=== PATIENT | female | born 1935 | race Caucasian/White ===

== ENCOUNTER 2023-11-26 10:38 | Emergency (ER) | payer MEDICARE, OTHER, SELFPAY ==
[2023-11-26] VITALS (7 sets, daily range): BP systolic 103–128; BP diastolic 49–63
--- NOTE | 2023-11-26 11:10 | ED.GENMED ---
History of Present Illness
General
Chief Complaint: Seizure
Source: records and long-term records
Exam Limitations: altered mental status and dementia
Time Seen by Provider: 11/26/23 10:38
Nursing documentation reviewed up to this point in time: agreed with
Travel History
Have you had any contact with someone who has COVID-19?: Unable to Answer
Do you have any symptoms of coronavirus? Fever > 100 degrees, chills, cough, shortness of breath, sore throat, loss of taste or smell, muscle aches, or headache?: Unable to Answer
History of Present Illness
History of Present Illness:
88-year-old female from local long-term presents with a possible seizure 10-second episode of face fluttering whole body stiffness no history of seizures does have a history of dementia and aspiration apparently has a sacral decubiti
Past History
Past History
ED Past Medical History: GERD, HTN, NIDDM and Psychiatric (dementia)
Social History
Tobacco: Non-smoker
Alcohol: Other
Personal:
Living: long-term
Employment: Retired
Family History
Family History: Other
Review of Systems
Review of Systems
Other source history: transfer record
All Other Systems: Not applicable
Phy Exam
Physical Exam
Physical Exam:
Physical Exam
General: Chronically ill-appearing female
Neck: No jaundice
Heart: Regular
Lungs: Rhonchi
Abdomen: Not tender
Neuro: Minimally responsive
Skin: Fist size decubiti sacral
Psychiatric: Unable to assess
Extremities: no edema.
Course
Orders/Labs/Results
Orders:
Orders
11/26/23 10:54
Electrocardiogram (*1) Stat
Reason for Study: Other
Other Reason for Exam: neuro symptoms
Bedside Glucose- Treatment ONCE
Cardiac Monitoring- Treatment ONCE
EKG- Treatment ONCE
IV Insert/Care/Rem.- Treatment PRN
11/26/23 10:55
CR Chest Portable - 1 View Urgent
Comment:
Reason For Exam: aspiration
Reason Study Needs to be Portable: Patient Unstable
11/26/23 11:13
Complete Blood Count/With Diff Urgent
Comprehensive Metabolic Panel Urgent
Urinalysis Reflex To Culture Urgent
Date Specimen was Collected: 11/26/23
Time Specimen was Collected: 10:59
Urine Microscopic Reflex Cult Urgent
Blood Culture Q30M
LOGAN Source: Blood/Venous
Specimen Description:
Blood Culture Q30M
LOGAN Source: Blood/Venous
Specimen Description:
Urine Culture Urgent
LOGAN Source: U
Specimen Description:
Date Specimen was Collected: 11/26/23
Time Specimen was Collected: 10:59
11/26/23 11:31
Ipratropium/Albuterol Sulfate [Duoneb] 3 ml INH R NOW STA
11/26/23 11:43
0.9% Sodium Chloride 1000 ml [Nss] 1,000 ml IV BOLUS
Abnormal Lab Results
11/26/23 11/26/23
11:11 11:13
WBC 14.0 H 10^3/uL
(4.8-10.8)
Hct 36.6 L %
(37.0-47.0)
RDW 14.7 H %
(11.5-14.5)
Plt Count 413 H 10^3/uL
(130-400)
Abs Immat Gran (auto) 0.1 H 10^3/uL
(0-0.05)
Absolute Neuts (auto) 10.8 H 10^3/uL
(1.4-6.5)
Absolute Monos (auto) 0.7 H 10^3/uL
(0.1-0.6)
Immature Gran % 0.7 H %
(0-0.5)
Neutrophils % 77.0 H %
(42.2-75.2)
Lymphocytes % 15.1 L %
(20.5-51.1)
Sodium 129 L mmol/L
(135-145)
Carbon Dioxide 20 L mmol/L
(22-30)
BUN 29 H mg/dl
(7-17)
Glucose 319 H mg/dl
(70-99)
Alkaline Phosphatase 175 H U/L
(38-126)
Albumin 3.0 L g/dl
(3.5-5.0)
Ur Occult Blood Reflex 1+ A
(Negative)
Urine Urobilinogen 2+ A
(Neg - 1+)
Leukocyte Esterase Rfl Trace A
(Negative)
Urine Bacteria (Reflex) Moderate A
(Negative)
POC Glucose 293 H mg/dl
(70-99)
11/26/23 11:13
11/26/23 11:13
Vital Signs
Initial and Last Documented VS:
Initial Vital Signs
Pulse Resp BP Pulse Ox
94 24 128/63 92
11/26/23 10:49 11/26/23 10:49 11/26/23 10:49 11/26/23 10:49
Last Documented Vital Signs
Temp Pulse Resp BP Pulse Ox
99.1 F 88 14 110/49 97
11/26/23 10:58 11/26/23 13:00 11/26/23 13:00 11/26/23 13:00 11/26/23 13:00
MDM/Problems Addressed
Differential Diagnosis Includes:
Toxic metabolic seizure sepsis UTI aspiration intracerebral hemorrhage stroke
MDM/Problems Addressed:
Possible seizure
Chronic conditions affecting care:
Dementia aspiration
Chronic conditions affecting care: Neurological disorder
Acute Exacerbation and/or Progression of Chronic Illness:
Dementia aspiration
Acute Exacerbation and/or Progression of Chronic Illness: Neurological disorder
*Radiology
Radiology exam reviewed: preliminary read by ED provider
*Pulse Oximetry
Patient hypoxic: yes
*EKG
Interpreted by ED Provider?: Yes
Interpretation: abnormal
Comparison EKG: no comparison EKG present
Heart Rate: 78
Rate: normal
Rhythm: sinus
Ischemia: non-specific ST changes
*Train Crew Member Interpretation
Rate: normal
Interpretation: normal
Heart Rate: 78
Rhythm: sinus
*Critical Care Note
Total Time (30-74mins, 75-104mins- exclusive of procedures): Not Applicable
Update Note
Update Note:
12:07 PM son at bedside, states she recently started on Remeron, he thinks that could be causing her shaking spells, he does not want to have a CAT scan he is okay with fluids nebs chest PT would like her to go back to her facility
1:20 PM chest x-ray and labs reviewed with son patient seems a bit better after some fluids he would like her to not be on Remeron anymore which is not unreasonable he believes she is on an antibiotic already will confirm again he prefers that she
go back to her facility which is reasonable
ED Attending Note
-
Portions of this chart may have been created with voice recognition software.� Occasional wrong word or��sound alike� substitutions may have occurred due to the inherent limitations of voice recognition software.
Discharge Plan
Departure
Patient Disposition: Home (Routine Discharge)
Date of Disposition: 11/26/23
Time of Disposition: 13:23
Patient with high blood pressure during this ER visit?: No
Condition: Good
Discharge Problem:
Dementia
Instructions: Dehydration, Adult ED
Prescriptions:
No Action
donepezil 10 MG tablet
10 mg PO DAILY
magnesium oxide 400 MG tablet
400 mg PO DAILY
acetaminophen 325 MG tablet
650 mg PO Q4HPRN PRN (Reason: mild pain, fever>100)
atorvastatin 20 MG tablet
20 mg PO DAILY
amlodipine 10 MG tablet
10 mg PO DAILY
metoprolol tartrate 25 MG tablet
25 mg PO BID
lzma-vmocahmcf-nsnzyxbw-aldiox [Zeasorb] 71 GM powder
1 applic topical DAILY
memantine 14 MG capsule,sprinkle,ER 24hr
14 mg PO DAILY
polyethylene glycol 3350 17 GRAMS powder in packet
17 grams feeding tube DAILY 0RF
insulin detemir U-100 [Levemir FlexTouch U100 Insulin] 300 UNIT/3 ML insulin pen
15 unit SC HS
famotidine 20 MG tablet
20 mg PO DAILY
insulin aspart U-100 100 UNIT/ML insulin pen
5 unit SQ MEALS
Lactobac 2-Bifido 1-S. therm [High Potency Probiotic] 1 CAP capsule
1 cap PO DAILY 0RF
Referrals:
UNKNOWN - PT DOES,NOT KNOW [Family Provider] -
Activity Restrictions/Additional Instructions:
Stop Remeron
Albuterol every 4-6 hours as needed for cough
Encouraged Kesha to drink plenty of fluids
Interventions
Interventions:
*Risk Screen - Suicide Last Done: 11/26/23 10:54
*General Assessment Last Done: 11/26/23 10:54
*Neglect/Abuse Screening Last Done: 11/26/23 10:54
ED- Fall Risk Assessment Last Done: 11/26/23 10:54
*ED COVID-19 Vaccine History Last Done: 11/26/23 13:08
ED- Cardiac Assessment Last Done: 11/26/23 11:30
ED- Neurological Assessment Last Done: 11/26/23 11:30
ED- Pulmonary Assessment Last Done: 11/26/23 11:30
Discharge Date and Time
Print Language: ICELANDIC
[2023-11-26 11:13] LABS: Glucose - Point of Care 293 mg/dl (70-99)
[2023-11-26 11:30] LABS: % Basophils 0.5 % (0-2); % Eosinophils 1.5 % (0-6); % Immature Granulocytes 0.7 % (0-0.5); % Lymphocytes 15.1 % (20.5-51.1); % Monocytes 5.2 % (1.7-9.3); Absolute Basophils 0.1 10^3/uL (0-0.2); Absolute Eosinophils 0.2 10^3/uL (0-0.7); Absolute Immature Granulocytes 0.1 10^3/uL (0-0.05); Absolute Lymphocytes 2.1 10^3/uL (1.2-3.4); Absolute Monocytes 0.7 10^3/uL (0.1-0.6); Absolute Neutrophils 10.8 10^3/uL (1.4-6.5); Hematocrit 36.6 % (37.0-47.0); Hemoglobin 12.3 g/dL (12.0-16.0); Mean Corp Hgb Conc. 33.6 g/dL (33.0-37.0); Mean Corpuscular Volume 83.4 fL (81.0-99.0); Mean Platelet Volume 10.1 fL (7.4-10.4); Nucleated Red Blood Cells % 0 %; Platelet Count 413 10^3/uL (130-400); Red Blood Cell Count 4.39 10^6/uL (4.20-5.40); Red Cell Dist. Width 14.7 % (11.5-14.5)
[2023-11-26 11:33] LABS: Urine Albumin Trace (Neg - Trace); Urine Bilirubin Negative (Negative); Urine Character Slightly Cloudy (Clear); Urine Color Yellow; Urine Glucose Negative (Negative); Urine Ketone Negative (Negative); Urine Leukocyte Trace (Negative); Urine Nitrite Negative (Negative); Urine Occult Blood 1+ (Negative); Urine Urobilinogen 2+ (Neg - 1+)
[2023-11-26 11:42] LABS: ALT (SGPT) 14 U/L (0-35); AST (SGOT) 22 U/L (14-36); Alkaline Phosphatase 175 U/L (38-126); Blood Urea Nitrogen 29 mg/dl (7-17); Calcium 8.7 mg/dl (8.4-10.2); Carbon Dioxide 20 mmol/L (22-30); Chloride 101 mmol/L (98-107); Glucose 319 mg/dl (70-99); Sodium 129 mmol/L (135-145); Total Bilirubin 0.7 mg/dl (0.2-1.3); Total Protein 6.8 g/dl (6.3-8.2); eGFR 54.53
[2023-11-26 11:59] LABS: Urine Red Blood Cell 0-2 /HPF (0-2); Urine Squamous Cell 0-2 /LPF (Few); Urine White Cell 0-2 /HPF (0-5)
[2023-11-26 12:00] LABS: Urine Bacteria Moderate (Negative)
[2023-11-26] MEDS: NSS 1000 IV (12:13)
[2023-11-26] MEDS: DUONEB 3 ML INH (12:13)
== END 2023-11-26 15:30 | disposition home or self-care (01) ==
LOC: EMR 10:38
PROVIDERS: EMERGENCY PHYSICIAN Emergency Medicine
DX: F03.90 Unspecified dementia, unspecified severity, without behavioral disturbance, psychotic disturbance, mood disturbance, and anxiety (principal)
CPT/HCPCS: 99285; 96360; 94640; 71045; 80053; 81003; 81015; 82962; 85025; 87040; 87086; 93005

== ENCOUNTER 2024-01-05 12:19 | Inpatient (IN) | payer MEDICARE, OTHER, SELFPAY ==
[2024-01-05] VITALS (50 sets, daily range): BP systolic 39–132; BP diastolic 16–89; BMI 23.2
[2024-01-05] MEDS: NEO-SYNEPHRINE 100 MCG IV (09:45)
[2024-01-05] MEDS: AMIDATE 20 MG IV (09:49)
[2024-01-05 09:50] LABS: Glucose - Point of Care > 600 mg/dl (70-99)
[2024-01-05] MEDS: ANECTINE 100 MG IV (09:50)
[2024-01-05] MEDS: NSS 2000 ML IV (09:50)
[2024-01-05] MEDS: SUBLIMAZE 75 MCG IV ×2 (09:55→10:11)
[2024-01-05] MEDS: NEO-SYNEPHRINE 200 MCG IV (09:55)
--- NOTE | 2024-01-05 09:55 | EDRN ---
Fentynal 75 renae and 200 renae Phenylephrine given
--- NOTE | 2024-01-05 09:56 | ED.GENMED ---
History of Present Illness
General
Chief Complaint: Unresponsive
Time Seen by Provider: 01/05/24 09:56
Travel History
Have you had any contact with someone who has COVID-19?: Unable to Answer
Do you have any symptoms of coronavirus? Fever > 100 degrees, chills, cough, shortness of breath, sore throat, loss of taste or smell, muscle aches, or headache?: Unable to Answer
History of Present Illness
History of Present Illness:
HPI: The patient presents in respiratory distress, unresponsive with Tmax of 100.2 earlier and was found to be hypotensive for EMS. Blood sugar was also found to be above 500 and she was given insulin 10 units prior to arrival. She requires
intubation upon arrival. She is a non-historian.
EXAM:
GENERAL: Appears critically ill in severe distress
HEENT: Slightly dry oral mucosa
CARDIOVASCULAR: Tachycardic rate and rhythm
PULMONARY: Severe respiratory distress, breathing is labored, equally coarse breath sounds
ABDOMEN: Soft and nontender with no peritoneal signs
NEUROLOGIC: The patient is nonverbal and does not follow any commands, she does not have response to pain, pupils are 3 mm and sluggish
EXTREMITIES: No obvious deformity to the extremities
PYSCHIATRIC: Nonverbal
TIME OF INITIAL ENCOUNTER: 10 AM
NUMBER AND COMPLEXITY OF PROBLEMS ADDRESSED AT THE ENCOUNTER
� Chronic conditions affecting care: Dementia, high blood pressure, hyperlipidemia, diabetes
� Acute Exacerbation and/or Progression of Chronic Illness: This is an acute problem
� Differential Diagnosis includes: Aspiration pneumonia, sepsis, UTI, bacteremia
AMOUNT AND/OR COMPLEXITY OF DATA TO BE REVIEWED AND ANALYZED
� I performed an independent evaluation of and my interpretation is:
EKG: Sinus tach, nonspecific ST abnormality
CT:
X-rays: Chest x-ray shows some increased density at the bases
Laboratory Studies: White count 15.8, hemoglobin 14.1, ABG: pH 724, pCO2 37, PaO2 133, bicarb 15.9. Glucose remains over 600
Other:
� Review of other/old records: I reviewed the notes from her assisted facility that indicates that she is full code; the patient was admitted here with aspiration pneumonia 2 years ago
� Clinical information was obtained by an independent historian: I spoke to EMS upon arrival I also spoke to the son
� Prescriptions/Medications Considered but not given:
� Further testing considered but not performed:
RISK OF COMPLICATIONS AND/OR MORBIDITY OR MORTALITY OF PATIENT MANAGEMENT
� Social determinants of health affecting care: Resides at [facility]
� Discussion with other providers: Hospitalist for admission
� Escalation of care including admission/observation vs risk of discharge considered: The patient required intubation upon arrival. She is critically ill. EMS indicated that she was full code and [facility] notes indicated
that she was full code. After I spoke to son, he still wants her to be treated aggressively but does not want her to be resuscitated if she were to code. Glucose remains elevated, I have ordered insulin drip.
Past History
Past History
ED Past Medical History: GERD, HTN, NIDDM and Psychiatric (dementia)
Social History
Tobacco: Non-smoker
Alcohol: Other
Personal:
Living: [facility]
Employment: Retired
Family History
Family History: Other
Phy Exam
Physical Exam
Physical Exam:
See HPI
Course
Orders/Labs/Results
Orders:
Orders
01/05/24 09:43
Etomidate [Amidate] 40 mg .ROUTE .STK-MED ONE
Phenylephrine HCl/0.9% NaCl [Grant-Synephrine] 1,000 mcg .ROUTE .STK-MED ONE
Succinylcholine Chloride [Succinylcholine] 200 mg .ROUTE .STK-MED ONE
01/05/24 09:45
Phenylephrine HCl/0.9% NaCl [Grant-Synephrine] 100 mcg IV ONCE ONE
01/05/24 09:50
Fentanyl Citrate/Pf [Sublimaze] 75 mcg IV NOW STA
01/05/24 09:51
Fentanyl Citrate/Pf [Sublimaze] 100 mcg .ROUTE .STK-MED ONE
NORepinephrine 4 MG/250 ML [Levophed] 4 mg in 250 ml .ROUTE .STK-MED
01/05/24 09:55
Phenylephrine HCl/0.9% NaCl [Grant-Synephrine] 200 mcg IV ONCE ONE
01/05/24 09:56
0.9% Sodium Chloride 1000 ml [Nss] 2,000 ml IV NOW STA
CXR Port [CR Chest Portable - 1 View] Urgent
Comment:
Reason For Exam: post intubation
Reason Study Needs to be Portable: Patient Unstable
Pulse Ox/cont/shift [RESP] Urgent
Quantity: 1
01/05/24 09:57
Electrocardiogram (*1) Urgent
Reason for Study: Other
Other Reason for Exam: sepsis
EKG- Treatment ONCE
Complete Blood Count/With Diff Urgent
Manual Differential Urgent
Blood Culture Q30M
LOGAN Source: Blood/Venous
Specimen Description:
01/05/24 09:58
Etomidate [Amidate 20 mg] 20 mg IV NOW STA
Succinylcholine Chloride [Anectine] 100 mg IV NOW STA
01/05/24 10:00
Lactic Acid Q4H
Comment: CANCEL 2nd LACTIC ACID IF 1st LACTIC ACID IS LESS THAN 2
01/05/24 10:09
FentaNYL 1,000 MCG/100 ML [Sublimaze] 1,000 mcg in 100 ml .ROUTE .STK-MED
Fentanyl Citrate/Pf [Sublimaze] 100 mcg .ROUTE .STK-MED ONE
Propofol 1,000,000 Mcg/100 ml [Diprivan] 1,000,000 mcg in 100 ml .ROUTE .STK-MED
01/05/24 10:13
Arterial Blood Gas Urgent
%Oxygen/Room Air: 100
01/05/24 10:15
Fentanyl Citrate/Pf [Sublimaze] 75 mcg IV NOW STA
01/05/24 10:30
NORepinephrine 4 MG/250 ML [Levophed] 4 mg in 250 ml IV PER PROTOCOL
01/05/24 10:41
Cefepime HCl [Maxipime] 1,000 mg IV NOW STA
01/05/24 11:00
FentaNYL 1,000 MCG/100 ML [Sublimaze] 1,000 mcg in 100 ml IV PER PROTOCOL
Fentanyl Citrate/Pf [Sublimaze] 50 mcg IV [id number] PRN
Propofol 1,000,000 Mcg/100 ml [Diprivan] 1,000,000 mcg in 100 ml IV PER PROTOCOL
01/05/24 11:04
Vancomycin [Vancocin] 1,500 mg 0.9% Sodium Chloride [Nss] 20 ml 0.9% Sodium Chloride 250 ml [Nss] 250 ml IV NOW
01/05/24 11:05
Comprehensive Metabolic Panel Urgent
Serum Osmolality Urgent
Urinalysis Reflex To Culture Urgent
Date Specimen was Collected: 01/05/24
Time Specimen was Collected: 11:03
Comment: adam
Urine Microscopic Reflex Cult Urgent
Blood Culture Q30M
LOGAN Source: Blood/Venous
Specimen Description:
Influenza A+B Rapid Molecular Urgent
LOGAN Source: Nasal Swab
Specimen Description:
Urine Culture Urgent
LOGAN Source: U
Specimen Description:
Date Specimen was Collected: 01/05/24
Time Specimen was Collected: 11:03
01/05/24 11:29
Sterile Water [Sterile Water For Injection] 10 ml .ROUTE .STK-MED ONE
01/05/24 11:30
Vasopressin 20 Units/100 ml [Pitressin] 20 units in 100 ml IV PER PROTOCOL
01/05/24 11:45
Acetaminophen [Tylenol/Feverall] 650 mg .ROUTE .STK-MED ONE
01/05/24 11:46
Acetaminophen [Tylenol/Feverall] 650 mg RECTAL NOW STA
Acetaminophen [Tylenol/Feverall] 650 mg RECTAL NOW STA
01/05/24 11:53
BMP [Basic Metabolic Panel] Stat
01/05/24 12:09
Admit/Transfer Patient As Directed
Co-Sign Provider:
Level of Care: Inpatient admission
Assign to:: ICU
Physician / Group: Dr Bell
Diagnosis: Septic shock
Reason for Hospitalization: pte p/w shock, septic, intubated in the ED.
Expected length of stay greater than two midnights?: Yes
ELOS- Estimated Length of Stay in days: 4
I certify the patient meets the requirements for IP care: Yes
01/05/24 12:10
Code Status As Directed
Resuscitation Status: Do not resuscitate
Limited DNR: -No CPR
Reached after discussion with pt or family/Healthcare POA: Yes
DNR Bracelet Application ONCE
01/05/24 12:13
Consult Employment Counselor [Employment Counselor Consult] Stat
Consulting Provider: Papi Stewart
Was physician already notified: Yes
Reason for consult: Septic shock and resp failure
01/05/24 14:00
Lactic Acid Q4H
Comment: CANCEL 2nd LACTIC ACID IF 1st LACTIC ACID IS LESS THAN 2
Piperacillin/Tazo 3.375 Gram [Zosyn] 3.375 gram in 50 ml IV Q6H
VANCOMYCIN Pharmacy to Dose [VANCOCIN Pharmacy to Dose] 1 each Pharmacy To Prepare [Call Pharmacy To Prepare] 0 ml IV PER PROTOCOL
01/06/24 06:00
CBC/With Diff [Complete Blood Count/With Diff] IN AM
CMP [Comprehensive Metabolic Panel] IN AM
Abnormal Lab Results
01/05/24 01/05/24 01/05/24
09:47 09:57 10:00
WBC 15.8 H 10^3/uL
(4.8-10.8)
Hct 48.9 H %
(37.0-47.0)
MCHC 28.8 L g/dL
(33.0-37.0)
RDW 17.2 H %
(11.5-14.5)
MPV 14.2 H fL
(7.4-10.4)
Abs Neuts (Manual) 12.7 H 10^3/uL
(1.4-6.5)
Band Neutrophils 27 H %
(0-3)
Lymphocytes (Manual) 14 L %
(20-51)
pH
pCO2
pO2
HCO3
ABG O2 Sat (Measured)
Sodium
Chloride
Carbon Dioxide
BUN
Creatinine
Glucose
Serum Osmolality
Lactic Acid 12.0 H* mmol/L
(0.7-2.0)
AST
ALT
Alkaline Phosphatase
Total Protein
Albumin
Urine Ketones
Ur Occult Blood Reflex
Urine Bilirubin
Leukocyte Esterase Rfl
Urine RBC
Urine WBC (Reflex)
Urine Bacteria (Reflex)
Urine Glucose
Urine Albumin (Reflex)
POC Glucose > 600 H* mg/dl
(70-99)
01/05/24 01/05/24 01/05/24
10:13 11:05 11:50
WBC
Hct
MCHC
RDW
MPV
Abs Neuts (Manual)
Band Neutrophils
Lymphocytes (Manual)
pH 7.24 L
(7.35-7.45)
pCO2 37 H mmHg
(32-35)
pO2 133 H mmHg
(83-108)
HCO3 15.9 L* mmol/L
(21-28)
ABG O2 Sat (Measured) 99.7 H %
(94-98)
Sodium 158 H mmol/L
(135-145)
Chloride 124 H mmol/L
(98-107)
Carbon Dioxide 21 L mmol/L
(22-30)
BUN 87 H mg/dl
(7-17)
Creatinine 1.2 H mg/dL
(0.6-1.0)
Glucose 621 H* mg/dl
(70-99)
Serum Osmolality 397 H mOsm/kg
(275-300)
Lactic Acid
AST 41 H U/L
(14-36)
ALT 36 H U/L
(0-35)
Alkaline Phosphatase 138 H U/L
(38-126)
Total Protein 6.0 L g/dl
(6.3-8.2)
Albumin 2.5 L g/dl
(3.5-5.0)
Urine Ketones Trace A
(Negative)
Ur Occult Blood Reflex 1+ A
(Negative)
Urine Bilirubin 1+ A
(Negative)
Leukocyte Esterase Rfl 2+ A
(Negative)
Urine RBC 7-10 A /HPF
(0-2)
Urine WBC (Reflex) 50-60 A /HPF
(0-5)
Urine Bacteria (Reflex) Few A
(Negative)
Urine Glucose 3+ A
(Negative)
Urine Albumin (Reflex) 1+ A
(Neg - Trace)
POC Glucose > 600 H* mg/dl
(70-99)
01/05/24 09:57
01/05/24 11:53
Vital Signs
Initial and Last Documented VS:
Initial Vital Signs
Pulse BP
100 74/51
01/05/24 09:45 01/05/24 09:45
Last Documented Vital Signs
Temp Pulse Resp BP Pulse Ox
102.7 F H 128 19 94/23 94
01/05/24 12:03 01/05/24 12:20 01/05/24 12:20 01/05/24 12:20 01/05/24 12:20
Procedures
Intubations
Procedure completed by: Ia, Dr. Cohn
Method of Intubation: glidescope
Tube size (cm): 7.5
Placement confirmed by: CXR
Breath sounds after intubation: equal
Intubation complications: no complications
*Pulse Oximetry
Patient hypoxic: yes
*Critical Care Note
Total Time (30-74mins, 75-104mins- exclusive of procedures): 60 minutes
comment:
The patient is in septic shock. She was given 30 mL/kg fluid bolus and 2 pressors. I discussed condition with family/son at bedside.
ED Attending Note
-
Portions of this chart may have been created with voice recognition software.� Occasional wrong word or��sound alike� substitutions may have occurred due to the inherent limitations of voice recognition software.
Discharge Plan
Departure
Patient Disposition: Admit
Date of Disposition: 01/05/24
Time of Disposition: 11:48
Presentation/result/management discussed w/ accepting MD/DO: Hospitalist
Discharge Problem:
Septic shock
Interventions
Interventions:
*Risk Screen - Suicide Last Done: 01/05/24 11:56
*General Assessment Last Done: 01/05/24 09:45
*Neglect/Abuse Screening Last Done: 01/05/24 11:56
ED- Neurological Assessment Last Done: 01/05/24 10:39
[2024-01-05] MEDS: SUBLIMAZE 100 IV ×2 (10:19→18:08)
[2024-01-05 10:22] LABS: B.E. -10.7 mmol/L; O2 Saturation % 99.7 % (94-98); PCO2 37 mmHg (32-35); PO2 133 mmHg (83-108); pH 7.24 (7.35-7.45)
[2024-01-05 10:22] LABS: Hematocrit 48.9 % (37.0-47.0); Hemoglobin 14.1 g/dL (12.0-16.0); Mean Corp Hgb Conc. 28.8 g/dL (33.0-37.0); Mean Corpuscular Hgb 28.5 pg (27.0-31.0); Mean Corpuscular Volume 98.8 fL (81.0-99.0); Mean Platelet Volume 14.2 fL (7.4-10.4); Platelet Count 281 10^3/uL (130-400); Red Blood Cell Count 4.95 10^6/uL (4.20-5.40); Red Cell Dist. Width 17.2 % (11.5-14.5); White Blood Cell Count 15.8 10^3/uL (4.8-10.8)
[2024-01-05] MEDS: LEVOPHED 250 IV ×6 (10:23→23:40)
[2024-01-05 10:26] LABS: HCO3 15.9 mmol/L (21-28)
[2024-01-05] MEDS: SUBLIMAZE 50 MCG IV (10:35)
[2024-01-05] MEDS: DIPRIVAN 100 IV (10:51)
[2024-01-05 11:00] LABS: Absolute Neutrophils -Man Diff 12.7 10^3/uL (1.4-6.5); Anisocytosis 1+; Band Neutrophils 27 % (0-3); Lymphocytes 14 % (20-51); Metamyelocytes 1 % (-); Monocytes 4 % (2-9); Normal RBC Morphology No; Platelets Checked Yes; Segmented Neutrophils 54 % (42-75)
[2024-01-05 11:01] LABS: Hypochromasia 1+; Polychromasia 1+; Target Cells 1+; Total Cells Counted 100
[2024-01-05 11:24] LABS: Urine Albumin 1+ (Neg - Trace); Urine Bilirubin 1+ (Negative); Urine Character Very Cloudy (Clear); Urine Color Yellow; Urine Glucose 3+ (Negative); Urine Ketone Trace (Negative); Urine Leukocyte 2+ (Negative); Urine Nitrite Negative (Negative); Urine Occult Blood 1+ (Negative); Urine Urobilinogen 1+ (Neg - 1+)
[2024-01-05] MEDS: MAXIPIME 1000 MG IV (11:30)
[2024-01-05 11:33] LABS: Urine Bacteria Few (Negative)
[2024-01-05 11:34] LABS: Urine White Cell 50-60 /HPF (0-5)
[2024-01-05] MEDS: PITRESSIN 100 IV ×2 (11:35→21:23)
[2024-01-05 11:37] LABS: Osmolality Serum 397 mOsm/kg (275-300)
[2024-01-05 11:38] LABS: AST (SGOT) 41 U/L (14-36); Albumin 2.5 g/dl (3.5-5.0); Alkaline Phosphatase 138 U/L (38-126); Blood Urea Nitrogen 87 mg/dl (7-17); Calcium 8.8 mg/dl (8.4-10.2); Carbon Dioxide 21 mmol/L (22-30); Chloride 124 mmol/L (98-107); Potassium 3.7 mmol/L (3.5-5.1); Sodium 158 mmol/L (135-145); Total Bilirubin 1.1 mg/dl (0.2-1.3); eGFR 43.81
[2024-01-05] MEDS: VANCOCIN 300 ML IV (11:43)
[2024-01-05] MEDS: VANCOCIN 300 MG IV (11:43)
[2024-01-05] MEDS: TYLENOL/FEVERALL 650 MG RECTAL (11:46)
[2024-01-05 11:51] LABS: Glucose - Point of Care > 600 mg/dl (70-99)
[2024-01-05 12:02] LABS: ALT (SGPT) 36 U/L (0-35); Glucose 621 mg/dl (70-99)
--- NOTE | 2024-01-05 12:13 | HPS.HSE ---
Family Physician
-
Family Physician: Franklin Pinon
Chief Complaint
-
Unresponsive
History of Present Illness
Patient 88 years old female presented with hypertension, hyperlipidemia, diabetes mellitus type 2, Dementia is Alzheimer's type, sacral decubital ulcer, dysphagia status post PEG, GERD, CKD, [facility] resident, presented to the hospital with
unresponsiveness and hypoxia. Most of the information gathered from ER staff, family at bedside, and medical records since patient is intubated in the ED and unable to give me accurate information at the moment. She was noted to be unresponsive at
the [facility] facility and hypoxic as well as hyperglycemic. She was also noticed to be hypotensive and febrile. Patient's son tells me that she is noncommunicative at baseline but worsening mentation today and she had a PEG tube for
dysphagia and also her sacral decubitus ulcer has been foul-smelling but she had debridement at [facility] about 40 days ago and at that time had received antibiotics. By the time she got to the hospital she was intubated in the ED.
Temp 102.7 Fahrenheit. She is also tachycardic and tachypneic. She had blood sugars over 600, given 10 units of insulin prior to arrival, given septic IV fluid in the ER and placed on pressors and maxed out on 2 pressors by the time of my
evaluation, lactic acid 12, white blood cell count 15.8, sodium 158, creatinine 1.2
Medical History
Past Medical History
Past Medical History: Reports Other (Hypertension, diabetes mellitus type 2, dementia is Alzheimer's type, dysphagia status post PEG, GERD, CKD, hyperlipidemia, sacral decubitus ulcer.)
Past Surgical History: Reports None
Social History
Unable to obtain full social history at this time due to: Dementia
Tobacco: Non-smoker
Alcohol: None
Drug: None
Family History
Family History: Not pertinent
Allergies / Home Medications
Allergies reflects when Allergies were last updated in [email or web address].
Home Medications with original date entered in [email or web address]
Allergy/Medication List:
Allergies
Allergy/AdvReac Type Severity Reaction Status Date / Time
No Known Allergies Allergy Unverified 10/03/21 09:05
Home Medications
donepezil 10 mg tablet 10 mg PO DAILY DEMENTIA 10/14/17
acetaminophen 325 mg tablet 650 mg PO Q4HPRN PRN mild pain, fever>100 11/28/19
atorvastatin 20 mg tablet 20 mg PO HS High cholesterol 11/28/19
memantine 14 mg capsule sprinkle,extended release 24hr 14 mg PO DAILY MEMORY 11/28/19
metoprolol tartrate 25 mg tablet 25 mg PO BID Blood pressure 11/28/19
famotidine 20 mg tablet 20 mg PO DAILY Gastrointestinal issue 10/03/21
insulin aspart U-100 100 unit/mL (3 mL) subcutaneous pen 5 unit SQ MEALS Diabetes 10/03/21
bisacodyl 10 mg rectal suppository (Dulcolax (bisacodyl)) 10 mg [place] DAILYPRN PRN if no bm aftr mom 01/05/24
insulin glargine 100 unit/mL (3 mL) subcutaneous pen (Basaglar KwikPen U-100 Insulin) 17 unit SC HS 01/05/24
ipratropium 0.5 mg-albuterol 3 mg (2.5 mg base)/3 mL nebulization soln 3 ml inhalation R Q6HPRN PRN sob 01/05/24
magnesium hydroxide 400 mg/5 mL oral suspension (Milk of Magnesia) 2,400 mg PO [id number] PRN if no bm on 3rd day 01/05/24
Review of Systems
-
Unable to obtain full review of systems at this time due to: Patient Intubation
Physical Exam
Vital Signs
Vital Signs
Temp Pulse Resp BP Pulse Ox
102.7 F H 130 24 97/66 96
01/05/24 12:03 01/05/24 12:03 01/05/24 12:03 01/05/24 12:03 01/05/24 12:03
Physical exam:
General: Acutely ill
HEENT: ETT in place. Normocephalic, Atraumatic and Dry Mucous Membranes
Respiratory: Clear to Auscultation; Negative Wheezes, Rales or Rhonchi
Cardiac: Regular Rhythm, tachycardic, and S1/S2
GI: Soft, Nontender and Nondistended. PEG in place no erythema surrounding tube.
Skin: Sacral wound unstageable and foul-smelling and positive drainage when examined. Mild erythema surrounding the area.
Neuro: Sedated on the vent at the moment. Pupils minimally reactive to light.
Physical Exam
General: Other
Laboratory Results
-
01/05/24 09:57
Laboratory Results
pH 7.24 (7.35-7.45) L 01/05/24 10:13
pCO2 37 mmHg (32-35) H 01/05/24 10:13
pO2 133 mmHg (83-108) H 01/05/24 10:13
HCO3 15.9 mmol/L (21-28) L* 01/05/24 10:13
Lactic Acid 12.0 mmol/L (0.7-2.0) H* 01/05/24 10:00
Total Bilirubin 1.1 mg/dl (0.2-1.3) 01/05/24 11:05
AST 41 U/L (14-36) H 01/05/24 11:05
ALT 36 U/L (0-35) H 01/05/24 11:05
Alkaline Phosphatase 138 U/L (38-126) H 01/05/24 11:05
Impression/Plan
-
IMPRESSION:
Patient 88 years old female with multiple comorbidities presented to the hospital in shock and respiratory failure. Patient was intubated in the ED and placed on mechanical ventilation. Patient has been placed on 2 pressors and has been maxed out
and still persistently hypotensive. Patient is critically ill.
PLAN:
Septic shock:
Unclear source but likely UTI and aspiration pneumonia. Can not rule out infected sacral decubitus ulcer but reevaluate. Rule out Bacteremia.
Blood cultures
Urine culture
Seen and reviewed chest x-ray and, in my opinion, increased opacity in the left lower lobe but radiology described no acute chest pathology.
Obtain wound cultures from sacral wound
Give another bolus of normal saline.
IV antibiotics, change to IV Zosyn and vancomycin
Continue pressors, Levophed and vasopressin
Aggressive IV fluid with normal saline since hemodynamic supersedes other multiple issues and dyselectrolytemic state going on and then transition to more hypotonic.
Refinisher critical care consulted stat (communicated with inspector machine parts today)
Will need central line or PICC
Will need also arterial line
Acute hypoxic respiratory failure:
Intubated in the ED
Continue mechanical ventilation, currently on assist-control.
Continue sedation with propofol and fentanyl
Seen and reviewed ABG
Repeat ABG later down the road
Toxic metabolic encephalopathy:
Related to sepsis and metabolic derangements
Reeval after sedation off
Hyperosmolar hyperglycemic state (no DKA)/diabetes mellitus type 2:
Insulin drip for HHS/DKA and later on when BS improves may transition to long-acting and short acting insulin.
Check blood sugars every 1 hour while critically ill.
Adjust medications accordingly
IV fluid
Acute kidney injury:
IV fluids
Monitor urine output
Avoid nephrotoxic
Monitor renal function
Sacral stage IV to unstageable decubitus ulcer stage I left heel ulcer:
Wound care consult
Wound culture
Dysphagia:
Keep n.p.o.
No use of PEG tube at the moment.
Hypernatremia:
Likely dehydration and osmotic diuresis
IV fluids, relative hypotonic to her tonicity.
Monitor sodium closely and adjust as necessary
Hypertension:
Hold all antihypertensives for now.
Reevaluate after she is out of shock.
Hyperlipidemia:
Hold statins for now.
Dementia, Alzheimer's:
Reevaluate mental status and behavior after sedation off
DVT prophylaxis:
Heparin SQ
CODE STATUS:
DNR but okay with intubation and aggressive medical management without escalation or procedures/interventions/surgeries. Discussed with son at bedside. Poor prognosis overall and I expressed my assessment of prognosis to family and they would like
to see how she does in her early hospitalization and reevaluate after that.
Total Critical Care Time 65 minutes. I was immediately available to the patient and staff. I personally examined, reviewed labs, diagnostic images/reports, interpretations, treatment plans, discussed patient care with other providers and family
or caregivers (if patient is unable to make decisions), entered orders as appropriate and documented the medical record.
[2024-01-05] MEDS: NSS 1000 IV (12:29)
--- NOTE | 2024-01-05 12:30 | PTCARENOTE ---
arrived from ED via stretcher, settled in room, pressors, vanco, fluids, fentanyl infusing. ETT to vent. CHG bath, sacral wound, wet to dry lightly packed. unresponsive. stiff. rare myoclonic twitches noted.
--- NOTE | 2024-01-05 13:00 | PHA.VAN.IN ---
Assessment
- Assessment
Renal Function: Appears elevated from baseline (SCR 1.2 vs ~0.8-1)
Concomitant Antimicrobials: piperacillin/tazobactam
Plan
- Plan
Initial / Loading Dose: Vanc 1500mg - 01/04 11:43
Maintenance Regimen: dosing by level
Monitoring: random 01/05 0600
MRSA Screen: Ordered per protocol
Pharmacokinetics Vancomycin I
- -
Patient Age: 88
Patient Sex: Female
Vancomycin Day #: 1
Indication: Pulmonary/Respiratory
Requesting Provider: Dr. Bell
Pertinent Antimicrobial Allergies:
NKDA
Height / Weight:
Actual Weight 65.3 kg
- Vital Signs / Lab Results
Temp Pulse Resp BP Pulse Ox
102.7 F H 128 18 79/67 97
01/05/24 12:03 01/05/24 12:30 01/05/24 12:30 01/05/24 12:25 01/05/24 12:53
Lab Results - Hematology
01/05/24
09:57
WBC 15.8 H
Band Neutrophils 27 H
Lab Results - Chemistry
01/05/24 01/05/24 01/05/24
09:57 11:05 11:53
BUN Cancelled 87 H Cancelled
Creatinine Cancelled 1.2 H Cancelled
Estimated Creat Clear Cancelled Cancelled
Albumin Cancelled 2.5 L
01/05/24
10:00
Lactic Acid 12.0 H*
Lab Results - Urine
01/05/24
11:05
Urine Nitrite (Reflex) Negative
Leukocyte Esterase Rfl 2+ A
Urine WBC (Reflex) 50-60 A
Ur Squamous Epith Cells 11-15
Urine Bacteria (Reflex) Few A
Microbiology Results
01/05/24 11:05 Influenza Types A & B (MIGUEL) - Final
Nasal Swab Negative for Influenza A & B, NAAT
Negative results must be combined with clinical observations
and patient history.
Nucleic Acid Amplification test (NAAT)performed on the
[employer] platform.
[2024-01-05] MEDS: NOVOLIN R INSULIN INFUSION 100 IV (13:40)
[2024-01-05] MEDS: 0.45% NACL with KCL 20 MEQ 1000 IV (13:42)
--- NOTE | 2024-01-05 13:45 | PTCARENOTE ---
insulin gtt infusing as earlier order, based on last glucose 621 from earlier chemistry. IV fluids, pressors remain, son bedside, visiting with pastoral care. ETT to vent, settings noted on 100%, pulse ox difficult pleth but mid 90s when picking up.
[2024-01-05] MEDS: NEO-SYNEPHRINE 250 IV ×2 (14:26→22:32)
--- NOTE | 2024-01-05 14:46 | PTCARENOTE ---
third pressor added. anesthesia here to start arterial line. see VS. cooling blanket called for, to be placed for T 103.2 core.
--- NOTE | 2024-01-05 14:57 | WOUNDNOTE ---
WOC RN note: Unable to turn and see patient's sacral ulcer d/t hemodynamically unstable. RN Nicole and Skylar described the wound as a large deep necrotic stage 4 pressure injury. Will request Dakins' packing bid and prn drainage to begin if/when
stable enough to be safely turned. Patient is on a [facility] Max air bed. Will follow up on Monday if unable to see wound today.
--- NOTE | 2024-01-05 15:08 | W.PN.ANS.LIN ---
Anesthesia IV & A-Line Note
- IV/Arterial Line
Right Radial Arrow 20 (10/08)
IV Line Comments: Uneventful Procedure
A-Line Comments: Sterile technique as per standard protocol, Ultrasound guided insertion, Biopatch applied
A-line Insertion Start Time: 15:00
A-line Insertion Stop Time: 15:08
[2024-01-05 15:29] LABS: PT 18.9 Sec (11.4-14.6)
--- NOTE | 2024-01-05 15:29 | CON.INTV ---
Consultation
Consultation Request
Date/Time Consultation Requested: 01/05/2024
Date/Time Consultation Performed: 01/05/2024
Requesting Provider: Dr. Bell
Performing Provider: Dr. Papi Collins
Reason for Consultation: Septic shock/hypercapnic respiratory failure requiring intubation
Medical History
-
History of Present Illness:
88-year-old woman who is a [facility] resident, has advanced dementia, stage IV decubitus ulcer, bedbound, noncommunicative, PEG tube in place, sent from [facility] with respiratory distress and fevers. She was also found to be significantly
hyperglycemic and hyponatremic.
At baseline is noncommunicative. Patient was intubated in the emergency room upon arrival.
Fluid resuscitation was started. Patient remained hypotensive.
Vasopressor started.
The son requested no CPR but he would want everything else.
Patient is unable to provide any history. Records reviewed.
During my evaluation in the intensive care unit, patient unresponsive on mechanical ventilation. She is tachypneic. Overbreathing the ventilator.
Patient has a very large sacral decubitus ulcer that is foul-smelling.
The son states that this has been debrided at [facility], he she received antibiotics about 40 days ago.
Past Medical History
Past Medical History: Other (See assessment and plan section)
Social History
Tobacco: Non-smoker
Alcohol: None
Living: [facility]
Family History
Family History: Unable to Obtain
Allergies / Home Medications
Allergies
Allergy/AdvReac Type Severity Reaction Status Date / Time
No Known Allergies Allergy Unverified 10/03/21 09:05
Home Medications
�Medication �Instructions �Recorded �Confirmed �Last Taken �Type
donepezil 10 mg tablet 10 mg PO DAILY DEMENTIA 10/14/17 01/05/24 Unknown History
acetaminophen 325 mg tablet 650 mg PO Q4HPRN PRN mild pain, 11/28/19 01/05/24 Unknown History
fever>100
atorvastatin 20 mg tablet 20 mg PO HS High cholesterol 11/28/19 01/05/24 Unknown History
memantine 14 mg capsule 14 mg PO DAILY MEMORY 11/28/19 01/05/24 Unknown History
sprinkle,extended release 24hr
metoprolol tartrate 25 mg tablet 25 mg PO BID Blood pressure 11/28/19 01/05/24 Unknown History
famotidine 20 mg tablet 20 mg PO DAILY Gastrointestinal 10/03/21 01/05/24 Unknown History
issue
insulin aspart U-100 100 unit/mL 5 unit SQ MEALS Diabetes 10/03/21 01/05/24 Unknown History
(3 mL) subcutaneous pen
bisacodyl 10 mg rectal suppository 10 mg [place] DAILYPRN PRN if no bm 01/05/24 01/05/24 Unknown History
(Dulcolax (bisacodyl)) aftr mom
insulin glargine 100 unit/mL (3 17 unit SC HS 01/05/24 01/05/24 Unknown History
mL) subcutaneous pen (Basaglar
KwikPen U-100 Insulin)
ipratropium 0.5 mg-albuterol 3 mg 3 ml inhalation R Q6HPRN PRN sob 01/05/24 01/05/24 Unknown History
(2.5 mg base)/3 mL nebulization
soln
magnesium hydroxide 400 mg/5 mL 2,400 mg PO [id number] PRN if no bm 01/05/24 01/05/24 Unknown History
oral suspension (Milk of Magnesia) on 3rd day
Review of Systems
-
Unable to Obtain full review of systems at this time due to: Dementia and Patient Intubation
Vitals / Labs / Diagnostic Testing
Vital Signs
Temp Pulse Resp BP Pulse Ox
103.6 F H 121 25 59/48 97
01/05/24 15:23 01/05/24 14:03 01/05/24 14:03 01/05/24 14:03 01/05/24 13:45
Lab Data
01/05/24 09:57
Laboratory Results
01/05/24
10:13
pH 7.24 L
pCO2 37 H
pO2 133 H
HCO3 15.9 L*
O2 Delivery Level
Microbiology
01/05/24 11:05 Nasal Swab Influenza Types A & B (MIGUEL) - Final
Negative for Influenza A & B, NAAT
Negative results must be combined with clinical observations
and patient history.
Nucleic Acid Amplification test (NAAT)performed on the
[employer] platform.
Diagnostic Testing:
Physical Exam
-
HEENT: Normocephalic
Cardiovascular: S1/S2
Respiratory: Clear
GI: Soft, Non Distended and Other (PEG tube in place)
Neurology: Other (Patient is rigid in all extremities. Bedbound status.) and Other (Sedated/noncommunicative.)
Skin: Other (Call extremities)
General: Other (Tachypneic.)
Assessment
-
88-year-old woman with advanced dementia, noncommunicative, type 2 diabetes, [facility] from the [facility] for hypotension. Patient emergently intubated in the emergency room due to nonresponsive. At baseline patient is noncommunicative, she has a
PEG tube in place. The son wanted intubation but no CPR. He would like to treat her medically.
Despite fluid resuscitation patient required vasopressors. Transferred to the critical care unit for further care.
Septic shock
Multiple sources possible including: Urinary tract infection/sacral decubitus ulcer/based on chest x-ray cannot rule out aspiration.
Abnormal urinalysis
Chest x-ray: To my view positive left lower lobe infiltrate.
Acute hypercapnic respiratory failure requiring intubation 01/05/2024
ABG 7.20
Acute kidney injury/metabolic acidosis
Increased lactic acid to 12
Hyperglycemia
Hypernatremia
-
Conditions present prior admission:
Type 2 diabetes
Advanced dementia
Noncommunicative/bedbound
PEG tube in place
Sacral decubitus ulcer stage IV-family states that it was debrided about a month ago at [facility] status post antibiotics
-
Assessment and plan:
Patient is critically ill on multiple vasopressors, intubated on mechanical ventilation.
-
Septic shock multiple sources possible
Urine culture and blood culture sent-UTI suspected
Infection stemming from stage IV sacral decubitus ulcer with possibility
Cannot rule out aspiration pneumonitis
Broad-spectrum antibiotics
Follow cultures
-
Mechanical ventilation settings reviewed
Continue assist-control mechanical ventilation
Peak pressure under 30
Repeat ABG later
Sedation with propofol and fentanyl
Will try to keep comfortable.
Target for RASS score 0/-1
-
Multiple vasopressors norepinephrine/vasopressin/Grant-Synephrine added as ordered vasopressors are maxed out
Arterial line will be placed
Lactic acid significantly elevated will trended
Central line will be placed
-
Target mean arterial blood pressure 65 mmHg
Follow renal function and urinary output
-
Hyperglycemia blood sugar over 600
Hyponatremia likely due to dehydration and osmotic diuresis
Insulin drip
Q. hourly Accu-Cheks until improved, target blood sugars 140-180.
Aggressive IV fluid resuscitation
-
DVT prophylaxis SCDs-heparin subcu
Protonix for GI prophylaxis while intubated
-
N.p.o. for now
Head of bed elevation
PEG tube in place per
-
Discussed with son at the bedside, I also discussed with his who apparently is a doctor. Expressed poor prognostic indicators. Recommended to focus on comfort.
They would like to continue with medical management.
No CPR, no dialysis, no aggressive surgeries will be offered at this point.
-
Discussed with primary team, nursing, respiratory therapist.
-
Critical care statement: A total of 62 minutes of critical care time was provided for this patient today. This includes management of unstable vital signs, evaluation of the patient at bedside, reviewing the patient's pertinent medical records
including ventilator settings, arterial blood gases, radiographs, microbiology, laboratory evaluations and discussion with primary team, critical care nursing, and respiratory therapy.
[2024-01-05 15:30] LABS: APTT 30.3 Sec (23.4-35.0)
[2024-01-05] MEDS: ZOSYN 50 IV ×2 (15:30→22:09)
--- NOTE | 2024-01-05 15:30 | WOUNDNOTE ---
SACRUM (with photo flash)
--- NOTE | 2024-01-05 15:30 | WOUNDNOTE ---
[facility] RN note: Patient admitted with septic shock. Patient admitted from [facility]. Son present who is aware of patient's deep stage 4 sacral pressure injury. She was at [facility] and had surgical debridement in recent past.
See H&P for complete history.
PMH: NIDDM, dementia, ORIF R hip 10/2017, Peg tube.
Wound Location and type/assessment: Patient admitted with: large deep stage 4 sacral pressure injury to bone, pink with yellow/mcbride necrotic tissue. Large amount of drainage. Mild odor. Surrounding skin with large area of dull red skin, skin edges
macerated. L heel red stage 1 pressure injury. MASD breast folds, abdominal folds.
Appetite: NPO.
Pressure redistribution devices in place: [employer] Max air bed. Pillow off loading heels.
Plan: Patient turned with help from CHARLES Rivera and then CHARLES Moss. Sacral packing changed. Wound culture taken as requested by CHARLES Rivera. Heel elevation maintained. Spoke with patient's son who seems realistic that her sacral ulcer will probably
never heal. Mentioned to son that patient is at risk for additional or worsening of pressure injury despite preventative measures in place d/t medial condition. Son confirmed patient has an air mattress at [facility].
Updated and confirmed orders with Dr. Bell and discussed with CHARLES Rivera.
Care plan to be updated and will follow as needed.
--- NOTE | 2024-01-05 15:36 | PTCARENOTE ---
cooling blanket placed, T 103.6, WOC here to eval wound and obtain cultures. art line zero and lucho, higher than cuff at times, using art line for VS. Vascular access here to eval for PICC. Son remains bedside, updated. Labs sent, pending results.
[2024-01-05 15:41] LABS: Blood Urea Nitrogen 82 mg/dl (7-17); Calcium 8.1 mg/dl (8.4-10.2); Carbon Dioxide 14 mmol/L (22-30); Chloride 125 mmol/L (98-107); Estimated Creatinine Clearance 31 ml/min; Glucose 439 mg/dl (70-99); Potassium 3.8 mmol/L (3.5-5.1); Sodium 153 mmol/L (135-145); eGFR 43.81
[2024-01-05 15:42] LABS: Lactic Acid 7.1 mmol/L (0.7-2.0)
[2024-01-05] MEDS: OFIRMEV 100 IV (15:45)
[2024-01-05] MEDS: HEPARIN 5000 UNITS SC (16:21)
[2024-01-05] MEDS: SODIUM BICARBONATE 1110 MEQ IV ×2 (17:06)
[2024-01-05 17:28] LABS: Glucose - Point of Care 314 mg/dl (70-99)
--- NOTE | 2024-01-05 18:00 | PTCARENOTE ---
I/O collected, titrations as noted, oral care. no other change, remains unresponsive, less twitchy than previously. turned and positioned for comfort. insulin as noted.
[2024-01-05 18:24] LABS: Glucose - Point of Care 254 mg/dl (70-99)
[2024-01-05 19:15] LABS: B.E. -9.6 mmol/L; O2 Saturation % 95.5 % (94-98); PCO2 32 mmHg (32-35); PO2 75 mmHg (83-108)
[2024-01-05 19:17] LABS: HCO3 15.7 mmol/L (21-28)
[2024-01-05] MEDS: DAKIN'S SOLUTION 0.125% 1/4 STRENGTH 473 ML TOPICAL (19:21)
[2024-01-05] MEDS: DESENEX/MITRAZOL/ZEASORB 1 APPLIC TOPICAL (19:21)
[2024-01-05 19:23] LABS: Glucose - Point of Care 254 mg/dl (70-99)
[2024-01-05 19:28] LABS: Lactic Acid 7.2 mmol/L (0.7-2.0)
[2024-01-05 19:35] LABS: Blood Urea Nitrogen 80 mg/dl (7-17); Calcium 8.1 mg/dl (8.4-10.2); Carbon Dioxide 15 mmol/L (22-30); Chloride 121 mmol/L (98-107); Estimated Creatinine Clearance 31 ml/min; Glucose 275 mg/dl (70-99); Magnesium 2.2 mg/dl (1.6-2.3); Potassium 3.5 mmol/L (3.5-5.1); Sodium 147 mmol/L (135-145); eGFR 43.81
[2024-01-05] MEDS: KCL 160 MEQ IV (20:18)
[2024-01-05 20:29] LABS: Glucose - Point of Care 239 mg/dl (70-99)
[2024-01-05] MEDS: D5/0.45%NSS with KCL 20 MEQ 1000 IV (21:09)
[2024-01-05 21:43] LABS: Glucose - Point of Care 227 mg/dl (70-99)
--- NOTE | 2024-01-05 21:45 | PTCARENOTE ---
Assumed care of pt at 1900. Pt intubated, #7.5 ETT, 23cm at lip, current vent settings AC 24/500/80/5. Received pt on Levophed at 30 mcg/min (maxed), Phenylephrine at 100mcg/min, Vasopressin at 0.03 units/min, Fentanyl at 125mcg/hr and insulin drip
per DKA/HHS protocol (sliding scale) . Pressors titrated to keep MAP >65. BP readings from right radial arterial line. Pt has been SR/ST on monitor so far this shift, HR in 90s-low 100s. Pt has been afebrile, at start of shift was 99.4 and now down
to 98.5 (temp readings via thermistor Cain catheter). SpO2 91-94%. Pt intermittently opens her eyes but does not track, has not followed commands or responded to her name, will react/withdrawal to pain, + cough when inline suctioning done. Physical
assessment completed, see nursing shift assessment flowsheet for full details. Pt's son at bedside, staying the night.
[2024-01-05 22:28] LABS: Glucose - Point of Care 238 mg/dl (70-99)
[2024-01-05 23:28] LABS: Glucose - Point of Care 240 mg/dl (70-99)
[2024-01-06] MEDS: HEPARIN 5000 UNITS SC ×3 (00:01→16:19)
--- NOTE | 2024-01-06 00:26 | PTCARENOTE ---
Assessment unchanged. Remains on Levophed (maxed), Phenylephrine (has been as low as 80 mcg/min and as high as 140 mcg/min to keep MAP >65), Vasopressin, Insulin drip, and Fentanyl. Remains on same vent settings, SpO2 93%, ST low 100s on monitor.
Son currently in room asleep.
[2024-01-06 00:28] LABS: Glucose - Point of Care 234 mg/dl (70-99)
[2024-01-06 00:30] LABS: Lactic Acid 6.5 mmol/L (0.7-2.0)
[2024-01-06 01:28] LABS: Glucose - Point of Care 239 mg/dl (70-99)
[2024-01-06] MEDS: SUBLIMAZE 100 IV ×3 (01:41→18:28)
[2024-01-06] MEDS: LEVOPHED 250 IV ×10 (01:41→22:49)
[2024-01-06 02:34] LABS: Glucose - Point of Care 264 mg/dl (70-99)
[2024-01-06] MEDS: OFIRMEV 100 IV ×2 (03:22→19:46)
[2024-01-06 03:43] LABS: Glucose - Point of Care 255 mg/dl (70-99)
[2024-01-06 04:00] VITALS: BP 101/61
[2024-01-06] MEDS: ZOSYN 50 IV ×4 (04:21→22:11)
[2024-01-06 04:45] VITALS: BMI 23.7
[2024-01-06 04:47] LABS: Glucose - Point of Care 254 mg/dl (70-99)
[2024-01-06 04:49] LABS: Hematocrit 36.3 % (37.0-47.0); Hemoglobin 11.2 g/dL (12.0-16.0); Mean Corp Hgb Conc. 30.9 g/dL (33.0-37.0); Mean Corpuscular Hgb 28.6 pg (27.0-31.0); Mean Corpuscular Volume 92.8 fL (81.0-99.0); Mean Platelet Volume 13.7 fL (7.4-10.4); Platelet Count 195 10^3/uL (130-400); Red Blood Cell Count 3.91 10^6/uL (4.20-5.40); Red Cell Dist. Width 16.7 % (11.5-14.5); White Blood Cell Count 22.5 10^3/uL (4.8-10.8)
--- NOTE | 2024-01-06 04:58 | PTCARENOTE ---
Physical assessment unchanged. Remains on same pressors and same vent settings. At around 0400, CHG bath done and sacral wound dressing change completed. Pt had a very large, formed BM followed by liquid stool. Pt cleaned, linens and gown changed.
Pt febrile, t-max 101.0, Ofirmev administered, see EMAR, with elevated temp pt's HR slightly more elevated as well, ST low 100s-110s.
[2024-01-06 05:21] LABS: Lactic Acid 6.6 mmol/L (0.7-2.0)
[2024-01-06] MEDS: NEO-SYNEPHRINE 250 IV ×2 (05:26→20:30)
[2024-01-06 05:36] LABS: Absolute Neutrophils -Man Diff 12.1 10^3/uL (1.4-6.5); Band Neutrophils 39 % (0-3); Eosinophils 1 % (0-6); Lymphocytes 11 % (20-51); Metamyelocytes 22 % (-); Monocytes 4 % (2-9); Myelocytes 8 % (-); Segmented Neutrophils 15 % (42-75)
[2024-01-06 05:38] LABS: Platelets Checked Yes
[2024-01-06 05:39] LABS: Anisocytosis Slight; Normal RBC Morphology No
[2024-01-06 05:41] LABS: Hypochromasia Slight; Polychromasia Slight; Total Cells Counted 100
[2024-01-06 05:46] LABS: Glucose - Point of Care 233 mg/dl (70-99)
[2024-01-06] MEDS: D5/0.45%NSS with KCL 20 MEQ 1000 IV (06:05)
[2024-01-06] MEDS: PITRESSIN 100 IV ×2 (06:05→17:34)
[2024-01-06 06:18] LABS: ALT (SGPT) 22 U/L (0-35); AST (SGOT) 52 U/L (14-36); Albumin 1.9 g/dl (3.5-5.0); Alkaline Phosphatase 82 U/L (38-126); Blood Urea Nitrogen 65 mg/dl (7-17); Calcium 7.3 mg/dl (8.4-10.2); Carbon Dioxide 15 mmol/L (22-30); Chloride 113 mmol/L (98-107); Estimated Creatinine Clearance 37 ml/min; Glucose 308 mg/dl (70-99); Potassium 4.8 mmol/L (3.5-5.1); Sodium 140 mmol/L (135-145); Total Bilirubin 1.2 mg/dl (0.2-1.3); Total Protein 4.9 g/dl (6.3-8.2); eGFR 54.53
[2024-01-06 06:57] LABS: Glucose - Point of Care 222 mg/dl (70-99)
[2024-01-06] MEDS: DESENEX/MITRAZOL/ZEASORB 1 APPLIC TOPICAL ×2 (07:38→20:46)
[2024-01-06] MEDS: DAKIN'S SOLUTION 0.125% 1/4 STRENGTH 1 ML TOPICAL (07:38)
[2024-01-06] MEDS: NSS (PRESERVATIVE FREE) 10 ML IV (07:39)
[2024-01-06] MEDS: PROTONIX IV 40 MG IV (07:39)
[2024-01-06 07:45] LABS: Glucose - Point of Care 287 mg/dl (70-99)
[2024-01-06 08:00] VITALS: BP 101/83
[2024-01-06 08:44] LABS: Glucose - Point of Care 278 mg/dl (70-99)
--- NOTE | 2024-01-06 09:02 | PTCARENOTE ---
Addendum entered by Cecilia Renae RN 01/06/24 13:25:
PT remains unresponsive, does not track with eyes, pupils 2 sluggish, weak gag response
Original Note:
PT intubated, #7.5 ETT, 23cm at lip, current vent settings AC 24/500/80/5. Levophed at 30 mcg/min, Phenylephrine at 100mcg/min, Vasopressin at 0.03 units/min, Fentanyl at 125mcg/hr and insulin drip per DKA/HHS protocol (sliding scale) . Pressors
titrated to keep MAP >65. NSR/ST on monitor , HR in 90s-low 100s. Pt has been afebrile, at start of shift was 99.7 SpO2 91-94%. Pt intermittently opens her eyes but does not track, has not followed commands, +withdrawal to pain, + cough when inline
suctioning done. Physical assessment completed, see nursing shift assessment for full assessment, Pt's son at bedside, updated
--- NOTE | 2024-01-06 09:22 | W.PN.INTV ---
Today's Communication / Plan
Recommendations
Bicarbonate drip
Insulin drip
Continue antibiotics
Follow cultures
Continue vasopressin
Continue sedation
Mechanical ventilation will be adjusted
Daily chest x-ray
Daily ABG
Poor prognosis
Assessment
-
88-year-old woman with advanced dementia, noncommunicative, type 2 diabetes, [facility]. Patient emergently intubated in the emergency room due to nonresponsive. At baseline patient is noncommunicative, she has a
PEG tube in place. The son wanted intubation but no CPR. He would like to treat her medically.
Despite fluid resuscitation patient required vasopressors. Transferred to the critical care unit for further care.
Septic shock
Multiple sources possible including: Urinary tract infection/sacral decubitus ulcer/based on chest x-ray cannot rule out aspiration.
Abnormal urinalysis
Chest x-ray: To my view positive left lower lobe infiltrate.
Acute hypercapnic respiratory failure requiring intubation 01/05/2024
ABG 7.20 4/133
Acute kidney injury/metabolic acidosis
Increased lactic acid to 12
Hyperglycemia
Hypernatremia
-
Conditions present prior admission:
Type 2 diabetes
Advanced dementia
Noncommunicative/bedbound
PEG tube in place
Sacral decubitus ulcer stage IV-family states that it was debrided about a month ago at [facility] status post antibiotics
-
Assessment and plan:
Patient is critically ill on multiple vasopressors, intubated on mechanical ventilation.
-
Septic shock multiple sources possible
Abnormal urinalysis-urine culture pending
Blood culture: Polymicrobial gram-negative flaco and gram-positive cocci
Sacral decubitus wound may be the source.
In my opinion, not a candidate for any surgical intervention. Suspect patient has some osteomyelitis based on depth of sacral decubitus wound.
If septic component not clearing will need to consider imaging of the abdomen and pelvis.
Cannot rule out aspiration pneumonitis
Broad-spectrum antibiotics
Follow cultures
-
Mechanical ventilation settings reviewed
Continue assist-control mechanical ventilation.
Peak pressure under 30
Assist-control/500/80%/24
ABG 7.25/30/87.
Mixed respiratory metabolic acidosis
mechanical ventilation will be adjusted
Bicarbonate drip will be started
Repeat ABG later
-
Patient with increasing FiO2 requirement:Pneumonia versus pulmonary edema
Repeat chest x-ray tomorrow
Daily ABG
-
Sedation with propofol and fentanyl
at baseline patient is noncommunicative, very rigid, bedbound.
Will try to keep comfortable.
Target for RASS score 0/-1
-
Septic shock:
Multiple vasopressors norepinephrine/vasopressin/Grant-Synephrine
Lactate level trending lower
Creatinine improved
Patient remains some metabolic acidosis
Central line in place
Arterial line in place
Will target mean arterial blood pressure [address]: Cain urinary output
Bicarbonate drip will be started at 150 cc an hour.
-
Hyperglycemia blood sugar over 600
Improved
Hypernatremia resolved.
Continue insulin
Q. hourly Accu-Cheks until improved, target blood sugars 140-180.
Bicarbonate drip
-
DVT prophylaxis SCDs-heparin subcu
Protonix for GI prophylaxis while intubated
-
N.p.o. for now
Head of bed elevation
PEG tube in place.
-
Discussed with son at the bedside 01/05/2020, I also discussed with his who apparently is a doctor. Expressed poor prognostic indicators. Recommended to focus on comfort.
They would like to continue with medical management.
No CPR, no dialysis, no aggressive surgeries will be offered at this point.
Son updated by Dr. Collins 01/06/2024: Continue with medical management. No heroic interventions.
-
Discussed with primary team, nursing, respiratory therapist.
-
Critical care statement: A total of 45 minutes of critical care time was provided for this patient today. This includes management of unstable vital signs, evaluation of the patient at bedside, reviewing the patient's pertinent medical records
including ventilator settings, arterial blood gases, radiographs, microbiology, laboratory evaluations and discussion with primary team, critical care nursing, and respiratory therapy.
Subjective Dataa
Subjective Data
Date of Service:
Date of Service: January 06, 2024
Chief Complaint: [employer] Follow Up (Septic shock/hypercapnic respiratory failure requiring intubation)
Subjective:
Sedated/unresponsive-noncommunicative at baseline
Critically ill on mechanical ventilation/receiving multiple vasopressors.
Review of Systems
General: Unobtainable - Sedation
Objective Data
Data Reviewed
Vital Signs / I&O / Oxygen:
Vital Signs
Temp Pulse Resp BP Pulse Ox
100.1 F 112 24 101/83 90
01/06/24 07:30 01/06/24 08:00 01/06/24 08:00 01/06/24 08:00 01/06/24 08:00
Intake and Output
01/05/24 01/06/24 01/07/24
06:59 06:59 06:59
Intake Total 6012.5 / 6281.0 805.5 / 805.5
Output Total 808 / 1058 250 / 250
Balance 5204.5 / 5223.0 555.5 / 555.5
SaO2 [A/C] 90
SaO2 90
Physical Exam
General: Respiratory Distress (n)
HEENT: Normocephalic
Cardiovascular: S1-S2
Respiratory: Clear and ET Tube (No secretion)
GI: Soft and Non Distended
Neurology: Other (Patient is rigid at baseline) and Other (Unresponsive, sedated. Noncommunicative at baseline.)
Skin: Warm and Other (Stage IV sacral decubitus ulcers present on admission)
Labs/Micro/Reports
Lab Data
01/06/24 04:36
Laboratory Results
01/05/24 01/05/24 01/05/24
10:13 15:05 19:05
PT 18.9 H
INR 1.60
APTT 30.3
pH 7.24 L 7.30 L
pCO2 37 H 32
pO2 133 H 75 L
HCO3 15.9 L* 15.7 L*
O2 Delivery Level
Microbiology
01/05/24 11:05 Blood/Venous Blood Culture - Preliminary
Positive culture in progress
01/05/24 11:05 Blood/Venous Gram Stain - Preliminary
01/05/24 17:47 Nose Nasal Screen MRSA (PCR) - Final
MRSA not detected - performed by PCR methodology.
01/05/24 16:35 Coccyx Gram Stain - Preliminary
01/05/24 11:05 Nasal Swab Influenza Types A & B (MIGUEL) - Final
Negative for Influenza A & B, NAAT
Negative results must be combined with clinical observations
and patient history.
Nucleic Acid Amplification test (NAAT)performed on the
[employer] platform.
[2024-01-06 09:30] LABS: B.E. -12.8 mmol/L; O2 Saturation % 99.1 % (94-98); PCO2 30 mmHg (32-35); PO2 87 mmHg (83-108); pH 7.25 (7.35-7.45)
--- NOTE | 2024-01-06 09:30 | PTCARENOTE ---
HR increased to 172, EKG done per protocol, Rapid AFib with RVR, notified Dr Cuevas and DR Collins, no orders at this time
[2024-01-06 09:38] LABS: HCO3 13.2 mmol/L (21-28)
[2024-01-06 09:40] LABS: Lactic Acid 6.7 mmol/L (0.7-2.0)
[2024-01-06 09:43] LABS: Glucose - Point of Care 245 mg/dl (70-99)
--- NOTE | 2024-01-06 09:59 | W.PN.HOSP.TC ---
Today's Communication/Plan
-
Vent support
IV antibiotics per
IV pressors and fluids.
Continue sedation.
Total Critical Care Time__45___ minutes. I was immediately available to the patient and staff. I personally examined, reviewed labs, diagnostic images/reports, interpretations, treatment plans, discussed patient care with other providers and
family or caregivers (if patient is unable to make decisions), entered orders as appropriate and documented the medical record.
Assessment / Plan
Assessment / Plan
Impression
Septic shock
-Multiple sources including aspiration pneumonia with left lower lobe infiltrate, UTI, stage IV sacral pressure wound.
Profound hypotension not responding to IV fluids requiring multiple vasopressors.
Ventilator dependent respiratory failure, intubated in ED on 01/04
Acute kidney injury
Lactic acidosis
Hyponatremia
Hypokalemia
Atrial fibrillation with rapid medical response, new onset
Conditions prior to admission.
Advanced Alzheimer's dementia
Aspiration syndrome
PEG tube in place
Type 2 diabetes/IDDM
Sacral decubital wound stage IV
Chronic ambulatory dysfunction, type rhythm.
History of COVID
Infection complicated with respiratory failure November 2019.
Plan:
Severe sepsis with multiple possible sources above.
Blood cultures with gram-negative/gram-positive pending final notification.
Empiric antibiotics including vancomycin/cefepime pending final cultures
Severe shock not responding to IV fluids requiring multiple vasopressors.
Remains with elevated lactic acid level
ABG consistent with partial compensation
Continue IV fluids with addition of bicarbonate
Continue vasopressors
Acute kidney injury in the settings of profound hypotension
Cain catheter in place.
Continue monitoring urine output closely.
Ventilatory dependent respiratory failure.
ABG as above.
Continue vent support
Continue sedation Fentanyl/propofol
Atrial fibrillation with rapid ventricular response.
Limited options to treat.
May consider amiodarone if persistent.
Unable to introduce any AV elgin blocking agents given profound hypotension requiring pressors
Off preadmission metoprolol given hypotension
IDDM.
Currently off standing dose of subcutaneous insulin
Update hemoglobin A1c
Initiated on ICU insulin drip
DNR
Goals of care discussed with patient's son at the bedside.
Poor prognosis given patient with advanced dementia, with severe sepsis and septic shock requiring multiple vasopressors.
The patient to continue ongoing treatment, although avoiding CPR while patient is intubated.
DVT prophylaxis heparin.
Anticipated Discharge: > 48 hours
Subjective/Interval History
-
Date of Service: January 06, 2024
Objective Data
-
Labs:
Laboratory Results
01/06/24 01/06/24 01/06/24
04:36 05:38 08:34
WBC 22.5 H
Hgb 11.2 L D
Hct 36.3 L
Plt Count 195 D
HCO3
Sodium Cancelled 140 Cancelled
Potassium Cancelled 4.8 D Cancelled
Chloride Cancelled 113 H Cancelled
Carbon Dioxide Cancelled 15 L Cancelled
BUN Cancelled 65 H Cancelled
Creatinine Cancelled 1.0 Cancelled
Glucose Cancelled 308 H Cancelled
Calcium Cancelled 7.3 L Cancelled
Total Bilirubin Cancelled 1.2
AST Cancelled 52 H
ALT Cancelled 22
Alkaline Phosphatase Cancelled 82
01/06/24 01/06/24 01/06/24
09:12 09:20 12:00
WBC
Hgb
Hct
Plt Count
HCO3 13.2 L*
Sodium Pending Pending
Potassium Pending Pending
Chloride Pending Pending
Carbon Dioxide Pending Pending
BUN Pending Pending
Creatinine Pending Pending
Glucose Pending Pending
Calcium Pending Pending
Total Bilirubin
AST
ALT
Alkaline Phosphatase
01/06/24 01/06/24
16:00 20:00
WBC
Hgb
Hct
Plt Count
HCO3
Sodium Pending Pending
Potassium Pending Pending
Chloride Pending Pending
Carbon Dioxide Pending Pending
BUN Pending Pending
Creatinine Pending Pending
Glucose Pending Pending
Calcium Pending Pending
Total Bilirubin
AST
ALT
Alkaline Phosphatase
Vital Signs:
Vital Signs
Temp Pulse Resp BP Pulse Ox
100.1 F 112 24 101/83 90
01/06/24 07:30 01/06/24 08:00 01/06/24 08:00 01/06/24 08:00 01/06/24 08:00
I&O
01/05/24 01/06/24 01/07/24
06:59 06:59 06:59
Intake Total 6012.5 / 6281.0 805.5 / 805.5
Output Total 808 / 1058 250 / 250
Balance 5204.5 / 5223.0 555.5 / 555.5
Physical Exam
-
General: Well Developed and No Apparent Distress
HEENT: Normocephalic, Atraumatic and Moist Mucous Membranes
Respiratory: Rhonchi and Decreased Breath Sounds
Cardiac: Regular Rhythm and S1/S2; Negative Murmur, Rub or Gallop
GI: Soft, Nontender, Nondistended, Normal Bowel Sounds and Peg Tube; Negative Organomegaly
Rectal: Deferred by Provider
Musculoskeletal: No Clubbing, No Cyanosis and No Edema
Skin: Negative Rash
Neuro: Sedated and Nonfocal/Grossly Intact
[2024-01-06 10:03] LABS: Blood Urea Nitrogen 59 mg/dl (7-17); Calcium 7.1 mg/dl (8.4-10.2); Carbon Dioxide 13 mmol/L (22-30); Chloride 113 mmol/L (98-107); Estimated Creatinine Clearance 37 ml/min; Glucose 274 mg/dl (70-99); Sodium 138 mmol/L (135-145); eGFR 54.53
[2024-01-06] MEDS: NOVOLIN R INSULIN INFUSION 100 IV (10:29)
[2024-01-06] MEDS: SODIUM BICARBONATE 1150 MEQ IV ×2 (10:45→17:33)
[2024-01-06 10:46] LABS: Glucose - Point of Care 271 mg/dl (70-99)
--- NOTE | 2024-01-06 10:57 | PHA.VAN.FU ---
Vancomycin Assessment / Plan
- Assessment
Renal Function: SCR Decreasing (SCr 1.2->1.0->1.0 (baseline 0.8))
WBC's are: Trending Up
In the past 24 hrs, patient has been: Febrile (103.6)
Concomitant Antimicrobials: piperacillin-tazobactam
- Assessment - Therapeutic Drug Monitoring
Random Level: 11 ~22 hours post 1500 mg loading dose
- Dosing Plan
Continue: to dose by level
Dosing by Level: Re-dose today (1000 mg (15 mg/kg))
- Monitoring Plan
Random Level: 6/2 am
- Follow Up
Pharmacy will continue to follow.
Vancomycin Follow UP
- -
Patient Age: 88
Patient Sex: Female
Vancomycin Day #: 2
Indication: Pulmonary/Respiratory
Requesting Provider: Dr. Bell
Pertinent Antimicrobial Allergies:
NKDA
Height / Weight:
Height 5 ft 6 in
Actual Weight 66.7 kg
- Vital Signs / Lab Results
Temp Pulse Resp BP Pulse Ox
100.1 F 112 24 101/83 90
01/06/24 07:30 01/06/24 08:00 01/06/24 08:00 01/06/24 08:00 01/06/24 08:00
Lab Results - Hematology
01/05/24 01/06/24
09:57 04:36
WBC 15.8 H 22.5 H
Band Neutrophils 27 H 39 H D
Lab Results - Chemistry
01/05/24 01/05/24 01/05/24
09:57 11:05 11:53
BUN Cancelled 87 H Cancelled
Creatinine Cancelled 1.2 H Cancelled
Estimated Creat Clear Cancelled Cancelled
Albumin Cancelled 2.5 L
01/05/24 01/05/24 01/06/24
15:05 19:05 04:36
BUN 82 H 80 H Cancelled
Creatinine 1.2 H 1.2 H Cancelled
Estimated Creat Clear 31 31 Cancelled
Albumin Cancelled
01/06/24 01/06/24 01/06/24
05:38 08:34 09:12
BUN 65 H Cancelled 59 H
Creatinine 1.0 Cancelled 1.0
Estimated Creat Clear 37 Cancelled 37
Albumin 1.9 L
01/05/24 01/05/24 01/05/24
10:00 14:00 15:05
Lactic Acid 12.0 H* Cancelled 7.1 H*
01/05/24 01/05/24 01/05/24
16:50 19:05 20:50
Lactic Acid Cancelled 7.2 H* Cancelled
01/06/24 01/06/24 01/06/24
00:08 04:36 08:34
Lactic Acid 6.5 H* 6.6 H* Cancelled
01/06/24
09:12
Lactic Acid 6.7 H*
Lab Results - Urine
01/05/24
11:05
Urine Nitrite (Reflex) Negative
Leukocyte Esterase Rfl 2+ A
Ur Squamous Epith Cells 11-15
Microbiology Results
01/05/24 11:05 Blood Culture - Preliminary
Blood/Venous Enterobacter species
Klebsiella pneumoniae
Gram Stain - Preliminary
01/05/24 09:57 Blood Culture - Preliminary
Blood/Venous No Growth in 24 hours- Final report to follow
01/05/24 17:47 Nasal Screen MRSA (PCR) - Final
Nose MRSA not detected - performed by PCR methodology.
01/05/24 16:35 Gram Stain - Preliminary
Coccyx
01/05/24 11:05 Influenza Types A & B (MIGUEL) - Final
Nasal Swab Negative for Influenza A & B, NAAT
Negative results must be combined with clinical observations
and patient history.
Nucleic Acid Amplification test (NAAT)performed on the
[employer] platform.
Therapeutic Drug Monitoring
Random Vancomycin 11.0 ug/ml 01/06/24 09:12
[2024-01-06] MEDS: VANCOCIN 200 IV (11:31)
[2024-01-06 11:41] LABS: Glucose - Point of Care 256 mg/dl (70-99)
[2024-01-06 12:05] LABS: Lactic Acid 9.3 mmol/L (0.7-2.0)
[2024-01-06 12:16] LABS: Blood Urea Nitrogen 54 mg/dl (7-17); Calcium 7.2 mg/dl (8.4-10.2); Carbon Dioxide 9 mmol/L (22-30); Chloride 111 mmol/L (98-107); Estimated Creatinine Clearance 37 ml/min; Glucose 270 mg/dl (70-99); Potassium 5.3 mmol/L (3.5-5.1); Sodium 136 mmol/L (135-145); eGFR 54.53
--- NOTE | 2024-01-06 12:50 | PTCARENOTE ---
CO2 decreased to 9 lactic acid increased to 9.3, notified Dr Collins, no new orders given, PT assessment remains unchanged, remains in AFib, wound care delivered as ordered, cleaned with Dakin's, kerlix packed in wound, 4x4, then ABD placed on top,
minimal bloody drainage noted, malodorous odor noted, oral care preformed and adjusted ETT tube to the right side
[2024-01-06 12:55] LABS: Glucose - Point of Care 258 mg/dl (70-99)
[2024-01-06 13:53] LABS: Glucose - Point of Care 231 mg/dl (70-99)
[2024-01-06 14:33] VITALS: BP 136/54
[2024-01-06 14:41] LABS: Glucose - Point of Care 197 mg/dl (70-99)
[2024-01-06 15:33] LABS: Glucose - Point of Care 270 mg/dl (70-99)
[2024-01-06 16:00] VITALS: BP 125/67
[2024-01-06 16:14] LABS: B.E. -13.9 mmol/L; O2 Saturation % 97.9 % (94-98); PCO2 26 mmHg (32-35); PO2 83 mmHg (83-108); pH 7.26 (7.35-7.45)
[2024-01-06 16:15] LABS: HCO3 11.7 mmol/L (21-28)
[2024-01-06 16:26] LABS: Lactic Acid 9.6 mmol/L (0.7-2.0)
[2024-01-06 16:42] LABS: Glucose - Point of Care 195 mg/dl (70-99)
[2024-01-06 17:04] LABS: Blood Urea Nitrogen 53 mg/dl (7-17); Carbon Dioxide 11 mmol/L (22-30); Chloride 107 mmol/L (98-107); Estimated Creatinine Clearance 37 ml/min; Glucose 161 mg/dl (70-99); Potassium 4.9 mmol/L (3.5-5.1); Sodium 132 mmol/L (135-145); eGFR 54.53
[2024-01-06 17:39] LABS: Glucose - Point of Care 150 mg/dl (70-99)
[2024-01-06 18:42] LABS: Glucose - Point of Care 180 mg/dl (70-99)
[2024-01-06] MEDS: D5/0.45%NSS with KCL 20 MEQ IV ×2 (18:58)
--- NOTE | 2024-01-06 19:49 | PTCARENOTE ---
At start of shift pt's rhythm was ST with rate in low 100s, by around 1930 pt was in AFib with RVR with HR as high as 170s-180s. EKG ordered and obtained. Temp 100.7, Ofirmev administered. Amiodarone ordered.
[2024-01-06 20:00] VITALS: BP 146/64
[2024-01-06] MEDS: CORDARONE 518 MG IV (20:17)
[2024-01-06] MEDS: CORDARONE 103 MG IV (20:17)
[2024-01-06 20:30] LABS: Glucose - Point of Care 109 mg/dl (70-99)
[2024-01-06 20:39] LABS: Lactic Acid 9.6 mmol/L (0.7-2.0)
[2024-01-06] MEDS: DAKIN'S SOLUTION 0.125% 1/4 STRENGTH 473 ML TOPICAL (20:46)
[2024-01-06 20:49] LABS: Blood Urea Nitrogen 47 mg/dl (7-17); Carbon Dioxide 11 mmol/L (22-30); Chloride 101 mmol/L (98-107); Estimated Creatinine Clearance 41 ml/min; Glucose 123 mg/dl (70-99); Potassium 4.6 mmol/L (3.5-5.1); Sodium 128 mmol/L (135-145); eGFR > 60.00
[2024-01-06 21:04] LABS: Calcium 6.8 mg/dl (8.4-10.2)
[2024-01-06] MEDS: SUBLIMAZE 50 MCG IV (21:26)
[2024-01-06 21:31] LABS: Glucose - Point of Care 126 mg/dl (70-99)
[2024-01-06 21:33] VITALS: BP 115/13
[2024-01-06] MEDS: DIPRIVAN 100 IV (21:38)
[2024-01-06] MEDS: VERSED 2 MG IV (21:52)
[2024-01-06] MEDS: CALCIUM GLUCONATE 130 MG IV (22:49)
[2024-01-06 23:13] LABS: Glucose - Point of Care 186 mg/dl (70-99)
[2024-01-07] VITALS (26 sets, daily range): BP systolic 96–158; BP diastolic 14–96; BMI 25.8
[2024-01-07] MEDS: HEPARIN 5000 UNITS SC ×3 (00:11→16:08)
[2024-01-07 00:18] LABS: Glucose - Point of Care 150 mg/dl (70-99)
--- NOTE | 2024-01-07 00:27 | PTCARENOTE ---
Late entry: Assumed care of pt at 1900. Received pt on Levophed at 30 mcg/min, Phenylephrine at 100 mcg/min, Vasopressin at 0.03 units/min, Fentanyl at 12.5 mcg/hr, and insulin drip per DKA/[facility]HS protocol. Pt also on IVF with bicarb. Pt intubated,
#7.5 ETT/23cm at lip, AC 30/500/80/5. Pt went from ST to AFib with RVR at around 1930, Amiodarone started (bolus followed by drip) at around 2019. At around 2129 pt needed to be cleaned up after having a BM that rectal trumpet failed to contain,
around this same time pt became dyssynchronous with vent, tachypneic in 50s and stacking her breaths, vent alarming constantly. Fentanyl bolus given and drip briefly increased, ended up needing to start Propofol, pt still did not respond in a
reasonable timeframe, so Versed ordered/administered (2mg), which pt responded to, respiratory rate decreased back to 30 and pt synchronous with vent again. When pt being cleaned pt's HR converted back to ST in low 100s, pt is now SR 90s. Temp down
to 99.9 (t-max had been 101.1). Difficult to obtain accurate pulse ox d/t cold extremities, have attempted on both hands, feet, and ear, when it picks up it will briefly read in low 90s. Pt's skin is mottled especially to her abd/trunk, fingernails
are dusky. Physical assessment completed, see nursing shift assessment flowsheet for full details. Son left for the night at around 2200.
[2024-01-07] MEDS: SODIUM BICARBONATE 1150 MEQ IV ×4 (00:49→22:55)
[2024-01-07 00:53] LABS: Blood Urea Nitrogen 42 mg/dl (7-17); Calcium 7.6 mg/dl (8.4-10.2); Carbon Dioxide 9 mmol/L (22-30); Chloride 98 mmol/L (98-107); Estimated Creatinine Clearance 41 ml/min; Glucose 173 mg/dl (70-99); Potassium 5.1 mmol/L (3.5-5.1); Sodium 126 mmol/L (135-145); eGFR > 60.00
[2024-01-07] MEDS: LEVOPHED 250 IV ×10 (01:10→22:25)
[2024-01-07] MEDS: SUBLIMAZE 100 IV ×3 (01:27→17:43)
[2024-01-07 01:28] LABS: Glucose - Point of Care 104 mg/dl (70-99)
[2024-01-07 02:23] LABS: Glucose - Point of Care 192 mg/dl (70-99)
[2024-01-07 03:19] LABS: Glucose - Point of Care 176 mg/dl (70-99)
[2024-01-07] MEDS: ZOSYN 50 IV ×2 (04:07→08:57)
[2024-01-07 04:24] LABS: B.E. -9.8 mmol/L; PCO2 19 mmHg (32-35); PO2 113 mmHg (83-108); pH 7.43 (7.35-7.45)
[2024-01-07 04:26] LABS: HCO3 12.6 mmol/L (21-28)
[2024-01-07 04:31] LABS: Hematocrit 30.8 % (37.0-47.0); Hemoglobin 10.1 g/dL (12.0-16.0); Mean Corp Hgb Conc. 32.8 g/dL (33.0-37.0); Mean Corpuscular Hgb 28.8 pg (27.0-31.0); Mean Corpuscular Volume 87.7 fL (81.0-99.0); Mean Platelet Volume 13.7 fL (7.4-10.4); Platelet Count 135 10^3/uL (130-400); Red Blood Cell Count 3.51 10^6/uL (4.20-5.40); Red Cell Dist. Width 16.1 % (11.5-14.5); White Blood Cell Count 25.9 10^3/uL (4.8-10.8)
[2024-01-07 04:32] LABS: Glucose - Point of Care 180 mg/dl (70-99)
[2024-01-07 04:57] LABS: Blood Urea Nitrogen 41 mg/dl (7-17); Calcium 7.2 mg/dl (8.4-10.2); Carbon Dioxide 13 mmol/L (22-30); Chloride 92 mmol/L (98-107); Estimated Creatinine Clearance 41 ml/min; Glucose 172 mg/dl (70-99); Magnesium 1.8 mg/dl (1.6-2.3); Potassium 4.2 mmol/L (3.5-5.1); Sodium 123 mmol/L (135-145); eGFR > 60.00
[2024-01-07] MEDS: PITRESSIN 100 IV ×2 (05:18→16:07)
[2024-01-07] MEDS: DIPRIVAN 100 IV ×2 (05:20→19:22)
[2024-01-07 05:28] LABS: Glucose - Point of Care 113 mg/dl (70-99)
[2024-01-07] MEDS: CALCIUM GLUCONATE 130 MG IV (05:42)
--- NOTE | 2024-01-07 06:01 | PTCARENOTE ---
Assessment mostly unchanged. Went to replace drain sponge around pt's peg tube and noticed that there was brown liquid draining from around the site, was under her left breast and dripping down her side. Pt cleaned, contents of peg aspirated, 55 mL
brown liquid and more was coming when syringe withdrawn from tube. Peg hooked to medina bag for gravity drainage (at around 0400). Remains on same pressors, remains on Fentanyl and Propofol, Insulin, Amiodarone, and Bicarb drip. Have been able to
wean down Phenylephrine significantly, pt started the shift on 100 mcg/min, was as high as 160 mcg/min but then the last few hours was on 40 mcg/min, and Phenylephrine is currently turned off as pt's MAP is in 90s-low 100s at this time. Calcium
repleted x2 this shift with calcium gluconate riders. SR 90s on monitor currently. Have been unable to obtain accurate pulse ox on patient, ABG done this AM showed O2 sat of 100%.
--- NOTE | 2024-01-07 06:28 | PTCARENOTE ---
Phenylephrine turned back on at this time at previous rate (40mcg/min)--pt back in AFib and BP subsequently dropped to 70s with MAPs in 50s.
[2024-01-07] MEDS: NSS (PRESERVATIVE FREE) 10 ML IV (07:13)
[2024-01-07] MEDS: DESENEX/MITRAZOL/ZEASORB 1 APPLIC TOPICAL ×2 (07:13→19:23)
[2024-01-07] MEDS: PROTONIX IV 40 MG IV (07:13)
[2024-01-07] MEDS: DAKIN'S SOLUTION 0.125% 1/4 STRENGTH 1 ML TOPICAL (07:14)
[2024-01-07 07:18] LABS: Glucose - Point of Care 140 mg/dl (70-99)
[2024-01-07 07:22] LABS: Glucose - Point of Care 119 mg/dl (70-99)
--- NOTE | 2024-01-07 07:36 | W.PN.HOSP.TC ---
Today's Communication/Plan
-
cont supportive care
renew drips
check labs
despite aggressive measures, WBC count increasing, remains unable to get off pressors....
exceedingly poor prognosis--consider cards/ID consults although likely won't price changer or outcome.....
Assessment / Plan
Assessment / Plan
Impression
Septic shock
-Multiple sources including aspiration pneumonia with left lower lobe infiltrate, UTI, stage IV sacral pressure wound.
Profound hypotension not responding to IV fluids requiring multiple vasopressors.
Ventilator dependent respiratory failure, intubated in ED on 01/04
Acute kidney injury
Lactic acidosis
Hyponatremia
Hypokalemia
Atrial fibrillation with rapid medical response, new onset
Conditions prior to admission.
Advanced Alzheimer's dementia
Aspiration syndrome
PEG tube in place
Type 2 diabetes/IDDM
Sacral decubital wound stage IV
Chronic ambulatory dysfunction, type rhythm.
History of COVID
Infection complicated with respiratory failure November 2019.
Plan:
01/07/24 --pt with rising WBC count, blood cultures positive for Enterobacter species and Klebsiella pneumonia--continues on vanco/zosyn--on multiple pressors--maxed on vasopressin, levophed and titrating teresa-synephrine--sources for bacteremia as
above--urine culture with Kerry albicans
Empiric antibiotics including vancomycin/zosyn pending final cultures
Severe shock not responding to IV fluids requiring multiple vasopressors.
Remains with elevated lactic acid level--last measured 01/06/24 at 9.6--with multiple pressors, rising WBC, and hypoactive to no BS, consider bowel ischemia as potential source as well
ABG with pCO2 of 19 (vent settings set at 30)--will defer adjustment to pulm/pathology teacher--cont bicarb drip
Continue IV fluids with addition of bicarbonate
Continue vasopressors
Acute kidney injury in the settings of profound hypotension--resolved --creat 0.9 (highest creat was 1.2 on 01/05/24)
Cain catheter in place.
Continue monitoring urine output closely.
Ventilatory dependent respiratory failure.
Continue vent support
Continue sedation Fentanyl/propofol
Atrial fibrillation with rapid ventricular response--HR still 120s despite addition of amiodarone drip--consider cards consult....
Limited options to treat.
Unable to introduce any AV elgin blocking agents given profound hypotension requiring pressors
Off preadmission metoprolol given hypotension
IDDM--given acidosis--DKA must be entertained as part of her acid base disturbance--agree with insulin drip--likely no utility of checking beta-hydroxybutyarate at this stage
Currently off standing dose of subcutaneous insulin
Update hemoglobin L9o--xke ordered--will check in AM
Initiated on ICU insulin drip
DNR
Goals of care discussed with patient's son at the bedside by Dr. Cuevas
Poor prognosis given patient with advanced dementia, with severe sepsis and septic shock requiring multiple vasopressors--ongoing goals of care discussion with family......
The patient to continue ongoing treatment, although avoiding CPR while patient is intubated.
DVT prophylaxis heparin.
Total Critical Care Time 35 minutes. I was immediately available to the patient and staff. I personally examined, reviewed labs, diagnostic images/reports, interpretations, treatment plans, discussed patient care with other providers and family
or caregivers (if patient is unable to make decisions), entered orders as appropriate and documented the medical record.
Anticipated Discharge: > 48 hours
Subjective/Interval History
-
Date of Service: January 07, 2024
pt intubated and unresponsive
Objective Data
-
Labs:
Laboratory Results
01/06/24 01/07/24 01/07/24
20:10 00:08 04:16
WBC 25.9 H
Hgb 10.1 L
Hct 30.8 L
Plt Count 135 D
HCO3 12.6 L*
Sodium 128 L 126 L 123 L
Potassium 4.6 5.1 4.2
Chloride 101 98 92 L
Carbon Dioxide 11 L* 9 L* 13 L*
BUN 47 H 42 H 41 H
Creatinine 0.9 0.9 0.9
Glucose 123 H 173 H 172 H
Calcium 6.8 L* 7.6 L 7.2 L
01/07/24 01/07/24
08:00 12:00
WBC
Hgb
Hct
Plt Count
HCO3
Sodium Pending Pending
Potassium Pending Pending
Chloride Pending Pending
Carbon Dioxide Pending Pending
BUN Pending Pending
Creatinine Pending Pending
Glucose Pending Pending
Calcium Pending Pending
Vital Signs:
max temp for 24 hours
01/06/24
19:15
Temp 100.8 F H
Vital Signs
Temp Pulse Resp BP Pulse Ox
100.5 F H 93 30 147/62 90
01/07/24 03:22 01/07/24 06:00 01/07/24 06:00 01/07/24 04:00 01/07/24 00:12
I&O
01/06/24 01/07/24 01/08/24
06:59 06:59 06:59
Intake Total 6012.5 / 6281.0 8214.6 / 8214.6
Output Total 808 / 1058 1752 / 1752
Balance 5204.5 / 5223.0 6462.6 / 6462.6
Review of Systems
-
Unable to obtain full review of systems at this time due to: Patient Intubation
Physical Exam
-
General: Well Developed, Well Nourished, Intubated, Appears Chronically Ill and Obese
HEENT: Normocephalic and Atraumatic
Respiratory: Clear to Auscultation (limited to anterior chest only) and Other (hyperventilating (set by vent...not overbreathing))
Cardiac: Irregular Rhythm and Tachycardic
GI: Soft, Nontender, Nondistended and Peg Tube; Negative Normal Bowel Sounds (hypoactive to no bowel sounds by my assessment)
Rectal: Other (rectal tube without much output)
Genito-urinary: Cain
Musculoskeletal: Negative No Edema (diffuse anasarca)
Skin: Other (mottled breasts--cold extremities--large sacral decubitus ulcer (picture from wound note reviewed))
Neuro: Sedated; Negative Awake or Alert
--- NOTE | 2024-01-07 08:00 | PTCARENOTE ---
PT received, unresponsive to tactile stimuli, weak gag reflex, pupils 2 sluggish, intubated and sedated, no purposeful movements noted, AFib on monitor, pulses by Doppler, LE pale, cold to touch, generalized edema +1 noted, left hand +2, #7.5 ETT @
23 lip, 30/500/80/5, diminished T/O with scattered crackles noted, small amount of thick mcbride secretions PT suctioned for, PEG tube draining small amount of brown liquid, hypoactive BS, rectal trumpwt flushed not leaking, Thermistor Cain, as per
protocol, Cain care preformed, draining malcom urine, left wrist INT infiltrated, Right PICC, +flushed and patent, see work list for meds and titrations, Q1 hour accu check, mottling noted at B/L breast, mild mottling noted on abdomen, scattered
mottling on extremities
[2024-01-07 08:11] LABS: Glucose - Point of Care 193 mg/dl (70-99)
[2024-01-07] MEDS: NEO-SYNEPHRINE 250 IV (08:29)
[2024-01-07] MEDS: OFIRMEV 100 IV ×3 (08:38→21:51)
--- NOTE | 2024-01-07 08:38 | RESPNOTE ---
ETT re-taped, 7.5 @22cm at lips.
skin under ETT mendoza is slightly red with 1 small approx <2cm fluid filled blister on either cheek. mild to moderate redness across upper lip where adhesive from ETT mendoza removed. exuderm applied under new ETT mendoza where adhesive meets skin.
--- NOTE | 2024-01-07 08:52 | W.PN.INTV ---
Today's Communication / Plan
Recommendations
Continue mechanical ventilation without change
Repeat ABG tomorrow
Continue current antibiotics-infectious disease was consulted
Hold off on further imaging, not a candidate for any interventions family would not want any heroic interventions.
Continue amiodarone
Obtain echocardiogram
Get troponins
Hold off on tube feedings
Continue bicarbonate drip
Continue vasopressors currently on nor epi/vasopressin and Grant-Synephrine
Poor prognosis
Assessment
-
88-year-old woman with advanced dementia, noncommunicative, type 2 diabetes, [facility]. Patient emergently intubated in the emergency room due to nonresponsive. At baseline patient is noncommunicative, she has a
PEG tube in place. The son wanted intubation but no CPR. He would like to treat her medically.
Despite fluid resuscitation patient required vasopressors. Transferred to the critical care unit for further care.
Septic shock
Multiple sources possible including: Urinary tract infection/sacral decubitus ulcer/based on chest x-ray cannot rule out aspiration.
Abnormal urinalysis
Chest x-ray: To my view positive left lower lobe infiltrate.
Bacteremia: Polymicrobial Enterobacter species/Klebsiella pneumonia-suspect source is sacral decubitus wound.
Urine culture with Kerry
Acute hypercapnic respiratory failure requiring intubation 01/05/2024
ABG 7.20 /
Acute kidney injury/metabolic acidosis
Increased lactic acid to 12
Hyperglycemia
Hypernatremia
-
Conditions present prior admission:
Type 2 diabetes
Advanced dementia
Noncommunicative/bedbound
PEG tube in place
Sacral decubitus ulcer stage IV-family states that it was debrided about a month ago at [facility] status post antibiotics
-
Assessment and plan:
Patient is critically ill on multiple vasopressors, intubated on mechanical ventilation.
-
Septic shock multiple sources possible
Abnormal urinalysis-urine culture Kerry.
Blood culture: Polymicrobial -Enterobacter species/Klebsiella pneumonia.
Sacral decubitus wound may be the source.
In my opinion, not a candidate for any surgical intervention. Suspect patient has some osteomyelitis based on depth of sacral decubitus wound.
Hold off on further imaging. Patient is critically ill on multiple vasopressors. Very poor prognosis. Family would not want heroic interventions but would like to continue with medical management.
Cannot rule out aspiration pneumonitis-chest x-ray 01/07/2024: Showed a new right lower lobe infiltrate.
Sputum culture pending
Repeat blood cultures
Broad-spectrum antibiotics-on Zosyn. Discontinue vancomycin.
MRSA screening negative
Consulted ID, antibiotics may need to be adjusted,? ESBL. Persistent leukocytosis/fevers and septic shock despite antibiotics. Case discussed with Dr. Villanueva per
-
Mechanical ventilation settings reviewed
Continue assist-control mechanical ventilation.
Peak pressure 28-plateau pressure 25 on 01/07/2024.
Assist-control/500/80%/30
ABG 01/07/2024:7.43/19/113
Mixed respiratory metabolic acidosis
Continue mechanical ventilation without change
Continue bicarbonate drip without change
Repeat BMP later.
Will decrease FiO2 based on ABG. Unable to obtain pulse oximetry's.
-
Patient with increasing FiO2 requirement:Pneumonia versus ? pulmonary edema (her weight is up about 7 kg since admission)
Chest x-ray 01/07/2024, reviewed, with a new right lower lobe infiltrate. Atelectasis versus pneumonia. Suspect some degree of volume overload as well
Daily ABG
-
Sedation with propofol and fentanyl
at baseline patient is noncommunicative at baseline for years, very rigid, bedbound.
Will try to keep comfortable.
Target for RASS score 0/-1
-
Septic shock:
Multiple vasopressors norepinephrine/vasopressin/Grant-Synephrine
Lactate level trending lower
Creatinine improved
Patient remains some metabolic acidosis
Central line in place
Arterial line in place
Will target mean arterial blood pressure [address]: Cain urinary output
Bicarbonate drip will be started at 150 cc an hour. Continue for now.
-
Hyperglycemia blood sugar over 600 on admission.
Improved
Hypernatremia resolved.
Continue insulin drip
Monitor Accu-Cheks per
-
Hyponatremia: Likely hypervolemic
Unable to diurese due to hemodynamic instability
Follow daily labs
-
Rapid atrial fibrillation since 01/06/2024: Amiodarone drip started.
Will need to obtain echocardiogram tomorrow
Check troponin
Hold anticoagulation for now, can readdress later on depending on clinical situation.
-
Hemoglobin is trending [id number]
No evidence for bleeding.
-
DVT prophylaxis SCDs-heparin subcu
Protonix for GI prophylaxis while intubated
-
N.p.o. for now
Head of bed elevation
PEG tube in place. Hold tube feedings in this patient with multiple vasopressors and hemodynamically unstable.
-
Discussed with son at the bedside 01/05/2020, I also discussed with his who apparently is a doctor. Expressed poor prognostic indicators. Recommended to focus on comfort.
They would like to continue with medical management.
No CPR, no dialysis, no aggressive surgeries will be offered at this point.
Son updated by Dr. Collins 01/06/2024: Continue with medical management. No heroic interventions.
-
Discussed with primary team, nursing, respiratory therapist. Discussed with infectious disease.
-
Prognosis extremely poor
-
Critical care statement: A total of 44 minutes of critical care time was provided for this patient today. This includes management of unstable vital signs, evaluation of the patient at bedside, reviewing the patient's pertinent medical records
including ventilator settings, arterial blood gases, radiographs, microbiology, laboratory evaluations and discussion with primary team, critical care nursing, and respiratory therapy.
Subjective Dataa
Subjective Data
Date of Service:
Date of Service: January 07, 2024
Chief Complaint: Flooring Professional Follow Up (Septic shock/hypercapnic respiratory failure requiring intubation)
Subjective:
Sedated, unresponsive mechanical ventilation.
Patient at baseline is noncommunicative and very rigid
Multiple vasopressors
Increased FiO2 requirements
Review of Systems
General: Unobtainable - Sedation
Objective Data
Data Reviewed
Vital Signs / I&O / Oxygen:
Vital Signs
Temp Pulse Resp BP Pulse Ox
100.5 F H 124 30 121/94 90
01/07/24 07:42 01/07/24 08:00 01/07/24 08:00 01/07/24 08:00 01/07/24 00:12
Intake and Output
01/06/24 01/07/24 01/08/24
06:59 06:59 06:59
Intake Total 6012.5 / 6281.0 8214.6 / 8532.3 782.9 / 782.9
Output Total 808 / 1058 1752 / 1902 225 / 225
Balance 5204.5 / 5223.0 6462.6 / 6630.3 557.9 / 557.9
SaO2 [A/C] 90
SaO2 97
Physical Exam
General: Respiratory Distress (n)
HEENT: Normocephalic
Cardiovascular: S1-S2
Respiratory: Rhonchi (Mild scattered) and ET Tube (Occasional secretions-no hemoptysis.)
GI: Soft and Non Distended
Neurology: Other (Patient is rigid at baseline) and Other (Unresponsive, sedated. Noncommunicative at baseline.)
Skin: Warm and Other (Stage IV sacral decubitus ulcers present on admission)
Labs/Micro/Reports
Lab Data
01/07/24 04:16
Laboratory Results
01/06/24 01/06/24 01/07/24
09:20 16:06 04:16
pH 7.25 L 7.26 L 7.43
pCO2 30 L 26 L 19 L
pO2 87 83 113 H
HCO3 13.2 L* 11.7 L* 12.6 L*
O2 Delivery Level
Microbiology
01/05/24 16:35 Coccyx Wound Culture - Preliminary
01/05/24 16:35 Coccyx Gram Stain - Preliminary
01/05/24 11:05 Blood/Venous Blood Culture - Preliminary
Enterobacter species
Klebsiella pneumoniae
01/05/24 11:05 Blood/Venous Gram Stain - Preliminary
01/05/24 11:05 Urine Urine Culture - Final
Kerry albicans
01/05/24 09:57 Blood/Venous Blood Culture - Preliminary
No Growth in 24 hours- Final report to follow
01/05/24 17:47 Nose Nasal Screen MRSA (PCR) - Final
MRSA not detected - performed by PCR methodology.
01/05/24 11:05 Nasal Swab Influenza Types A & B (MIGUEL) - Final
Negative for Influenza A & B, NAAT
Negative results must be combined with clinical observations
and patient history.
Nucleic Acid Amplification test (NAAT)performed on the
[employer] platform.
[2024-01-07 09:13] LABS: Glucose - Point of Care 130 mg/dl (70-99)
[2024-01-07 09:18] LABS: Blood Urea Nitrogen 36 mg/dl (7-17); Calcium 7.6 mg/dl (8.4-10.2); Carbon Dioxide 13 mmol/L (22-30); Chloride 91 mmol/L (98-107); Estimated Creatinine Clearance 53 ml/min; Glucose 172 mg/dl (70-99); Potassium 4.3 mmol/L (3.5-5.1); Sodium 122 mmol/L (135-145); eGFR > 60.00
--- NOTE | 2024-01-07 09:37 | PTCARENOTE ---
While retaping ET tube mendoza, noted a B/L cheek are 2 cm blister, Exuderm placed to protect to skin, left ear small skin tear noted, cleansed with sterile saline, STACY, family at bedside updated
--- NOTE | 2024-01-07 10:03 | CON.ID ---
Consultation
-
Date/Time Consultation Requested: 01/07/2024 08:38
Date/Time Consultation Performed: 01/07/2024 09:40
Requesting Provider: Dr. Collins
Performing Provider: Dr. Villanueva
Reason for Consultation: Septic shock
Chief Complaint / Past History
History of Present Illness
Kesha Olmstead is a 88-year-old female being evaluated at the request of Dr. Collins in regards to clinical sepsis. History is obtained from chart review, along with history obtained from the patient who was at the bedside. No available history
from the patient as she is currently unresponsive and on the vent.
The patient has a longstanding history of Alzheimer's dementia and the son reports that she has been in the long term for the past 7 years. She has been dealing with pressure ulcerations of the buttock and sacral area at least for the past year.
The son reports that the patient recently was in [facility] for PEG tube placement, and at that time underwent sacral wound debridement and was on antibiotics for a period of time.
The patient presented to [facility] on 01/04 from [place] after she was found to be unresponsive and hypoxic. In the ER she was found to be febrile to 101, and has persisted with fevers since that time.
Currently she remains intubated on 3 pressors with a rising lactate level. Infectious Diseases is asked to comment upon further antimicrobial therapy.
Past History
Additional Past Medical History:
Dementia
GERD
HTN
DM
Dysphagia
CKD
Dyslipidemia
Sacral decubitus ulcer
Additional Past Surgical History:
PEG tube
Sacral Decubidi debridement
Allergy History:
No Known Allergies Allergy (Unverified 10/03/21 09:05)
Medications Reviewed: Yes
Current Antibiotics:
Zosyn 3.375 g IV every 6 hours
Social History
Tobacco: Non-Smoker
Alcohol: None
Drug: None
Living: Detention
Family History
Family History: Not Pertinent
Review of Systems
Vital Signs
Temp Pulse Resp BP Pulse Ox
100.5 F H 126 30 121/94 90
01/07/24 07:42 01/07/24 09:00 01/07/24 09:00 01/07/24 08:00 01/07/24 00:12
Physical Exam
Physical Exam
Constitutional: Acutely Ill, Chronically Ill and Toxic
Eyes: Pupils Equal, Pupils Round, No Conjunctival Hemorrhage and Sclera Anicteric
Oral: No Thrush, No Ulcers and Other (ET tube in place)
Cardiovascular: Regular Rate and S1/S2; Negative S3/S4
Pulmonary: Negative Wheezes, Rales or Rhonchi
Gastrointestinal: Soft, Non Distended, Decreased Bowel Sounds, No Rebound and No Guarding
Genito-Urinary: Cain and Clear Urine
Extremities: Edema; Negative Cyanosis or Erythema
Skin: Warm and Dry; Negative Rash or Jaundice
Neurological: Other (Unresponsive on vent.)
Lab / Diagnostic Study Results
01/07/24 04:16
Abs Immat Gran (auto) [employer] 01/06/24 04:36
Absolute Neuts (auto) [employer] 01/06/24 04:36
Absolute Lymphs (auto) [employer] 01/06/24 04:36
Absolute Monos (auto) [employer] 01/06/24 04:36
Absolute Basos (auto) [employer] 01/06/24 04:36
Total Counted 100 01/06/24 04:36
Immature Gran % [employer] 01/06/24 04:36
Neutrophils % [employer] 01/06/24 04:36
Lymphocytes % [employer] 01/06/24 04:36
Monocytes % [employer] 01/06/24 04:36
Eosinophils % [employer] 01/06/24 04:36
Basophils % [employer] 01/06/24 04:36
Abs Neuts (Manual) 12.1 10^3/uL (1.4-6.5) H 01/06/24 04:36
Segmented Neutrophils 15 % (42-75) L 01/06/24 04:36
Band Neutrophils 39 % (0-3) H D 01/06/24 04:36
Lymphocytes (Manual) 11 % (20-51) L 01/06/24 04:36
Eosinophils (Manual) 1 % (0-6) 01/06/24 04:36
PT 18.9 Sec (11.4-14.6) H 01/05/24 15:05
INR 1.60 01/05/24 15:05
Lactic Acid 9.6 mmol/L (0.7-2.0) H* 01/06/24 20:10
Ur Squamous Epith Cells 11-15 /LPF (Few) 01/05/24 11:05
Microbiology Results
Micro:
01/06/24 16:06 Respiratory Culture - Pending
Endotracheal Gram Stain - Pending
01/05/24 16:35 Wound Culture - Preliminary
Coccyx Gram Stain - Preliminary
01/05/24 11:05 Blood Culture - Preliminary
Blood/Venous Enterobacter species
Klebsiella pneumoniae
Gram Stain - Preliminary
01/05/24 11:05 Urine Culture - Final
Urine Kerry albicans
01/05/24 09:57 Blood Culture - Preliminary
Blood/Venous No Growth in 24 hours- Final report to follow
01/05/24 17:47 Nasal Screen MRSA (PCR) - Final
Nose MRSA not detected - performed by PCR methodology.
01/05/24 11:05 Influenza Types A & B (MIGUEL) - Final
Nasal Swab Negative for Influenza A & B, NAAT
Negative results must be combined with clinical observations
and patient history.
Nucleic Acid Amplification test (NAAT)performed on the
[employer] platform.
Assessment / Plan
Clinical sepsis/septic shock
- Currently on 3 pressors
Large sacral decubidi
Leukocytosis
Bacteremia with Enterobacter, Klebsiella pneumoniae
Lactic acidosis
VDRF
Hyponatremia
Candiduria
Advanced Alzheimer's dementia
GERD
HTN
DM
Dysphagia
CKD
Recommendations:
Transition Zosyn to meropenem to broaden antimicrobial coverage.
Given severity of illness, will and recovery of Kerry from the urine, will also add micafungin.
Repeat blood cultures have been obtained.
Await further culture data from currently positive blood cultures.
Monitor white count and temperature curve.
Trend lactate.
Continue with pressor support; currently patient is maxed out on [address] consider [address] of the abdomen/pelvis if can safely transport. Currently appears to be too critical.
Overall condition is extremely guarded, with high risk of mortality given multiple comorbidities. This was discussed with patient's son who was at the bedside.
Care Review
Plan reviewed with: Physician (Critical care)
[2024-01-07 10:08] LABS: Glucose - Point of Care 134 mg/dl (70-99)
[2024-01-07 10:46] LABS: Troponin I 0.119 ng/ml
[2024-01-07] MEDS: MERREM 500 MG IV ×2 (11:06→17:02)
[2024-01-07 11:23] LABS: Glucose - Point of Care 191 mg/dl (70-99)
--- NOTE | 2024-01-07 11:29 | PTCARENOTE ---
PT's BP waxing and waning, at any given time, BP will either jump into the 180's without any no intervention to pressors, and within seconds BP will go back to 1SBP 100's, then BP will drop low into the 80's and in a few minutes will increase to SBP
100's, will continue to monitor, no other chnages in assessment at this time
[2024-01-07] MEDS: MYCAMINE 105 MG IV (11:35)
[2024-01-07 12:10] LABS: Glucose - Point of Care 133 mg/dl (70-99)
[2024-01-07 12:59] LABS: Glucose - Point of Care 138 mg/dl (70-99)
[2024-01-07 14:02] LABS: Glucose - Point of Care 163 mg/dl (70-99)
--- NOTE | 2024-01-07 14:04 | PTCARENOTE ---
PT continues with labile BP's, waxing and waning between Hypo/Normo/Hypertension, PT remains unresponsive, assessment unchanged, son at bedside, all questions answered, emotional support given
[2024-01-07 15:03] LABS: Blood Urea Nitrogen 31 mg/dl (7-17); Calcium 6.8 mg/dl (8.4-10.2); Carbon Dioxide 16 mmol/L (22-30); Chloride 85 mmol/L (98-107); Estimated Creatinine Clearance 53 ml/min; Glucose 174 mg/dl (70-99); Potassium 3.3 mmol/L (3.5-5.1); Sodium 118 mmol/L (135-145); eGFR > 60.00
[2024-01-07 15:16] LABS: Troponin I 0.113 ng/ml
[2024-01-07 15:22] LABS: Glucose - Point of Care 158 mg/dl (70-99)
--- NOTE | 2024-01-07 15:47 | PTCARENOTE ---
Wound care preformed as ordered, PT repositioned for comfort and skin protection, NA 118 and Ca 6.8 from labs, notified DR Collins, no new orders at this time, PT continues with waxing and waning BP's see work list for Pressor support and titrations
--- NOTE | 2024-01-07 15:55 | PTCARENOTE ---
PT's temp @ 1500 101.2, Ofirmev given as ordered, recheck of temp 100.7, 45 mins after administration
[2024-01-07 16:23] LABS: Glucose - Point of Care 100 mg/dl (70-99)
[2024-01-07] MEDS: STERILE WATER FOR INJECTION 10 ML IV (17:02)
--- NOTE | 2024-01-07 17:10 | PTCARENOTE ---
PT's BP elevated to 220/111, Grant-Syn off at this time, Levophed was titrated to 29 mcg /109 ml/hr, BP down to 107/64 (82), will continue to monitor BP
[2024-01-07 17:20] LABS: Glucose - Point of Care 121 mg/dl (70-99)
[2024-01-07 18:23] LABS: Glucose - Point of Care 145 mg/dl (70-99)
[2024-01-07] MEDS: KCL 100 IV (18:27)
[2024-01-07 19:03] LABS: Glucose - Point of Care 104 mg/dl (70-99)
[2024-01-07] MEDS: DAKIN'S SOLUTION 0.125% 1/4 STRENGTH 473 ML TOPICAL (19:23)
[2024-01-07 20:11] LABS: Glucose - Point of Care 198 mg/dl (70-99)
--- NOTE | 2024-01-07 20:11 | PTCARENOTE ---
Assumed care of pt at 1900. Pt remains intubated, #7.5 ETT/22 at [facility], AC 30/500/80/5, unable to obtain reliable SpO2 reading. AFib on monitor, low 100s-120s. Received pt on Levophed (maxed at 30mcg/min), Vasopressin, Amiodarone, Insulin drip per
DKA/HHS protocol, Fentanyl, Propofol, and Bicarb drip. Phenylephrine had been turned off at around 1700 and pt has so far been maintaining goal MAP of >65. Starting to wean down Levophed as tolerated (currently at 28 mcg/min). Pt has been febrile,
currently 101.3, can have next dose of Ofirmev shortly after 2100. Physical assessment completed, see nursing shift assessment flowsheet for full details.
[2024-01-07 21:18] LABS: Glucose - Point of Care 121 mg/dl (70-99)
[2024-01-07 22:12] LABS: Glucose - Point of Care 136 mg/dl (70-99)
[2024-01-07] MEDS: CORDARONE 518 MG IV (22:55)
[2024-01-07 23:12] LABS: Glucose - Point of Care 169 mg/dl (70-99)
--- NOTE | 2024-01-07 23:59 | PTCARENOTE ---
At around 2329, pt noted to be having more ectopy on the monitor, frequent PVCs at times in a bigeminal pattern but not consistently. At that time, Levophed was at 22mcg/min and Phenylephrine remained off. Around 2336 pt's BP on arterial line
suddenly started reading in 50s-60s systolic, Levophed turned back up to 30mcg/min and Phenylephrine turned back on at 100mcg/min. Pt then started having runs of PVCs, went into VTach, then went into Torsades and arterial line flat-lined. Pt would
then break out of that and into a normal rhythm and BP would increase again. Ana VAZQUEZ in room, advised to turn Amiodarone up to 1 mg/min. INFORMATION MANAGEMENT MANAGER called pt's son who is on his way in. At this time pt is in AFib, 110s, BP on arterial line in 130s.
Phenylephrine is currently off, Levophed remains at 30mcg/min.
[2024-01-08] VITALS: BP 116/86
[2024-01-08] MEDS: HEPARIN 5000 UNITS SC ×4 (00:12→23:13)
[2024-01-08] MEDS: STERILE WATER FOR INJECTION 10 ML IV ×5 (00:12→23:13)
[2024-01-08] MEDS: MERREM 500 MG IV ×5 (00:12→23:12)
[2024-01-08 00:37] LABS: Glucose - Point of Care 119 mg/dl (70-99)
--- NOTE | 2024-01-08 01:00 | PTCARENOTE ---
Both of pt's son and a daughter in law at bedside, praying. Pt's BP labile, frequent PVCs on monitor, went into Torsades again after second son arrived and broke back out of it within a few seconds.
[2024-01-08] MEDS: SUBLIMAZE 100 IV ×3 (01:06→17:04)
[2024-01-08] MEDS: LEVOPHED 250 IV ×7 (01:08→19:10)
[2024-01-08 01:54] LABS: Glucose - Point of Care 193 mg/dl (70-99)
[2024-01-08] MEDS: PITRESSIN 100 IV ×2 (02:32→13:21)
[2024-01-08 02:50] LABS: Glucose - Point of Care 185 mg/dl (70-99)
[2024-01-08] MEDS: OFIRMEV 100 IV (03:54)
[2024-01-08 04:00] VITALS: BP 142/59
[2024-01-08 04:16] LABS: Glucose - Point of Care 168 mg/dl (70-99)
[2024-01-08 04:50] LABS: B.E. -4.6 mmol/L; PO2 216 mmHg (83-108)
[2024-01-08 04:55] LABS: PCO2 15 mmHg (32-35); pH 7.61 (7.35-7.45)
[2024-01-08 04:56] LABS: HCO3 15.1 mmol/L (21-28)
[2024-01-08 05:02] LABS: % Basophils 0.1 % (0-2); % Eosinophils 0.3 % (0-6); % Immature Granulocytes 5.3 % (0-0.5); % Lymphocytes 8.2 % (20.5-51.1); % Monocytes 2.2 % (1.7-9.3); % Neutrophils 83.9 % (42.2-75.2); Absolute Eosinophils 0.1 10^3/uL (0-0.7); Absolute Immature Granulocytes 1.1 10^3/uL (0-0.05); Absolute Lymphocytes 1.8 10^3/uL (1.2-3.4); Absolute Monocytes 0.5 10^3/uL (0.1-0.6); Absolute Neutrophils 18.2 10^3/uL (1.4-6.5); Hematocrit 26.7 % (37.0-47.0); Hemoglobin 9.4 g/dL (12.0-16.0); Mean Corp Hgb Conc. 35.2 g/dL (33.0-37.0); Mean Corpuscular Hgb 28.5 pg (27.0-31.0); Mean Corpuscular Volume 80.9 fL (81.0-99.0); Nucleated Red Blood Cells % 2.3 %; Platelet Count 105 10^3/uL (130-400); White Blood Cell Count 21.7 10^3/uL (4.8-10.8)
--- NOTE | 2024-01-08 05:04 | PTCARENOTE ---
Pt has continuously been going in and out of VFib since before midnight. BP will simultaneously drop and then increase again, sometimes up to the 170s. Remains on Levo, currently at 22mcg/min, vasopressin, Amiodarone (back down to 0.5mg/min),
insulin, bicarb, propofol, fentanyl. Remains off Phenylephrine. Pt on same vent settings. Discussed with pt's son whether or not he wanted me to do pt's wound care this AM and he declined this, and declined to have her be turned at all 'unless she
stabilizes'. Son has made several comments throughout the night that demonstrate that he is not realistic with pt's current clinical situation. He seems more focused on pt's treatment plan, asking specifically what bacteria she is growing in her
cultures, then stating which were gram negative versus gram positive, wanting to know what abx she is on that would cover the gram negative and positive bacteria. He also stated that we 'can't hasten ' (i.e. withdrawal care). When another nurse
went into room to replace bag of Levophed that had finished infusing, pt's son insisted that she not hang it because 'she is becoming too dependent on it' and then said that since her BP was high at that time she must not need it anymore. Once he
saw her BP drop quickly he allowed nurse to continue what she was doing. Son now at this time came out of room and stated that 'how can we even be sure that this monitor is working properly' and is requesting an EKG to be done.
[2024-01-08 05:48] LABS: Lactic Acid 13.2 mmol/L (0.7-2.0)
[2024-01-08 06:08] LABS: Albumin 1.4 g/dl (3.5-5.0); Alkaline Phosphatase 137 U/L (38-126); Blood Urea Nitrogen 25 mg/dl (7-17); Calcium 5.9 mg/dl (8.4-10.2); Carbon Dioxide 17 mmol/L (22-30); Chloride 77 mmol/L (98-107); Estimated Creatinine Clearance 53 ml/min; Glucose 139 mg/dl (70-99); Magnesium 1.3 mg/dl (1.6-2.3); Phosphorus 2.5 mg/dl (2.5-4.5); Potassium 2.8 mmol/L (3.5-5.1); Sodium 113 mmol/L (135-145); Total Bilirubin 1.1 mg/dl (0.2-1.3); Total Protein 3.5 g/dl (6.3-8.2); eGFR > 60.00
[2024-01-08] MEDS: SODIUM BICARBONATE 1150 MEQ IV ×2 (06:17→15:03)
[2024-01-08 06:32] LABS: Glucose - Point of Care 133 mg/dl (70-99)
[2024-01-08 06:34] LABS: Cortisol, Random 33.1 ug/dl; TSH Reflex To Free T4 0.44 uIU/ml (0.47-4.68)
[2024-01-08 06:36] LABS: ALT (SGPT) 160 U/L (0-35); AST (SGOT) 335 U/L (14-36)
[2024-01-08 08:00] VITALS: BP 127/76
--- NOTE | 2024-01-08 08:00 | PTCARENOTE ---
PT received, unresponsive to tactile stimuli, weak gag reflex, pupils 2 sluggish, intubated and sedated, no purposeful movements noted, AFib on monitor,with runs of VFib, VTach, Torsades, noted, after K+ and Mag repletion, ectopy has since stopped,
pulses by Doppler, LE pale, cold to touch, generalized edema +1 noted, left hand +3, #7.5 ETT @ 23 lip, 22/400/50/5, diminished T/O with scattered crackles noted, small amount of thick mcbride secretions PT suctioned for, PEG tube draining small amount
of brown liquid, hypoactive BS, Thermistor Cain, as per protocol, Cain care preformed, draining malcom urine, Right PICC, +flushed and patent, see work list for meds and titrations, Q1 hour accu check, mottling noted at B/L breast, mild mottling
noted on abdomen, scattered mottling on extremities appears worse than previous day
[2024-01-08] MEDS: NSS (PRESERVATIVE FREE) 10 ML IV (08:03)
[2024-01-08] MEDS: PROTONIX IV 40 MG IV (08:03)
[2024-01-08] MEDS: DESENEX/MITRAZOL/ZEASORB 1 APPLIC TOPICAL ×2 (08:04→20:06)
[2024-01-08] MEDS: DAKIN'S SOLUTION 0.125% 1/4 STRENGTH 1 ML TOPICAL (08:04)
[2024-01-08] MEDS: DEXTROSE 50% SYRINGE 12.5 GRAMS IV ×2 (08:15→08:40)
--- NOTE | 2024-01-08 08:15 | PTCARENOTE ---
0815- PT's BS 36, as per Protocol, Dextrose 1/2 amp given IVP through PICC, repeat BS after 15 mins, BS 54, again following protocol 1/2 amp Dextrose given IVP, rechecked BS 15 mins after BS 88
0945 Lantus 12 units given as ordered, waited the 2 hours as ordered while following Insulin protocol, as per order @1240 Insulin checked 78, insulin drip was stopped at this time
1000 PT's temp 102.2, placed PT on cooling blanket will monitor temp q1 hour for normothermia, PT also received 650 mg Tylenol via Peg tube
[2024-01-08 08:26] LABS: Glucose - Point of Care 36 mg/dl (70-99)
[2024-01-08 08:39] LABS: Glucose - Point of Care 54 mg/dl (70-99)
--- NOTE | 2024-01-08 09:03 | W.PN.INTV ---
Today's Communication / Plan
Recommendations
Wean off insulin gtt
Trend blood gas
Start 3% NS and trend sNa levels q6hr - avoid over-correction
Adjust vent given her alkalemia
Continue antibiotics + add IV vanco given MRSA bacteremia
Check TTE
Hold off on further imaging, not a candidate for any interventions family would not want any heroic interventions.
Continue amiodarone gtt
Obtain echocardiogram
Hold off on tube feedings given the high level of vasopressors and risk of gut infarction with enteral nutrition
Continue bicarbonate drip
Poor prognosis
Given the rise of her lactate today, I do not expect her to survive the next 24-48 hrs.
Assessment
-
88-year-old woman with advanced dementia, noncommunicative, type 2 diabetes, [facility]. Patient emergently intubated in the emergency room due to nonresponsive. At baseline patient is noncommunicative, she has a
PEG tube in place. The son wanted intubation but no CPR. He would like to treat her medically.
Despite fluid resuscitation patient required vasopressors. Transferred to the critical care unit for further care.
Septic shock
Multiple sources possible including: Urinary tract infection/sacral decubitus ulcer and CAP likely due to aspiration.
Abnormal urinalysis
Chest x-ray: Bibasilar infiltrates
Bacteremia: Polymicrobial Enterobacter cloacae, ESBL�Klebsiella pneumoniae, Enterococcus faecalis + MRSA - suspect source is sacral decubitus wound.
Urine culture with Kerry
Acute hypercapnic respiratory failure requiring intubation 01/05/2024
ABG 7.20 /
Acute kidney injury/metabolic acidosis
Increased lactic acid to 12
Hyperglycemia
Severe hyponatremia
Abnormal TFTs with low TSH and elevated free T4 likely due to critical illness
Anemia/thrombocytopenia
-
Conditions present prior admission:
Type 2 diabetes
Advanced dementia
Noncommunicative/bedbound
PEG tube in place
Sacral decubitus ulcer stage IV-family states that it was debrided about a month ago at [facility] status post antibiotics
-
Assessment and plan:
Patient is critically ill on multiple vasopressors, intubated on mechanical ventilation with worsening lactic acidosis and polymicrobial bacteremia
-
Septic shock multiple sources possible
Abnormal urinalysis-urine culture Kerry.
Blood culture: Polymicrobial - Polymicrobial Enterobacter cloacae, ESBL�Klebsiella pneumoniae, Enterococcus faecalis + MRSA
Sacral decubitus wound is the suspected primary source.
In my opinion, not a candidate for any surgical intervention. Suspect patient has some osteomyelitis based on depth of sacral decubitus wound.
Hold off on further imaging. Patient is critically ill on multiple vasopressors. Very poor prognosis. Family would not want heroic interventions but would like to continue with medical management.
Cannot rule out aspiration pneumonitis-chest x-ray 01/07/2024: Showed a new right lower lobe infiltrate.
Sputum culture growing Proteus spp
Repeat blood cultures from 01/07/2024 show NGTD
Broad-spectrum antibiotics-on Zosyn. Discontinued vancomycin --> now MRSA seen on BCx, IV vanco re-ordered
MRSA screening negative
ID consulted -recommendations appreciated
-
Mechanical ventilation settings reviewed
Continue assist-control mechanical ventilation.
Adjust ventilator settings based on blood gas with respiratory alkalosis and hyperoxia seen on today's ABG
Considering patient has worsening lactic acidosis with metabolic acidosis, continue bicarbonate drip
Trend BMP
Adjust FiO2 and PEEP based on PaO2
-
Patient had increasing FiO2 requirement:Pneumonia versus ? pulmonary edema (her weight is up about 7 kg since admission)
Chest x-ray 01/07/2024, reviewed, with a new right lower lobe infiltrate. Atelectasis versus pneumonia. Suspect some degree of volume overload as well
Daily ABG
-
Sedation with propofol and fentanyl
at baseline patient is noncommunicative at baseline for years, very rigid, bedbound.
Will try to keep comfortable.
Target for RASS score 0/-1
-
Septic shock:
Multiple vasopressors norepinephrine/vasopressin/Grant-Synephrine
Lactate level now worsening
Continue to trend until <2mmol/L
Central line in place
Arterial line in place
Will target mean arterial blood pressure [address] mmHg[address]: Cain urinary output
Continue bicarb gtt and ABx as per ID
Check echo to rule out endocarditis
-
Hyperglycemia blood sugar over 600 on admission.
Improved
Hypernatremia resolved since 01/05.
Wean off insulin drip --> she takes lantus at home (17 units HS) --> give 14 units now and in 2 hours turn off insulin gtt. Continue to check BG q4-6hr with goal BG 140-180mg/dL
-
Hyponatremia: Likely hypervolemic although she does not clinically appear grossly volume overloaded to cause a Na as low as 112
Start hypertonic 3% NS and trend BMP q4-6hr
Unable to diurese due to hemodynamic instability
Follow daily labs
-
Rapid atrial fibrillation since 01/06/2024: Amiodarone drip started.
Rate control with goal HR<110
Obtain echocardiogram
Troponin peaked at 0.119 on 01/07/2024 and down trended to 0.113
Hold anticoagulation for now, can readdress later on depending on clinical situation.
-
Hemoglobin is trending [id number]
No evidence for bleeding.
Transfuse to keep Hb >7, plt>20k
-
DVT prophylaxis SCDs-heparin subcu
Protonix for GI prophylaxis while intubated
-
N.p.o. for now
Aspiration precautions � head of bed elevation
PEG tube in place. Hold tube feedings in this patient with multiple vasopressors and hemodynamically unstable.
-
Dr. Collins had discussed with son at the bedside 01/05/2020, and discussed with his who apparently is a doctor. Expressed poor prognostic indicators. Recommended to focus on comfort.
They would like to continue with medical management.
No CPR, no dialysis, no aggressive surgeries will be offered at this point.
Son updated by Dr. Collins 01/06/2024: Continue with medical management. No heroic interventions.
Today I discussed the patient's clinical status with the family including son and the son's . The son's is a family medicine practitioner. I answered all their questions, emotional support provided, and they would like to continue full
medical management while keeping her DNR but okay for mechanical ventilation.
-
Discussed with primary team, nursing, respiratory therapist. Discussed with infectious disease.
-
Prognosis extremely poor
-
Critical care statement: A total of 41 minutes of critical care time was provided for this patient today. This includes management of unstable vital signs, evaluation of the patient at bedside, reviewing the patient's pertinent medical records
including ventilator settings, arterial blood gases, radiographs, microbiology, laboratory evaluations and discussion with primary team, critical care nursing, and respiratory therapy.
Subjective Dataa
Subjective Data
Date of Service:
Date of Service: January 08, 2024
Chief Complaint: Telecommunications Engineer Follow Up (Septic shock/hypercapnic respiratory failure requiring intubation)
Subjective:
Patient was seen and evaluated today at bedside. Family members at bedside. I answered all the questions. Patient remains intubated this morning on 500/30/80%/5. She is sedated on fentanyl at 125 mcg/hr, and is currently on insulin drip at
units/hr. On bicarb gtt at 150cc/hr; on levophed gtt at 24mcg/min and vaso at 0.03 units/min. Grant off since yesterday. She is unresponsive.
Review of Systems
General: Unobtainable - Pat Unresp
Objective Data
Data Reviewed
Vital Signs / I&O / Oxygen:
Vital Signs
Temp Pulse Resp BP Pulse Ox
102 F H 105 30 142/59 90
01/08/24 07:46 01/08/24 07:00 01/08/24 07:00 01/08/24 04:00 01/07/24 00:12
Intake and Output
01/07/24 01/08/24 01/09/24
06:59 06:59 06:59
Intake Total 8214.6 / 8532.3 7746.4 / 7746.4
Output Total 1752 / 1902 2615 / 2615
Balance 6462.6 / 6630.3 5131.4 / 5131.4
SaO2 [A/C] 90
SaO2 97
Physical Exam
General: Respiratory Distress (n) and Chills (Negative)
HEENT: Normocephalic and Anicteric
Cardiovascular: S1-S2 and Peripheral Edema (+1 lower extremity pitting edema bilaterally)
Respiratory: Rhonchi (Mild scattered) and ET Tube (Mechanical breath sounds heard bilaterally)
GI: Soft, Non Distended, Non Tender and Other (Hypoactive bowel sounds)
Neurology: Other (Patient is rigid at baseline) and Other (Unresponsive, sedated. Noncommunicative at baseline. Pupils +1 mm bilaterally and sluggish)
Skin: Warm and Other (Stage IV sacral decubitus ulcers present on admission)
Labs/Micro/Reports
Lab Data
01/08/24 04:31
01/08/24 04:31
Laboratory Results
01/08/24
04:31
pH 7.61 H*
pCO2 15 L*
pO2 216 H
HCO3 15.1 L*
O2 Delivery Level
Microbiology
01/05/24 11:05 Blood/Venous Blood Culture - Preliminary
Klebsiella pneumoniae-ESBL
Enterobacter cloacae
Enterococcus species
Gram negative bacilli
01/05/24 11:05 Blood/Venous Gram Stain - Preliminary
01/06/24 16:06 Endotracheal Gram Stain - Preliminary
01/05/24 16:35 Coccyx Wound Culture - Preliminary
Proteus species
Staphylococcus aureus
Enterococcus species
Streptococcus species
Additional testing on request
01/05/24 16:35 Coccyx Gram Stain - Preliminary
01/05/24 09:57 Blood/Venous Blood Culture - Preliminary
No Growth in 48 hours- Final report to follow
01/05/24 11:05 Urine Urine Culture - Final
Ekrry albicans
01/05/24 17:47 Nose Nasal Screen MRSA (PCR) - Final
MRSA not detected - performed by PCR methodology.
01/05/24 11:05 Nasal Swab Influenza Types A & B (MIGUEL) - Final
Negative for Influenza A & B, NAAT
Negative results must be combined with clinical observations
and patient history.
Nucleic Acid Amplification test (NAAT)performed on the
[employer] platform.
[2024-01-08 09:31] LABS: Glucose - Point of Care 88 mg/dl (70-99)
--- NOTE | 2024-01-08 09:48 | W.PN.ID1 ---
Date of Service
Date of Service: January 08, 2024
Today's Communication
Continue with meropenem / Micafungin (d#2)
Assessment / Plan
Clinical sepsis/septic shock
- Currently on 2 pressors
Large sacral decubidi
Leukocytosis
Polymicrobial bacteremia with Enterobacter, Klebsiella pneumoniae, Enterococcus
Lactic acidosis
VDRF
Hyponatremia
Candiduria
Advanced Alzheimer's dementia
GERD
HTN
DM
Dysphagia
CKD
Recommendations:
Continue with meropenem / Micafungin (d#2)
Repeat blood cultures are pending.
Await further culture data from currently positive blood cultures.
Monitor white count and temperature curve.
Trend lactate.
Continue with pressor support.
May consider CT of the abdomen/pelvis if can safely transport, although imaging would not likely change any outcome as she is not likely a surgical candidate.
Overall condition is extremely poor, with high risk of mortality given multiple comorbidities. This was discussed with patient's son who was at the bedside.
Patient remains critically ill in intensive care unit.
����������������������������������������������������������
Chief Complaint
-: Clinical Sepsis
Subjective / Review of Systems
Patient seen and examined. Remains on vent at this time. Remains on 2 pressor therapy. Now DNR (no CPR), and having intermittent runs of V. tach.
Vital Signs / Physical Exam
Vital Signs
Vital Signs
Temp Pulse Resp BP Pulse Ox
102 F H 105 30 142/59 90
01/08/24 07:46 01/08/24 07:00 01/08/24 07:00 01/08/24 04:00 01/07/24 00:12
Physical Exam
Constitutional: Acutely Ill and Toxic
Head: Normocephalic and Other (ET tube in place.)
Cardiovascular: S1/S2; Negative S3/S4
Pulmonary: Negative Wheezes, Rales or Rhonchi
Gastrointestinal: Soft, Non Distended, Decreased Bowel Sounds and No Rebound
Genito-Urinary: Cain and Clear Urine
Extremities: Edema; Negative Erythema or Splinter Hemorrhage
Skin: Negative Rash or Jaundice
Neurological: Other (Unresponsive to voice and touch. Sedated.)
Objective Data
Lab Data
Lab Results
01/08/24 04:31
01/08/24 04:31
PT 18.9 Sec (11.4-14.6) H 01/05/24 15:05
INR 1.60 01/05/24 15:05
APTT 30.3 Sec (23.4-35.0) 01/05/24 15:05
Estimated Creat Clear 53 ml/min 01/08/24 04:31
Lactic Acid 13.2 mmol/L (0.7-2.0) H* 01/08/24 04:31
Total Bilirubin 1.1 mg/dl (0.2-1.3) 01/08/24 04:31
AST 335 U/L (14-36) H 01/08/24 04:31
ALT 160 U/L (0-35) H 01/08/24 04:31
Alkaline Phosphatase 137 U/L (38-126) H 01/08/24 04:31
Most recent labs reviewed.
Micro Results:
01/05/24 11:05 Blood Culture - Preliminary
Blood/Venous Klebsiella pneumoniae-ESBL
Enterobacter cloacae
Enterococcus species
Gram negative bacilli
Gram Stain - Preliminary
01/06/24 16:06 Respiratory Culture - Pending
Endotracheal Gram Stain - Preliminary
01/05/24 16:35 Wound Culture - Preliminary
Coccyx Proteus species
Staphylococcus aureus
Enterococcus species
Streptococcus species
Additional testing on request
Gram Stain - Preliminary
01/07/24 10:08 Blood Culture - Pending
Blood/Venous
01/07/24 10:08 Blood Culture - Pending
Blood/Venous
01/05/24 09:57 Blood Culture - Preliminary
Blood/Venous No Growth in 48 hours- Final report to follow
01/05/24 11:05 Urine Culture - Final
Urine Kerry albicans
01/05/24 17:47 Nasal Screen MRSA (PCR) - Final
Nose MRSA not detected - performed by PCR methodology.
01/05/24 11:05 Influenza Types A & B (MIGUEL) - Final
Nasal Swab Negative for Influenza A & B, NAAT
Negative results must be combined with clinical observations
and patient history.
Nucleic Acid Amplification test (NAAT)performed on the
[employer] platform.
Imaging:
01/08/2024 CXR (portable): Mild to moderate patchy right basilar airspace disease which is improved. Slightly improved left basilar atelectasis. Please see full dictation for additional detail.
Care Review
Plan reviewed with: Physician (Hospitalist)
[2024-01-08] MEDS: MAGNESIUM OXIDE 500 MG TUBE ×2 (10:03→13:26)
[2024-01-08] MEDS: KCL ELIXIR 40 MEQ TUBE ×2 (10:03→13:26)
[2024-01-08] MEDS: KCL 100 IV (10:03)
[2024-01-08 10:05] LABS: Free T4 2.28 ng/dl (0.78-2.19)
[2024-01-08] MEDS: LANTUS 0.140000000000000013 UNITS SC (10:39)
[2024-01-08 10:46] LABS: Glucose - Point of Care 156 mg/dl (70-99)
--- NOTE | 2024-01-08 10:49 | CM ---
CM following re: discharge planning.
Discussed in rounds, reviewed pt's chart, met with pt.
Pt is an 88 year old female, admitted with primary dx of Septic shock. Per Rounds meeting, pt intubated in ED, remains intubated, continue supportive care, poor prognosis, gaols of care discussed with the family, focusing on comfort care.
Pt is a detention care resident at [facility], has 2 supportive sons. Pt required total care at [facility].
D/C plan: probably comfort care.
CM with follow with discharge plan updates as hospitalization progresses. CM is available for emotional support.
--- NOTE | 2024-01-08 10:52 | W.PN.HOSP.TC ---
Today's Communication/Plan
-
Continue aggressive/supportive care including ventilatory support, broad-spectrum antibiotics, IV fluids.
Poor prognosis
Total Critical Care Time___45__ minutes. I was immediately available to the patient and staff. I personally examined, reviewed labs, diagnostic images/reports, interpretations, treatment plans, discussed patient care with other providers and
family or caregivers (if patient is unable to make decisions), entered orders as appropriate and documented the medical record.
Assessment / Plan
Assessment / Plan
Impression
Septic shock
Multi pathogen bacteremia
-Multiple sources including aspiration pneumonia with left lower lobe infiltrate, UTI, stage IV sacral pressure wound.
Profound hypotension not responding to IV fluids requiring multiple vasopressors.
Ventilator dependent respiratory failure, intubated in ED on 01/04
Acute kidney injury
Lactic acidosis
Hyponatremia
Hypokalemia
Atrial fibrillation with rapid medical response, new onset
Ventricular tachycardia
Conditions prior to admission.
Advanced Alzheimer's dementia
Aspiration syndrome
PEG tube in place
Type 2 diabetes/IDDM
Sacral decubital wound stage IV
Chronic ambulatory dysfunction, type rhythm.
History of COVID
Infection complicated with respiratory failure November 2019.
Plan:
Severe sepsis with multiple agitation bacteremia
Severe septic shock not responding to IV fluids and requiring multiple vasopressors
Possible sources as above also at this point could not rule out intra-abdominal source.
Initiated on broad-spectrum antibiotics including meropenem and micafungin.
Remains on multiple vasopressors
Remains on IV fluids with bicarbonate
Ventilatory dependent respiratory failure.
Remains intubated.
AB.6 consistent with metabolic acidosis and respiratory compensation
Continue vent support
Continue sedation Fentanyl/propofol
Acute kidney injury in the settings of profound hypotension
Severe hyponatremia
Cain catheter in place.
Continue monitoring urine output closely.
IV fluids with bicarbonate
Atrial fibrillation with rapid ventricular response--
Short runs of ventricular tachycardia
Initiated on amiodarone drip
Limited options to treat.
Unable to introduce any AV elgin blocking agents given profound hypotension requiring pressors
Off preadmission metoprolol given hypotension
IDDM
With profound hemodynamic instability and lactic acidosis, low clinical suspicion for DKA
Currently off standing dose of subcutaneous insulin
Update hemoglobin A1c pending
Initiated on ICU insulin drip. Currently hypoglycemic. Hold insulin drip.
DNR
Goals of care discussed with patient's son at the bedside by Dr. Cuevas
Poor prognosis given patient with advanced dementia, with severe sepsis and septic shock requiring multiple vasopressors--ongoing goals of care discussion with family......
The patient to continue ongoing treatment, although avoiding CPR while patient is intubated.
DVT prophylaxis heparin.
Anticipated Discharge: > 48 hours
Subjective/Interval History
-
Date of Service: January 08, 2024
Objective Data
-
Labs:
Laboratory Results
01/08/24 01/08/24
04:31 10:45
WBC 21.7 H
Hgb 9.4 L
Hct 26.7 L
Plt Count 105 L D
HCO3 15.1 L* Pending
Sodium 113 L* Pending
Potassium 2.8 L Pending
Chloride 77 L Pending
Carbon Dioxide 17 L Pending
BUN 25 H Pending
Creatinine 0.7 Pending
Glucose 139 H Pending
Calcium 5.9 L* Pending
Total Bilirubin 1.1
AST 335 H
ALT 160 H
Alkaline Phosphatase 137 H
Vital Signs:
Vital Signs
Temp Pulse Resp BP Pulse Ox
102 F H 105 30 142/59 90
01/08/24 07:46 01/08/24 07:00 01/08/24 07:00 01/08/24 04:00 01/07/24 00:12
I&O
01/07/24 01/08/24 01/09/24
06:59 06:59 06:59
Intake Total 8214.6 / 8532.3 7746.4 / 7746.4
Output Total 1752 / 1902 2615 / 2615
Balance 6462.6 / 6630.3 5131.4 / 5131.4
Physical Exam
-
General: Well Developed, Well Nourished, Intubated, Appears Chronically Ill and Obese
HEENT: Normocephalic and Atraumatic
Respiratory: Clear to Auscultation (limited to anterior chest only) and Other (hyperventilating (set by vent...not overbreathing))
Cardiac: Irregular Rhythm and Tachycardic
GI: Soft, Nontender, Nondistended and Peg Tube; Negative Normal Bowel Sounds (hypoactive to no bowel sounds by my assessment)
Rectal: Other (rectal tube without much output)
Genito-urinary: Cain
Musculoskeletal: Negative No Edema (diffuse anasarca)
Skin: Other (mottled breasts--cold extremities--large sacral decubitus ulcer (picture from wound note reviewed))
Neuro: Sedated; Negative Awake or Alert
[2024-01-08 11:01] LABS: PO2 164 mmHg (83-108); pH 7.51 (7.35-7.45)
[2024-01-08 11:08] LABS: HCO3 14.4 mmol/L (21-28); PCO2 18 mmHg (32-35)
[2024-01-08 11:30] LABS: Lactic Acid 15.1 mmol/L (0.7-2.0)
[2024-01-08 11:47] LABS: Blood Urea Nitrogen 23 mg/dl (7-17); Calcium 5.5 mg/dl (8.4-10.2); Carbon Dioxide 13 mmol/L (22-30); Chloride 77 mmol/L (98-107); Estimated Creatinine Clearance 46 ml/min; Glucose 219 mg/dl (70-99); Sodium 112 mmol/L (135-145); eGFR > 60.00
[2024-01-08] MEDS: MYCAMINE 105 MG IV (11:52)
[2024-01-08 12:00] VITALS: BP 110/46
[2024-01-08 12:01] LABS: Glucose - Point of Care 109 mg/dl (70-99)
[2024-01-08] MEDS: TYLENOL 650 MG TUBE (12:08)
[2024-01-08 12:10] LABS: Glycohemoglobin (HgbA1c) 9.4 % (4.0-5.6)
[2024-01-08 12:43] LABS: Glucose - Point of Care 78 mg/dl (70-99)
--- NOTE | 2024-01-08 12:52 | PTCARENOTE ---
PT remains on cooling blanket temp 101.6, converted back to NSR, no ectopy at this time, family at bedside, updated by Dr Sandoval and myself, emotional support given, bed in lowest position, call lozano within reach
[2024-01-08 13:34] LABS: Glucose - Point of Care 77 mg/dl (70-99)
[2024-01-08] MEDS: SODIUM CHLORIDE 3% 250 IV (15:12)
[2024-01-08 15:36] LABS: Glucose - Point of Care 93 mg/dl (70-99)
[2024-01-08 16:00] VITALS: BP 105/61
[2024-01-08] MEDS: CALCIUM GLUCONATE 280 MG IV (16:03)
[2024-01-08 16:57] LABS: HCO3 18.8 mmol/L (21-28); PCO2 23 mmHg (32-35); PO2 190 mmHg (83-108); pH 7.52 (7.35-7.45)
[2024-01-08 17:01] LABS: O2 Therapy %Oxygen/Room Air 50%
--- NOTE | 2024-01-08 17:13 | PTCARENOTE ---
PT had 11 beat run VTach, self limiting, no changes to assessment, family remains at bed side
[2024-01-08 17:15] LABS: Lactic Acid 12.4 mmol/L (0.7-2.0)
[2024-01-08 18:04] LABS: ALT (SGPT) 120 U/L (0-35); AST (SGOT) 319 U/L (14-36); Albumin 1.3 g/dl (3.5-5.0); Alkaline Phosphatase 148 U/L (38-126); Blood Urea Nitrogen 24 mg/dl (7-17); Calcium 5.6 mg/dl (8.4-10.2); Carbon Dioxide 19 mmol/L (22-30); Chloride 76 mmol/L (98-107); Estimated Creatinine Clearance 53 ml/min; Glucose 224 mg/dl (70-99); Potassium 3.2 mmol/L (3.5-5.1); Sodium 112 mmol/L (135-145); Total Protein 3.3 g/dl (6.3-8.2); eGFR > 60.00
--- NOTE | 2024-01-08 18:09 | PTCARENOTE ---
Notified Dr Velásquez of BMP results, no new orders at this time
[2024-01-08 18:10] LABS: Glucose - Point of Care 218 mg/dl (70-99)
[2024-01-08] MEDS: NOVOLOG FLEXPEN-LOW RESISTANCE 2 UNITS SC (18:17)
--- NOTE | 2024-01-08 20:00 | PTCARENOTE ---
Resumed care of pt laying in bed intubated on vent. Pt is non verbal at baseline due to Alzheimer dementia. Pt does not track, follow commands, or make any attempt to move any extremity. Pt opens eyes, stares at ceiling, reflexes intact. Weak gag.
Absent hand grasps. Pt HR in the 70's-80's, going in and out of Afib, and NSR with U waves, and PVC's. HR Irreg. +3 pitting anasarca, 3rd spacing. Doppler pedal pulses. Cap refill >2, cyanotic dusky extremities. Mottling present. Lungs course with
scattered crackles. Unable to obtain POX at this time. #7.5 ETT to 23 at center lip on current vent settings AC 18, TV 400, FIO2 50%, Peep 5. Pt suctioned for small thick mcbride secretions. Clear thick oral secretions suctioned. Hypo bowel. round obese
abd. Peg tube in place, no tube feeds at this time. Pt inc of small amount of loose stool. Herminia care provided. Temp sensing medina in place draining Tea colored urine. MASD under B/L breast. B/L breast with ecchymosis and large fluid filled blisters.
Right breast blisters popped and not open skin, draining serous sanguinous fluid. See wound care documentation. Stage 4 sacral wound with dressing intact. B/L heel foams in place. Pale, cool, clammy, mottled skin t/o. Body tense. Right triple picc
in place infusing calcium gluconate, Fentanyl gtt, 3%NaCl, D5W wtih 150MEQ Bicarb, Amiodarone gtt, Levophed and Vaso to keep MAP >65. Right radial A line in place. Cooling blanket currently turned off, core temp 98.9. CHG bath provided. Oral care
complete. Pt repositioned. Extremities elevated on pillows. Will continue to monitor closely. Son at bedside.
[2024-01-08] MEDS: DAKIN'S SOLUTION 0.125% 1/4 STRENGTH 473 ML TOPICAL (20:06)
--- NOTE | 2024-01-08 22:05 | SUR.PHASEI ---
Core temp rapidly dropping. Core temp 96.6. Warming blanket ordered and applied. Will continue to monitor.
[2024-01-08] MEDS: CORDARONE 518 MG IV (22:48)
[2024-01-08] MEDS: LEVOPHED 258 MG IV (22:49)
[2024-01-08 23:09] LABS: Lactic Acid 10.4 mmol/L (0.7-2.0)
[2024-01-09] VITALS (8 sets, daily range): BP systolic 158–193; BP diastolic 38; BMI 29.0
[2024-01-09 00:08] LABS: Albumin 1.3 g/dl (3.5-5.0); Alkaline Phosphatase 149 U/L (38-126); Blood Urea Nitrogen 23 mg/dl (7-17); Calcium 6.7 mg/dl (8.4-10.2); Carbon Dioxide 21 mmol/L (22-30); Chloride 76 mmol/L (98-107); Estimated Creatinine Clearance 53 ml/min; Glucose 263 mg/dl (70-99); Magnesium 1.4 mg/dl (1.6-2.3); Potassium 2.9 mmol/L (3.5-5.1); Sodium 113 mmol/L (135-145); Total Bilirubin 1.2 mg/dl (0.2-1.3); Total Protein 3.4 g/dl (6.3-8.2); eGFR > 60.00
[2024-01-09 00:19] LABS: ALT (SGPT) 125 U/L (0-35); AST (SGOT) 306 U/L (14-36)
[2024-01-09] MEDS: NOVOLOG FLEXPEN-LOW RESISTANCE 3 UNITS SC (00:19)
[2024-01-09] MEDS: KCL ELIXIR 20 MEQ TUBE (00:23)
[2024-01-09] MEDS: MAGNESIUM SULFATE 50 IV (00:23)
[2024-01-09] MEDS: KCL 100 IV ×2 (00:23→19:24)
[2024-01-09] MEDS: SODIUM CHLORIDE 3% 250 IV (00:26)
[2024-01-09] MEDS: CALCIUM GLUCONATE 130 MG IV ×2 (00:28→19:15)
[2024-01-09] MEDS: PITRESSIN 100 IV ×3 (00:49→22:39)
--- NOTE | 2024-01-09 01:06 | PTCARENOTE ---
Labs reviewed with Shereen VAZQUEZ. Multiple riders now infusing to replete Electrolytes. Bicarb gtt discontinued. Pt had brief episode of torsades, HR in the 200's, broke on its own. Core temp now 98.2. Anthony hugger turned off. No other changes noted
at this time. Son remains at bedside. Will continue to monitor.
[2024-01-09] MEDS: SUBLIMAZE 100 IV ×2 (01:36→10:10)
--- NOTE | 2024-01-09 04:00 | PTCARENOTE ---
Pt given complete bed bath. Sacral wound care complete, see Wound care documentation. B/L breast blisters open and oozing, wound care complete. Am lab work obtained. Pt repositioned. Pt continues to have intermittent episodes of torsades but breaks
on own. All drips infusing as ordered. No other changes in assessment noted at this time. Will continue to monitor.
[2024-01-09 04:06] LABS: B.E. -0.6 mmol/L; HCO3 22.1 mmol/L (21-28); PCO2 29 mmHg (32-35); PO2 118 mmHg (83-108); pH 7.49 (7.35-7.45)
[2024-01-09 04:15] LABS: Hemoglobin 9.8 g/dL (12.0-16.0); Mean Corpuscular Hgb 28.4 pg (27.0-31.0); Mean Corpuscular Volume 81.2 fL (81.0-99.0); Mean Platelet Volume 12.8 fL (7.4-10.4); Platelet Count 94 10^3/uL (130-400); Red Blood Cell Count 3.45 10^6/uL (4.20-5.40); Red Cell Dist. Width 14.8 % (11.5-14.5); White Blood Cell Count 17.5 10^3/uL (4.8-10.8)
[2024-01-09 04:29] LABS: Lactic Acid 9.6 mmol/L (0.7-2.0)
[2024-01-09 04:45] LABS: NT-proBNP 25500 pg/ml
[2024-01-09 04:47] LABS: Albumin 1.4 g/dl (3.5-5.0); Alkaline Phosphatase 152 U/L (38-126); Blood Urea Nitrogen 23 mg/dl (7-17); Calcium 7.1 mg/dl (8.4-10.2); Carbon Dioxide 22 mmol/L (22-30); Chloride 79 mmol/L (98-107); Estimated Creatinine Clearance 53 ml/min; Glucose 210 mg/dl (70-99); Magnesium 1.9 mg/dl (1.6-2.3); Phosphorus 2.9 mg/dl (2.5-4.5); Potassium 3.9 mmol/L (3.5-5.1); Sodium 113 mmol/L (135-145); Total Bilirubin 1.1 mg/dl (0.2-1.3); Total Protein 3.5 g/dl (6.3-8.2); eGFR > 60.00
[2024-01-09 04:57] LABS: ALT (SGPT) 131 U/L (0-35); AST (SGOT) 286 U/L (14-36)
[2024-01-09] MEDS: NOVOLOG FLEXPEN-MODERATE RESISTANCE 3 UNITS SC ×2 (05:30→11:26)
[2024-01-09] MEDS: MERREM 500 MG IV ×3 (05:30→17:35)
[2024-01-09] MEDS: CALCIUM GLUCONATE 100 IV (05:31)
[2024-01-09] MEDS: STERILE WATER FOR INJECTION 10 ML IV ×3 (05:31→17:35)
[2024-01-09] MEDS: MAGNESIUM SULFATE 102 GRAMS IV (05:31)
[2024-01-09] MEDS: KCL 50 IV (06:06)
[2024-01-09] MEDS: LEVOPHED 258 MG IV ×2 (07:31→12:55)
[2024-01-09] MEDS: PROTONIX IV 40 MG IV (07:37)
[2024-01-09] MEDS: DESENEX/MITRAZOL/ZEASORB 1 APPLIC TOPICAL ×2 (07:38→21:36)
[2024-01-09] MEDS: NSS (PRESERVATIVE FREE) 10 ML IV (07:38)
[2024-01-09] MEDS: HEPARIN 5000 UNITS SC ×2 (07:38→15:13)
--- NOTE | 2024-01-09 08:41 | W.PN.ID1 ---
Date of Service
Date of Service: January 09, 2024
Today's Communication
Continue with meropenem / Micafungin (d#3)
Assessment / Plan
Clinical sepsis/septic shock
- Remains on pressors.
Large sacral decubidi
Leukocytosis
Polymicrobial bacteremia with Enterobacter, Klebsiella pneumoniae, Enterococcus
Lactic acidosis
VDRF
Hyponatremia
Candiduria
Advanced Alzheimer's dementia
GERD
HTN
DM
Dysphagia
CKD
Recommendations:
Continue with meropenem / Micafungin (d#3)
Repeat blood cultures are pending.
Await further culture data from currently positive blood cultures.
Monitor white count and temperature curve.
Trend lactate.
Continue with pressor support.
Overall condition and outlook remains extremely poor, with high risk of mortality given multiple comorbidities.
Patient remains critically ill in intensive care unit.
����������������������������������������������������������
Chief Complaint
-: Leukocytosis, Clinical Sepsis and Bacteremia
Subjective / Review of Systems
Patient seen and examined. Remains on vent at this time. Nursing reports ongoing episodes of the tach overnight. Remains on pressor therapy.
Vital Signs / Physical Exam
Vital Signs
Vital Signs
Temp Pulse Resp BP Pulse Ox
99.8 F 87 18 105/61 90
01/09/24 07:39 01/09/24 05:00 01/09/24 05:00 01/08/24 16:00 01/07/24 00:12
Physical Exam
Constitutional: Acutely Ill and Toxic
Head: Normocephalic and Other (ET tube in place.)
Eyes: Sclera Anicteric
Cardiovascular: Regular Rate and S1/S2; Negative S3/S4
Pulmonary: Negative Wheezes, Rales or Rhonchi
Gastrointestinal: Soft, Non Distended, Decreased Bowel Sounds and No Rebound
Genito-Urinary: Cain and Clear Urine
Extremities: Edema; Negative Erythema or Splinter Hemorrhage
Skin: Negative Rash or Jaundice
Neurological: Other (Unresponsive to voice and touch. )
Objective Data
Lab Data
Lab Results
01/09/24 03:59
PT 18.9 Sec (11.4-14.6) H 01/05/24 15:05
INR 1.60 01/05/24 15:05
APTT 30.3 Sec (23.4-35.0) 01/05/24 15:05
Estimated Creat Clear 53 ml/min 01/09/24 03:59
Lactic Acid 9.6 mmol/L (0.7-2.0) H* 01/09/24 03:59
Total Bilirubin 1.1 mg/dl (0.2-1.3) 01/09/24 03:59
AST 286 U/L (14-36) H 01/09/24 03:59
ALT 131 U/L (0-35) H 01/09/24 03:59
Alkaline Phosphatase 152 U/L (38-126) H 01/09/24 03:59
Most recent labs reviewed.
Micro Results:
01/06/24 16:06 Respiratory Culture - Preliminary
Endotracheal Proteus species
Gram Stain - Preliminary
01/05/24 11:05 Blood Culture - Preliminary
Blood/Venous Enterococcus faecalis
Klebsiella pneumoniae-ESBL
Enterobacter cloacae
Gram negative bacilli
Gram Stain - Preliminary
01/07/24 10:08 Blood Culture - Preliminary
Blood/Venous Staphylococcus aureus
Gram Stain - Preliminary
01/05/24 16:35 Wound Culture - Final
Coccyx Proteus species
Staphylococcus aureus
Enterococcus species
Streptococcus species
Additional testing on request
Gram Stain - Final
01/07/24 10:08 Blood Culture - Preliminary
Blood/Venous No Growth in 24 hours- Final report to follow
01/05/24 09:57 Blood Culture - Preliminary
Blood/Venous No Growth in 72 hours- Final report to follow
01/05/24 11:05 Urine Culture - Final
Urine Kerry albicans
01/05/24 17:47 Nasal Screen MRSA (PCR) - Final
Nose MRSA not detected - performed by PCR methodology.
01/05/24 11:05 Influenza Types A & B (MIGUEL) - Final
Nasal Swab Negative for Influenza A & B, NAAT
Negative results must be combined with clinical observations
and patient history.
Nucleic Acid Amplification test (NAAT)performed on the
[employer] platform.
Imaging:
01/08/2024 CXR (portable): Mild to moderate patchy right basilar airspace disease which is improved. Slightly improved left basilar atelectasis. Please see full dictation for additional detail.
--- NOTE | 2024-01-09 08:43 | PTCARENOTE ---
report received. assessments per work list. opens eyes, does not make eye contact. blinks to threat. +gag and cough. extremities rigid, hands mottled and contracted. Doppler pulses. monitor afib, self limited periods VT/torsades. right radial
arterial line in place. right PICC patent for infusions,+blood returns. ETT to vent, suctions for moderate amount mcbride sputum. lungs with coarse crackles. peg clamped. medina draining tea colored urine. sclera jaundiced. bilateral breasts weeping,
ecchymotic/dark tissue color with open areas. prior blisters per shift report. police guard updated
--- NOTE | 2024-01-09 09:01 | W.PN.INTV ---
Today's Communication / Plan
Recommendations
Trend blood gas
Continue 3% NS and trend sNa levels q6hr - avoid over-correction
Adjust vent given her alkalemia
Continue antibiotics; DC IV vanco given likely MSSA bacteremia - follow up speciation from 01/06 BCx
Hold off on further imaging, not a candidate for any interventions family would not want any heroic interventions.
Continue amiodarone gtt
Obtain echocardiogram
Hold off on tube feedings given the high level of vasopressors and risk of gut infarction with enteral nutrition
Stop bicarbonate drip
Poor prognosis
Assessment
-
88-year-old woman with advanced dementia, noncommunicative, type 2 diabetes, [facility]. Patient emergently intubated in the emergency room due to nonresponsive. At baseline patient is noncommunicative, she has a
PEG tube in place. The son wanted intubation but no CPR. He would like to treat her medically.
Despite fluid resuscitation patient required vasopressors. Transferred to the critical care unit for further care.
Impression:
Septic shock
Multiple sources possible including: Urinary tract infection/sacral decubitus ulcer and pneumonia likely due to aspiration.
Abnormal urinalysis
Chest x-ray: Bibasilar infiltrates
Bacteremia: Polymicrobial Enterobacter cloacae, ESBL�Klebsiella pneumoniae, Enterococcus faecalis + MRSA - suspect source is sacral decubitus wound.
Urine culture with Kerry
Sputum Cx with ESBL Proteus Mirabilis + Staph aureus (presumptive)
Hospital acquired pneumonia (present on admission)
Acute hypercapnic respiratory failure requiring intubation 01/05/2024
ABG 7.20 /
Acute kidney injury/metabolic acidosis - now resolved
Lactic acidosis
Hyperglycemia
Severe hyponatremia
Abnormal TFTs with low TSH and elevated free T4 likely due to critical illness
Anemia/thrombocytopenia
-
Conditions present prior admission:
Type 2 diabetes
Advanced dementia
Noncommunicative/bedbound
PEG tube in place
Sacral decubitus ulcer stage IV-family states that it was debrided about a month ago at [facility] status post antibiotics
-
Assessment and plan:
Patient remains critically ill on multiple vasopressors, intubated on mechanical ventilation with lactic acidosis and polymicrobial bacteremia with pneumonia
-
Septic shock multiple sources possible
Abnormal urinalysis-urine culture Kerry.
Blood culture: Polymicrobial - Polymicrobial Enterobacter cloacae, ESBL�Klebsiella pneumoniae, Enterococcus faecalis + MRSA
Sacral decubitus wound is the suspected primary source. She appears to have a pneumonia with multiple organisms growing on sputum Cx
In my opinion, not a candidate for any surgical intervention. Suspect patient has some osteomyelitis based on depth of sacral decubitus wound.
Hold off on further imaging. Patient is critically ill on multiple vasopressors. Very poor prognosis. Family would not want heroic interventions but would like to continue with medical management.
Cannot rule out aspiration pneumonitis-chest x-ray 01/07/2024: Showed a new right lower lobe infiltrate.
Sputum culture growing ESBL-Proteus mirabilis + Staph aureus (likely MSSA)
1 of 2 repeat blood cultures from 01/07/2024 show NGTD
Broad-spectrum antibiotics-on Zosyn. Discontinued vancomycin --> Staph aureus seen on BCx from 01/06, likely MSSA, ok to stop IV vanco (was re-ordered on 01/07)
MRSA screening negative
ID consulted -recommendations appreciated
-
Mechanical ventilation settings reviewed
Continue assist-control mechanical ventilation.
Adjust ventilator settings based on blood gas with continued respiratory alkalosis and hyperoxia seen on today's ABG
Pt having worsening anasarca with serum HCO3 now normalized - stop bicarb gtt
Trend BMP
Adjust FiO2 and PEEP based on PaO2
-
Patient had increasing FiO2 requirement:Pneumonia versus ? pulmonary edema (her weight is up about 7 kg since admission)
Chest x-ray 01/07/2024, reviewed, with a new right lower lobe infiltrate. Atelectasis versus pneumonia. Suspect some degree of volume overload as well
Daily ABG
-
Sedation with fentanyl
At baseline patient is noncommunicative at baseline for years, very rigid, bedbound.
Will try to keep comfortable.
Target for RASS score 0 to -1
-
Septic shock:
Multiple vasopressors norepinephrine + vasopressin
Continue to trend until <2mmol/L
Central line in place
Arterial line in place
Will target mean arterial blood pressure 65 mmHg.
[address]: Follow urine output
ABx as per ID
Check echo to rule out endocarditis
-
Hyperglycemia blood sugar over 600 on admission.
Improved
Hypernatremia resolved since 01/05.
Weaned off insulin drip on 01/07 after bridging with 14 units lantus--> she takes lantus at home (17 units HS) - Continue to check BG q4-6hr with goal BG 140-180mg/dL with basal-bolus insulin dosing
-
Hyponatremia: Likely hypervolemic although she does not clinically appear grossly volume overloaded to cause a Na as low as 112
On 01/07 we started hypertonic 3% NS and trend BMP q6hr
Diurese as BP tolerates
Follow daily labs
-
Rapid atrial fibrillation since 01/06/2024: Amiodarone drip started.
Rate control with goal HR<110
Obtain echocardiogram
Troponin peaked at 0.119 on 01/07/2024 and down trended to 0.113
Hold anticoagulation for now, can readdress later on depending on clinical situation.
-
Acute anemia
No evidence for bleeding.
Transfuse to keep Hb >7, plt>20k
-
DVT prophylaxis SCDs-heparin subcu
Protonix for GI prophylaxis while intubated
-
NPO for now
Aspiration precautions � head of bed elevation
PEG tube in place. Hold tube feedings in this patient with multiple vasopressors and hemodynamically unstable.
-
Dr. Collins had discussed with son at the bedside 01/05/2020, and discussed with his who apparently is a doctor. Expressed poor prognostic indicators. Recommended to focus on comfort.
They would like to continue with medical management.
No CPR, no dialysis, no aggressive surgeries will be offered at this point.
Son updated by Dr. Collins 01/06/2024: Continue with medical management. No heroic interventions.
On 01/07, Dr. Velásquez discussed the patient's clinical status with the family including son and the son's . The son's is a family medicine practitioner. I answered all their questions, emotional support provided, and they would like to
continue full medical management while keeping her DNR but okay for mechanical ventilation.
-
Discussed with primary team, nursing, respiratory therapist. Discussed with infectious disease.
-
Prognosis extremely poor
-
Critical care statement: A total of 37 minutes of critical care time was provided for this patient today. This includes management of unstable vital signs, evaluation of the patient at bedside, reviewing the patient's pertinent medical records
including ventilator settings, arterial blood gases, radiographs, microbiology, laboratory evaluations and discussion with primary team, critical care nursing, and respiratory therapy.
Subjective Dataa
Subjective Data
Date of Service:
Date of Service: January 09, 2024
Chief Complaint: Risk Advisor Follow Up (Septic shock/hypercapnic respiratory failure requiring intubation)
Subjective:
Pt seen and evaluated this AM. Anthony nguyengger placed overnight due to hypothermia to 96.6. She's on levo at 18mcg/min and vaso at 0.03 units/min. On vent with FiO2 40% and PEEP of 5. Sedated on fentanyl at 75mcg/hr. Na 113 this AM. Lactate
reduced this AM at 9.6. Son at bedside and answered all of his questions. Patient is slightly more awake today but still not following any commands.
Review of Systems
General: Unobtainable - Pat Unresp
Objective Data
Data Reviewed
Vital Signs / I&O / Oxygen:
Vital Signs
Temp Pulse Resp BP Pulse Ox
99.8 F 87 18 105/61 90
01/09/24 07:39 01/09/24 05:00 01/09/24 05:00 01/08/24 16:00 01/07/24 00:12
Intake and Output
01/08/24 01/09/24 01/10/24
06:59 06:59 06:59
Intake Total 7746.4 / 8021.1 5819.0 / 5923.5 104.5 / 104.5
Output Total 2615 / 2670 990 / 990 40 / 40
Balance 5131.4 / 5351.1 4829.0 / 4933.5 64.5 / 64.5
SaO2 [A/C] 90
SaO2 97
Physical Exam
General: Respiratory Distress (n) and Chills (Negative)
HEENT: Normocephalic
Cardiovascular: Irregular Rhythm (Irregularly irregular), Peripheral Edema (+1 lower + upper extremity pitting edema bilaterally) and Other (Normal rate)
Respiratory: Wheeze (negative), Rhonchi (Mild scattered) and ET Tube (Mechanical breath sounds heard bilaterally)
GI: Soft, Non Distended, Non Tender and Other (Hypoactive bowel sounds)
Neurology: Other (Patient is rigid at baseline) and Other (Opens eyes to voice and tactile stimuli; Noncommunicative at baseline. Pupils +1 mm bilaterally and sluggish)
Skin: Warm and Other (Stage IV sacral decubitus ulcers present on admission)
Labs/Micro/Reports
Lab Data
01/09/24 03:59
Laboratory Results
01/08/24 01/08/24 01/09/24
10:45 16:38 03:59
pH 7.51 H 7.52 H 7.49 H
pCO2 18 L* 23 L 29 L
pO2 164 H 190 H 118 H
HCO3 14.4 L* 18.8 L 22.1
O2 Delivery Level %oxygen/room air 50% 50%, peep of 5
Microbiology
01/06/24 16:06 Endotracheal Respiratory Culture - Preliminary
Proteus Mirabilis-ESBL
Staphylococcus aureus
01/06/24 16:06 Endotracheal Gram Stain - Preliminary
01/05/24 11:05 Blood/Venous Blood Culture - Preliminary
Enterococcus faecalis
Klebsiella pneumoniae-ESBL
Enterobacter cloacae
Proteus mirabilis
01/05/24 11:05 Blood/Venous Gram Stain - Preliminary
01/07/24 10:08 Blood/Venous Blood Culture - Preliminary
Staphylococcus aureus
01/07/24 10:08 Blood/Venous Gram Stain - Preliminary
01/05/24 16:35 Coccyx Wound Culture - Final
Proteus species
Staphylococcus aureus
Enterococcus species
Streptococcus species
Additional testing on request
01/05/24 16:35 Coccyx Gram Stain - Final
01/07/24 10:08 Blood/Venous Blood Culture - Preliminary
No Growth in 24 hours- Final report to follow
01/05/24 09:57 Blood/Venous Blood Culture - Preliminary
No Growth in 72 hours- Final report to follow
01/05/24 11:05 Urine Urine Culture - Final
Kerry albicans
--- NOTE | 2024-01-09 09:20 | CHAP ---
Emotional and spiritual support provided at bedside for Ms. Olmstead's son. Long conversation, much centered on his firm buddhist conviction that all life is anjel and that suffering provides atonement for sin. He is very grateful for the care
his mother is receiving and he is not interested in considering withdrawal of artificial support and movement towards comfort care. Spoke about his mother's loving kindness, intelligence and legacy.
[2024-01-09] MEDS: LANTUS 0.149999999999999994 UNITS SC (11:25)
[2024-01-09 11:29] LABS: Glucose - Point of Care 208 mg/dl (70-99)
[2024-01-09 11:31] LABS: B.E. -0.7 mmol/L; HCO3 22.1 mmol/L (21-28); PCO2 29 mmHg (32-35); PO2 100 mmHg (83-108); pH 7.49 (7.35-7.45)
[2024-01-09] MEDS: DAKIN'S SOLUTION 0.125% 1/4 STRENGTH 473 ML TOPICAL ×2 (11:44→21:35)
[2024-01-09] MEDS: MYCAMINE 105 MG IV (12:14)
--- NOTE | 2024-01-09 12:27 | PTCARENOTE ---
patient reassessed. wound care provided. fentanyl titration per work list. blood pressure remains very labile. gtts per work list. continues to weep large amount serous fluid from skin tears, blisters. labs sent. results pending
[2024-01-09 13:06] LABS: Blood Urea Nitrogen 23 mg/dl (7-17); Calcium 6.8 mg/dl (8.4-10.2); Carbon Dioxide 21 mmol/L (22-30); Chloride 83 mmol/L (98-107); Estimated Creatinine Clearance 71 ml/min; Glucose 179 mg/dl (70-99); Potassium 3.6 mmol/L (3.5-5.1); Sodium 115 mmol/L (135-145); eGFR > 60.00
--- NOTE | 2024-01-09 13:31 | W.PN.HOSP.TC ---
Today's Communication/Plan
-
Continue vent support.
Continue broad-spectrum antibiotics
Continue IV fluids including 3% solution for severe hyponatremia.
Continue vasopressors: Levophed/vasopressin
Continue sedation with attempt to wean off fentanyl.
Total Critical Care Time__45___ minutes. I was immediately available to the patient and staff. I personally examined, reviewed labs, diagnostic images/reports, interpretations, treatment plans, discussed patient care with other providers and
family or caregivers (if patient is unable to make decisions), entered orders as appropriate and documented the medical record.
Assessment / Plan
Assessment / Plan
Impression
Septic shock
Multi pathogen bacteremia
-Multiple sources including aspiration pneumonia with left lower lobe infiltrate, UTI, stage IV sacral pressure wound.
Profound hypotension not responding to IV fluids requiring multiple vasopressors.
Ventilator dependent respiratory failure, intubated in ED on 01/04
Acute kidney injury
Lactic acidosis
Hyponatremia, severe
Hypokalemia
Atrial fibrillation with rapid medical response, new onset
Ventricular tachycardia
Conditions prior to admission.
Advanced Alzheimer's dementia
Aspiration syndrome
PEG tube in place
Type 2 diabetes/IDDM
Sacral decubital wound stage IV
Chronic ambulatory dysfunction, type rhythm.
History of COVID
Infection complicated with respiratory failure November 2019.
Plan:
Severe sepsis with multiple agitation bacteremia
Severe septic shock not responding to IV fluids and requiring multiple vasopressors
Possible sources as above also at this point could not rule out intra-abdominal source.
Initiated on broad-spectrum antibiotics including meropenem and micafungin.
Remains on multiple vasopressors (Levophed and vasopressin)
IV fluid changed to hypotonic solution given severe hyponatremia. Off bicarbonate.
Ventilatory dependent respiratory failure.
Remains intubated.
AB.6 consistent with metabolic acidosis and respiratory compensation
Continue vent support
Continue sedation Fentanyl/propofol
Attempt to wean off fentanyl and reassess mental status
Acute kidney injury in the settings of profound hypotension
Severe hyponatremia
Cain catheter in place.
Continue monitoring urine output closely.
IV fluids with bicarbonate
Atrial fibrillation with rapid ventricular response--
Short runs of ventricular tachycardia
Initiated on amiodarone drip
Limited options to treat.
Unable to introduce any AV elgin blocking agents given profound hypotension requiring pressors
Off preadmission metoprolol given hypotension
IDDM
With profound hemodynamic instability and lactic acidosis, low clinical suspicion for DKA
Currently off standing dose of subcutaneous insulin
Update hemoglobin A1c 9.4
Initiated on ICU insulin drip. Currently hypoglycemic. Hold insulin drip.
Currently off tube feeding given profound hemodynamic instability.
DNR
Goals of care discussed with patient's son at the bedside by Dr. Cuevas
Poor prognosis given patient with advanced dementia, with severe sepsis and septic shock requiring multiple vasopressors--ongoing goals of care discussion with family......
The patient to continue ongoing treatment, although avoiding CPR while patient is intubated.
DVT prophylaxis heparin.
Anticipated Discharge: > 48 hours
Subjective/Interval History
-
Date of Service: January 09, 2024
Objective Data
-
Labs:
Laboratory Results
01/09/24 01/09/24 01/09/24
03:59 11:19 18:00
WBC 17.5 H
Hgb 9.8 L
Hct 28.0 L
Plt Count 94 L
HCO3 22.1 22.1
Sodium 113 L* 115 L* Pending
Potassium 3.9 D 3.6 Pending
Chloride 79 L 83 L Pending
Carbon Dioxide 22 21 L Pending
BUN 23 H 23 H Pending
Creatinine 0.7 0.6 Pending
Glucose 210 H 179 H Pending
Calcium 7.1 L 6.8 L* Pending
Total Bilirubin 1.1
AST 286 H
ALT 131 H
Alkaline Phosphatase 152 H
Vital Signs:
Vital Signs
Temp Pulse Resp BP Pulse Ox
100.2 F 81 16 105/61 91
01/09/24 11:22 01/09/24 13:15 01/09/24 13:15 01/08/24 16:00 01/09/24 13:15
I&O
01/08/24 01/09/24 01/10/24
06:59 06:59 06:59
Intake Total 7746.4 / 8021.1 5819.0 / 5943.5 642.0 / 642.0
Output Total 2615 / 2670 990 / 990 115 / 115
Balance 5131.4 / 5351.1 4829.0 / 4953.5 527.0 / 527.0
Physical Exam
-
General: Well Developed, Well Nourished, Intubated, Appears Chronically Ill and Obese
HEENT: Normocephalic and Atraumatic
Respiratory: Clear to Auscultation (limited to anterior chest only) and Other (hyperventilating (set by vent...not overbreathing))
Cardiac: Irregular Rhythm and Tachycardic
GI: Soft, Nontender, Nondistended and Peg Tube; Negative Normal Bowel Sounds (hypoactive to no bowel sounds by my assessment)
Rectal: Other (rectal tube without much output)
Genito-urinary: Cain
Musculoskeletal: Negative No Edema (diffuse anasarca)
Skin: Other (mottled breasts--cold extremities--large sacral decubitus ulcer (picture from wound note reviewed))
Neuro: Sedated; Negative Awake or Alert
[2024-01-09] MEDS: FLEXBUMIN 100 IV ×3 (13:37→21:40)
--- NOTE | 2024-01-09 13:47 | PTCARENOTE ---
labs results as noted. TT to double end sewer. orders received. due to compatibility issues, albumin initiated first, when complete will begin 3% saline. Rails Developer updated that 3%saline infusion will need to be interrupted to administer albumin as
ordered. son at bedside. updated. patient with 3 runs self limited VT since beginning of shift. to repeat labs@1800
[2024-01-09] MEDS: SODIUM CHLORIDE 3% 500 IV (15:01)
--- NOTE | 2024-01-09 15:42 | PTCARENOTE ---
Addendum entered by Joycelyn Perez RN 01/09/24 16:21:
reassessed. reviewed patient status, assessments urine output with associate [employer]. orders received. emr trainer at bedside, assessed new wounds arms, breasts and foot. Orders pending
Original Note:
patient with periods nsr with prolonged QT. levophed titration per work list. echo completed
--- NOTE | 2024-01-09 16:05 | WOUNDNOTE ---
[facility] RN note: Patient developed multiple broken blisters (arms, R dorsal foot, breasts) and ecchymotic areas breasts suspect r/t anasarca, overall medical condition, sepsis. Patient on vasopressor. Prognosis poor as per physician documentation. RN
Joycelyn changed sacral dressing and reports sacral ulcer deteriorated compared to last week's photo (necrotic tissue present with purple skin proximal to ulcer). Suspect deterioration is r/t overall poor prognosis. Updated Dr. Turpin including
tiger text photo of R breast who approved local care. Care plan to be updated. Will follow as needed.
[2024-01-09] MEDS: NOVOLOG FLEXPEN-MODERATE RESISTANCE 1 UNITS SC (17:54)
[2024-01-09 18:03] LABS: Glucose - Point of Care 161 mg/dl (70-99)
[2024-01-09 18:24] LABS: Blood Urea Nitrogen 23 mg/dl (7-17); Calcium 7.1 mg/dl (8.4-10.2); Carbon Dioxide 21 mmol/L (22-30); Chloride 81 mmol/L (98-107); Estimated Creatinine Clearance 61 ml/min; Glucose 177 mg/dl (70-99); Magnesium 1.9 mg/dl (1.6-2.3); Phosphorus 2.7 mg/dl (2.5-4.5); Potassium 3.2 mmol/L (3.5-5.1); Sodium 115 mmol/L (135-145); eGFR > 60.00
--- NOTE | 2024-01-09 18:40 | PTCARENOTE ---
labs resulted. Screwdown Operator professional builder updated. orders pending
[2024-01-09] MEDS: KCL ELIXIR 40 MEQ TUBE (19:25)
[2024-01-09] MEDS: SUBLIMAZE 50 MCG IV (19:36)
--- NOTE | 2024-01-09 20:00 | PTCARENOTE ---
pt on assessment opens eyes, does not make eye contact. +gag and cough weak, extremities rigid, hands mottled and contracted, Doppler pulses, PRN fen given, pt in SR with PVCs, titrating down on levo, on vaso, weaning to systolic of 90, right radial
arterial line in place and zeroed. right PICC,+blood returns. ETT to vent, suctions for moderate amount mcbride sputum. lungs coarse and diminished, peg flushed with meds and leaking noted when flushing BED PLACEMENT COORDINATOR made aware. medina draining malcom colored urine
decreased urine output for hourly checks BED PLACEMENT COORDINATOR made aware. replacing electrolytes and giving albumin.
--- NOTE | 2024-01-09 23:05 | PTCARENOTE ---
pt on assessment opens eyes, does not make eye contact. +gag and cough weak, extremities rigid, hands mottled and contracted, Doppler pulses, PRN fen given, pt in SR with PVCs, titrating down on levo, on vaso, weaning to systolic of 90, right radial
arterial line in place and zeroed. right PICC,+blood returns. ETT to vent, suctions for moderate amount mcbride sputum. lungs coarse and diminished, peg flushed with meds and leaking noted when flushing WOOD EXPERIMENTAL MECHANIC made aware. medina draining malcom colored urine
decreased urine output for hourly checks WOOD EXPERIMENTAL MECHANIC made aware. replacing electrolytes and giving albumin.
[2024-01-10] VITALS (13 sets, daily range): BP systolic 96–186; BP diastolic 28–46; BMI 29.7
--- NOTE | 2024-01-10 | PTCARENOTE ---
titrating down on levo, bath given and repositioned, no other changes at this time.
[2024-01-10] MEDS: MERREM 500 MG IV ×4 (00:05→18:18)
[2024-01-10] MEDS: STERILE WATER FOR INJECTION 10 ML IV ×4 (00:05→18:18)
[2024-01-10] MEDS: HEPARIN 5000 UNITS SC ×2 (00:06→08:42)
[2024-01-10] MEDS: NOVOLOG FLEXPEN-MODERATE RESISTANCE 1 UNITS SC ×2 (00:09→06:32)
[2024-01-10 00:11] LABS: Glucose - Point of Care 165 mg/dl (70-99)
[2024-01-10] MEDS: FLEXBUMIN 100 IV ×2 (01:12→15:04)
[2024-01-10] MEDS: SUBLIMAZE 50 MCG IV ×3 (02:14→20:23)
[2024-01-10 02:54] LABS: B.E. 1.6 mmol/L; HCO3 24.7 mmol/L (21-28); PCO2 31 mmHg (32-35); PO2 126 mmHg (83-108); pH 7.51 (7.35-7.45)
[2024-01-10 02:56] LABS: Mean Corp Hgb Conc. 35.9 g/dL (33.0-37.0); Mean Corpuscular Hgb 28.9 pg (27.0-31.0); Mean Corpuscular Volume 80.6 fL (81.0-99.0); Mean Platelet Volume 12.6 fL (7.4-10.4); O2 Therapy VENT; Platelet Count 49 10^3/uL (130-400); Red Blood Cell Count 2.11 10^6/uL (4.20-5.40); White Blood Cell Count 16.5 10^3/uL (4.8-10.8)
[2024-01-10 02:58] LABS: Hemoglobin 6.1 g/dL (12.0-16.0)
[2024-01-10 03:29] LABS: Mean Corp Hgb Conc. 36.1 g/dL (33.0-37.0); Mean Corpuscular Volume 80.5 fL (81.0-99.0); Mean Platelet Volume 13.9 fL (7.4-10.4); Platelet Count 44 10^3/uL (130-400); Red Cell Dist. Width 15.1 % (11.5-14.5); White Blood Cell Count 16.1 10^3/uL (4.8-10.8)
[2024-01-10 03:32] LABS: Hematocrit 16.9 % (37.0-47.0); Hemoglobin 6.1 g/dL (12.0-16.0)
[2024-01-10 03:38] LABS: ALT (SGPT) 64 U/L (0-35); AST (SGOT) 137 U/L (14-36); Albumin 2.9 g/dl (3.5-5.0); Alkaline Phosphatase 110 U/L (38-126); Blood Urea Nitrogen 23 mg/dl (7-17); Calcium 8.4 mg/dl (8.4-10.2); Carbon Dioxide 24 mmol/L (22-30); Chloride 82 mmol/L (98-107); Estimated Creatinine Clearance 61 ml/min; Glucose 141 mg/dl (70-99); Magnesium 1.9 mg/dl (1.6-2.3); Potassium 3.7 mmol/L (3.5-5.1); Sodium 120 mmol/L (135-145); Total Bilirubin 2.7 mg/dl (0.2-1.3); Total Protein 4.6 g/dl (6.3-8.2); eGFR > 60.00
--- NOTE | 2024-01-10 03:43 | W.PN.UPDATE ---
Update Note
Progress Note Update
Obtained blood consent over the phone with zohaib's son Linda Olmstead, reviewed risk/benefit of blood transfusion and answered all questions. RN witnessed consent. Type and screen obtained and 1x u PRBC ordered.
--- NOTE | 2024-01-10 04:00 | PTCARENOTE ---
0200 lab drawn, hbg was 6.1, no signs of bleeding, BUMPER STRAIGHTENER made aware and order was placed to redraw and get type and screen, BUMPER STRAIGHTENER called son to get consent to give blood products, continuing to wean down on levo, electrolytes replenished. wound care
completed per orders.
[2024-01-10] MEDS: POTASSIUM PHOSPHATE 259.090899999999976 MEQ IV (05:09)
--- NOTE | 2024-01-10 06:37 | PTCARENOTE ---
3% Nacl stopped around 0400, blood being administered at this time, pt core temp 96.1, jayda hucamryner applied
[2024-01-10 06:40] LABS: Glucose - Point of Care 158 mg/dl (70-99)
--- NOTE | 2024-01-10 08:30 | W.PN.INTV ---
Today's Communication / Plan
Recommendations
Trend blood gas
Start tube feeds
Start 2 units aspart q6hr
Adjust vent given her alkalemia
Continue antibiotics; follow up speciation from 01/06 BCx
Hold off on further imaging, not a candidate for any interventions family would not want any heroic interventions.
Continue amiodarone gtt
Poor prognosis -I discussed with the patient's son, Linda, that we are still unable to extubate her given her apnea during pressure support trial today. I advised that if we are to continue with mechanical ventilation then she is heading towards
tracheostomy, or we can withdraw care with extubation and make her comfortable knowing that she will pass away shortly thereafter. He was unable to answer me at that time and said that he will speak to the rest of his family and we can discuss that
at another time. Continue mechanical ventilation at this time - this is day #6 on the vent. I answered all of his questions.
Assessment
-
88-year-old woman with advanced dementia, noncommunicative, type 2 diabetes, sent from the alf for hypotension. Patient emergently intubated in the emergency room due to nonresponsive. At baseline patient is noncommunicative, she has a
PEG tube in place. The son wanted intubation but no CPR. He would like to treat her medically.
Despite fluid resuscitation patient required vasopressors. Transferred to the critical care unit for further care.
Impression:
Septic shock
Multiple sources possible including: Urinary tract infection/sacral decubitus ulcer and pneumonia likely due to aspiration.
Abnormal urinalysis
Chest x-ray: Bibasilar infiltrates
Bacteremia: Polymicrobial - Enterobacter cloacae, ESBL�Klebsiella pneumoniae, Enterococcus faecalis + MSSA - suspect source is sacral decubitus wound.
Urine culture with Kerry
Sputum Cx with ESBL-Proteus Mirabilis + MSSA
Hospital acquired pneumonia (present on admission)
Acute hypercapnic respiratory failure requiring intubation 01/05/2024
ABG 7.20 /133
Acute kidney injury/metabolic acidosis - now resolved
Lactic acidosis
Hyperglycemia - normalized
Severe hyponatremia - improved
Abnormal TFTs with low TSH and elevated free T4 likely due to critical illness
Anemia/thrombocytopenia
-
Conditions present prior admission:
Type 2 diabetes
Advanced dementia
Noncommunicative/bedbound
PEG tube in place
Sacral decubitus ulcer stage IV-family states that it was debrided about a month ago at [facility] status post antibiotics
-
Assessment and plan:
Patient remains critically ill on vasopressin gtt, intubated on mechanical ventilation with lactic acidosis and polymicrobial bacteremia with pneumonia
-
Septic shock multiple sources possible
Abnormal urinalysis-urine culture Kerry.
Blood culture: Polymicrobial - Polymicrobial - Enterobacter cloacae, ESBL�Klebsiella pneumoniae, Enterococcus faecalis + MSSA
Sacral decubitus wound is the suspected primary source, although she appears to have a pneumonia with multiple organisms growing on sputum Cx
In my opinion, not a candidate for any surgical intervention. Suspect patient has some osteomyelitis based on depth of sacral decubitus wound.
Hold off on further imaging. Patient is critically ill on multiple vasopressors. Very poor prognosis. Family would not want heroic interventions but would like to continue with medical management.
Cannot rule out aspiration pneumonitis-chest x-ray 01/07/2024: Showed a new right lower lobe infiltrate.
Sputum culture growing ESBL-Proteus mirabilis + MSSA
1 of 2 repeat blood cultures from 01/07/2024 show NGTD
Broad-spectrum antibiotics-on Zosyn. Discontinued vancomycin --> Staph aureus seen on BCx from 01/06, likely MSSA, stopped IV vanco on 01/08 (was previously re-ordered on 01/07 as suspected MRSA at that time)
MRSA screening negative
ID consulted - recommendations appreciated
-
Mechanical ventilation settings reviewed
Continue assist-control mechanical ventilation.
Adjust ventilator settings based on blood gas with continued respiratory alkalosis and hyperoxia seen on today's ABG --> drop RR to 16
Pt having worsening anasarca with serum HCO3 now normalized - stopped bicarb gtt on 01/08
Trend BMP
Adjust FiO2 and PEEP based on PaO2
Failed SBT this AM (01/10/2024) on 12/09
-
Patient had increasing FiO2 requirement:Pneumonia versus ? pulmonary edema (her weight is up about 7 kg since admission)
Chest x-ray 01/07/2024, reviewed, with a new right lower lobe infiltrate. Atelectasis versus pneumonia. Suspect some degree of volume overload as well
Daily ABG
-
Sedation with fentanyl
At baseline patient is noncommunicative at baseline for years, very rigid, bedbound.
Will try to keep comfortable.
Target for RASS score 0 to -1
-
Septic shock:
Now on vasopressin only and off levophed
s/p albumin on 01/09/2024
Continue to trend lactate until <2mmol/L
Central line in place
Arterial line in place
Will target mean arterial blood pressure 65 mmHg.
[address]: Follow urine output
ABx as per ID
Echo done on 01/09/2024 � LVEF 75%, no evidence of vegetation
-
Hyperglycemia blood sugar over 600 on admission.
Improved
Hypernatremia resolved since 01/05.
Weaned off insulin drip on 01/07 after bridging with 14 units lantus--> she takes lantus at home (17 units HS) - Continue to check BG q6hr with goal BG 140-180mg/dL with basal-bolus insulin dosing
Tube feeds being started today, so we will add q6hr aspart 2 units to maintain euglycemia
-
Hyponatremia: Likely hypervolemic although she does not clinically appear grossly volume overloaded to cause a Na as low as 112
On 01/07 we started hypertonic 3% NS and trend BMP q6hr --> sNa now 119-120 --> no longer need 3% NS --> c/t trend sNa level
Diurese as BP tolerates
Follow daily labs
-
Rapid atrial fibrillation since 01/06/2024: Amiodarone drip started.
Rate control with goal HR<110
Echo on 01/09/2024 was limited study with LVEF >75% with moderate pulmonary hypertension
Troponin peaked at 0.119 on 01/07/2024 and down trended to 0.113
Hold anticoagulation for now, can readdress later on depending on clinical situation.
-
Acute anemia
Transfused 1 U PRBC this AM
No evidence for bleeding.
Transfuse to keep Hb >7, plt>20k
4T score: low probability
-
DVT prophylaxis - Hold HSQ given acute TCP
Protonix for GI prophylaxis while intubated
-
NPO for now
Aspiration precautions � head of bed elevation
PEG tube in place. Ok to start tube feedings today given her low vasopressor requirements
-
Dr. Collins had discussed with son at the bedside 01/05/2020, and discussed with his who apparently is a doctor. Expressed poor prognostic indicators. Recommended to focus on comfort.
They would like to continue with medical management.
No CPR, no dialysis, no aggressive surgeries will be offered at this point.
Son updated by Dr. Collins 01/06/2024: Continue with medical management. No heroic interventions.
On 01/07, Dr. Velásquez discussed the patient's clinical status with the family including son and the son's . The son's is a family medicine practitioner. I answered all their questions, emotional support provided, and they would like to
continue full medical management while keeping her DNR but okay for mechanical ventilation.
-
Discussed with primary team, nursing, respiratory therapist. Discussed with infectious disease.
-
Prognosis extremely poor
-
Critical care statement: A total of 36 minutes of critical care time was provided for this patient today. This includes management of unstable vital signs, evaluation of the patient at bedside, reviewing the patient's pertinent medical records
including ventilator settings, arterial blood gases, radiographs, microbiology, laboratory evaluations and discussion with primary team, critical care nursing, and respiratory therapy.
Subjective Dataa
Subjective Data
Date of Service:
Date of Service: January 10, 2024
Chief Complaint: Dynamite [employer]per Follow Up (Septic shock/hypercapnic respiratory failure requiring intubation)
Subjective:
Off levo since 830AM, still on vaso. On fentanyl boluses. Not on sedation drip. Off 3% NS. Eyes opening but not following commands. Intubated on settings: 16/400/40%/5. Got 1 U PRBC this AM due to acute anemia of 6.1. Platelets continuing to
downtrend � 44 this morning. Patient is on amiodarone at 0.5 mg/min. I spoke to the patient's son, Linda, and answered all of his questions.
Review of Systems
General: Unobtainable - Pat Unresp
Objective Data
Data Reviewed
Vital Signs / I&O / Oxygen:
Vital Signs
Temp Pulse Resp BP Pulse Ox
96.5 F L 66 16 186/40 100
01/10/24 07:17 01/10/24 06:30 01/10/24 06:30 01/10/24 05:30 01/10/24 08:07
Intake and Output
01/09/24 01/10/24 01/11/24
06:59 06:59 06:59
Intake Total 5819.0 / 5943.5 2402.0 / 2431.5 29.5 / 29.5
Output Total 990 / 990 445 / 475
Balance 4829.0 / 4953.5 1957.0 / 1956.5 -0.5 / -0.5
SaO2 [A/C] 100
SaO2 100
Physical Exam
General: Respiratory Distress (n) and Chills (Negative)
HEENT: Normocephalic
Cardiovascular: Irregular Rhythm (Irregularly irregular), Peripheral Edema (+1 lower + upper extremity pitting edema bilaterally) and Other (Normal rate)
Respiratory: Wheeze (negative), Rhonchi (Mild scattered), Non-Labored Respirations and ET Tube (Mechanical breath sounds heard bilaterally)
GI: Soft, Non Distended, Non Tender and Other (Hypoactive bowel sounds)
Neurology: Other (Patient is rigid at baseline) and Other (Opens eyes to voice and tactile stimuli; Noncommunicative at baseline. Pupils +1 mm bilaterally and sluggish, +blinking to threat; +gag reflex)
Skin: Warm, Dry, Bruising (right thumb) and Other (Stage IV sacral decubitus ulcers present on admission)
Labs/Micro/Reports
Laboratory Results
01/09/24 01/10/24
11:19 02:32
pH 7.49 H 7.51 H
pCO2 29 L 31 L
pO2 100 126 H
HCO3 22.1 24.7
O2 Delivery Level Vent
Microbiology
01/09/24 09:07 Blood/Venous Blood Culture - Preliminary
No Growth in 24 hours- Final report to follow
01/09/24 09:07 Blood/Venous Blood Culture - Preliminary
No Growth in 24 hours- Final report to follow
01/06/24 16:06 Endotracheal Respiratory Culture - Final
Proteus Mirabilis-ESBL
S aureus-Methicillin Sensitive
01/06/24 16:06 Endotracheal Gram Stain - Final
01/07/24 10:08 Blood/Venous Blood Culture - Preliminary
S aureus-Methicillin Sensitive
01/07/24 10:08 Blood/Venous Gram Stain - Preliminary
01/05/24 11:05 Blood/Venous Blood Culture - Final
Enterococcus faecalis
Klebsiella pneumoniae-ESBL
Enterobacter cloacae
Proteus Mirabilis-ESBL
01/05/24 11:05 Blood/Venous Gram Stain - Final
01/07/24 10:08 Blood/Venous Blood Culture - Preliminary
No Growth in 48 hours- Final report to follow
01/05/24 09:57 Blood/Venous Blood Culture - Preliminary
No Growth in 4 days- Final report to follow
01/05/24 16:35 Coccyx Wound Culture - Final
Proteus species
Staphylococcus aureus
Enterococcus species
Streptococcus species
Additional testing on request
01/05/24 16:35 Coccyx Gram Stain - Final
[2024-01-10] MEDS: DESENEX/MITRAZOL/ZEASORB 1 APPLIC TOPICAL ×2 (08:41→20:40)
[2024-01-10] MEDS: PROTONIX IV 40 MG IV (08:41)
[2024-01-10] MEDS: DAKIN'S SOLUTION 0.125% 1/4 STRENGTH 473 ML TOPICAL ×2 (08:41→20:39)
[2024-01-10] MEDS: NSS (PRESERVATIVE FREE) 10 ML IV (08:42)
[2024-01-10] MEDS: LANTUS 0.149999999999999994 UNITS SC (08:42)
[2024-01-10] MEDS: FLUSH (NSS) 2 FLUSH IV ×2 (08:43→18:19)
[2024-01-10 08:44] LABS: Glucose - Point of Care 117 mg/dl (70-99)
--- NOTE | 2024-01-10 09:00 | PTCARENOTE ---
Rec'd pt at 0730 resting in bed. Pt does open eyes to verbal/tactile stimuli but no focus or tracking and follows no commands to move extremities. Pt is stiff with turning and manually moving extremities. Did see sl spont R foot movement. Slight at
best. ARFAEL but sluggish at 2mm. Skin is pale, cool and mottled at spots especially R thumb. MultipleWounds as documented. Dressing change done to extensive sacral wound. Dressings intact on R and L breast and L foot. Noted to have large what looks
like scabbed area on her tongue. Anthony Hugger in place- initally temp at 0700 was 96.9 now 97.5 and will try pt with Anthony Hugger off. Respirs are intact on the vent. #7.5 ETT repositioned on the R side of her mouth. Bs are coarse and decreased
throughout. Pt with a weak gag and + cough. Suctioning pt for whitish secretions. Add little to no additional rate or volume on the vent. Vent settings AC 14, tv 400, peep 5 40% fio2. Sats are 100%. Monitor SR with long QT-.56 + pulses. Radial and
PT/Dp pulses with the doppler. +3 generalized anasarca. Rec'd pt on IV Levophed at 2 mcg-weaned at 0730 to 1 mcg and off at 0830. BP 143 syst via R radial a line. A line zeroed and recalibrated. Just using the A line per report for pressures.
Waveform as documented. Pt also on IV Vasopressin at 0.03 units/min and Amiodarone at 0.5 mg/min and 1 unit of PRBC's all via R arm TL PICC-site wnl. Blood completed at 0810. See TAR. Abd is round with hypoactive BS. L abd PEG tube dressing is
currently dry but did receive in report of leaking around the tube. Flushes without difficulty. Incont of a small amt of liquid brown stool. Thermistor medina intact for yellow urine. 15-30 ml/hr. Turned and repositioned. Skin and mouth care given.
Son in to see pt and updated. Plan of care reviewed with pt and pts son.
--- NOTE | 2024-01-10 09:27 | W.PN.ID1 ---
Date of Service
Date of Service: January 10, 2024
Today's Communication
Continue with meropenem / Micafungin (d#4)
Assessment / Plan
Clinical sepsis/septic shock
- Remains on pressors.
Large sacral decubidi
Leukocytosis
Polymicrobial bacteremia with Enterobacter, Klebsiella pneumoniae, Enterococcus
Lactic acidosis
VDRF
Hyponatremia
Candiduria
Advanced Alzheimer's dementia
GERD
HTN
DM
Dysphagia
CKD
Recommendations:
Continue with meropenem / Micafungin (d#4)
Repeat blood cultures are pending.
Monitor white count and temperature curve.
Trend lactate.
Continue with pressor support.
Overall condition and outlook remains extremely poor, with high likelihood of mortality given multiple comorbidities.
Clinically, doubt any eventual return to a reasonable quality of life. Suspect current measures are only prolonging eventual demise.
Patient appears 'comfort-measures' appropriate.
Patient remains critically ill in intensive care unit.
����������������������������������������������������������
Chief Complaint
-: Leukocytosis, Clinical Sepsis and Bacteremia
Subjective / Review of Systems
Patient seen and examined. Remains on pressors at this time. Overall condition remains poor. Patient unresponsive for me and cannot provide any review of systems.
Vital Signs / Physical Exam
Vital Signs
Vital Signs
Temp Pulse Resp BP Pulse Ox
96.5 F L 66 16 186/40 100
01/10/24 07:17 01/10/24 06:30 01/10/24 06:30 01/10/24 05:30 01/10/24 08:07
Physical Exam
Constitutional: Acutely Ill and Toxic
Head: Normocephalic and Other (ET tube in place.)
Eyes: Sclera Anicteric
Cardiovascular: Regular Rate and S1/S2; Negative S3/S4
Pulmonary: Other (ET tube to vent.); Negative Wheezes, Rales or Rhonchi
Gastrointestinal: Soft, Non Distended, Decreased Bowel Sounds, No Rebound and No Guarding
Genito-Urinary: Cain and Clear Urine
Extremities: Edema and Cyanosis (Right thumb area.); Negative Erythema or Splinter Hemorrhage
Skin: Negative Rash or Jaundice
Neurological: Other (Unresponsive to voice and touch. )
Objective Data
Lab Data
PT 18.9 Sec (11.4-14.6) H 01/05/24 15:05
INR 1.60 01/05/24 15:05
APTT 30.3 Sec (23.4-35.0) 01/05/24 15:05
Estimated Creat Clear 61 ml/min 01/10/24 02:32
Lactic Acid 9.6 mmol/L (0.7-2.0) H* 01/09/24 03:59
Total Bilirubin 2.7 mg/dl (0.2-1.3) H D 01/10/24 02:32
AST 137 U/L (14-36) H 01/10/24 02:32
ALT 64 U/L (0-35) H 01/10/24 02:32
Alkaline Phosphatase 110 U/L (38-126) 01/10/24 02:32
Most recent labs reviewed.
Micro Results:
01/09/24 09:07 Blood Culture - Preliminary
Blood/Venous No Growth in 24 hours- Final report to follow
01/09/24 09:07 Blood Culture - Preliminary
Blood/Venous No Growth in 24 hours- Final report to follow
01/06/24 16:06 Respiratory Culture - Final
Endotracheal Proteus Mirabilis-ESBL
S aureus-Methicillin Sensitive
Gram Stain - Final
01/07/24 10:08 Blood Culture - Preliminary
Blood/Venous S aureus-Methicillin Sensitive
Gram Stain - Preliminary
01/05/24 11:05 Blood Culture - Final
Blood/Venous Enterococcus faecalis
Klebsiella pneumoniae-ESBL
Enterobacter cloacae
Proteus Mirabilis-ESBL
Gram Stain - Final
01/07/24 10:08 Blood Culture - Preliminary
Blood/Venous No Growth in 48 hours- Final report to follow
01/05/24 09:57 Blood Culture - Preliminary
Blood/Venous No Growth in 4 days- Final report to follow
01/05/24 16:35 Wound Culture - Final
Coccyx Proteus species
Staphylococcus aureus
Enterococcus species
Streptococcus species
Additional testing on request
Gram Stain - Final
01/05/24 11:05 Urine Culture - Final
Urine Kerry albicans
01/05/24 17:47 Nasal Screen MRSA (PCR) - Final
Nose MRSA not detected - performed by PCR methodology.
01/05/24 11:05 Influenza Types A & B (MIGUEL) - Final
Nasal Swab Negative for Influenza A & B, NAAT
Negative results must be combined with clinical observations
and patient history.
Nucleic Acid Amplification test (NAAT)performed on the
[employer] platform.
Imaging:
01/08/2024 CXR (portable): Mild to moderate patchy right basilar airspace disease which is improved. Slightly improved left basilar atelectasis. Please see full dictation for additional detail.
[2024-01-10] MEDS: PITRESSIN 100 IV (09:35)
--- NOTE | 2024-01-10 10:05 | PTCARENOTE ---
Vasopressin turned off per md order. SYST 139. Anthony Raygger off since 000 as pts temp was 97.5 core. Currently 97.[address] back on if starts to become hypothermic again. Pts son at the bedside and updated. Suctioned for whitish
secretions. KPHOS rider completed.
--- NOTE | 2024-01-10 10:27 | W.PN.HOSP.TC ---
Today's Communication/Plan
-
Vent support
Off continuous sedation
Monitor for possible cognitive recovery and assess spontaneous breathing
IV antibiotics
Consider trickle feeding
Total Critical Care Time___45__ minutes. I was immediately available to the patient and staff. I personally examined, reviewed labs, diagnostic images/reports, interpretations, treatment plans, discussed patient care with other providers and
family or caregivers (if patient is unable to make decisions), entered orders as appropriate and documented the medical record.
Assessment / Plan
Assessment / Plan
Impression
Septic shock
Multi pathogen bacteremia
-Multiple sources including aspiration pneumonia with left lower lobe infiltrate, UTI, stage IV sacral pressure wound.
Profound hypotension not responding to IV fluids requiring multiple vasopressors.
Ventilator dependent respiratory failure, intubated in ED on 01/04
Acute kidney injury
Lactic acidosis
Hyponatremia, severe
Hypokalemia
Atrial fibrillation with rapid medical response, new onset
Ventricular tachycardia
Conditions prior to admission.
Advanced Alzheimer's dementia
Aspiration syndrome
PEG tube in place
Type 2 diabetes/IDDM
Sacral decubital wound stage IV
Chronic ambulatory dysfunction, type rhythm.
History of COVID
Infection complicated with respiratory failure November 2019.
Plan:
Severe sepsis with multiple agitation bacteremia
Severe septic shock not responding to IV fluids and requiring multiple vasopressors
Possible sources as above also at this point could not rule out intra-abdominal source.
Initiated on broad-spectrum antibiotics including meropenem and micafungin.
Remains on multiple vasopressors (Levophed and vasopressin)
Ventilatory dependent respiratory failure.
Remains intubated.
AB.6 consistent with metabolic acidosis and respiratory compensation
Continue vent support
Weaned off continuous sedation.
Unresponsive and not tracking, decreased gag reflex, no reaction to noxious stimuli, occasional spontaneous respiration
Acute kidney injury in the settings of profound hypotension
Severe hyponatremia
Cain catheter in place.
Continue monitoring urine output closely.
IV fluids with bicarbonate
Severe hyponatremia sodium 130�120.
Status post 3% solution.
Monitor BMP
Acute anemia with hemoglobin dropped to 6.
No evidence of bleeding including gastrointestinal
Transfuse to keep hemoglobin above 8.
Thrombocytopenia likely consumptive
Atrial fibrillation with rapid ventricular response--
Short runs of ventricular tachycardia
Initiated on amiodarone drip
Limited options to treat.
Unable to introduce any AV elgin blocking agents given profound hypotension requiring pressors
Off preadmission metoprolol given hypotension
IDDM
With profound hemodynamic instability and lactic acidosis, low clinical suspicion for DKA
Currently off standing dose of subcutaneous insulin
Update hemoglobin A1c 9.4
Initiated on ICU insulin drip. Currently hypoglycemic. Hold insulin drip.
Currently off tube feeding given profound hemodynamic instability.
DNR
Goals of care discussed with patient's son at the bedside by Dr. Cuevas
Poor prognosis given patient with advanced dementia, with severe sepsis and septic shock requiring multiple vasopressors--ongoing goals of care discussion with family......
The patient to continue ongoing treatment, although avoiding CPR while patient is intubated.
DVT prophylaxis heparin.
Anticipated Discharge: > 48 hours
Subjective/Interval History
-
Date of Service: January 10, 2024
Objective Data
-
Labs:
Laboratory Results
01/10/24 01/10/24 01/10/24
02:32 03:16 12:00
WBC 16.5 H 16.1 H Pending
Hgb 6.1 L* D 6.1 L* Cancelled
Hct 17.0 L* 16.9 L*
Plt Count 49 L D 44 L
HCO3 24.7
Sodium 120 L
Potassium 3.7
Chloride 82 L
Carbon Dioxide 24
BUN 23 H
Creatinine 0.7
Glucose 141 H
Calcium 8.4
Total Bilirubin 2.7 H D
AST 137 H
ALT 64 H
Alkaline Phosphatase 110
01/10/24 01/10/24
12:00 12:00
WBC
Hgb Pending
Hct Cancelled Pending
Plt Count Pending
HCO3
Sodium Pending
Potassium Pending
Chloride Pending
Carbon Dioxide Pending
BUN Pending
Creatinine Pending
Glucose Pending
Calcium Pending
Total Bilirubin
AST
ALT
Alkaline Phosphatase
Vital Signs:
Vital Signs
Temp Pulse Resp BP Pulse Ox
97.0 F 62 16 147/35 100
01/10/24 08:12 01/10/24 10:00 01/10/24 10:00 01/10/24 08:12 01/10/24 10:00
I&O
01/09/24 01/10/24 01/11/24
06:59 06:59 06:59
Intake Total 5819.0 / 5943.5 2402.0 / 2431.5 327.1 / 327.1
Output Total 990 / 990 445 / 475 45 / 45
Balance 4829.0 / 4953.5 1957.0 / 1956.5 282.1 / 282.1
Physical Exam
-
General: Well Developed, Well Nourished, Intubated, Appears Chronically Ill and Obese
HEENT: Normocephalic and Atraumatic
Respiratory: Clear to Auscultation (limited to anterior chest only) and Other (hyperventilating (set by vent...not overbreathing))
Cardiac: Irregular Rhythm and Tachycardic
GI: Soft, Nontender, Nondistended and Peg Tube; Negative Normal Bowel Sounds (hypoactive to no bowel sounds by my assessment)
Rectal: Other (rectal tube without much output)
Genito-urinary: Cain
Musculoskeletal: Negative No Edema (diffuse anasarca)
Skin: Other (mottled breasts--cold extremities--large sacral decubitus ulcer (picture from wound note reviewed))
Neuro: Sedated; Negative Awake or Alert
--- NOTE | 2024-01-10 11:27 | WOUNDNOTE ---
SUHAIL RN NOTE: With assistance from nurse Skylar assessed tongue using flash light. Has mucosal membrane PI, dry scab appearing patch on tongue suspected from ETT. Tubing now moved and secured, to prevent pressure on tongue. Mouth moisturizer used and
frequent suctioning of mucous. Despite preventative measures, patient at risk for developing future PI due to comorbidities.
--- NOTE | 2024-01-10 11:30 | PTCARENOTE ---
Anthony Morrison reinitiated as pt temp 96.7. Placed on medium. Wound care in to check scabbed area/wound on tongue.
[2024-01-10 12:27] LABS: Glucose - Point of Care 128 mg/dl (70-99)
[2024-01-10] MEDS: NOVOLOG FLEXPEN-MODERATE RESISTANCE SC ×3 (12:46→23:43)
[2024-01-10] MEDS: NOVOLOG FLEXPEN 2 UNITS SC ×3 (12:47→23:44)
[2024-01-10] MEDS: FLUSH (NSS) 1 FLUSH IV (12:48)
[2024-01-10] MEDS: MYCAMINE 105 MG IV (12:48)
--- NOTE | 2024-01-10 13:00 | PTCARENOTE ---
Assessment overall is unchanged. CPOT Is a 2 and RASS a -1 to -2. Eyes are open but no focus/tracking or following commands. No additional movement of extremities seen. Extremities remain rigid. Remains on the Anthony Hugger. Dressing change completed
to large open blister area. Tissue is red with serous drainage on dressings. Other dressings unchanged. Had tried pt earlier on CPAP/PSV but pt apnic. Currently on AC 16, tv 350, peep 5. Does not really add additional rate. VS as documented. Did do
cuff bP on L forearm and overall congruent with A line BP. No change in mottling of R thumb. Pt with unchanged scattered mottling on arms and legs Hands bilat are warm. Plan is to start tube feeds as per dietary recommendations via PEG. UO as
documented. Labs sent as ordered. Pt turned and repositioned. Incont of a smear of brown stool. Skin and mouth care given. Son remains at the bedside.
[2024-01-10 13:27] LABS: Hematocrit 23.3 % (37.0-47.0); Mean Corp Hgb Conc. 36.1 g/dL (33.0-37.0); Mean Corpuscular Hgb 29.7 pg (27.0-31.0); Mean Corpuscular Volume 82.3 fL (81.0-99.0); Mean Platelet Volume 13.9 fL (7.4-10.4); Platelet Count 47 10^3/uL (130-400); Red Blood Cell Count 2.83 10^6/uL (4.20-5.40); Red Cell Dist. Width 14.5 % (11.5-14.5); White Blood Cell Count 20.3 10^3/uL (4.8-10.8)
[2024-01-10 13:33] LABS: Hemoglobin 8.4 g/dL (12.0-16.0)
[2024-01-10 14:07] LABS: Blood Urea Nitrogen 23 mg/dl (7-17); Calcium 7.5 mg/dl (8.4-10.2); Carbon Dioxide 27 mmol/L (22-30); Chloride 85 mmol/L (98-107); Estimated Creatinine Clearance 62 ml/min; Glucose 122 mg/dl (70-99); Potassium 3.6 mmol/L (3.5-5.1); Sodium 119 mmol/L (135-145); eGFR > 60.00
--- NOTE | 2024-01-10 14:30 | CM ---
CM reviewed chart- ADC >48 hours
Remains in ICU on vent support
Pt is a LT resident at [facility]
Ongoing GOC conversation with physicians
Discharge Disposition- return to [facility]
--- NOTE | 2024-01-10 14:54 | PTCARENOTE ---
Pts urine output over the past 2-3 hrs has been 25 ml total and pts BP has been 89-93/30's. Updated Dr. Velásquez on findings and labs and will add Vasopressin back on at 0.03 untis via R arm TL PICC. No other changes. Pt due to get Albumin and Lasix
--- NOTE | 2024-01-10 15:14 | PTCARENOTE ---
Albumin 25% hung per MD order
--- NOTE | 2024-01-10 17:00 | PTCARENOTE ---
Assessment overall is unchanged. Opens eyes mostly to tactile stimuli but continues to follow no commands. + cough and weak gag, Suctioned for whitish secretions. Will add a few breaths with stimulation but then rests back on AC 16. VS as
documented. TEmp 97.6 and Anthony Hugger again turned off. BP improved since back on Vasopressin now in the 130-140's syst. Tube feeds continue at 10 ml/hr with 25 ml/hr flush. UO still with not good improvement but will monitor. Albumin almost
finished. Turned and repositioned. Mouth and skin care given.
[2024-01-10 17:13] LABS: Glucose - Point of Care 126 mg/dl (70-99)
[2024-01-10] MEDS: LASIX 40 MG IV (18:17)
[2024-01-10] MEDS: KCL ELIXIR 40 MEQ TUBE (18:18)
--- NOTE | 2024-01-10 18:25 | PTCARENOTE ---
Overall no changes -Will monitor HR as it is dipping into the 57-59 range with the Amiodarone on. Lasix 40 mg IV given. KCL 40 meq given via PEG tube. Will continue to monitor.
--- NOTE | 2024-01-10 20:58 | PTCARENOTE ---
report received, assessment per work list, non verbal pain cues PRN meds given, SB noted with prolonged QT, Pharmacy and [employer] made aware and amio was stopped, continues with vaso, increased mcbride thick oral secretions, peg tube infusing with Jevity at
10ml/hr, urine output remains diminished, wound care completed. orders noted.
[2024-01-10 22:23] LABS: Blood Urea Nitrogen 23 mg/dl (7-17); Calcium 7.6 mg/dl (8.4-10.2); Carbon Dioxide 26 mmol/L (22-30); Chloride 84 mmol/L (98-107); Estimated Creatinine Clearance 72 ml/min; Glucose 109 mg/dl (70-99); Potassium 3.8 mmol/L (3.5-5.1); Sodium 120 mmol/L (135-145); eGFR > 60.00
[2024-01-10 23:50] LABS: Glucose - Point of Care 116 mg/dl (70-99)
[2024-01-11] VITALS (7 sets, daily range): BP systolic 78–148; BP diastolic 52–68; BMI 29.8
--- NOTE | 2024-01-11 | PTCARENOTE ---
Amio was stopped, vaso was attempted to be stopped but unable to remain off due to hypotension, restarted vaso at 2300, wound care completed per orders, tolerated care without signs of distress, rectal trumpet was placed due to loose stools.
[2024-01-11] MEDS: MERREM 500 MG IV ×5 (00:27→23:07)
[2024-01-11] MEDS: STERILE WATER FOR INJECTION 10 ML IV ×5 (00:27→23:07)
[2024-01-11] MEDS: PITRESSIN 100 IV (02:00)
[2024-01-11 03:59] LABS: B.E. 5.5 mmol/L; HCO3 28.2 mmol/L (21-28); PCO2 33 mmHg (32-35); PO2 129 mmHg (83-108); pH 7.54 (7.35-7.45)
--- NOTE | 2024-01-11 04:00 | PTCARENOTE ---
no changes from prior assessment, Q2h turns, pillow support, heels elevated, labs ordered and completed. continues with vaso gtt due to hypotension.
[2024-01-11 04:04] LABS: % Basophils 0.2 % (0-2); % Eosinophils 1.4 % (0-6); % Immature Granulocytes 5.5 % (0-0.5); % Lymphocytes 5.7 % (20.5-51.1); % Monocytes 1.7 % (1.7-9.3); % Neutrophils 85.5 % (42.2-75.2); Absolute Eosinophils 0.3 10^3/uL (0-0.7); Absolute Immature Granulocytes 1.1 10^3/uL (0-0.05); Absolute Lymphocytes 1.1 10^3/uL (1.2-3.4); Absolute Monocytes 0.3 10^3/uL (0.1-0.6); Hematocrit 23.7 % (37.0-47.0); Hemoglobin 8.6 g/dL (12.0-16.0); Mean Corp Hgb Conc. 36.3 g/dL (33.0-37.0); Mean Corpuscular Hgb 29.8 pg (27.0-31.0); Nucleated Red Blood Cells % 0.5 %; Platelet Count 47 10^3/uL (130-400); Red Blood Cell Count 2.89 10^6/uL (4.20-5.40); Red Cell Dist. Width 14.4 % (11.5-14.5); White Blood Cell Count 19.8 10^3/uL (4.8-10.8)
[2024-01-11 04:07] LABS: O2 Therapy VENT
[2024-01-11 04:27] LABS: Lactic Acid 2.1 mmol/L (0.7-2.0)
[2024-01-11 04:28] LABS: Blood Urea Nitrogen 22 mg/dl (7-17); Calcium 7.3 mg/dl (8.4-10.2); Carbon Dioxide 25 mmol/L (22-30); Chloride 86 mmol/L (98-107); Estimated Creatinine Clearance 62 ml/min; Glucose 119 mg/dl (70-99); Magnesium 1.7 mg/dl (1.6-2.3); Phosphorus 2.9 mg/dl (2.5-4.5); Potassium 3.2 mmol/L (3.5-5.1); Sodium 122 mmol/L (135-145); eGFR > 60.00
[2024-01-11] MEDS: KCL 100 IV (04:53)
[2024-01-11] MEDS: NOVOLOG FLEXPEN-MODERATE RESISTANCE SC ×3 (05:50→23:12)
[2024-01-11] MEDS: NOVOLOG FLEXPEN 2 UNITS SC ×4 (05:51→23:13)
[2024-01-11 05:58] LABS: Glucose - Point of Care 131 mg/dl (70-99)
[2024-01-11] MEDS: NSS (PRESERVATIVE FREE) 10 ML IV (07:58)
[2024-01-11] MEDS: PROTONIX IV 40 MG IV (07:58)
[2024-01-11] MEDS: LANTUS 0.149999999999999994 UNITS SC (08:06)
[2024-01-11] MEDS: DESENEX/MITRAZOL/ZEASORB 1 APPLIC TOPICAL ×2 (08:08→20:34)
[2024-01-11] MEDS: DAKIN'S SOLUTION 0.125% 1/4 STRENGTH 473 ML TOPICAL ×2 (08:08→20:34)
[2024-01-11 08:17] LABS: Glucose - Point of Care 163 mg/dl (70-99)
--- NOTE | 2024-01-11 08:45 | W.PN.INTV ---
Today's Communication / Plan
Recommendations
Diurese
Trend blood gas
Continue tube feeds
Consult GI given G-tube leak
Adjust vent given her alkalemia
Continue antibiotics
Hold off on further imaging, not a candidate for any interventions family would not want any heroic interventions.
Hold amiodarone gtt given bradycardia
Poor prognosis -I discussed with the patient's son, Linda, that we are still unable to extubate her given her apnea during pressure support trial today. I advised that if we are to continue with mechanical ventilation then she is heading towards
tracheostomy, or we can withdraw care with extubation and make her comfortable knowing that she will pass away shortly thereafter. He was unable to answer me at that time and said that he will speak to the rest of his family and we can discuss that
at another time. Continue mechanical ventilation at this time - this is day #7 on the vent. I answered all of his questions.
Assessment
-
88-year-old woman with advanced dementia, noncommunicative, type 2 diabetes, sent from the shelter for hypotension. Patient emergently intubated in the emergency room due to nonresponsive. At baseline patient is noncommunicative, she has a
PEG tube in place. The son wanted intubation but no CPR. He would like to treat her medically.
Despite fluid resuscitation patient required vasopressors. Transferred to the critical care unit for further care.
Impression:
Septic shock
Multiple sources possible including: Urinary tract infection/sacral decubitus ulcer and pneumonia likely due to aspiration.
Abnormal urinalysis
Chest x-ray: Bibasilar infiltrates
Bacteremia: Polymicrobial - Enterobacter cloacae, ESBL�Klebsiella pneumoniae, Enterococcus faecalis + MSSA - suspect source is sacral decubitus wound.
Urine culture with Kerry
Sputum Cx with ESBL-Proteus Mirabilis + MSSA
Hospital acquired pneumonia (present on admission)
Acute pulmonary edema with bilateral pleural effusions
Acute hypercapnic respiratory failure requiring intubation 01/05/2024
ABG 7.20
Acute kidney injury/metabolic acidosis - resolved
Lactic acidosis
Hyperglycemia - normalized
Hyponatremia
Abnormal TFTs with low TSH and elevated free T4 likely due to critical illness
Anemia/thrombocytopenia with 1 U PRBC given on 01/10/2024
-
Conditions present prior admission:
Type 2 diabetes
Advanced dementia
Noncommunicative/bedbound
PEG tube in place
Sacral decubitus ulcer stage IV-family states that it was debrided about a month ago at [facility] status post antibiotics
-
Assessment and plan:
Patient remains critically ill on vasopressors, intubated on mechanical ventilation with lactic acidosis and polymicrobial bacteremia with pneumonia and sacral decubitus ulcer
-
Septic shock multiple sources possible
Abnormal urinalysis-urine culture Kerry.
Blood culture: Polymicrobial - Polymicrobial - Enterobacter cloacae, ESBL�Klebsiella pneumoniae, Enterococcus faecalis + MSSA
Sacral decubitus wound is the suspected primary source, although she appears to have a pneumonia with multiple organisms growing on sputum Cx
In my opinion, not a candidate for any surgical intervention. Suspect patient has some osteomyelitis based on depth of sacral decubitus wound.
Hold off on further imaging. Patient is critically ill on multiple vasopressors. Very poor prognosis. Family would not want heroic interventions but would like to continue with medical management.
Cannot rule out aspiration pneumonitis-chest x-ray 01/07/2024: Showed a new right lower lobe infiltrate.
Sputum culture growing ESBL-Proteus mirabilis + MSSA
1 of 2 repeat blood cultures from 01/07/2024 show NGTD
Broad-spectrum antibiotics-on Meropenem + micafungin (both on since 01/07/2024) s/p Zosyn (01/04 - 01/06) + cefepime x 1 dose + IV vanco x2 doses. Discontinued vancomycin --> Staph aureus seen on BCx from 01/06, likely MSSA, stopped IV vanco on 01/08 (was
previously re-ordered on 01/07 as suspected MRSA at that time)
MRSA screening negative
ID consulted - recommendations appreciated
-
Mechanical ventilation settings reviewed
Continue assist-control mechanical ventilation.
Adjust ventilator settings based on blood gas with continued respiratory alkalosis and hyperoxia seen on ABG
Pt having worsening anasarca with serum HCO3 now normalized - stopped bicarb gtt on 01/08
Trend BMP
Adjust FiO2 and PEEP based on PaO2
Failed SBT on AM of 01/10/2024 on 12/09 due to apnea
Diurese given fluid overload seen on CXR this AM (01/11/2024)
-
Patient had increasing FiO2 requirement:Pneumonia versus ? pulmonary edema (her weight is up about 7 kg since admission)
Chest x-ray 01/07/2024, reviewed, with a new right lower lobe infiltrate. Atelectasis versus pneumonia. Suspect some degree of volume overload as well
Daily ABG
-
Sedation with fentanyl pushes
At baseline patient is noncommunicative at baseline for years, very rigid, bedbound.
Will try to keep comfortable.
Target for RASS score 0 to -1
-
Septic shock:
Now on vasopressin only and off levophed --> resume levophed given it will be easier for nurses to titrate this as her BP drops when vaso if off and when vaso off her SBP is in 120s-130s
s/p albumin on 01/09/2024
Continue to trend lactate until <2mmol/L
Central line in place
Arterial line in place
Will target SBP>90mmHg as her diastolic BP is so low, it is difficult to attain MAP of 65 or greater without high doses of vasopressors
Cain in place: Follow urine output
ABx as per ID
Echo done on 01/09/2024 � LVEF 75%, no evidence of vegetation
-
Hyperglycemia blood sugar over 600 on admission.
Improved
Hypernatremia resolved since 01/05.
Weaned off insulin drip on 01/07 after bridging with 14 units lantus--> she takes lantus at home (17 units HS) - Continue to check BG q6hr with goal BG 140-180mg/dL with basal-bolus insulin dosing
Tube feeds being started on 01/10/2024, I added aspart 2 units q6hr to maintain euglycemia
-
Hyponatremia: Likely hypervolemic in setting of reduced PO intake
On 01/07 we started hypertonic 3% NS and trend BMP q6hr --> sNa improved to 119-120, 3% HT-saline stopped --> c/t trend sNa level
Diurese as BP tolerates
Follow daily chemistry, Mg and PO4 labs
-
Rapid atrial fibrillation since 01/06/2024: Amiodarone drip started --> stopped on 01/10 due to bradycardia
Goal heart rate 50-100 --> hold BB and amio for now
Echo on 01/09/2024 was limited study with LVEF >75% with moderate pulmonary hypertension
Troponin peaked at 0.119 on 01/07/2024 and down trended to 0.113
Hold anticoagulation for now, can readdress later on depending on clinical situation.
-
Acute anemia + thrombocytopenia
Transfused 1 U PRBC on AM of 01/10/2024
No evidence for bleeding.
Transfuse to keep Hb >7, plt>20k
4T score: low probability
-
DVT prophylaxis - Start HSQ 5000 q12hr
Protonix for GI prophylaxis while intubated
-
NPO for now
Aspiration precautions � head of bed elevation
PEG tube in place. Continue tube feeds given her low vasopressor requirements
Consult GI given her G-tube is leaking; G-tube placed at [facility] about 30-45 days ago. Per son, there was difficulty placing it endoscopically so they had to use imaging tactics (? fluoroscopically).
-
Dr. Collins had discussed with son at the bedside 01/05/2020, and discussed with his who apparently is a doctor. Expressed poor prognostic indicators. Recommended to focus on comfort.
They would like to continue with medical management.
No CPR, no dialysis, no aggressive surgeries will be offered at this point.
Son updated by Dr. Collins 01/06/2024: Continue with medical management. No heroic interventions.
On 01/07, Dr. Velásquez discussed the patient's clinical status with the family including son and the son's . The son's is a family medicine practitioner. I answered all their questions, emotional support provided, and they would like to
continue full medical management while keeping her DNR but okay for mechanical ventilation.
I have been giving updates to the son, Linda, every day since I have been on service. I have been answering all of the son's questions to his satisfaction.
-
Discussed with primary team, nursing, respiratory therapist. Discussed with infectious disease.
-
Prognosis extremely poor
-
Critical care statement: A total of 39 minutes of critical care time was provided for this patient today. This includes management of unstable vital signs, evaluation of the patient at bedside, reviewing the patient's pertinent medical records
including ventilator settings, arterial blood gases, radiographs, microbiology, laboratory evaluations and discussion with primary team, critical care nursing, and respiratory therapy.
Subjective Dataa
Subjective Data
Date of Service:
Date of Service: January 11, 2024
Chief Complaint: What Job Titles Mean Follow Up (Septic shock/hypercapnic respiratory failure requiring intubation)
Subjective:
Patient seen and evaluated today at bedside. Patient's son, Linda, at bedside - I answered all his questions. Amio drip off due to bradycardia in 50s. Eyes opening but she is not following commands. Afebrile overnight, but hypothermic to 96.6.
She is on vasopressin at 0.03 units/min. G-tube is slowly leaking - TF at 20cc/hr.
Review of Systems
General: Unobtainable - Pat Unresp
Objective Data
Data Reviewed
Vital Signs / I&O / Oxygen:
Vital Signs
Temp Pulse Resp BP Pulse Ox
96.6 F L 54 13 119/68 100
01/11/24 07:45 01/11/24 09:00 01/11/24 09:00 01/11/24 08:15 01/11/24 09:00
Intake and Output
01/10/24 01/11/24 01/12/24
06:59 06:59 06:59
Intake Total 2402.0 / 2431.5 1582.5 / 1636.5 102 / 102
Output Total 445 / 475 970 / 970 75 / 75
Balance 1957.0 / 1956.5 612.5 / 666.5
SaO2 [A/C] 99
SaO2 100
Physical Exam
General: Respiratory Distress (n) and Chills (Negative)
HEENT: Normocephalic and Other (+icterus b/l)
Cardiovascular: Irregular Rhythm (Irregularly irregular), Peripheral Edema (+2 lower + upper extremity pitting edema bilaterally) and Other (Bradycardic)
Respiratory: Wheeze (negative), Crackles (bialterally), Rhonchi (Mild scattered), Non-Labored Respirations and ET Tube (Mechanical breath sounds heard bilaterally)
GI: Soft, Non Distended, Non Tender, Normal Bowel Sounds and Feeding Tube (Small leakage around the G-tube insertion site; no exsanguination seen)
Neurology: Other (Patient is rigid at baseline) and Other (Opens eyes to voice and tactile stimuli; Noncommunicative at baseline. Pupils +1 mm bilaterally and sluggish, +blinking to threat; +gag reflex)
Skin: Warm, Dry, Bruising (right thumb) and Other (Stage IV sacral decubitus ulcers present on admission)
Labs/Micro/Reports
Lab Data
01/11/24 03:45
01/11/24 03:45
Laboratory Results
01/11/24
03:45
pH 7.54 H
pCO2 33
pO2 129 H
HCO3 28.2 H
O2 Delivery Level Vent
Microbiology
01/09/24 09:07 Blood/Venous Blood Culture - Preliminary
No Growth in 48 hours- Final report to follow
01/09/24 09:07 Blood/Venous Blood Culture - Preliminary
No Growth in 48 hours- Final report to follow
01/07/24 10:08 Blood/Venous Blood Culture - Preliminary
No Growth in 72 hours- Final report to follow
01/05/24 09:57 Blood/Venous Blood Culture - Final
No Growth - Final Report
01/06/24 16:06 Endotracheal Respiratory Culture - Final
Proteus Mirabilis-ESBL
S aureus-Methicillin Sensitive
01/06/24 16:06 Endotracheal Gram Stain - Final
01/07/24 10:08 Blood/Venous Blood Culture - Preliminary
S aureus-Methicillin Sensitive
01/07/24 10:08 Blood/Venous Gram Stain - Preliminary
01/05/24 11:05 Blood/Venous Blood Culture - Final
Enterococcus faecalis
Klebsiella pneumoniae-ESBL
Enterobacter cloacae
Proteus Mirabilis-ESBL
01/05/24 11:05 Blood/Venous Gram Stain - Final
01/05/24 16:35 Coccyx Wound Culture - Final
Proteus species
Staphylococcus aureus
Enterococcus species
Streptococcus species
Additional testing on request
01/05/24 16:35 Coccyx Gram Stain - Final
--- NOTE | 2024-01-11 09:07 | PTCARENOTE ---
recd pt unresponsive, turned, cleaned, assessed. ETT to vent tolerating current settings, see documentation. tongue blackened. R hand with demarcation of purple blister very cyanotic/dusky. breasts with bilat skin slough. sacral wound intact
dressing, some drainage, due for change at noon. attempted wean/dc of vasopressin, within 30 min MAP into the low 50s, vaso restarted. K rider continues. art line zero and transduced, cuff pressure noted. core temp at times positional, reading
in the mid 98 range. PEG tube with moderate drainage/leakage, skin intact around, flange in place, residual flows easily. see assessment documentation for remainder of patient status.
[2024-01-11] MEDS: LASIX 40 MG IV ×2 (09:43→15:54)
[2024-01-11] MEDS: MAGNESIUM OXIDE 500 MG TUBE (09:43)
[2024-01-11] MEDS: KCL ELIXIR 40 MEQ TUBE (09:43)
--- NOTE | 2024-01-11 10:21 | W.PN.ID1 ---
Date of Service
Date of Service: January 11, 2024
Today's Communication
Continue with meropenem / Micafungin (d#5)
Assessment / Plan
Clinical sepsis/septic shock
- Remains on pressors.
Large sacral decubidi
Leukocytosis
Polymicrobial bacteremia with Enterobacter, Klebsiella pneumoniae, Enterococcus
Lactic acidosis
VDRF
Hyponatremia
Candiduria
Advanced Alzheimer's dementia
GERD
HTN
DM
Dysphagia
CKD
Recommendations:
Continue with meropenem / Micafungin (d#5)
Repeat blood cultures are pending.
Monitor white count and temperature curve.
Trend lactate. Improvement noted.
Continue with pressor support as necessary.
Overall condition and outlook remains extremely poor, with high likelihood of mortality given multiple comorbidities.
Clinically, doubt any eventual return to a reasonable quality of life.
Patient appears 'comfort-measures' appropriate.
Patient remains critically ill in intensive care unit.
����������������������������������������������������������
Chief Complaint
-: Leukocytosis, Clinical Sepsis and Bacteremia
Subjective / Review of Systems
Patient seen and examined. Remains intubated at this time.
Review of Systems: No Fever
Vital Signs / Physical Exam
Vital Signs
Vital Signs
Temp Pulse Resp BP Pulse Ox
96.6 F L 53 16 123/42 100
01/11/24 07:45 01/11/24 10:00 01/11/24 10:00 01/11/24 09:43 01/11/24 10:00
Physical Exam
Constitutional: Acutely Ill and Chronically Ill
Head: Normocephalic and Other (ET tube in place.)
Eyes: No Conjunctival Hemorrhage and Sclera Anicteric
Cardiovascular: Regular Rate and S1/S2; Negative S3/S4
Pulmonary: Other (ET tube to vent.); Negative Wheezes, Rales or Rhonchi
Gastrointestinal: Soft, Non Distended, Decreased Bowel Sounds, No Rebound and No Guarding
Genito-Urinary: Cain and Clear Urine
Extremities: Edema and Cyanosis (Right thumb area.); Negative Erythema or Splinter Hemorrhage
Skin: Negative Rash or Jaundice
Neurological: Other (Eyes open, but does not follow commands.)
Objective Data
Lab Data
Lab Results
01/11/24 03:45
01/11/24 03:45
PT 18.9 Sec (11.4-14.6) H 01/05/24 15:05
INR 1.60 01/05/24 15:05
APTT 30.3 Sec (23.4-35.0) 01/05/24 15:05
Estimated Creat Clear 62 ml/min 01/11/24 03:45
Lactic Acid 2.1 mmol/L (0.7-2.0) H 01/11/24 03:45
Total Bilirubin 2.7 mg/dl (0.2-1.3) H D 01/10/24 02:32
AST 137 U/L (14-36) H 01/10/24 02:32
ALT 64 U/L (0-35) H 01/10/24 02:32
Alkaline Phosphatase 110 U/L (38-126) 01/10/24 02:32
Most recent labs reviewed.
Micro Results:
01/07/24 10:08 Blood Culture - Preliminary
Blood/Venous No Growth in 4 days- Final report to follow
01/09/24 09:07 Blood Culture - Preliminary
Blood/Venous No Growth in 48 hours- Final report to follow
01/09/24 09:07 Blood Culture - Preliminary
Blood/Venous No Growth in 48 hours- Final report to follow
01/05/24 09:57 Blood Culture - Final
Blood/Venous No Growth - Final Report
01/06/24 16:06 Respiratory Culture - Final
Endotracheal Proteus Mirabilis-ESBL
S aureus-Methicillin Sensitive
Gram Stain - Final
01/07/24 10:08 Blood Culture - Preliminary
Blood/Venous S aureus-Methicillin Sensitive
Gram Stain - Preliminary
01/05/24 11:05 Blood Culture - Final
Blood/Venous Enterococcus faecalis
Klebsiella pneumoniae-ESBL
Enterobacter cloacae
Proteus Mirabilis-ESBL
Gram Stain - Final
01/05/24 16:35 Wound Culture - Final
Coccyx Proteus species
Staphylococcus aureus
Enterococcus species
Streptococcus species
Additional testing on request
Gram Stain - Final
01/05/24 11:05 Urine Culture - Final
Urine Kerry albicans
01/05/24 17:47 Nasal Screen MRSA (PCR) - Final
Nose MRSA not detected - performed by PCR methodology.
01/05/24 11:05 Influenza Types A & B (MIGUEL) - Final
Nasal Swab Negative for Influenza A & B, NAAT
Negative results must be combined with clinical observations
and patient history.
Nucleic Acid Amplification test (NAAT)performed on the
[employer] platform.
Imaging:
01/08/2024 CXR (portable): Mild to moderate patchy right basilar airspace disease which is improved. Slightly improved left basilar atelectasis. Please see full dictation for additional detail.
Care Review
Plan reviewed with: Physician (Critical Care)
[2024-01-11] MEDS: LEVOPHED 258 MG IV (11:13)
[2024-01-11] MEDS: MYCAMINE 105 MG IV (11:39)
[2024-01-11] MEDS: NOVOLOG FLEXPEN-MODERATE RESISTANCE 1 UNITS SC (11:46)
[2024-01-11 11:55] LABS: Glucose - Point of Care 155 mg/dl (70-99)
--- NOTE | 2024-01-11 12:02 | CON.GI ---
Addendum entered and electronically signed by Joe Ruano MD 01/11/24 16:21:
I saw and examined the patient.
The PLASTIC TUBING INSULATION SUPERVISOR or PA's note was reviewed and I agree with the note.
Comment:
88 y/o with dementia, PEG tube with leaking, placed at [facility] and has suture. xray relatively normal
PEG: leakage around tube
impression
leaking peg tube
plan:
suture cut and balloon inflated as below
dressing changes
Addendum entered and electronically signed by TAYLOR Peace 01/11/24 15:59:
01/11/24 abd X ray
The amount of stool within the colon appears within normal limits.
No significantly dilated air-filled loops of bowel.
Gastrostomy tube with balloon in the medial left upper quadrant, within the stomach.
abd X ray as noted no large stool burden tube within stomach
no records reviewed but requested
reviewed with surgical team-- suture noted with some pulling at bumper concern for anasarca pull on tube can lead to buried bumper
suture cut and bumper with more movement at 6 cm at inside bumper-- no buried bumper noted
noted 7 ml in balloon increased to 10ml
will order to change dressing under peg q 2 hours to keep clean and dry
if not improving consider would care consult in AM
reviewed with nursing staff
Original Note:
Consultation
-
Date/Time Consultation Requested: 01/11/24 1115
Date/Time Consultation Performed: 01/11/24 1200
Requesting Provider: Erick Velásquez MD
Performing Provider: TAYLOR Londono, Joe Ruano MD
Reason for Consultation: leaking peg tube
Medical History
Chief Complaint / HPI
Chief Complaint: leaking peg tube
History of Present Illness:
Pt is a 88yo presents with hx GERD, HTN, hypercholesterolemia, NIDDM, CKD, dementia with recent admission to [facility] with peg tube placement for dysphagia and sacral decub. She now present 01/04 to with unresponsiveness with hypotension,
change in mental status, FBS >500 requiring intubation on admission. After admission noted with sepsis with hypotension and multiple source including aspiration PNA, UTI, sacral decub and MSSA bacteremia, afib with RVR, and ROSE and marked
elevated lactate. Asked to eval for leakage around peg. Pt non verbal in exam and per chart recent placement of peg at [facility]. Pt is noted with some loose stool with rectal tube in place and yellow drainage around peg site.
Past Medical History
Past Medical History: Arrhythmias (afib with RVR, VT), GERD, HTN, Hypercholesterolemia, NIDDM, Renal Failure (CKD), Psychiatric (dementia) and Other (dysphagia s/p peg, prior covid )
Past Surgical History: Other (sacral decub)
Social History
Tobacco: Non-Smoker (per chart)
Alcohol: None (per chart)
Drug: None (per chart)
Living: Senior Living
Employment: Retired
Family History
Family History: Unable to Obtain
Allergies / Home Medications
Allergy/AdvReac Type Severity Reaction Status Date / Time
No Known Allergies Allergy Unverified 10/03/21 09:05
�Medication �Instructions �Recorded
donepezil 10 mg tablet 10 mg PO DAILY DEMENTIA 10/14/17
acetaminophen 325 mg tablet 650 mg PO Q4HPRN PRN mild pain, 11/28/19
fever>100
atorvastatin 20 mg tablet 20 mg PO HS High cholesterol 11/28/19
memantine 14 mg capsule 14 mg PO DAILY MEMORY 11/28/19
sprinkle,extended release 24hr
metoprolol tartrate 25 mg tablet 25 mg PO BID Blood pressure 11/28/19
famotidine 20 mg tablet 20 mg PO DAILY Gastrointestinal 10/03/21
issue
insulin aspart U-100 100 unit/mL 5 unit SQ MEALS Diabetes 10/03/21
(3 mL) subcutaneous pen
bisacodyl 10 mg rectal suppository 10 mg [place] DAILYPRN PRN if no bm 01/05/24
(Dulcolax (bisacodyl)) aftr mom
insulin glargine 100 unit/mL (3 17 unit SC HS Diabetes 01/05/24
mL) subcutaneous pen (Basaglar
KwikPen U-100 Insulin)
ipratropium 0.5 mg-albuterol 3 mg 3 ml inhalation R Q6HPRN PRN sob 01/05/24
(2.5 mg base)/3 mL nebulization
soln
magnesium hydroxide 400 mg/5 mL 2,400 mg PO [id number] PRN if no bm 01/05/24
oral suspension (Milk of Magnesia) on 3rd day
Review of Systems
-
Unable to obtain full review of systems at this time due to: Dementia, Patient Intubation, Patient Non Verbal and Other (no family presents )
Abdomen/GI: Reports Other (leakage of tube)
: Reports Other (medina in place )
Neurological: Reports Weakness
Vital Signs
Temp Pulse Resp BP Pulse Ox
96.6 F L 53 16 123/42 100
01/11/24 07:45 01/11/24 10:00 01/11/24 10:00 01/11/24 09:43 01/11/24 10:23
Physical Exam
Exam
General: Other (ill appearing with anasarca and diffuse swelling )
HEENT: Normocephalic and Anicteric
Respiratory: Rhonchi
Cardiac: Other (bradicardia )
GI: Soft, Non Tender (limited with mentation), Non Distended and Other (peg in place with suture around tube and suture into internal peg tract)
Musculoskeletal: No Clubbing and No Cyanosis
Skin: Warm and Dry
Neuro: Other (non responsive)
Psych: Calm
Results
WBC 19.8 10^3/uL (4.8-10.8) H 01/11/24 03:45
Hgb 8.6 g/dL (12.0-16.0) L 01/11/24 03:45
Hct 23.7 % (37.0-47.0) L 01/11/24 03:45
MCV 82.0 fL (81.0-99.0) 01/11/24 03:45
Plt Count 47 10^3/uL (130-400) L 01/11/24 03:45
Absolute Neuts (auto) 17.0 10^3/uL (1.4-6.5) H 01/11/24 03:45
PT 18.9 Sec (11.4-14.6) H 01/05/24 15:05
INR 1.60 01/05/24 15:05
APTT 30.3 Sec (23.4-35.0) 01/05/24 15:05
Sodium 122 mmol/L (135-145) L 01/11/24 03:45
Potassium 3.2 mmol/L (3.5-5.1) L 01/11/24 03:45
Chloride 86 mmol/L (98-107) L 01/11/24 03:45
Carbon Dioxide 25 mmol/L (22-30) 01/11/24 03:45
BUN 22 mg/dl (7-17) H 01/11/24 03:45
Creatinine 0.7 mg/dL (0.6-1.0) 01/11/24 03:45
Calcium 7.3 mg/dl (8.4-10.2) L 01/11/24 03:45
Total Bilirubin 2.7 mg/dl (0.2-1.3) H D 01/10/24 02:32
AST 137 U/L (14-36) H 01/10/24 02:32
ALT 64 U/L (0-35) H 01/10/24 02:32
Alkaline Phosphatase 110 U/L (38-126) 01/10/24 02:32
Diagnostic Image Results:
2021 CT A/p IV only
1. Mild proctocolitis of the sigmoid colon and rectum which are mildly distended with fecal material.
2. No CT evidence for abscess, ascites, or pneumoperitoneum.
3. 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
4. Severe right renal artery stenosis with mild to moderate atrophy of the right kidney which is likely secondary to chronic ischemia.
5. Small bilateral pleural effusions.
6. Subacute or chronic displaced subcapital fracture of the left femoral neck.
7. Chronic healed intertrochanteric fracture of the right proximal femur treated with open reduction and internal fixation.
8. Moderate discogenic degenerative disease in the lumbar spine.
9. 5.8 mm ground-glass pulmonary nodule in the left upper lobe. A follow-up chest CT examination in 3-6 months is recommended.
Prior GI Procedures:
EGD: unknown
Colonoscopy: unknown
Assessment / Plan
-
Pt is a 88yo presents with hx GERD, HTN, hypercholesterolemia, NIDDM, CKD, dementia with recent admission to [facility] with peg tube placement for dysphagia and sacral decub. She now present 01/04 to with unresponsiveness with hypotension,
change in mental status, FBS >500 requiring intubation on admission. After admission noted with sepsis with hypotension and multiple source including aspiration PNA, UTI, sacral decub and MSSA bacteremia.afib with RVR, and ROSE and marked elevated
lactate. Asked to eval for leakage around peg. Pt non verbal in exam and per chart recent placement of peg at [facility]. Pt is noted with some loose stool with rectal tube in place and yellow drainage around peg site. hgb down to 6.1 on
admission
-peg malfunction with leakage
-diarrhea
-sepsis-multi pathogen
-bradycardia
-afib/ new onset during admission
-anemia with hbg down to 6.1
-leukocytosis
thrombocytopenia
PLAN:
Etiology of leakage related underlying constipation, complication with poor nutritional status, vs other
appears in good position no buried bumper but limited with suture in place
first will check bedside abd X ray to confirm no constipation
will obtain record of recent peg placement-- unclear why tube is sutured in place
may need trial of holding feeds to allow site to close
tough situation as pt is critically ill in ICU
will follow
-
-
Thank you for consultation and allowing me to participate in the patient's care. Please call the flying squad salesperson GI physician during the after hours with any questions or concerns.
--- NOTE | 2024-01-11 12:49 | PTCARENOTE ---
eyes open at times, other times face relaxed, pt appears sleeping. VS noted. on levophed now per MD order, titrated down to 1 mcg/min. family updated. suctioned as noted. multiple skin issues, dressings maintained, sacral changed.
--- NOTE | 2024-01-11 13:12 | W.PN.HOSP.TC ---
Today's Communication/Plan
-
Continue vent support while off continue sedation changed to ASV mode.
Vasopressor support.
IV antibiotics.
Gentle diuresis to facilitate weaning.
Tube feeds.
Insulin protocol.
Wound care.
Total Critical Care Time__45___ minutes. I was immediately available to the patient and staff. I personally examined, reviewed labs, diagnostic images/reports, interpretations, treatment plans, discussed patient care with other providers and
family or caregivers (if patient is unable to make decisions), entered orders as appropriate and documented the medical record.
Assessment / Plan
Assessment / Plan
Impression
Septic shock
Multi pathogen bacteremia
-Multiple sources including aspiration pneumonia with left lower lobe infiltrate, UTI, stage IV sacral pressure wound.
Profound hypotension not responding to IV fluids requiring multiple vasopressors.
Ventilator dependent respiratory failure, intubated in ED on 01/04
Acute kidney injury
Lactic acidosis
Hyponatremia, severe
Hypokalemia
Atrial fibrillation with rapid medical response, new onset
Ventricular tachycardia
Conditions prior to admission.
Advanced Alzheimer's dementia
Aspiration syndrome
PEG tube in place
Type 2 diabetes/IDDM
Sacral decubital wound stage IV
Chronic ambulatory dysfunction, type rhythm.
History of COVID
Infection complicated with respiratory failure November 2019.
Plan:
Severe sepsis with multiple agitation bacteremia
Severe septic shock not responding to IV fluids and requiring multiple vasopressors
Possible sources as above also at this point could not rule out intra-abdominal source.
Initiated on broad-spectrum antibiotics including meropenem and micafungin.
Attempt to wean off vasopressor, currently on low rate of Levophed and has been off vasopressin
Ventilatory dependent respiratory failure.
Remains intubated.
Weaned off continuous sedation
Changed to ASV
Unresponsive and not tracking, decreased gag reflex, no reaction to noxious stimuli, occasional spontaneous respiration
Attempt of gentle diuresis to facilitate weaning
Acute kidney injury in the settings of profound hypotension
Severe hyponatremia
Cain catheter in place.
Continue monitoring urine output closely.
IV fluids with bicarbonate
Severe hyponatremia sodium 130�120.
Status post 3% solution.
Monitor BMP
Acute anemia with hemoglobin dropped to 6.
No evidence of bleeding including gastrointestinal
Appropriate response to transfusion with hemoglobin 6�8
Thrombocytopenia likely consumptive
Atrial fibrillation with rapid ventricular response--
Short runs of ventricular tachycardia
Initiated on amiodarone drip
Developed bradycardia
Amiodarone had been discontinued 01/09
Off preadmission metoprolol given hypotension
IDDM
Initiated on low rate tube feeding
Continue basal bolus protocol adjusting accordingly
DNR
Goals of care discussed with patient's son at the bedside by Dr. Cuevas
Poor prognosis given patient with advanced dementia, with severe sepsis and septic shock requiring multiple vasopressors--ongoing goals of care discussion with family......
The patient to continue ongoing treatment, although avoiding CPR while patient is intubated.
DVT prophylaxis heparin.
Anticipated Discharge: > 48 hours
Subjective/Interval History
-
Date of Service: January 11, 2024
Objective Data
-
Labs:
Laboratory Results
01/11/24
03:45
WBC 19.8 H
Hgb 8.6 L
Hct 23.7 L
Plt Count 47 L
HCO3 28.2 H
Sodium 122 L
Potassium 3.2 L
Chloride 86 L
Carbon Dioxide 25
BUN 22 H
Creatinine 0.7
Glucose 119 H
Calcium 7.3 L
Vital Signs:
Vital Signs
Temp Pulse Resp BP Pulse Ox
96.6 F L 59 18 123/42 100
01/11/24 12:00 01/11/24 12:30 01/11/24 12:30 01/11/24 09:43 01/11/24 12:30
I&O
01/10/24 01/11/24 01/12/24
06:59 06:59 06:59
Intake Total 2402.0 / 2431.5 1582.5 / 1636.5 406.4 / 406.4
Output Total 445 / 475 970 / 970 290 / 290
Balance 1957.0 / 1956.5 612.5 / 666.5 116.4 / 116.4
Physical Exam
-
General: Well Developed, Well Nourished, Intubated, Appears Chronically Ill and Obese
HEENT: Normocephalic and Atraumatic
Respiratory: Clear to Auscultation (limited to anterior chest only) and Other (hyperventilating (set by vent...not overbreathing))
Cardiac: Irregular Rhythm and Tachycardic
GI: Soft, Nontender, Nondistended and Peg Tube; Negative Normal Bowel Sounds (hypoactive to no bowel sounds by my assessment)
Rectal: Other (rectal tube without much output)
Genito-urinary: Cain
Musculoskeletal: Negative No Edema (diffuse anasarca)
Skin: Other (mottled breasts--cold extremities--large sacral decubitus ulcer (picture from wound note reviewed))
Neuro: Sedated; Negative Awake or Alert
--- NOTE | 2024-01-11 17:22 | PTCARENOTE ---
attempted wean, 12/10/39, apneic initially. at 1615, increased to 05/11/40, does have spontaneous breaths, rate 28 range, volumes 180-200. Dr. Velásquez notified, will keep on wean until 1800. resps do not look uncomfortable, she is not air hungry or
labored. rest of VS stable.
[2024-01-11 18:07] LABS: Glucose - Point of Care 143 mg/dl (70-99)
--- NOTE | 2024-01-11 18:17 | PTCARENOTE ---
levophed off, I/O collected. no other changes noted.
--- NOTE | 2024-01-11 18:36 | PTCARENOTE ---
resp rate occas 33-36, returned to ASV per MD order. No other change.
[2024-01-11] MEDS: HEPARIN 5000 UNITS SC (19:18)
--- NOTE | 2024-01-11 20:47 | PTCARENOTE ---
report received. patient found on rounds to have vomited large amount tube feeds mixed with bilious fluid. ett suctioned for large mony mcbride yellow sputum. tube feeds placed on hold. residual per work list documentation. complete care given.
required resumption of Levophed at low dose to keep systolic >90. monitor nsr with prolonged QT. right triple picc patent with good blood returns. right radial arterial line with cuff correlation. right hand cyanotic/black but has not spread further
than area previously marked. Doppler pulses. + 4 anasarca. wound care completed. diuresing clear yellow urine. Photocomposing Keyboard Operator CONTROL CLERK HEAD updated with above events, orders received
[2024-01-11 21:05] LABS: Blood Urea Nitrogen 23 mg/dl (7-17); Calcium 7.2 mg/dl (8.4-10.2); Carbon Dioxide 24 mmol/L (22-30); Chloride 91 mmol/L (98-107); Estimated Creatinine Clearance 62 ml/min; Glucose 130 mg/dl (70-99); Magnesium 1.7 mg/dl (1.6-2.3); Potassium 3.6 mmol/L (3.5-5.1); Sodium 123 mmol/L (135-145); eGFR > 60.00
[2024-01-11] MEDS: MAGNESIUM SULFATE 50 IV (21:30)
[2024-01-11] MEDS: KCL 50 IV (21:30)
[2024-01-11] MEDS: NOVOLOG FLEXPEN SC (23:11)
[2024-01-11 23:17] LABS: Glucose - Point of Care 129 mg/dl (70-99)
--- NOTE | 2024-01-11 23:23 | PTCARENOTE ---
patient reassessed. peg aspirate yellow bilious. reinstilled. patient noted to have hiccoughs intermittently. small amount yellow fluid suctioned from mouth. ETT suctions frequently for moderate amount mcbride sputum. remains on ASV. blood pressure
labile. Levophed per work list. continues to diurese clear yellow urine. potassium, magnesium riders infusing. Valve Pipe Irrigator MECHANICAL MANAGER updated. orders received. tube feeds to remain on hold due to intolerance
[2024-01-12] MEDS: SUBLIMAZE 50 MCG IV ×2 (01:43→08:49)
--- NOTE | 2024-01-12 03:59 | PTCARENOTE ---
patient reassessed. patient gagging and retching. small amount dark yellow emesis. peg tube unclamped, immediate return of 500 ml drainage. Torpedo Man ASSISTANT FOREMAN updated. to place peg to gravity drainage. head of bed has been elevated all shift.
aspiration precautions maintained
[2024-01-12 04:19] LABS: B.E. 4.9 mmol/L; HCO3 27.8 mmol/L (21-28); PCO2 34 mmHg (32-35); PO2 106 mmHg (83-108); pH 7.52 (7.35-7.45)
[2024-01-12 04:22] LABS: O2 Therapy 40%/5
[2024-01-12 04:23] LABS: Hematocrit 29.5 % (37.0-47.0); Mean Corp Hgb Conc. 35.6 g/dL (33.0-37.0); Mean Corpuscular Hgb 30.1 pg (27.0-31.0); Mean Corpuscular Volume 84.5 fL (81.0-99.0); Platelet Count 78 10^3/uL (130-400); Red Blood Cell Count 3.49 10^6/uL (4.20-5.40); Red Cell Dist. Width 14.9 % (11.5-14.5); White Blood Cell Count 26.2 10^3/uL (4.8-10.8)
[2024-01-12 04:29] LABS: Hemoglobin 10.5 g/dL (12.0-16.0)
[2024-01-12 04:45] LABS: ALT (SGPT) 52 U/L (0-35); AST (SGOT) 100 U/L (14-36); Albumin 2.1 g/dl (3.5-5.0); Alkaline Phosphatase 122 U/L (38-126); Blood Urea Nitrogen 24 mg/dl (7-17); Calcium 7.2 mg/dl (8.4-10.2); Carbon Dioxide 25 mmol/L (22-30); Chloride 93 mmol/L (98-107); Estimated Creatinine Clearance 62 ml/min; Glucose 113 mg/dl (70-99); Magnesium 2.1 mg/dl (1.6-2.3); Phosphorus 3.1 mg/dl (2.5-4.5); Sodium 127 mmol/L (135-145); Total Bilirubin 2.5 mg/dl (0.2-1.3); Total Protein 4.4 g/dl (6.3-8.2); eGFR > 60.00
[2024-01-12 04:46] LABS: NT-proBNP 12400 pg/ml
[2024-01-12] MEDS: NOVOLOG FLEXPEN 2 UNITS SC (05:34)
[2024-01-12] MEDS: NOVOLOG FLEXPEN-MODERATE RESISTANCE SC ×4 (05:34→23:10)
[2024-01-12] MEDS: MERREM 500 MG IV ×4 (05:35→22:58)
[2024-01-12] MEDS: STERILE WATER FOR INJECTION 10 ML IV ×4 (05:35→22:58)
[2024-01-12 05:37] VITALS: BMI 29.0
[2024-01-12 05:43] LABS: Glucose - Point of Care 130 mg/dl (70-99)
[2024-01-12] MEDS: CALCIUM GLUCONATE 130 MG IV (06:29)
--- NOTE | 2024-01-12 08:06 | W.PN.ID1 ---
Date of Service
Date of Service: January 12, 2024
Today's Communication
Continue with meropenem / Micafungin (d#6)
Assessment / Plan
Clinical sepsis/septic shock
Large sacral decubidi
Leukocytosis
Polymicrobial bacteremia with Enterobacter, Klebsiella pneumoniae, Enterococcus
Lactic acidosis
VDRF
Hyponatremia
Candiduria
Advanced Alzheimer's dementia
GERD
HTN
DM
Dysphagia
CKD
Recommendations:
White count up today.
Repeat blood cultures no growth.
Continue with meropenem / Micafungin (d#6)
Monitor white count and temperature curve.
Continue with pressor support as necessary.
Overall condition and outlook remains extremely poor, with high likelihood of mortality given multiple comorbidities.
Clinically, minimal likelihood of a return to any reasonable quality of life.
Patient appears 'comfort-measures' appropriate.
Patient remains critically ill in intensive care unit.
����������������������������������������������������������
Chief Complaint
-: Leukocytosis, Clinical Sepsis and Bacteremia
Subjective / Review of Systems
Patient seen and examined. Remains on vent at this time. Overnight, nursing reports significant vomiting of tube feeds. PEG tube now to gravity drain. Remains on single pressor at this time.
Vital Signs / Physical Exam
Vital Signs
Vital Signs
Temp Pulse Resp BP Pulse Ox
97.1 F 72 17 89/52 100
01/12/24 07:24 01/12/24 07:30 01/12/24 07:30 01/11/24 20:28 01/12/24 07:30
Physical Exam
Constitutional: Acutely Ill and Chronically Ill
Head: Normocephalic and Other (ET tube in place.)
Eyes: No Conjunctival Hemorrhage and Sclera Anicteric
Cardiovascular: Regular Rate and S1/S2; Negative S3/S4
Pulmonary: Other (ET tube to vent.); Negative Wheezes, Rales or Rhonchi
Gastrointestinal: Soft, Non Distended, Decreased Bowel Sounds, No Rebound, No Guarding and Other (PEG tube to gravity drain)
Genito-Urinary: Cain and Clear Urine
Extremities: Edema (All extremities) and Cyanosis (Right thumb area.); Negative Erythema or Splinter Hemorrhage
Skin: Negative Rash or Jaundice
Neurological: Other (Minimally responsive to voice and touch)
Objective Data
Lab Data
Lab Results
01/12/24 04:13
01/12/24 04:13
PT 18.9 Sec (11.4-14.6) H 01/05/24 15:05
INR 1.60 01/05/24 15:05
APTT 30.3 Sec (23.4-35.0) 01/05/24 15:05
Estimated Creat Clear 62 ml/min 01/12/24 04:13
Lactic Acid 2.1 mmol/L (0.7-2.0) H 01/11/24 03:45
Total Bilirubin 2.5 mg/dl (0.2-1.3) H 01/12/24 04:13
AST 100 U/L (14-36) H 01/12/24 04:13
ALT 52 U/L (0-35) H 01/12/24 04:13
Alkaline Phosphatase 122 U/L (38-126) 01/12/24 04:13
Most recent labs reviewed.
Micro Results:
01/07/24 10:08 Blood Culture - Preliminary
Blood/Venous No Growth in 4 days- Final report to follow
01/09/24 09:07 Blood Culture - Preliminary
Blood/Venous No Growth in 48 hours- Final report to follow
01/09/24 09:07 Blood Culture - Preliminary
Blood/Venous No Growth in 48 hours- Final report to follow
01/05/24 09:57 Blood Culture - Final
Blood/Venous No Growth - Final Report
01/06/24 16:06 Respiratory Culture - Final
Endotracheal Proteus Mirabilis-ESBL
S aureus-Methicillin Sensitive
Gram Stain - Final
01/07/24 10:08 Blood Culture - Preliminary
Blood/Venous S aureus-Methicillin Sensitive
Gram Stain - Preliminary
01/05/24 11:05 Blood Culture - Final
Blood/Venous Enterococcus faecalis
Klebsiella pneumoniae-ESBL
Enterobacter cloacae
Proteus Mirabilis-ESBL
Gram Stain - Final
01/05/24 16:35 Wound Culture - Final
Coccyx Proteus species
Staphylococcus aureus
Enterococcus species
Streptococcus species
Additional testing on request
Gram Stain - Final
01/05/24 11:05 Urine Culture - Final
Urine Kerry albicans
01/05/24 17:47 Nasal Screen MRSA (PCR) - Final
Nose MRSA not detected - performed by PCR methodology.
01/05/24 11:05 Influenza Types A & B (MIGUEL) - Final
Nasal Swab Negative for Influenza A & B, NAAT
Negative results must be combined with clinical observations
and patient history.
Nucleic Acid Amplification test (NAAT)performed on the
[employer] platform.
Imaging:
01/08/2024 CXR (portable): Mild to moderate patchy right basilar airspace disease which is improved. Slightly improved left basilar atelectasis. Please see full dictation for additional detail.
[2024-01-12 08:13] LABS: Glucose - Point of Care 124 mg/dl (70-99)
--- NOTE | 2024-01-12 08:32 | W.PN.INTV ---
Today's Communication / Plan
Recommendations
Diurese
Trend blood gas
Hold tube feeds; send wound Cx from G-tube stoma as there is purulent discharge coming from that site
GI consulted given G-tube leak --> recs appreciated; Awaiting MR from [facility] where her G tube was placed recently
PST today on 05/11; aim for PS of 5. Back to ASV tonight.
Adjust vent given her alkalemia
Continue antibiotics
Hold off on further imaging, not a candidate for any interventions family would not want any heroic interventions.
Held amiodarone gtt + BB on 01/10 given bradycardia --> HR now improved. Can likely resume amio later tonight if HR remains normal and BP stable.
Start midodrine
Poor prognosis -I discussed with the patient's son, Linda, that we are still unable to extubate her given her apnea during pressure support trial today. I advised that if we are to continue with mechanical ventilation then she is heading towards
tracheostomy, or we can withdraw care with extubation and make her comfortable knowing that she will pass away shortly thereafter. He was unable to answer me at that time and said that he will speak to the rest of his family and we can discuss that
at another time. Continue mechanical ventilation at this time - this is day #7 on the vent. I answered all of his questions.
Assessment
-
88-year-old woman with advanced dementia, noncommunicative, type 2 diabetes, sent from the senior living for hypotension. Patient emergently intubated in the emergency room due to nonresponsive. At baseline patient is noncommunicative, she has a
PEG tube in place. The son wanted intubation but no CPR. He would like to treat her medically.
Despite fluid resuscitation patient required vasopressors. Transferred to the critical care unit for further care.
Impression:
Septic shock
Multiple sources possible including: Urinary tract infection/sacral decubitus ulcer and pneumonia likely due to aspiration.
Abnormal urinalysis
Chest x-ray: Bibasilar infiltrates
Bacteremia: Polymicrobial - Enterobacter cloacae, ESBL�Klebsiella pneumoniae, Enterococcus faecalis + MSSA - suspect source is sacral decubitus wound.
Urine culture with Kerry
Sputum Cx with ESBL-Proteus Mirabilis + MSSA
Hospital acquired pneumonia (present on admission)
Acute pulmonary edema with bilateral pleural effusions
Acute hypercapnic respiratory failure requiring intubation 01/05/2024
ABG 7.20
Acute kidney injury/metabolic acidosis - resolved
Lactic acidosis
Hyperglycemia - normalized
Hyponatremia - improving
Abnormal TFTs with low TSH and elevated free T4 likely due to critical illness
Anemia/thrombocytopenia with 1 U PRBC given on 01/10/2024
-
Conditions present prior admission:
Type 2 diabetes
Advanced dementia
Noncommunicative/bedbound
PEG tube in place
Sacral decubitus ulcer stage IV-family states that it was debrided about a month ago at [facility] status post antibiotics
-
Assessment and plan:
Patient remains critically ill off and on vasopressors, now not tolerating her tube feeds, intubated on mechanical ventilation with lactic acidosis and polymicrobial bacteremia with pneumonia and sacral decubitus ulcer
-
Septic shock multiple sources possible
Abnormal urinalysis-urine culture Kerry.
Blood culture: Polymicrobial - Polymicrobial - Enterobacter cloacae, ESBL�Klebsiella pneumoniae, Enterococcus faecalis + MSSA
Sacral decubitus wound is the suspected primary source, although she appears to have a pneumonia with multiple organisms growing on sputum Cx
In my opinion, not a candidate for any surgical intervention. Suspect patient has some osteomyelitis based on depth of sacral decubitus wound.
Hold off on further imaging. Patient is critically ill on multiple vasopressors. Very poor prognosis. Family would not want heroic interventions but would like to continue with medical management.
Cannot rule out aspiration pneumonitis-chest x-ray 01/07/2024: Showed a new right lower lobe infiltrate.
Sputum culture growing ESBL-Proteus mirabilis + MSSA
1 of 2 repeat blood cultures from 01/07/2024 show NGTD
Broad-spectrum antibiotics-on Meropenem + micafungin (both on since 01/07/2024) s/p Zosyn (01/04 - 01/06) + cefepime x 1 dose + IV vanco x2 doses. Discontinued vancomycin --> Staph aureus seen on BCx from 01/06 is MSSA, Last dose of IV vanco was on
01/06/2024; (was previously re-ordered on 01/07 as suspected MRSA at that time but it was never given)
MRSA screening negative
ID consulted - recommendations appreciated
-
Mechanical ventilation settings reviewed
Continue assist-control mechanical ventilation.
Adjust ventilator settings based on blood gas with continued respiratory alkalosis and hyperoxia seen on ABG
Pt having worsening anasarca with serum HCO3 now normalized - stopped bicarb gtt on 01/08
Trend BMP
Adjust FiO2 and PEEP based on PaO2
Failed SBT on AM of 01/10/2024 on 12/09 due to apnea --> tolerating 10/5 wean today, still not following any commands, so not able to extubate yet. Unclear with her pre-exisiting dementia if she will ever get to the point where she follows commands
Diurese given fluid overload seen on CXR this AM (01/11/2024) --> improved as per today's CXR with better aeration and less pulmonary vascular congestion
-
Patient had increasing FiO2 requirement:Pneumonia versus ? pulmonary edema (her weight is up about 7 kg since admission)
Chest x-ray 01/07/2024, reviewed, with a new right lower lobe infiltrate. Atelectasis versus pneumonia. Suspect some degree of volume overload as well
Daily ABG
-
Sedation with fentanyl pushes
At baseline patient is noncommunicative at baseline for years, very rigid, bedbound.
Will try to keep comfortable.
Target for RASS score 0 to -1
-
Septic shock:
Now on and off levophed; s/p albumin on 01/09/2024 --> start midodrine in an effort to remain pt off vasopressors
Continue to trend lactate until <2mmol/L
Central line in place
Arterial line in place
Will target SBP>90mmHg as her diastolic BP is so low, it is difficult to attain MAP of 65 or greater without high doses of vasopressors
Cain in place: Follow urine output
ABx as per ID
Echo done on 01/09/2024 � LVEF 75%, no evidence of vegetation
Check wound Cx from her G-tube stoma site
-
Hyperglycemia blood sugar over 600 on admission.
Improved
Hypernatremia resolved since 01/05.
Weaned off insulin drip on 01/07 after bridging with 14 units lantus--> she takes lantus at home (17 units HS) - Continue to check BG q6hr with goal BG 140-180mg/dL with basal-bolus insulin dosing
Tube feeds being started on 01/10/2024, I added aspart 2 units q6hr to maintain euglycemia --> TF now off due to vomiting with TF intolerance. Stop scheduled aspart to avoid hypoglycemia
-
Hyponatremia: Likely hypervolemic in setting of reduced PO intake
On 01/07 we started hypertonic 3% NS and trend BMP q6hr --> sNa improved to 119-120, 3% HT-saline stopped --> c/t trend sNa level
Diurese as BP tolerates
Follow daily chemistry, Mg and PO4 labs
-
Rapid atrial fibrillation since 01/06/2024: Amiodarone drip started --> stopped on 01/10 due to bradycardia
Goal heart rate 50-100 --> hold BB and amio for now
Echo on 01/09/2024 was limited study with LVEF >75% with moderate pulmonary hypertension
Troponin peaked at 0.119 on 01/07/2024 and down trended to 0.113
Hold anticoagulation for now, can readdress later on depending on clinical situation.
-
Acute anemia + thrombocytopenia
Transfused 1 U PRBC on AM of 01/10/2024
No evidence for bleeding.
Transfuse to keep Hb >7, plt>20k
4T score: low probability
-
DVT prophylaxis - On 01/10 I started HSQ 5000 q12hr --> change to LMWH 40mg SQ qPM today
Protonix for GI prophylaxis while intubated
-
NPO for now
Aspiration precautions � head of bed elevation
PEG tube in place. Continue tube feeds given her low vasopressor requirements
On 01/10 I consulted GI given her G-tube is leaking; G-tube placed at [facility] about 30-45 days ago. Per son, there was difficulty placing it endoscopically so they had to use imaging tactics (? fluoroscopically). Will need to obtain
medical records of prior G-tube placement.
-
Dr. Collins had discussed with son at the bedside 01/05/2020, and discussed with his who apparently is a doctor. Expressed poor prognostic indicators. Recommended to focus on comfort.
They would like to continue with medical management.
No CPR, no dialysis, no aggressive surgeries will be offered at this point.
Son updated by Dr. Collins 01/06/2024: Continue with medical management. No heroic interventions.
On 01/07, Dr. Velásquez discussed the patient's clinical status with the family including son and the son's . The son's is a family medicine practitioner. I answered all their questions, emotional support provided, and they would like to
continue full medical management while keeping her DNR but okay for mechanical ventilation.
I have been giving updates to the son, Linda, every day since I have been on service. I have been answering all of the son's questions to his satisfaction.
-
Discussed with primary team, nursing, respiratory therapist. Discussed with infectious disease.
-
Prognosis extremely poor
-
Critical care statement: A total of 41 minutes of critical care time was provided for this patient today. This includes management of unstable vital signs, evaluation of the patient at bedside, reviewing the patient's pertinent medical records
including ventilator settings, arterial blood gases, radiographs, microbiology, laboratory evaluations and discussion with primary team, critical care nursing, and respiratory therapy.
Subjective Dataa
Subjective Data
Date of Service:
Date of Service: January 12, 2024
Chief Complaint: Child Care Director Follow Up (Septic shock/hypercapnic respiratory failure requiring intubation)
Subjective:
Patient had emesis overnight. Tube feeds are now off. On and off levo throughout the night. Off levophed now. Son, Linda, at bedside and I answered all of his questions. She has purulent discharge at the G-tube insertion site. She remains
afebrile. proBNP has markedly improved today down to 12,400 from 25,500 just 3 days prior. Patient still not following commands although she does awaken to tactile stimuli.
Review of Systems
General: Unobtainable - Pat Unresp
Objective Data
Data Reviewed
Vital Signs / I&O / Oxygen:
Vital Signs
Temp Pulse Resp BP Pulse Ox
97.1 F 72 17 89/52 100
01/12/24 07:24 01/12/24 07:30 01/12/24 07:30 01/11/24 20:28 01/12/24 07:30
Intake and Output
01/11/24 01/12/24 01/13/24
06:59 06:59 06:59
Intake Total 1582.5 / 1636.5 1096.1 / 1096.1
Output Total 970 / 970 3790 / 3790
Balance 612.5 / 666.5 -2693.9 / -2693.9
SaO2 [CPAP/PSV] 100
SaO2 [ASV] 99
SaO2 [A/C] 99
SaO2 100
Physical Exam
General: Respiratory Distress (n) and Chills (Negative)
HEENT: Normocephalic and Other (+icterus b/l)
Cardiovascular: Irregular Rhythm (Irregularly irregular), Peripheral Edema (+2 lower + upper extremity pitting edema bilaterally) and Other (Normal heart rate)
Respiratory: Wheeze (negative), Crackles (bialterally), Rhonchi (Mild scattered), Non-Labored Respirations and ET Tube (Mechanical breath sounds heard bilaterally)
GI: Soft, Non Distended, Non Tender, Normal Bowel Sounds and Feeding Tube (Suppurative leakage around the G-tube insertion site without exsanguination appreciated; no pain to palpation; no fluctuance palpated)
Neurology: Other (Patient is rigid at baseline) and Other (Opens eyes to voice and tactile stimuli; Noncommunicative at baseline. Pupils +1 mm bilaterally and sluggish, +blinking to threat; +gag reflex)
Skin: Warm, Dry, Bruising (right thumb) and Other (Stage IV sacral decubitus ulcers present on admission)
Labs/Micro/Reports
Lab Data
01/12/24 04:13
01/12/24 04:13
Laboratory Results
01/12/24
04:13
pH 7.52 H
pCO2 34
pO2 106
HCO3 27.8
O2 Delivery Level 40%/5
Microbiology
01/09/24 09:07 Blood/Venous Blood Culture - Preliminary
No Growth in 72 hours- Final report to follow
01/07/24 10:08 Blood/Venous Blood Culture - Preliminary
No Growth in 4 days- Final report to follow
01/09/24 09:07 Blood/Venous Blood Culture - Preliminary
No Growth in 48 hours- Final report to follow
01/05/24 09:57 Blood/Venous Blood Culture - Final
No Growth - Final Report
01/06/24 16:06 Endotracheal Respiratory Culture - Final
Proteus Mirabilis-ESBL
S aureus-Methicillin Sensitive
01/06/24 16:06 Endotracheal Gram Stain - Final
01/07/24 10:08 Blood/Venous Blood Culture - Preliminary
S aureus-Methicillin Sensitive
01/07/24 10:08 Blood/Venous Gram Stain - Preliminary
01/05/24 11:05 Blood/Venous Blood Culture - Final
Enterococcus faecalis
Klebsiella pneumoniae-ESBL
Enterobacter cloacae
Proteus Mirabilis-ESBL
01/05/24 11:05 Blood/Venous Gram Stain - Final
[2024-01-12] MEDS: DESENEX/MITRAZOL/ZEASORB 1 APPLIC TOPICAL ×2 (08:47→19:17)
[2024-01-12] MEDS: DAKIN'S SOLUTION 0.125% 1/4 STRENGTH 473 ML TOPICAL (08:47)
[2024-01-12] MEDS: LANTUS 0.149999999999999994 UNITS SC (08:48)
[2024-01-12] MEDS: LASIX 40 MG IV ×2 (08:48→15:08)
[2024-01-12] MEDS: HEPARIN 5000 UNITS SC (08:48)
[2024-01-12] MEDS: PROTONIX IV 40 MG IV (08:49)
[2024-01-12] MEDS: NSS (PRESERVATIVE FREE) 10 ML IV (08:49)
[2024-01-12] MEDS: ProAmatine 5 MG PO ×3 (10:30→17:51)
--- NOTE | 2024-01-12 11:00 | PTCARENOTE ---
Pt placed on wean by resp therapist 05/11 40%. Son at bedside and updated.
[2024-01-12 11:59] LABS: Glucose - Point of Care 90 mg/dl (70-99)
--- NOTE | 2024-01-12 12:24 | PTCARENOTE ---
Systems reviewed. No new changes. Peg culture sent per Dr Velásquez. Tube feedings remain to gravity after clamping for midodrine.
[2024-01-12] MEDS: MYCAMINE 105 MG IV (12:36)
--- NOTE | 2024-01-12 13:47 | CM ---
CM following re: discharge planning.
Reviewed pt's chart, met with pt and pt's son at bedside. Per chart review, pt remains intubated, unable to wean, continue supportive care, poor prognosis and GOC discussion ongoing with the family.
Pt is a terminal manager care resident at [facility] and required total care, has 2 supportive sons.
D/C plan: uncertain at this time and will depend on pt's progress.
CM will follow with discharge plan updates as hospitalization progresses
--- NOTE | 2024-01-12 13:58 | W.PN.GI.CBS2 ---
Addendum entered and electronically signed by Amber Escobar MD 01/12/24 21:18:
I saw and examined the patient.
The STORAGE BRINE WORKER or PA's note was reviewed and I agree with the note.
Comment: Patient had 1 episode of vomiting last night, tube feeds on hold, G-tube to gravity, about 200 cc of bilious material noted
Outer PEG tube bumper without compressing at the skin level, no further drainage around
Abdominal x-ray today showing small amount of gas in the stomach without any gross distention, otherwise relative paucity of bowel gas without any evidence of obstruction.
-Slow gastric emptying unclear etiology
If no residual in the G-tube put to gravity, can start tube feeds slowly and advance as tolerated.
If G-tube continues to drain bile and/or not tolerating tube feeds-will need IR GJ tube placement.
No further intervention from a GI standpoint.
Will sign off, please call back if needed.
-
Original Note:
Today's Communication / Plan
-
some vomiting overnight and tube feeds now on hold-- less drainage from peg with some less redness at site an bumper moveable
pressors have weaned off
continue frequent changes of dressing around peg
HR records reviewed
adequate fluid in balloon checked 01/10
NPO with vomiting, consider if am clamping trial and if tolerating slow increase of tube feeds
ongoing discussion with goals of care with poor prognosis
peg report reviewed
Assessment / Plan
-
Pt is a 88yo presents with hx GERD, HTN, hypercholesterolemia, NIDDM, CKD, dementia with recent admission to [facility] with peg tube placement for dysphagia and sacral decub. She now present 01/04 to with unresponsiveness with hypotension,
change in mental status, FBS >500 requiring intubation on admission. After admission noted with sepsis with hypotension and multiple source including aspiration PNA, UTI, sacral decub and MSSA bacteremia.afib with RVR, and ROSE and marked elevated
lactate. Asked to eval for leakage around peg. Pt non verbal in exam and per chart recent placement of peg at [facility]. Pt is noted with some loose stool with rectal tube in place and yellow drainage around peg site. hgb down to 6.1 on
admission.
01/10 abd X ray- The amount of stool within the colon appears within normal limits.No significantly dilated air-filled loops of bowel. Gastrostomy tube with balloon in the medial left upper quadrant, within the stomach.
01/11 abd X ray Percutaneous gastrostomy tube overlies the expected location of the stomach. There is a small amount of gas within the stomach, without gross distention. Otherwise, relatively paucity of bowel gas.
01/11 CXR Interval improvement in previous mild vascular congestion. Persistent findings suggesting small bilateral pleural effusions. Mild right lower lobe parenchymal opacity, atelectasis versus pneumonia.
[facility]-- 12/01/23- EGD unable to place peg due to inadequate transillumination (only see below Xiphoid process, med HH
12/05/23- successful IR placed 18 spanish LOGAN GT
12/06/23 CT A/p no acute process, chronic fx left femoral head, chronic sacral decub, stomach decompressed
-peg malfunction with leakage and drainage
-diarrhea
-sepsis-multi pathogen
-bradycardia
-afib/ new onset during admission
-anemia with hbg down to 6.1
-leukocytosis
-thrombocytopenia
-increased LFT's
-hyponatremia
PLAN:
some vomiting overnight and tube feeds now on hold-- less drainage from peg with some less redness at site an bumper moveable
pressors have weaned off
continue frequent changes of dressing around peg
HR records reviewed
adequate fluid in balloon checked 01/10
NPO with vomiting, consider if am clamping trial and if tolerating slow increase of tube feeds
ongoing discussion with goals of care with poor prognosis
peg report reviewed
Subjective
Subjective
Date of Service: January 12, 2024
+ vomiting overnight and tube feeds on hold, 6/7 liquid brown stools, now off pressors with midodrine started -- less drainage around peg
Objective
Data Reviewed
Laboratory Data:
Laboratory Results
01/12/24 04:13
01/12/24 04:13
Laboratory Results
PT 18.9 Sec (11.4-14.6) H 01/05/24 15:05
INR 1.60 01/05/24 15:05
APTT 30.3 Sec (23.4-35.0) 01/05/24 15:05
Phosphorus 3.1 mg/dl (2.5-4.5) 01/12/24 04:13
Magnesium 2.1 mg/dl (1.6-2.3) 01/12/24 04:13
Total Bilirubin 2.5 mg/dl (0.2-1.3) H 01/12/24 04:13
AST 100 U/L (14-36) H 01/12/24 04:13
ALT 52 U/L (0-35) H 01/12/24 04:13
Alkaline Phosphatase 122 U/L (38-126) 01/12/24 04:13
Vital Signs and I&O:
Vital Signs
Temp Pulse Resp BP Pulse Ox
97.5 F 75 16 89/52 99
01/12/24 11:18 01/12/24 12:00 01/12/24 12:00 01/11/24 20:28 01/12/24 12:00
I&O
01/11/24 01/12/24 01/13/24
06:59 06:59 06:59
Intake Total 1582.5 / 1636.5 1096.1 / 1098.0 83.8 / 83.8
Output Total 970 / 970 3790 / 3965 1100 / 1100
Balance 612.5 / 666.5 -2693.9 / -2867.0 -1016.2 / -1016.2
Physical Exam
Physical Exam
HEENT: Anicteric and Other
Cardiology: Normal Sinus Rhythm
Pulmonary: Clear
GI: Soft, Non Distended, Non Tender (limited with decreased mental status ) and Other (minimal drainage at peg site)
Extremities: Edema
Neuro: Other (vented non verbal minimal movement to voice )
--- NOTE | 2024-01-12 15:33 | PTCARENOTE ---
Systems reviewed. No new changes. Pt maintained on wean 10/5, until 6pm per Dr Velásquez, then will rest on asv overnight.
--- NOTE | 2024-01-12 16:24 | W.PN.HOSP.TC ---
Today's Communication/Plan
-
Continue vent support
IV antibiotic
Off sedation
Diuresis.
Wound care
Assessment / Plan
Assessment / Plan
Impression
Septic shock
Multi pathogen bacteremia
-Multiple sources including aspiration pneumonia with left lower lobe infiltrate, UTI, stage IV sacral pressure wound.
Profound hypotension not responding to IV fluids requiring multiple vasopressors.
Ventilator dependent respiratory failure, intubated in ED on 01/04
Acute kidney injury
Lactic acidosis
Hyponatremia, severe
Hypokalemia
Atrial fibrillation with rapid medical response, new onset
Ventricular tachycardia
Conditions prior to admission.
Advanced Alzheimer's dementia
Aspiration syndrome
PEG tube in place
Type 2 diabetes/IDDM
Sacral decubital wound stage IV
Chronic ambulatory dysfunction, type rhythm.
History of COVID
Infection complicated with respiratory failure November 2019.
Plan:
Severe sepsis with multiple agitation bacteremia
Severe septic shock not responding to IV fluids and requiring multiple vasopressors
Possible sources as above also at this point could not rule out intra-abdominal source.
Initiated on broad-spectrum antibiotics including meropenem and micafungin.
Weaned off vasopressors with transition to midodrine
Ventilatory dependent respiratory failure.
Remains intubated.
Weaned off continuous sedation with periodic spontaneous breath initiation while on ASV
Unresponsive and not tracking, decreased gag reflex, no reaction to noxious stimuli, occasional spontaneous respiration
Initiated on IV Lasix to facilitate extubation.
Remains on FiO2 40%
Acute kidney injury in the settings of profound hypotension
Severe hyponatremia
Cain catheter in place.
Continue monitoring urine output closely.
IV fluids with bicarbonate
Severe hyponatremia sodium 130�120.
Status post 3% solution.
Monitor BMP
Acute anemia with hemoglobin dropped to 6.
No evidence of bleeding including gastrointestinal
Appropriate response to transfusion with hemoglobin 6�8
Thrombocytopenia likely consumptive
Atrial fibrillation with rapid ventricular response--
Short runs of ventricular tachycardia
Initiated on amiodarone drip
Developed bradycardia
Amiodarone had been discontinued 01/09
Off preadmission metoprolol given hypotension
IDDM
Continue basal bolus protocol adjusting accordingly.
Initiated on low rate tube feeding although now with high residuals, and vomiting causing additional aspiration
Tube feeding discontinued
DNR
88 years old patient with advanced dementia, bedridden, chronic aspiration with recently required feeding tube now with severe sepsis with multifactorial sources including aspiration pneumonia, stage IV sacral decub ulcer with multi pathogen
bacteremia. Patient unfortunately remains vent dependent with periods of apnea while off sedation for days. Attempt of nutritional support wire PEG tube with high residuals and recurrent aspiration. Multiple skin wounds with sloughing and
necrosis. Poor prognosis. Multiple discussions with patient's son in terms of goals of care. If remains intubated over. Of 7 to 10 days, should be considered for tracheostomy unless patient's family will consider withdrawal and allowed process
of natural dying
DVT prophylaxis heparin.
Anticipated Discharge: > 48 hours
Subjective/Interval History
-
Date of Service: January 12, 2024
Objective Data
-
Labs:
Laboratory Results
01/12/24
04:13
WBC 26.2 H
Hgb 10.5 L D
Hct 29.5 L
Plt Count 78 L D
Sodium 127 L
Potassium 4.0
Chloride 93 L
Carbon Dioxide 25
BUN 24 H
Creatinine 0.7
Glucose 113 H
Calcium 7.2 L
Total Bilirubin 2.5 H
AST 100 H
ALT 52 H
Alkaline Phosphatase 122
Vital Signs:
Vital Signs
Temp Pulse Resp BP Pulse Ox
96.9 F L 72 14 89/52 100
01/12/24 15:08 01/12/24 15:00 01/12/24 15:00 01/11/24 20:28 01/12/24 15:48
I&O
01/11/24 01/12/24 01/13/24
06:59 06:59 06:59
Intake Total 1582.5 / 1636.5 1096.1 / 1098.0 213.8 / 213.8
Output Total 970 / 970 3790 / 3965 1700 / 1700
Balance 612.5 / 666.5 -2693.9 / -2867.0 -1486.2 / -1486.2
Physical Exam
-
General: Well Developed, Well Nourished, Intubated, Appears Chronically Ill and Obese
HEENT: Normocephalic and Atraumatic
Respiratory: Decreased Breath Sounds and Other
Cardiac: Irregular Rhythm and Tachycardic
GI: Soft, Nontender, Nondistended, Normal Bowel Sounds (hypoactive to no bowel sounds by my assessment), Peg Tube and Other (Hypoactive bowel sounds)
Rectal: Other (rectal tube without much output)
Genito-urinary: Cain
Musculoskeletal: No Edema (diffuse anasarca) and Other (Bilateral lower extremity edema, abdominal wall edema/anasarca)
Skin: Other (mottled breasts--cold extremities--large sacral decubitus ulcer (picture from wound note reviewed))
Neuro: Other (Unresponsive to noxious stimuli, not tracking. Has been off sedation.); Negative Awake or Alert
[2024-01-12] MEDS: DEXTROSE 50% SYRINGE 12.5 GRAMS IV ×2 (17:47→22:33)
[2024-01-12 17:54] LABS: Glucose - Point of Care 53 mg/dl (70-99)
[2024-01-12] MEDS: LOVENOX 40 MG SC (18:00)
[2024-01-12 18:23] LABS: Glucose - Point of Care 96 mg/dl (70-99)
--- NOTE | 2024-01-12 18:37 | PTCARENOTE ---
Pt hypoglycemic at 1745, juice given via feeding tube/dextrose as charted, repeat 96 but blood taken off [place] as peripheral result in 40 so test repeated
[2024-01-12] MEDS: DAKIN'S SOLUTION 0.125% 1/4 STRENGTH 1 ML TOPICAL (19:17)
[2024-01-12 20:15] VITALS: BP_SYST 81
[2024-01-12 20:25] LABS: Glucose - Point of Care 76 mg/dl (70-99)
--- NOTE | 2024-01-12 20:56 | PTCARENOTE ---
Pt intubated/not sedated/unrestrained minimally responsive. Opens eyes, no purposeful movement, no following commands, no s/s pain. Afebrile. NSR on monitor. Levophed restarted for SBP 81. Midodrine started during the day, but pt does not seem to be
absorbing medication, as BP has not responded and PEG remains to gravity 2/2 increased residuals. Tube feeds on hold, GI MD at bedside to see pt. Vent settings as ordered, minimal secretions. Thermistor medina to gravity draining clear yellow urine
100-200cc hourly. Skin as documented. Will monitor.
[2024-01-12 22:36] VITALS: BP_SYST 78
[2024-01-12 22:41] LABS: Glucose - Point of Care 66 mg/dl (70-99)
[2024-01-12 23:04] LABS: Glucose - Point of Care 121 mg/dl (70-99)
--- NOTE | 2024-01-13 01:00 | PTCARENOTE ---
No change in previous assessment. Vent settings as ordered. Pt turned/repositioned. CHG completed along with wound care. Will monitor.
[2024-01-13 03:46] LABS: Glucose - Point of Care 78 mg/dl (70-99)
[2024-01-13 03:47] LABS: B.E. 10.3 mmol/L; HCO3 32.8 mmol/L (21-28); O2 Saturation % 99.7 % (94-98); PCO2 35 mmHg (32-35); PO2 115 mmHg (83-108); pH 7.58 (7.35-7.45)
[2024-01-13 03:48] LABS: Hematocrit 29.6 % (37.0-47.0); Hemoglobin 10.3 g/dL (12.0-16.0); Mean Corp Hgb Conc. 34.8 g/dL (33.0-37.0); Mean Corpuscular Hgb 29.9 pg (27.0-31.0); Mean Corpuscular Volume 85.8 fL (81.0-99.0); Mean Platelet Volume 12.5 fL (7.4-10.4); Platelet Count 105 10^3/uL (130-400); Red Blood Cell Count 3.45 10^6/uL (4.20-5.40); Red Cell Dist. Width 15.2 % (11.5-14.5); White Blood Cell Count 23.6 10^3/uL (4.8-10.8)
[2024-01-13 03:59] LABS: Lactic Acid 1.8 mmol/L (0.7-2.0)
[2024-01-13 04:15] LABS: Blood Urea Nitrogen 26 mg/dl (7-17); Calcium 7.4 mg/dl (8.4-10.2); Carbon Dioxide 30 mmol/L (22-30); Chloride 95 mmol/L (98-107); Estimated Creatinine Clearance 61 ml/min; Glucose 65 mg/dl (70-99); Potassium 3.6 mmol/L (3.5-5.1); Sodium 132 mmol/L (135-145); eGFR > 60.00
[2024-01-13] MEDS: MERREM 500 MG IV ×3 (05:51→17:08)
[2024-01-13] MEDS: STERILE WATER FOR INJECTION 10 ML IV ×3 (05:51→17:08)
[2024-01-13 05:57] VITALS: BMI 27.3
--- NOTE | 2024-01-13 05:59 | PTCARENOTE ---
AM labs sent and pending. No change in previous assessment. Will monitor.
[2024-01-13] MEDS: NOVOLOG FLEXPEN-MODERATE RESISTANCE SC ×3 (06:00→23:48)
[2024-01-13 07:28] LABS: Glucose - Point of Care 65 mg/dl (70-99)
[2024-01-13] MEDS: NSS (PRESERVATIVE FREE) 10 ML IV (07:41)
[2024-01-13] MEDS: DEXTROSE 50% SYRINGE 12.5 GRAMS IV (07:41)
[2024-01-13] MEDS: PROTONIX IV 40 MG IV (07:41)
[2024-01-13] MEDS: LASIX 40 MG IV ×2 (07:41→15:05)
[2024-01-13] MEDS: ProAmatine 5 MG PO ×3 (07:47→17:08)
[2024-01-13] MEDS: DAKIN'S SOLUTION 0.125% 1/4 STRENGTH 473 ML TOPICAL (07:48)
[2024-01-13] MEDS: DESENEX/MITRAZOL/ZEASORB 1 APPLIC TOPICAL ×2 (07:48→20:49)
[2024-01-13 08:06] LABS: Glucose - Point of Care 109 mg/dl (70-99)
--- NOTE | 2024-01-13 08:17 | PTCARENOTE ---
Rec'd pt at 0700. Pt lethargic on vent. Opens eyes to verbal/tactile stimuli, does not track or make any purposeful movements. Monitor SR. SBP 90's on 6mcg/min Levophed gtts. Lungs dim, pox 100% on 40% fio2. Abd soft/nt +BS. PEG to gravity, yellow
drainage. Cain draining yellow urine. Wound care completed to sacrum as per orders. Pt turned and repositioned. BG-65, 1/2 amp D50 given, repeat in 15min 109.
--- NOTE | 2024-01-13 09:00 | W.PN.INTV ---
Today's Communication / Plan
Recommendations
Diurese
Trend blood gas
Resume tube feeds and half lantus dose given her hypoglycemia this AM
GI consulted given G-tube leak --> recs appreciated; Awaiting MR from [facility] where her G tube was placed recently
PST yesterday on 05/11; aim for PS of 5. Wean again today on CPAP 03/11, and back to ASV tonight.
Adjust vent given her alkalemia
Continue antibiotics
Hold off on further imaging, not a candidate for any interventions family would not want any heroic interventions.
Held amiodarone gtt + BB on 01/10 given bradycardia --> HR now improved, but now on levophed; hold BB and amio for now
Continue midodrine and wean off levophed
Poor prognosis -I discussed with the patient's son, Linda, that we are still unable to extubate her given her apnea during pressure support trial today. I advised that if we are to continue with mechanical ventilation then she is heading towards
tracheostomy, or we can withdraw care with extubation and make her comfortable knowing that she will pass away shortly thereafter. He was unable to answer me at that time and said that he will speak to the rest of his family and we can discuss that
at another time. Continue mechanical ventilation at this time - this is day #7 on the vent. I answered all of his questions.
Assessment
-
88-year-old woman with advanced dementia, noncommunicative, type 2 diabetes, [facility]. Patient emergently intubated in the emergency room due to nonresponsive. At baseline patient is noncommunicative, she has a
PEG tube in place. The son wanted intubation but no CPR. He would like to treat her medically.
Despite fluid resuscitation patient required vasopressors. Transferred to the critical care unit for further care.
Impression:
Septic shock
Multiple sources possible including: Urinary tract infection/sacral decubitus ulcer and pneumonia likely due to aspiration.
Abnormal urinalysis
Chest x-ray: Bibasilar infiltrates
Bacteremia: Polymicrobial - Enterobacter cloacae, ESBL�Klebsiella pneumoniae, Enterococcus faecalis + MSSA - suspect source is sacral decubitus wound.
Urine culture with Kerry
Sputum Cx with ESBL-Proteus Mirabilis + MSSA
Hospital acquired pneumonia (present on admission)
Acute pulmonary edema with bilateral pleural effusions
Acute hypercapnic respiratory failure requiring intubation 01/05/2024
ABG 7.20 /
Acute kidney injury/metabolic acidosis - resolved
Lactic acidosis - resolved
Hypoglycemia
Hyponatremia - improving
Abnormal TFTs with low TSH and elevated free T4 likely due to critical illness
Anemia/thrombocytopenia with 1 U PRBC given on 01/10/2024
-
Conditions present prior admission:
Type 2 diabetes
Advanced dementia
Noncommunicative/bedbound
PEG tube in place
Sacral decubitus ulcer stage IV-family states that it was debrided about a month ago at [facility] status post antibiotics
-
Assessment and plan:
Patient remains critically ill off and on vasopressors, now not tolerating her tube feeds, intubated on mechanical ventilation with lactic acidosis and polymicrobial bacteremia with pneumonia and sacral decubitus ulcer
-
Septic shock multiple sources possible
Abnormal urinalysis-urine culture Kerry.
Blood culture: Polymicrobial - Polymicrobial - Enterobacter cloacae, ESBL�Klebsiella pneumoniae, Enterococcus faecalis + MSSA
Sacral decubitus wound is the suspected primary source, although she appears to have a pneumonia with multiple organisms growing on sputum Cx
In my opinion, not a candidate for any surgical intervention. Suspect patient has some osteomyelitis based on depth of sacral decubitus wound.
Hold off on further imaging. Patient is critically ill on multiple vasopressors. Very poor prognosis. Family would not want heroic interventions but would like to continue with medical management.
Cannot rule out aspiration pneumonitis-chest x-ray 01/07/2024: Showed a new right lower lobe infiltrate.
Sputum culture growing ESBL-Proteus mirabilis + MSSA
1 of 2 repeat blood cultures from 01/07/2024 show NGTD
Broad-spectrum antibiotics-on Meropenem + micafungin (both on since 01/07/2024) s/p Zosyn (01/04 - 01/06) + cefepime x 1 dose + IV vanco x2 doses. Discontinued vancomycin --> Staph aureus seen on BCx from 01/06 is MSSA, Last dose of IV vanco was on
01/06/2024; (was previously re-ordered on 01/07 as suspected MRSA at that time but it was never given)
MRSA screening negative
ID consulted - recommendations appreciated
-
Mechanical ventilation settings reviewed
Continue assist-control mechanical ventilation.
Adjust ventilator settings based on blood gas with continued respiratory alkalosis and hyperoxia seen on ABG
Pt having worsening anasarca with serum HCO3 now normalized - stopped bicarb gtt on 01/08
Trend BMP
Adjust FiO2 and PEEP based on PaO2
Failed SBT on AM of 01/10/2024 on 12/09 due to apnea --> tolerating /5 wean on 01/11, still not following any commands, so not able to extubate yet. Unclear with her pre-exisiting dementia if she will ever get to the point where she follows commands
Try PST again today on CPAP 03/11
Diurese given fluid overload seen on CXR this AM (01/11/2024) --> improved as per CXR on 01/11 with better aeration and less pulmonary vascular congestion
-
Patient had increasing FiO2 requirement:Pneumonia versus ? pulmonary edema (her weight is up about 7 kg since admission)
Chest x-ray 01/07/2024, reviewed, with a new right lower lobe infiltrate. Atelectasis versus pneumonia. Suspect some degree of volume overload as well
Daily ABG
-
Sedation with fentanyl pushes
At baseline patient is noncommunicative at baseline for years, very rigid, bedbound.
Will try to keep comfortable.
Target for RASS score 0 to -1
-
Septic shock:
Now on and off levophed; s/p albumin on 01/09/2024 --> on 01/11 I started midodrine in an effort to remain pt off vasopressors
Central line in place
Arterial line in place
Will target SBP>90mmHg as her diastolic BP is so low, it is difficult to attain MAP of 65 or greater without high doses of vasopressors
Cain in place: Follow urine output
ABx as per ID
Echo done on 01/09/2024 � LVEF 75%, no evidence of vegetation
Follow up wound Cx from G-tube stoma site
-
Hyperglycemia blood sugar over 600 on admission.
Improved, however BG now low this AM
Restart tube feeds at trickle rate, and half her lantus dose and resume that HS
Hypernatremia resolved since 01/05.
Weaned off insulin drip on 01/07 after bridging with 14 units lantus--> she takes lantus at home (17 units HS) - Continue to check BG q6hr with goal BG 140-180mg/dL with basal-bolus insulin dosing
Tube feeds being started on 01/10/2024, I added aspart 2 units q6hr to maintain euglycemia --> TF stopped on 01/11 due to vomiting with TF intolerance. Stopped scheduled aspart to avoid hypoglycemia; GI consulted
-
Hyponatremia: Likely hypervolemic in setting of reduced PO intake
On 01/07 we started hypertonic 3% NS and trend BMP q6hr --> sNa improved to 119-120, 3% HT-saline stopped --> c/t trend sNa level
Diurese as BP tolerates
Follow daily chemistry, Mg and PO4 labs
-
Rapid atrial fibrillation since 01/06/2024: Amiodarone drip started --> stopped on 01/10 due to bradycardia
Goal heart rate 50-100 --> hold BB and amio for now; once BP improves and she remains off vasopressors for >24 hrs then will resume her BB
Echo on 01/09/2024 was limited study with LVEF >75% with moderate pulmonary hypertension
Troponin peaked at 0.119 on 01/07/2024 and down trended to 0.113
Hold anticoagulation for now, can readdress later on depending on clinical situation.
-
Acute anemia + thrombocytopenia
Transfused 1 U PRBC on AM of 01/10/2024
No evidence for bleeding.
Transfuse to keep Hb >7, plt>20k
4T score: low probability
-
DVT prophylaxis - On 01/10 I started HSQ 5000 q12hr --> changed to LMWH 40mg SQ qPM on 01/11
Protonix for GI prophylaxis while intubated
-
NPO for now
Aspiration precautions � head of bed elevation
PEG tube in place. Continue tube feeds given her low vasopressor requirements
On 01/10 I consulted GI given her G-tube is leaking; G-tube placed at [facility] about 30-45 days ago. Per son, there was difficulty placing it endoscopically so they had to use imaging tactics (? fluoroscopically). Will need to obtain
medical records of prior G-tube placement.
-
Dr. Collins had discussed with son at the bedside 01/05/2020, and discussed with his who apparently is a doctor. Expressed poor prognostic indicators. Recommended to focus on comfort.
They would like to continue with medical management.
No CPR, no dialysis, no aggressive surgeries will be offered at this point.
Son updated by Dr. Collins 01/06/2024: Continue with medical management. No heroic interventions.
On 01/07, Dr. Velásquez discussed the patient's clinical status with the family including son and the son's . The son's is a family medicine practitioner. I answered all their questions, emotional support provided, and they would like to
continue full medical management while keeping her DNR but okay for mechanical ventilation.
I have been giving updates to the son, Linda, every day since I have been on service. I have been answering all of the son's questions to his satisfaction.
-
Discussed with primary team, nursing, respiratory therapist. Discussed with infectious disease.
-
Prognosis extremely poor
-
Critical care statement: A total of 43 minutes of critical care time was provided for this patient today. This includes management of unstable vital signs, evaluation of the patient at bedside, reviewing the patient's pertinent medical records
including ventilator settings, arterial blood gases, radiographs, microbiology, laboratory evaluations and discussion with primary team, critical care nursing, and respiratory therapy.
Subjective Dataa
Subjective Data
Date of Service:
Date of Service: January 13, 2024
Chief Complaint: Web Content Director Follow Up (Septic shock/hypercapnic respiratory failure requiring intubation)
Subjective:
Patient seen and evaluated today at bedside. Afebrile overnight. Glucose low on this morning's chemistry. Patient on vasopressors with Levophed at 6mcg/min, with BP this morning 151/54. Patient net negative -3.9 L last 24 hours. Heart rate 76
and saturating 100%. Tube feeds currently being held.
Review of Systems
General: Unobtainable - Pat Unresp
Objective Data
Data Reviewed
Vital Signs / I&O / Oxygen:
Vital Signs
Temp Pulse Resp BP Pulse Ox
97.8 F 83 19 89/52 100
01/13/24 07:00 01/13/24 10:00 01/13/24 10:00 01/11/24 20:28 01/13/24 10:00
Intake and Output
01/12/24 01/13/24 01/14/24
06:59 06:59 06:59
Intake Total 1096.1 / 1098.0 443.1 / 454.4 45.2 / 45.2
Output Total 3790 / 3965 4385 / 4385
Balance -2693.9 / -2867.0 -3941.9 / -3930.6 45.2 / 45.2
SaO2 [CPAP/PSV] 100
SaO2 [ASV] 100
SaO2 [A/C] 99
SaO2 100
Physical Exam
General: Respiratory Distress (n) and Chills (Negative)
HEENT: Normocephalic and Other (+icterus b/l)
Cardiovascular: Irregular Rhythm (Irregularly irregular), Peripheral Edema (+1 lower + upper extremity pitting edema bilaterally) and Other (Normal heart rate)
Respiratory: Wheeze (negative), Crackles (bilaterally), Rhonchi (Mild scattered), Non-Labored Respirations and ET Tube (Mechanical breath sounds heard bilaterally)
GI: Soft, Non Distended, Non Tender, Normal Bowel Sounds and Feeding Tube (Suppurative leakage around the G-tube insertion site without exsanguination appreciated; no pain to palpation; no fluctuance palpated)
Neurology: Other (Patient is rigid at baseline) and Other (Opens eyes to voice and tactile stimuli; Noncommunicative at baseline. Pupils +1 mm bilaterally and sluggish, +blinking to threat; +gag reflex)
Skin: Warm, Dry, Bruising (right thumb) and Other (Stage IV sacral decubitus ulcers present on admission)
Labs/Micro/Reports
Lab Data
01/13/24 03:31
01/13/24 03:31
Laboratory Results
01/13/24
03:31
pH 7.58 H
pCO2 35
pO2 115 H
HCO3 32.8 H
O2 Delivery Level
Microbiology
01/09/24 09:07 Blood/Venous Blood Culture - Preliminary
No Growth in 4 days- Final report to follow
01/09/24 09:07 Blood/Venous Blood Culture - Preliminary
No Growth in 4 days- Final report to follow
01/12/24 12:14 Abdomen Wound Culture - Preliminary
01/12/24 12:14 Abdomen Gram Stain - Preliminary
01/07/24 10:08 Blood/Venous Blood Culture - Final
No Growth - Final Report
01/05/24 09:57 Blood/Venous Blood Culture - Final
No Growth - Final Report
01/06/24 16:06 Endotracheal Respiratory Culture - Final
Proteus Mirabilis-ESBL
S aureus-Methicillin Sensitive
01/06/24 16:06 Endotracheal Gram Stain - Final
01/07/24 10:08 Blood/Venous Blood Culture - Preliminary
S aureus-Methicillin Sensitive
01/07/24 10:08 Blood/Venous Gram Stain - Preliminary
01/05/24 11:05 Blood/Venous Blood Culture - Final
Enterococcus faecalis
Klebsiella pneumoniae-ESBL
Enterobacter cloacae
Proteus Mirabilis-ESBL
01/05/24 11:05 Blood/Venous Gram Stain - Final
[2024-01-13 10:10] LABS: Glucose - Point of Care 95 mg/dl (70-99)
--- NOTE | 2024-01-13 10:56 | W.PN.ID1 ---
Date of Service
Date of Service: January 13, 2024
Today's Communication
Continue meropenem/micafungin.
Assessment / Plan
Clinical sepsis/septic shock
Large sacral decubidi
Leukocytosis
Polymicrobial bacteremia with Enterobacter, Klebsiella pneumoniae, Enterococcus
MSSA bacteremia
Lactic acidosis
VDRF
Hyponatremia
Candiduria
Advanced Alzheimer's dementia
GERD
HTN
DM
Dysphagia
CKD
Recommendations:
White count slightly improved
Repeat blood cultures no growth.
Continue with meropenem / Micafungin (d#7)
Monitor white count and temperature curve.
Continue with pressor support as necessary.
Overall condition and outlook remains extremely poor, with high likelihood of mortality given multiple comorbidities.
Clinically, minimal likelihood of a return to any reasonable quality of life.
Patient appears 'comfort-measures' appropriate.
Patient remains critically ill in intensive care unit.
����������������������������������������������������������
Chief Complaint
-: Leukocytosis, Clinical Sepsis and Bacteremia
Subjective / Review of Systems
Critically ill
Vital Signs / Physical Exam
Vital Signs
Vital Signs
Temp Pulse Resp BP Pulse Ox
97.8 F 83 19 89/52 100
01/13/24 07:00 01/13/24 10:00 01/13/24 10:00 01/11/24 20:28 01/13/24 10:00
Physical Exam
Constitutional: Acutely Ill
Head: Normocephalic and Other (ET tube in place.)
Cardiovascular: Regular Rate and S1/S2; Negative S3/S4
Pulmonary: Other (ET tube to vent.); Negative Wheezes, Rales or Rhonchi
Gastrointestinal: Soft, Non Distended, Decreased Bowel Sounds, No Rebound, No Guarding and Other (PEG tube to gravity drain)
Genito-Urinary: Cain and Clear Urine
Extremities: Edema (All extremities) and Cyanosis (Right thumb area.); Negative Erythema or Splinter Hemorrhage
Skin: Negative Rash or Jaundice
Neurological: Other (Minimally responsive to voice and touch)
Objective Data
Lab Data
Lab Results
01/13/24 03:31
01/13/24 03:31
PT 18.9 Sec (11.4-14.6) H 01/05/24 15:05
INR 1.60 01/05/24 15:05
APTT 30.3 Sec (23.4-35.0) 01/05/24 15:05
Estimated Creat Clear 61 ml/min 01/13/24 03:31
Lactic Acid 1.8 mmol/L (0.7-2.0) 01/13/24 03:31
Total Bilirubin 2.5 mg/dl (0.2-1.3) H 01/12/24 04:13
AST 100 U/L (14-36) H 01/12/24 04:13
ALT 52 U/L (0-35) H 01/12/24 04:13
Alkaline Phosphatase 122 U/L (38-126) 01/12/24 04:13
Most recent labs reviewed.
Micro Results:
01/09/24 09:07 Blood Culture - Preliminary
Blood/Venous No Growth in 4 days- Final report to follow
01/09/24 09:07 Blood Culture - Preliminary
Blood/Venous No Growth in 4 days- Final report to follow
01/12/24 12:14 Wound Culture - Preliminary
Abdomen Gram Stain - Preliminary
01/07/24 10:08 Blood Culture - Final
Blood/Venous No Growth - Final Report
01/05/24 09:57 Blood Culture - Final
Blood/Venous No Growth - Final Report
01/06/24 16:06 Respiratory Culture - Final
Endotracheal Proteus Mirabilis-ESBL
S aureus-Methicillin Sensitive
Gram Stain - Final
01/07/24 10:08 Blood Culture - Preliminary
Blood/Venous S aureus-Methicillin Sensitive
Gram Stain - Preliminary
01/05/24 11:05 Blood Culture - Final
Blood/Venous Enterococcus faecalis
Klebsiella pneumoniae-ESBL
Enterobacter cloacae
Proteus Mirabilis-ESBL
Gram Stain - Final
01/05/24 16:35 Wound Culture - Final
Coccyx Proteus species
Staphylococcus aureus
Enterococcus species
Streptococcus species
Additional testing on request
Gram Stain - Final
01/05/24 11:05 Urine Culture - Final
Urine Kerry albicans
01/05/24 17:47 Nasal Screen MRSA (PCR) - Final
Nose MRSA not detected - performed by PCR methodology.
01/05/24 11:05 Influenza Types A & B (MIGUEL) - Final
Nasal Swab Negative for Influenza A & B, NAAT
Negative results must be combined with clinical observations
and patient history.
Nucleic Acid Amplification test (NAAT)performed on the
[employer] platform.
Imaging:
01/08/2024 CXR (portable): Mild to moderate patchy right basilar airspace disease which is improved. Slightly improved left basilar atelectasis. Please see full dictation for additional detail.
[2024-01-13] MEDS: MYCAMINE 105 MG IV (11:18)
--- NOTE | 2024-01-13 12:20 | PTCARENOTE ---
No changes in assessment.
[2024-01-13 12:53] LABS: Glucose - Point of Care 118 mg/dl (70-99)
[2024-01-13] MEDS: LANTUS SC (13:17)
[2024-01-13] MEDS: LEVOPHED 258 MG IV (13:45)
[2024-01-13 14:40] VITALS: BP_SYST 147
--- NOTE | 2024-01-13 15:23 | PTCARENOTE ---
Pt placed on vent wean 10/5/40%. Trickle tube feeds started per MD at 10ml/hr. No other changes in assessment.
--- NOTE | 2024-01-13 15:47 | W.PN.HOSP.TC ---
Today's Communication/Plan
-
Remains critically ill
Continue Meropenem, Micafungin
Continue IV Lasix and Midodrine
Lantus adjusted due to hypoglycemia
Tube Feeding being resumed
Poor Prognosis
Assessment / Plan
Assessment / Plan
Physical Exam
General: Not in acute distress
HEENT: Normocephalic
Cardiovascular: Irregular Rhythm, Peripheral Edema (+1 lower + upper extremity pitting edema bilaterally)
Respiratory: Rhonchi. ET tube present.
GI: Soft, Non Distended, Non Tender, Normal Bowel Sounds and Feeding Tube
Neurology: Sedated.
Skin: Warm, Dry
Impression
Septic shock
Abnormal urinalysis-urine culture Kerry
Multi pathogen bacteremia
-Multiple sources including aspiration pneumonia with left lower lobe infiltrate, UTI, stage IV sacral pressure wound.
Profound hypotension not responding to IV fluids requiring multiple vasopressors.
Ventilator dependent respiratory failure, intubated in ED on 01/04
Acute kidney injury
Lactic acidosis
Hyponatremia, severe
Hypokalemia
Atrial fibrillation with rapid medical response, new onset
Ventricular tachycardia
Conditions prior to admission.
Advanced Alzheimer's dementia
Aspiration syndrome
PEG tube in place
Type 2 diabetes/IDDM
Sacral decubital wound stage IV
Chronic ambulatory dysfunction, type rhythm.
History of COVID
Infection complicated with respiratory failure November 2019.
Plan:
Severe sepsis with multiple agitation bacteremia
Severe septic shock not responding to IV fluids and requiring multiple vasopressors
Possible sources as above also at this point could not rule out intra-abdominal source.
Initiated on broad-spectrum antibiotics including meropenem and micafungin.
Wean off vasopressors and continue midodrine
Ventilatory dependent respiratory failure.
Remains intubated.
Weaned off continuous sedation with periodic spontaneous breath initiation while on ASV
Unresponsive and not tracking, decreased gag reflex, no reaction to noxious stimuli, occasional spontaneous respiration
Initiated on IV Lasix to facilitate extubation.
Remains on FiO2 40%
Acute kidney injury in the settings of profound hypotension
Severe hyponatremia
Cain catheter in place.
Continue monitoring urine output closely.
Status post IV fluids with bicarbonate
Severe hyponatremia sodium 130�120.
Status post 3% solution.
Monitor BMP
Acute anemia with hemoglobin dropped to 6.
No evidence of bleeding including gastrointestinal
Appropriate response to transfusion with hemoglobin 6�8
Thrombocytopenia likely consumptive
Atrial fibrillation with rapid ventricular response--
Short runs of ventricular tachycardia
Initiated on amiodarone drip
Developed bradycardia
Amiodarone had been discontinued 01/09
Off preadmission metoprolol given hypotension
Hypoglycemia
IDDM
Resume tube feeds and half lantus dose given her hypoglycemia today (previously tnitiated on low rate tube feeding although now with high residuals, and vomiting causing additional aspiration and tube feeding discontinued)
Continue basal bolus protocol adjusting accordingly.
DNR
88 years old patient with advanced dementia, bedridden, chronic aspiration with recently required feeding tube now with severe sepsis with multifactorial sources including aspiration pneumonia, stage IV sacral decub ulcer with multi pathogen
bacteremia. Patient unfortunately remains vent dependent with periods of apnea while off sedation for days. Attempt of nutritional support wire PEG tube with high residuals and recurrent aspiration. Multiple skin wounds with sloughing and
necrosis. Poor prognosis. Multiple discussions with patient's son in terms of goals of care. If remains intubated over. Of 7 to 10 days, should be considered for tracheostomy unless patient's family will consider withdrawal and allowed process
of natural dying
DVT prophylaxis: Lovenox
Anticipated Discharge: > 48 hours
Subjective/Interval History
-
Date of Service: January 13, 2024
Patient was seen and examined. She remains intubated.
Objective Data
-
Labs:
Laboratory Results
01/13/24
03:31
WBC 23.6 H
Hgb 10.3 L
Hct 29.6 L
Plt Count 105 L D
HCO3 32.8 H
Sodium 132 L
Potassium 3.6
Chloride 95 L
Carbon Dioxide 30
BUN 26 H
Creatinine 0.7
Glucose 65 L
Calcium 7.4 L
Vital Signs:
Vital Signs
Temp Pulse Resp BP Pulse Ox
97.5 F 74 7 89/52 100
01/13/24 11:16 01/13/24 15:00 01/13/24 15:00 01/11/24 20:28 01/13/24 15:30
I&O
01/12/24 01/13/24 01/14/24
06:59 06:59 06:59
Intake Total 1096.1 / 1098.0 443.1 / 454.4 127.9 / 127.9
Output Total 3790 / 3965 4385 / 4485 1700 / 1700
Balance -2693.9 / -2867.0 -3941.9 / -4030.6 -1572.1 / -1572.1
[2024-01-13] MEDS: LOVENOX 40 MG SC (17:08)
[2024-01-13 17:13] VITALS: BP_SYST 144
[2024-01-13 17:42] VITALS: BP_SYST 143
[2024-01-13] MEDS: NOVOLOG FLEXPEN-MODERATE RESISTANCE 1 UNITS SC (18:13)
[2024-01-13 18:17] LABS: Glucose - Point of Care 161 mg/dl (70-99)
[2024-01-13] MEDS: DAKIN'S SOLUTION 0.125% 1/4 STRENGTH 5 ML TOPICAL (20:49)
--- NOTE | 2024-01-13 21:00 | PTCARENOTE ---
Pt remains intubated, weaned for a few hours today. Resting overnight, was becoming tachypneic. Minimal neurological response. No purposeful movement, no following commands. With wound care, pt BP elevated to 170s, Fentanyl push given for comfort.
Afebrile. NSR. Will attempt to wean levophed for SBP goals. Skin as documented. Trending blood sugars with recent hypoglycemia. Lantus adjusted. Vent settings as ordered. Tube feeds restarted at 10ml/hr trickle. Will follow residuals due to recent
vomiting/high residuals. Cain draining clear yellow urine. Will monitor.
[2024-01-13] MEDS: SUBLIMAZE 50 MCG IV (22:30)
[2024-01-13] MEDS: LANTUS 0.0800000000000000017 UNITS SC (22:31)
[2024-01-14] LABS: Glucose - Point of Care 98 mg/dl (70-99)
[2024-01-14] MEDS: STERILE WATER FOR INJECTION 10 ML IV ×5 (00:59→23:34)
[2024-01-14] MEDS: MERREM 500 MG IV ×5 (00:59→23:33)
[2024-01-14 02:38] VITALS: BP_SYST 146
--- NOTE | 2024-01-14 02:42 | PTCARENOTE ---
Thus far, tolerating tube feeds. Levophed weaned to off. Midodrine through PEG. Resting comfortably. Will monitor. AM labs pending.
[2024-01-14 02:47] LABS: Hematocrit 26.8 % (37.0-47.0); Hemoglobin 9.5 g/dL (12.0-16.0); Mean Corp Hgb Conc. 35.4 g/dL (33.0-37.0); Mean Corpuscular Volume 84.5 fL (81.0-99.0); Mean Platelet Volume 12.1 fL (7.4-10.4); Platelet Count 135 10^3/uL (130-400); Red Blood Cell Count 3.17 10^6/uL (4.20-5.40); Red Cell Dist. Width 16.4 % (11.5-14.5); White Blood Cell Count 14.1 10^3/uL (4.8-10.8)
[2024-01-14] MEDS: SUBLIMAZE 50 MCG IV ×2 (02:54→23:43)
[2024-01-14 03:30] LABS: Blood Urea Nitrogen 28 mg/dl (7-17); Calcium 6.6 mg/dl (8.4-10.2); Carbon Dioxide 30 mmol/L (22-30); Chloride 96 mmol/L (98-107); Estimated Creatinine Clearance 53 ml/min; Glucose 131 mg/dl (70-99); Potassium 3.6 mmol/L (3.5-5.1); Sodium 133 mmol/L (135-145); eGFR > 60.00
[2024-01-14] MEDS: KCL 50 IV (05:09)
[2024-01-14] MEDS: CALCIUM GLUCONATE 130 MG IV (05:09)
[2024-01-14 05:13] VITALS: BMI 26.7
[2024-01-14 05:59] LABS: Glucose - Point of Care 142 mg/dl (70-99)
[2024-01-14] MEDS: NOVOLOG FLEXPEN-MODERATE RESISTANCE SC ×2 (06:01→17:55)
--- NOTE | 2024-01-14 06:05 | PTCARENOTE ---
Calcium and K repleted. No change in previous assessment. Will monitor.
[2024-01-14] MEDS: ProAmatine 5 MG PO ×3 (07:19→17:11)
[2024-01-14] MEDS: PROTONIX IV 40 MG IV (07:19)
[2024-01-14] MEDS: NSS (PRESERVATIVE FREE) 10 ML IV (07:19)
[2024-01-14] MEDS: DESENEX/MITRAZOL/ZEASORB 1 APPLIC TOPICAL ×2 (07:19→20:27)
[2024-01-14] MEDS: DAKIN'S SOLUTION 0.125% 1/4 STRENGTH 10 ML TOPICAL (07:19)
--- NOTE | 2024-01-14 08:50 | W.PN.INTV ---
Today's Communication / Plan
Recommendations
Diurese
Trend blood gas
Continue tube feeds
GI consulted given G-tube leak --> recs appreciated; Awaiting MR from [facility] where her G tube was placed recently
Daily PST on goal CPAP 12/09 - unless pt is exubated, place back to ASV at night
Adjust vent given her alkalemia
Continue antibiotics as per ID
Hold off on further imaging, not a candidate for any interventions family would not want any heroic interventions.
Held amiodarone gtt + BB on 01/10 given bradycardia --> HR now improved, but now on levophed; hold BB and amio for now
Continue midodrine
Poor prognosis -I discussed with the patient's son, Linda, that we are still unable to extubate her given her apnea during pressure support trial today. I advised that if we are to continue with mechanical ventilation then she is heading towards
tracheostomy, or we can withdraw care with extubation and make her comfortable knowing that she will pass away shortly thereafter. He was unable to answer me at that time and said that he will speak to the rest of his family and we can discuss that
at another time. Continue mechanical ventilation at this time - this is day #8 on the vent. He does say that he does not want her to have a tracheostomy. I answered all of his questions.
Assessment
-
88-year-old woman with advanced dementia, noncommunicative, type 2 diabetes, sent from the custodial for hypotension. Patient emergently intubated in the emergency room due to nonresponsive. At baseline patient is noncommunicative, she has a
PEG tube in place. The son wanted intubation but no CPR. He would like to treat her medically.
Despite fluid resuscitation patient required vasopressors. Transferred to the critical care unit for further care.
Impression:
Ventilator dependent respiratory failure
Septic shock
Multiple sources possible including: Urinary tract infection/sacral decubitus ulcer and pneumonia likely due to aspiration.
Abnormal urinalysis
Chest x-ray: Bibasilar infiltrates
Bacteremia: Polymicrobial - Enterobacter cloacae, ESBL�Klebsiella pneumoniae, Enterococcus faecalis + MSSA - suspect source is sacral decubitus wound.
Urine culture with Kerry
Sputum Cx with ESBL-Proteus Mirabilis + MSSA
G-tube wound Cx growing Pseudomonas aeruginosa, GNR and Enterococcus spp
Hospital acquired pneumonia (present on admission)
Acute pulmonary edema with bilateral pleural effusions
Acute hypercapnic respiratory failure requiring intubation 01/05/2024
ABG 7.20
Acute kidney injury/metabolic acidosis - resolved
Lactic acidosis - resolved
Hypoglycemia
Hyponatremia - improving
Abnormal TFTs with low TSH and elevated free T4 likely due to critical illness
Anemia/thrombocytopenia with 1 U PRBC given on 01/10/2024
-
Conditions present prior admission:
Type 2 diabetes
Advanced dementia
Noncommunicative/bedbound
PEG tube in place
Sacral decubitus ulcer stage IV-family states that it was debrided about a month ago at [facility] status post antibiotics
-
Assessment and plan:
Patient remains critically ill off and on vasopressors, intubated on mechanical ventilation with polymicrobial bacteremia with pneumonia and sacral decubitus ulcer
-
Septic shock multiple sources possible
Abnormal urinalysis-urine culture Kerry.
Blood culture: Polymicrobial - Polymicrobial - Enterobacter cloacae, ESBL�Klebsiella pneumoniae, Enterococcus faecalis + MSSA
Sacral decubitus wound is the suspected primary source, although she appears to have a pneumonia with multiple organisms growing on sputum Cx
In my opinion, not a candidate for any surgical intervention. Suspect patient has some osteomyelitis based on depth of sacral decubitus wound.
Hold off on further imaging. Patient is critically ill on multiple vasopressors. Very poor prognosis. Family would not want heroic interventions but would like to continue with medical management.
Cannot rule out aspiration pneumonitis-chest x-ray 01/07/2024: Showed a new right lower lobe infiltrate.
Sputum culture growing ESBL-Proteus mirabilis + MSSA
1 of 2 repeat blood cultures from 01/07/2024 show NGTD
Broad-spectrum antibiotics-on Meropenem + micafungin (both on since 01/07/2024) s/p Zosyn (01/04 - 01/06) + cefepime x 1 dose + IV vanco x2 doses. Discontinued vancomycin --> Staph aureus seen on BCx from 01/06 is MSSA, Last dose of IV vanco was on
01/06/2024; (was previously re-ordered on 01/07 as suspected MRSA at that time but it was never given)
MRSA screening negative
ID consulted - recommendations appreciated
-
Mechanical ventilation settings reviewed
Continue assist-control mechanical ventilation.
Adjust ventilator settings based on blood gas with continued respiratory alkalosis and hyperoxia seen on ABG
Pt having worsening anasarca with serum HCO3 now normalized - stopped bicarb gtt on 01/08
Trend BMP
Adjust FiO2 and PEEP based on PaO2
Failed SBT on AM of 01/10/2024 on 12/09 due to apnea --> tolerating 05/11 wean on 01/11, still not following any commands, so not able to extubate yet. Unclear with her pre-existing dementia if she will ever get to the point where she follows commands
Try PST daily with as goal CPAP 12/09
Finished few days of IV diuresis on 01/12 given fluid overload seen on CXR on AM of 01/11/2024 --> improved as per CXR on 01/11 with better aeration and less pulmonary vascular congestion, re-check CXR again tomorrow (01/14)
-
Patient had increasing FiO2 requirement:Pneumonia versus ? pulmonary edema (her weight is up about 7 kg since admission)
Chest x-ray 01/07/2024, reviewed, with a new right lower lobe infiltrate. Atelectasis versus pneumonia. Suspect some degree of volume overload as well
Daily ABG
-
Sedation with fentanyl pushes
At baseline patient is noncommunicative at baseline for years, very rigid, bedbound.
Will try to keep comfortable.
Target for RASS score 0 to -1
-
Septic shock:
Now on and off levophed; s/p albumin on 01/09/2024 --> on 01/11 I started midodrine in an effort to remain pt off vasopressors
Central line in place
Arterial line in place
Will target SBP>90mmHg as her diastolic BP is so low, it is difficult to attain MAP of 65 or greater without high doses of vasopressors
Cain in place: Follow urine output
ABx as per ID
Echo done on 01/09/2024 � LVEF 75%, no evidence of vegetation
Follow up wound Cx from G-tube stoma site --> grew Pseudomonas aeruginosa, GNR and Enterococcus species
-
Hyperglycemia blood sugar over 600 on admission.
Improved, however BG low on AM of 01/12
Restarted tube feeds on 01/12 and she seems to be tolerating it with minimal G-tube leakage. Adjust her lantus as needed to keep BG 140-180
Hypernatremia resolved since 01/05.
Weaned off insulin drip on 01/07 after bridging with 14 units lantus--> she takes lantus at home (17 units HS) - Continue to check BG q6hr with goal BG 140-180mg/dL with basal-bolus insulin dosing
Tube feeds being started on 01/10/2024, I added aspart 2 units q6hr to maintain euglycemia --> TF stopped on 01/11 due to vomiting with TF intolerance. Stopped scheduled aspart to avoid hypoglycemia; GI consulted
-
Hyponatremia: Likely hypervolemic in setting of reduced PO intake
On 01/07 we started hypertonic 3% NS and trend BMP q6hr --> sNa improved to 119-120, 3% HT-saline stopped --> c/t trend sNa level
Diurese as BP tolerates
Follow daily chemistry, Mg and PO4 labs
-
Rapid atrial fibrillation since 01/06/2024: Amiodarone drip started --> stopped on 01/10 due to bradycardia
Goal heart rate 50-100 --> hold BB and amio for now; once BP improves and she remains off vasopressors for >24 hrs then will resume her BB
Echo on 01/09/2024 was limited study with LVEF >75% with moderate pulmonary hypertension
Troponin peaked at 0.119 on 01/07/2024 and down trended to 0.113
Hold anticoagulation for now, can readdress later on depending on clinical situation.
-
Acute anemia + thrombocytopenia
Transfused 1 U PRBC on AM of 01/10/2024
No evidence for bleeding.
Transfuse to keep Hb >7, plt>20k
4T score: low probability
-
DVT prophylaxis - On 01/10 I started HSQ 5000 q12hr --> changed to LMWH 40mg SQ qPM on 01/11
Protonix for GI prophylaxis while intubated
-
NPO for now
Aspiration precautions � head of bed elevation
PEG tube in place. Continue tube feeds given her low vasopressor requirements
On 01/10 I consulted GI given her G-tube is leaking; G-tube placed at [facility] about 30-45 days ago. Per son, there was difficulty placing it endoscopically so they had to use imaging tactics (? fluoroscopically). Will need to obtain
medical records of prior G-tube placement.
-
Dr. Collins had discussed with son at the bedside 01/05/2020, and discussed with his who apparently is a doctor. Expressed poor prognostic indicators. Recommended to focus on comfort.
They would like to continue with medical management.
No CPR, no dialysis, no aggressive surgeries will be offered at this point.
Son updated by Dr. Collins 01/06/2024: Continue with medical management. No heroic interventions.
On 01/07, Dr. Velásquez discussed the patient's clinical status with the family including son and the son's . The son's is a family medicine practitioner. I answered all their questions, emotional support provided, and they would like to
continue full medical management while keeping her DNR but okay for mechanical ventilation.
I have been giving updates to the son, Linda, every day since I have been on service. I have been answering all of the son's questions to his satisfaction.
[facility] discussion on 01/14/2024: Son Linda says on 01/14/2024 that him and the family do not want tracheostomy. He is hopeful that she will be able to be extubated over the next couple days. I asked that if she is extubated, would he be okay with her
being reintubated if she fails extubation. He says yes. I tried to explain the futility and reintubating without heading towards tracheostomy.
-
Discussed with primary team, nursing, respiratory therapist. Discussed with infectious disease.
-
Prognosis extremely poor
-
Critical care statement: A total of 38 minutes of critical care time was provided for this patient today. This includes management of unstable vital signs, evaluation of the patient at bedside, reviewing the patient's pertinent medical records
including ventilator settings, arterial blood gases, radiographs, microbiology, laboratory evaluations and discussion with primary team, critical care nursing, and respiratory therapy.
Subjective Dataa
Subjective Data
Date of Service:
Date of Service: January 14, 2024
Chief Complaint: Rn Triage Follow Up (Septic shock/hypercapnic respiratory failure requiring intubation)
Subjective:
Patient was seen and evaluated today at bedside. Afebrile overnight. She remains intubated on ASV 110%. Leukocytosis has improved today. Platelet count continuing to improve. BP 131/40, heart rate 71 and she is not following any commands. Son,
Linda, at bedside. I answered all of his questions. Patient's G-tube is not leaking as much today and she is now back on tube feeds at 20mL/hr.
Review of Systems
General: Unobtainable - Pat Unresp
Objective Data
Data Reviewed
Vital Signs / I&O / Oxygen:
Vital Signs
Temp Pulse Resp BP Pulse Ox
98.2 F 77 18 89/52 100
01/14/24 08:01 01/14/24 09:00 01/14/24 09:00 01/11/24 20:28 01/14/24 09:00
Intake and Output
01/13/24 01/14/24 01/15/24
06:59 06:59 06:59
Intake Total 443.1 / 454.4 723.3 / 768.3 135 / 135
Output Total 4385 / 4485 4395 / 4395
Balance -3941.9 / -4030.6 -3671.7 / -3626.7 135 / 135
SaO2 [CPAP/PSV] 100
SaO2 [ASV] 100
SaO2 [A/C] 99
SaO2 100
Physical Exam
General: Respiratory Distress (n), Comfortable and Chills (Negative)
HEENT: Normocephalic and Other (+icterus b/l)
Cardiovascular: Irregular Rhythm (Irregularly irregular), Peripheral Edema (+1 lower + upper extremity pitting edema bilaterally) and Other (Normal heart rate)
Respiratory: Wheeze (negative), Crackles (bilaterally), Rhonchi (Mild scattered), Non-Labored Respirations and ET Tube (Mechanical breath sounds heard bilaterally)
GI: Soft, Non Distended, Non Tender, Normal Bowel Sounds and Feeding Tube (Suppurative leakage around the G-tube insertion site without exsanguination appreciated; no pain to palpation; no fluctuance palpated)
Neurology: Other (Patient is rigid at baseline) and Other (Opens eyes to voice and tactile stimuli; Noncommunicative at baseline. Pupils +1 mm bilaterally and sluggish, +blinking to threat; +gag reflex)
Skin: Warm, Dry, Bruising (right thumb) and Other (Stage IV sacral decubitus ulcers present on admission)
Labs/Micro/Reports
Lab Data
01/14/24 02:07
01/14/24 02:07
Microbiology
01/09/24 09:07 Blood/Venous Blood Culture - Final
No Growth - Final Report
01/09/24 09:07 Blood/Venous Blood Culture - Final
No Growth - Final Report
01/12/24 12:14 Abdomen Wound Culture - Preliminary
01/12/24 12:14 Abdomen Gram Stain - Preliminary
01/07/24 10:08 Blood/Venous Blood Culture - Final
No Growth - Final Report
--- NOTE | 2024-01-14 10:11 | W.PN.ID1 ---
Date of Service
Date of Service: January 14, 2024
Today's Communication
Continue meropenem/micafungin.
Assessment / Plan
Clinical sepsis/septic shock, weaned off pressors
Large sacral decubitus
Leukocytosis - trending down
Polymicrobial bacteremia with Enterobacter, Klebsiella pneumoniae, Enterococcus
MSSA bacteremia
Lactic acidosis
VDRF
Hyponatremia
Candiduria
Advanced Alzheimer's dementia
GERD
HTN
DM
Dysphagia
CKD
Recommendations:
White count improving
Repeat blood cultures no growth.
Continue with meropenem / Micafungin (d#8)
Monitor white count and temperature curve.
Overall condition and outlook remains extremely poor, with high likelihood of mortality given multiple comorbidities.
Clinically, minimal likelihood of a return to any reasonable quality of life.
Patient appears 'comfort-measures' appropriate.
Patient remains critically ill in intensive care unit.
����������������������������������������������������������
Chief Complaint
-: Leukocytosis, Clinical Sepsis and Bacteremia
Subjective / Review of Systems
Remains intubated.
Vital Signs / Physical Exam
Vital Signs
Vital Signs
Temp Pulse Resp BP Pulse Ox
98.2 F 77 18 89/52 100
01/14/24 08:01 01/14/24 09:00 01/14/24 09:00 01/11/24 20:28 01/14/24 09:00
Physical Exam
Constitutional: Acutely Ill and Chronically Ill
Cardiovascular: Regular Rate and S1/S2
Pulmonary: Clear (anteriorly)
Gastrointestinal: Soft, Non Tender and Other (G tube in place)
Genito-Urinary: Cain and Clear Urine
Objective Data
Lab Data
Lab Results
01/14/24 02:07
01/14/24 02:07
PT 18.9 Sec (11.4-14.6) H 01/05/24 15:05
INR 1.60 01/05/24 15:05
APTT 30.3 Sec (23.4-35.0) 01/05/24 15:05
Estimated Creat Clear 53 ml/min 01/14/24 02:07
Lactic Acid 1.8 mmol/L (0.7-2.0) 01/13/24 03:31
Total Bilirubin 2.5 mg/dl (0.2-1.3) H 01/12/24 04:13
AST 100 U/L (14-36) H 01/12/24 04:13
ALT 52 U/L (0-35) H 01/12/24 04:13
Alkaline Phosphatase 122 U/L (38-126) 01/12/24 04:13
Most recent labs reviewed.
Micro Results:
01/09/24 09:07 Blood Culture - Final
Blood/Venous No Growth - Final Report
01/09/24 09:07 Blood Culture - Final
Blood/Venous No Growth - Final Report
01/12/24 12:14 Wound Culture - Preliminary
Abdomen Gram Stain - Preliminary
01/07/24 10:08 Blood Culture - Final
Blood/Venous No Growth - Final Report
01/05/24 09:57 Blood Culture - Final
Blood/Venous No Growth - Final Report
01/06/24 16:06 Respiratory Culture - Final
Endotracheal Proteus Mirabilis-ESBL
S aureus-Methicillin Sensitive
Gram Stain - Final
01/07/24 10:08 Blood Culture - Preliminary
Blood/Venous S aureus-Methicillin Sensitive
Gram Stain - Preliminary
01/05/24 11:05 Blood Culture - Final
Blood/Venous Enterococcus faecalis
Klebsiella pneumoniae-ESBL
Enterobacter cloacae
Proteus Mirabilis-ESBL
Gram Stain - Final
01/05/24 16:35 Wound Culture - Final
Coccyx Proteus species
Staphylococcus aureus
Enterococcus species
Streptococcus species
Additional testing on request
Gram Stain - Final
01/05/24 11:05 Urine Culture - Final
Urine Kerry albicans
01/05/24 17:47 Nasal Screen MRSA (PCR) - Final
Nose MRSA not detected - performed by PCR methodology.
01/05/24 11:05 Influenza Types A & B (MIGUEL) - Final
Nasal Swab Negative for Influenza A & B, NAAT
Negative results must be combined with clinical observations
and patient history.
Nucleic Acid Amplification test (NAAT)performed on the
[employer] platform.
Imaging:
01/08/2024 CXR (portable): Mild to moderate patchy right basilar airspace disease which is improved. Slightly improved left basilar atelectasis. Please see full dictation for additional detail.
--- NOTE | 2024-01-14 10:39 | PTCARENOTE ---
Rec'd pt at 0700. Pt lethargic on vent, opens eyes to verbal/tactile stimuli. Does not follow commands or make any purposeful movements. Monitor SR. Had run of torsades/polymorphic Vtach this am, self limiting, a-line non-pulsatile during event. Pt
receiving Ca+ and K+ replacement. aware, Mag added on to am labs. Lungs dim, pox 100% on 40% fio2. ~1035-pt placed on vent wean 10/5/40%. PEG with tube feeds at 20mls/hr, pt tolerating. Rectal trumpet draining liquid brown stool. Cain draining
yellow urine. Sacral wound care performed and per orders. Pt repositioned. Son at bedside, updated.
[2024-01-14 12:08] LABS: Glucose - Point of Care 177 mg/dl (70-99)
[2024-01-14] MEDS: NOVOLOG FLEXPEN-MODERATE RESISTANCE 1 UNITS SC (12:33)
[2024-01-14] MEDS: MYCAMINE 105 MG IV (12:36)
--- NOTE | 2024-01-14 13:58 | PTCARENOTE ---
Pt weaning on vent, down to 5/5/40%, tolerating. Occasionally pt has intermittent tachypnea in high 30's at times, resolves quickly.
--- NOTE | 2024-01-14 16:37 | W.PN.HOSP.TC ---
Today's Communication/Plan
-
Continue antibiotics, antifungal, blood pressure support, mechanical ventilation and monitoring labwork
Spoke with patient's son today
Assessment / Plan
Assessment / Plan
Physical Exam
General: Not in acute distress
HEENT: Normocephalic
Cardiovascular: Irregular Rhythm, Peripheral Edema (+1 lower + upper extremity pitting edema bilaterally)
Respiratory: Rhonchi. ET tube present.
GI: Soft, Non Distended, Non Tender, Normal Bowel Sounds and Feeding Tube
Neurology: Sedated.
Skin: Warm, Dry
Impression
Septic shock
Abnormal urinalysis-urine culture Kerry
Multi pathogen bacteremia
-Multiple sources including aspiration pneumonia with left lower lobe infiltrate, UTI, stage IV sacral pressure wound with possible underlying osteomyelitis
Profound hypotension not responding to IV fluids requiring multiple vasopressors.
Ventilator dependent respiratory failure, intubated in ED on 01/04
Acute kidney injury
Lactic acidosis
Hyponatremia, severe
Hypokalemia
Atrial fibrillation with rapid medical response, new onset
Ventricular tachycardia
Conditions prior to admission.
Advanced Alzheimer's dementia
Aspiration syndrome
PEG tube in place
Type 2 diabetes/IDDM
Sacral decubital wound stage IV
Chronic ambulatory dysfunction, type rhythm.
History of COVID
Infection complicated with respiratory failure November 2019.
Plan:
Severe sepsis with polymicrobial bacteremia
Severe septic shock not responding to IV fluids and requiring multiple vasopressors
Possible sources as above also at this point could not rule out intra-abdominal source.
Initiated on broad-spectrum antibiotics including meropenem and micafungin.
Attempt to wean off vasopressors and continue midodrine
Ventilatory dependent respiratory failure.
Remains intubated.
Weaned off continuous sedation with periodic spontaneous breath initiation while on ASV
Unresponsive and not tracking, decreased gag reflex, no reaction to noxious stimuli, occasional spontaneous respiration
Initiated on IV Lasix to facilitate extubation.
Remains on FiO2 40%
Acute kidney injury in the settings of profound hypotension
Severe hyponatremia
Cain catheter in place.
Continue monitoring urine output closely.
Status post IV fluids with bicarbonate
Severe hyponatremia sodium 130�120.
Status post 3% solution.
Monitor BMP
Acute anemia with hemoglobin dropped to 6.
No evidence of bleeding including gastrointestinal
Appropriate response to transfusion with hemoglobin 6�8
Thrombocytopenia likely consumptive
Atrial fibrillation with rapid ventricular response--
Short runs of ventricular tachycardia
Initiated on amiodarone drip
Developed bradycardia
Amiodarone had been discontinued 01/09
Off preadmission metoprolol given hypotension
Hypoglycemia
IDDM
Resumed tube feeds on 01/13/24 and Lantus dose reduced given her hypoglycemia (previously was initiated on low rate tube feeding although with high residuals, and vomiting causing additional aspiration and tube feeding discontinued)
Given G tube leak, GI was consulted
Continue basal bolus protocol adjusting accordingly.
I spoke with patient's son inside patient's room today, reviewed case with patient's son. Also appreciate manager of merchandising discussion with patient's son.
DNR
88 years old patient with advanced dementia, bedridden, chronic aspiration with recently required feeding tube now with severe sepsis with multifactorial sources including aspiration pneumonia, stage IV sacral decub ulcer with multi pathogen
bacteremia. Patient unfortunately remains vent dependent with periods of apnea while off sedation for days. Attempt of nutritional support wire PEG tube with high residuals and recurrent aspiration. Multiple skin wounds with sloughing and
necrosis. Poor prognosis. Multiple discussions with patient's son in terms of goals of care. If remains intubated over. Of 7 to 10 days, should be considered for tracheostomy unless patient's family will consider withdrawal and allowed process
of natural dying
DVT prophylaxis: Lovenox
Anticipated Discharge: > 48 hours
Subjective/Interval History
-
Date of Service: January 14, 2024
Patient was seen and examined. She remained intubated.
Objective Data
-
Vital Signs:
Vital Signs
Temp Pulse Resp BP Pulse Ox
97.5 F 88 30 89/52 100
01/14/24 15:44 01/14/24 16:00 01/14/24 16:00 01/11/24 20:28 01/14/24 16:00
I&O
01/13/24 01/14/24 01/15/24
06:59 06:59 06:59
Intake Total 443.1 / 454.4 723.3 / 768.3 555 / 555
Output Total 4385 / 4485 4395 / 4395
Balance -3941.9 / -4030.6 -3671.7 / -3626.7 555 / 555
[2024-01-14] MEDS: LOVENOX 40 MG SC (17:11)
[2024-01-14 18:07] LABS: Glucose - Point of Care 142 mg/dl (70-99)
--- NOTE | 2024-01-14 20:00 | PTCARENOTE ---
Rec'd pt with eyes open, alyssa at 2mm, sluggish, no response to commands, no movement of extremities noted, afib, R rad celeste w/ good wave form, flushes well;bp stable, to maintain sbp > 90, pulses via doppler, + anasarca, numerous wounds,sacral dsg
change done, # 7.5 oral ett repos on R side at 23 cm( was noted to be in center on assessment), PS 5/ CPAP 5, lungs coarse, decr, tiffany wean, sat 100, + bowel sounds, rectal trumpet to str drainage bag draining brown liquid stool, peg tube- rec jevity
1.5 at 20ml/hr & 25ml /hr h20 flush, no vomiting, abd obese, soft, medina draining yellow urine
[2024-01-14] MEDS: DAKIN'S SOLUTION 0.125% 1/4 STRENGTH 473 ML TOPICAL (20:28)
[2024-01-14 21:46] LABS: B.E. 7.7 mmol/L; HCO3 30.9 mmol/L (21-28); O2 Saturation % 99.8 % (94-98); PCO2 37 mmHg (32-35); PO2 115 mmHg (83-108); pH 7.53 (7.35-7.45)
[2024-01-14] MEDS: LANTUS 0.119999999999999996 UNITS SC (21:48)
[2024-01-14 21:51] LABS: Glucose - Point of Care 248 mg/dl (70-99)
--- NOTE | 2024-01-14 22:33 | PTCARENOTE ---
returned to asv 110, 5 peep, 40% for the night
[2024-01-14] MEDS: ProAmatine 5 MG TUBE (22:55)
--- NOTE | 2024-01-14 22:56 | PTCARENOTE ---
bp88-90's systolic, K Yesenia, MISTI aware, midodrine 5mg via tube given per order
--- NOTE | 2024-01-14 23:45 | PTCARENOTE ---
fent 50mic iv given before am care, sys reviewed, changes noted, CHG bath done, linens changed
[2024-01-15] VITALS (27 sets, daily range): BP systolic 70–153; BP diastolic 42–68; BMI 26.6
--- NOTE | 2024-01-15 00:05 | PTCARENOTE ---
levophed gtt restarted - to keep sbp > 90- see flow sheet for updates
[2024-01-15 00:11] LABS: Glucose - Point of Care 177 mg/dl (70-99)
[2024-01-15] MEDS: NOVOLOG FLEXPEN-MODERATE RESISTANCE 1 UNITS SC ×2 (00:18→06:21)
[2024-01-15 03:24] LABS: B.E. 9.3 mmol/L; HCO3 30.8 mmol/L (21-28); O2 Saturation % 99.6 % (94-98); PCO2 30 mmHg (32-35); PO2 116 mmHg (83-108)
[2024-01-15 03:26] LABS: pH 7.62 (7.35-7.45)
[2024-01-15] MEDS: SUBLIMAZE 50 MCG IV (03:52)
[2024-01-15 03:56] LABS: Hematocrit 26.3 % (37.0-47.0); Hemoglobin 9.4 g/dL (12.0-16.0); Mean Corp Hgb Conc. 35.7 g/dL (33.0-37.0); Mean Corpuscular Hgb 30.1 pg (27.0-31.0); Mean Corpuscular Volume 84.3 fL (81.0-99.0); Platelet Count 174 10^3/uL (130-400); Red Blood Cell Count 3.12 10^6/uL (4.20-5.40); Red Cell Dist. Width 17.2 % (11.5-14.5); White Blood Cell Count 10.5 10^3/uL (4.8-10.8)
--- NOTE | 2024-01-15 04:00 | PTCARENOTE ---
Addendum entered by Neelam Culver RN 01/15/24 05:47:
fent 50mic iv given before dsg changed
Original Note:
sys reviewed, changes noted, Rozina Patterson NP aware of abg result, changed to ac 16, tv 350, 5 peep, 40% by resp ett repos on left side at 23 cm, bilat arm, breast & l foot dsg changed
[2024-01-15 04:13] LABS: Blood Urea Nitrogen 29 mg/dl (7-17); Calcium 6.9 mg/dl (8.4-10.2); Carbon Dioxide 28 mmol/L (22-30); Chloride 97 mmol/L (98-107); Estimated Creatinine Clearance 62 ml/min; Glucose 191 mg/dl (70-99); Sodium 130 mmol/L (135-145); eGFR > 60.00
[2024-01-15] MEDS: LEVOPHED 258 MG IV (05:20)
[2024-01-15] MEDS: CALCIUM GLUCONATE 130 MG IV (05:25)
[2024-01-15] MEDS: STERILE WATER FOR INJECTION 10 ML IV ×3 (05:25→17:23)
[2024-01-15] MEDS: MERREM 500 MG IV ×3 (05:25→17:24)
--- NOTE | 2024-01-15 05:30 | PTCARENOTE ---
Rozina Patterson NP aware of calcium result, 3gm lucho gluc over 1 hr hung at 0515
[2024-01-15 06:11] LABS: Glucose - Point of Care 190 mg/dl (70-99)
[2024-01-15] MEDS: ProAmatine 5 MG PO (07:04)
[2024-01-15] MEDS: NSS (PRESERVATIVE FREE) 10 ML IV (07:04)
[2024-01-15] MEDS: PROTONIX IV 40 MG IV (07:05)
[2024-01-15] MEDS: DESENEX/MITRAZOL/ZEASORB 1 APPLIC TOPICAL ×2 (08:01→20:26)
[2024-01-15] MEDS: DAKIN'S SOLUTION 0.125% 1/4 STRENGTH 473 ML TOPICAL ×2 (08:01→20:25)
--- NOTE | 2024-01-15 08:06 | PTCARENOTE ---
report received,assessments per work list. patient opens eyes, no eye contact does not follow commands. slight movement feet noted. monitor afib, levophed per work list. right picc with good blood returns. right radial arterial line with good
waveform, blood return. right thumb with dark purple area, blister intact. doppler pulses. ett suctions for moderate amount mcbride sputum. placed on cpap/ps wean by RT. wound care provided per orders. +3 pitting anasarca
--- NOTE | 2024-01-15 09:34 | W.PN.ID1 ---
Date of Service
Date of Service: January 15, 2024
Today's Communication
Continue antibiotics.
Assessment / Plan
Clinical sepsis/septic shock
- weaned off pressors
Large sacral decubitus
Leukocytosis - trending down
Polymicrobial bacteremia with Enterobacter, Klebsiella pneumoniae, Enterococcus
MSSA bacteremia
Lactic acidosis
VDRF
Hyponatremia
Candiduria
Advanced Alzheimer's dementia
GERD
HTN
DM
Dysphagia
CKD
Recommendations:
White count improving
Repeat blood cultures no growth.
Continue with meropenem / Micafungin (d#9)
If white count remains normal over the next 24 to 48 hours, will discontinue further antibiotics.
Monitor white count and temperature curve.
Overall condition and outlook remains extremely poor, with high likelihood of mortality given multiple comorbidities.
Clinically, no likelihood of a return to any reasonable quality of life.
Patient appears hospice appropriate.
Patient remains critically ill in intensive care unit.
����������������������������������������������������������
Chief Complaint
-: Leukocytosis, Clinical Sepsis and Bacteremia
Subjective / Review of Systems
Patient seen and examined. Remains on vent at this time.
Vital Signs / Physical Exam
Vital Signs
Vital Signs
Temp Pulse Resp BP Pulse Ox
98 F 74 23 154/62 100
01/15/24 07:37 01/15/24 09:00 01/15/24 09:00 01/15/24 07:04 01/15/24 09:00
Physical Exam
Constitutional: Chronically Ill and Non-toxic
Head: Other (ET tube in place)
Eyes: Sclera Anicteric
Cardiovascular: S1/S2; Negative S3/S4
Pulmonary: Other
Gastrointestinal: Soft, Non Distended, Decreased Bowel Sounds and No Rebound
Extremities: Edema (4+) and Cyanosis (Right thumb)
Neurological: Other (minimally responsive to voice/touch.)
Objective Data
Lab Data
Lab Results
01/15/24 03:18
01/15/24 03:18
PT 18.9 Sec (11.4-14.6) H 01/05/24 15:05
INR 1.60 01/05/24 15:05
APTT 30.3 Sec (23.4-35.0) 01/05/24 15:05
Estimated Creat Clear 62 ml/min 01/15/24 03:18
Lactic Acid 1.8 mmol/L (0.7-2.0) 01/13/24 03:31
Total Bilirubin 2.5 mg/dl (0.2-1.3) H 01/12/24 04:13
AST 100 U/L (14-36) H 01/12/24 04:13
ALT 52 U/L (0-35) H 01/12/24 04:13
Alkaline Phosphatase 122 U/L (38-126) 01/12/24 04:13
Most recent labs reviewed.
Micro Results:
01/12/24 12:14 Wound Culture - Preliminary
Abdomen Pseudomonas aeruginosa
Stenotrophomonas maltophilia
Enterococcus species
Gram Stain - Preliminary
01/07/24 10:08 Blood Culture - Final
Blood/Venous S aureus-Methicillin Sensitive
Gram Stain - Final
01/09/24 09:07 Blood Culture - Final
Blood/Venous No Growth - Final Report
01/09/24 09:07 Blood Culture - Final
Blood/Venous No Growth - Final Report
01/07/24 10:08 Blood Culture - Final
Blood/Venous No Growth - Final Report
01/05/24 09:57 Blood Culture - Final
Blood/Venous No Growth - Final Report
01/06/24 16:06 Respiratory Culture - Final
Endotracheal Proteus Mirabilis-ESBL
S aureus-Methicillin Sensitive
Gram Stain - Final
01/05/24 11:05 Blood Culture - Final
Blood/Venous Enterococcus faecalis
Klebsiella pneumoniae-ESBL
Enterobacter cloacae
Proteus Mirabilis-ESBL
Gram Stain - Final
01/05/24 16:35 Wound Culture - Final
Coccyx Proteus species
Staphylococcus aureus
Enterococcus species
Streptococcus species
Additional testing on request
Gram Stain - Final
01/05/24 11:05 Urine Culture - Final
Urine Kerry albicans
01/05/24 17:47 Nasal Screen MRSA (PCR) - Final
Nose MRSA not detected - performed by PCR methodology.
01/05/24 11:05 Influenza Types A & B (MIGUEL) - Final
Nasal Swab Negative for Influenza A & B, NAAT
Negative results must be combined with clinical observations
and patient history.
Nucleic Acid Amplification test (NAAT)performed on the
[employer] platform.
Imaging:
01/08/2024 CXR (portable): Mild to moderate patchy right basilar airspace disease which is improved. Slightly improved left basilar atelectasis. Please see full dictation for additional detail.
Care Review
Plan reviewed with: Physician (Critical Care)
[2024-01-15 10:42] LABS: B.E. 4.4 mmol/L; HCO3 28.4 mmol/L (21-28); O2 Saturation % 99.7 % (94-98); PCO2 39 mmHg (32-35); PO2 149 mmHg (83-108); pH 7.47 (7.35-7.45)
--- NOTE | 2024-01-15 10:52 | W.PN.INTV ---
Today's Communication / Plan
Recommendations
Spontaneous breathing trial today-extubation.
Continue antibiotics
Wean off vasopressin
Continue midodrine
Continue tube feedings
Discontinue arterial line
Glycemic control
DNR status entered.
Poor prognosis
Assessment
-
88-year-old woman with advanced dementia, noncommunicative, type 2 diabetes, sent from the skilled nursing for hypotension. Patient emergently intubated in the emergency room due to nonresponsive. At baseline patient is noncommunicative, she has a
PEG tube in place. The son wanted intubation but no CPR. He would like to treat her medically.
Despite fluid resuscitation patient required vasopressors. Transferred to the critical care unit for further care.
Impression:
Ventilator dependent respiratory failure
Septic shock
Multiple sources possible including: Urinary tract infection/sacral decubitus ulcer and pneumonia likely due to aspiration.
Abnormal urinalysis
Chest x-ray: Bibasilar infiltrates
Bacteremia: Polymicrobial - Enterobacter cloacae, ESBL�Klebsiella pneumoniae, Enterococcus faecalis + MSSA - suspect source is sacral decubitus wound.
Urine culture with Kerry
Sputum Cx with ESBL-Proteus Mirabilis + MSSA
G-tube wound Cx growing Pseudomonas aeruginosa, GNR and Enterococcus spp
Hospital acquired pneumonia (present on admission)
Acute pulmonary edema with bilateral pleural effusions
Acute hypercapnic respiratory failure requiring intubation 01/05/2024
ABG 7.20 /
Acute kidney injury/metabolic acidosis - resolved
Lactic acidosis - resolved
Hypoglycemia
Hyponatremia - improving
Abnormal TFTs with low TSH and elevated free T4 likely due to critical illness
Anemia/thrombocytopenia with 1 U PRBC given on 01/10/2024
-
Conditions present prior admission:
Type 2 diabetes
Advanced dementia
Noncommunicative/bedbound
PEG tube in place
Sacral decubitus ulcer stage IV-family states that it was debrided about a month ago at [facility] status post antibiotics
-
Assessment and plan:
Patient remains critically ill off and on vasopressors, intubated on mechanical ventilation with polymicrobial bacteremia with pneumonia and sacral decubitus ulcer
-
Septic shock multiple sources possible-improved.
Abnormal urinalysis-urine culture Kerry.
Blood culture: Polymicrobial - Polymicrobial - Enterobacter cloacae, ESBL�Klebsiella pneumoniae, Enterococcus faecalis + MSSA
Sacral decubitus wound is the suspected primary source, although she appears to have a pneumonia with multiple organisms growing on sputum Cx
In my opinion, not a candidate for any surgical intervention. Suspect patient has some osteomyelitis based on depth of sacral decubitus wound.
Cannot rule out aspiration pneumonitis-chest x-ray 01/07/2024: Showed a new right lower lobe infiltrate.
Sputum culture growing ESBL-Proteus mirabilis + MSSA
1 of 2 repeat blood cultures from 01/07/2024 show NGTD
Broad-spectrum antibiotics-on Meropenem + micafungin (both on since 01/07/2024) s/p Zosyn (01/04 - 01/06) + cefepime x 1 dose + IV vanco x2 doses. D#9
Discontinued vancomycin --> Staph aureus seen on BCx from 01/06 is MSSA, Last dose of IV vanco was on 01/06/2024; (was previously re-ordered on 01/07 as suspected MRSA at that time but it was never given)
MRSA screening negative
ID consulted - recommendations appreciated
-
Mechanical ventilation settings reviewed
Continue assist-control mechanical ventilation.
Failed SBT on AM of 01/10/2024 on 12/09 due to apnea --> tolerating 05/11 wean on 01/11, still not following any commands, so not able to extubate yet. Unclear with her pre-existing dementia if she will ever get to the point where she follows commands.
-
Spontaneous breathing trial 01/15/2024: Over 1 hour on pressure support ventilation 12/09. Hemodynamically stable. Not tachycardic.
ABG with adequate oxygenation on ventilation.
Patient has a cough to suction otherwise she is pulm responsive at baseline.
Discussed with son will extubate to supplemental oxygen. No plans for reintubation or CPR if patient decompensates.
-
Patient had increasing FiO2 requirement: Pneumonia versus ? pulmonary edema (her weight is up about 7 kg since admission)
Chest x-ray 01/07/2024: with a new right lower lobe infiltrate. Atelectasis versus pneumonia. Suspect some degree of volume overload as well
No further imaging at this point.
-
Will try to minimize sedation.
Patient is unresponsive at baseline. Next
-
Septic shock:
On and off low-dose Levophed.
Continue midodrine.
Central line in place
Arterial line in place
Cain in place: Follow urine output
On proper antibiotics.
Echo done on 01/09/2024 � LVEF 75%, no evidence of vegetation
Cx from G-tube stoma site --> grew Pseudomonas aeruginosa, GNR and Enterococcus species
-
Hyperglycemia blood sugar over 600 on admission- now improved.
tube feeds on 01/12 and she seems to be tolerating it with minimal G-tube leakage. Will Adjust her lantus as needed to keep BG 140-180
-
Hyponatremia: Likely hypervolemic in setting of reduced PO intake
On 01/07 s/p hypertonic 3% NS --> sNa improved to 119-120, 3% HT-saline stopped --> c/t trend sNa level
Diurese as BP tolerates
Follow daily chemistry, Mg and PO4 labs
-
Rapid atrial fibrillation since 01/06/2024: Amiodarone drip started --> stopped on 01/10 due to bradycardia
Goal heart rate 50-100 --> hold BB and amio for now; once BP improves and she remains off vasopressors for >24 hrs then will resume her BB
Echo on 01/09/2024 was limited study with LVEF >75% with moderate pulmonary hypertension
Troponin peaked at 0.119 on 01/07/2024 and down trended to 0.113
Hold anticoagulation for now, can readdress later on depending on clinical situation.
-
Acute anemia +
thrombocytopenia recovered.
Transfused 1 U PRBC on AM of 01/10/2024
No evidence for bleeding.
Transfuse to keep Hb >7, plt>20k
4T score: low probability
-
DVT prophylaxis - changed to LMWH 40mg SQ qPM on 01/11
Protonix for GI prophylaxis while intubated
-
NPO.
Aspiration precautions � head of bed elevation
PEG tube in place.
On 01/10 I consulted GI given her G-tube is leaking; G-tube placed at [facility] about 30-45 days ago. Per son, there was difficulty placing it endoscopically so they had to use imaging tactics (? fluoroscopically).

Prior discussions:
Dr. Collins had discussed with son at the bedside 01/05/2020, and discussed with his who apparently is a doctor. Expressed poor prognostic indicators. Recommended to focus on comfort.
They would like to continue with medical management.
No CPR, no dialysis, no aggressive surgeries will be offered at this point.
Son updated by Dr. Collins 01/06/2024: Continue with medical management. No heroic interventions.
On 01/07, Dr. Velásquez discussed the patient's clinical status with the family including son and the son's . The son's is a family medicine practitioner. I answered all their questions, emotional support provided, and they would like to
continue full medical management while keeping her DNR but okay for mechanical ventilation.
I have been giving updates to the son, Israil, every day since I have been on service. I have been answering all of the son's questions to his satisfaction.
[facility] discussion on 01/14/2024: Son Linda says on 01/14/2024 that him and the family do not want tracheostomy. He is hopeful that she will be able to be extubated over the next couple days. I asked that if she is extubated, would he be okay with her
being reintubated if she fails extubation. He says yes. I tried to explain the futility and reintubating without heading towards tracheostomy.
-
Dr. Collins again approached son 01/15/2024: Goals of care discussions. Will be extubated today. No plans for reintubation or CPR. Full DNR has been instituted.
-
Discussed with primary team, nursing, respiratory therapist. Discussed with infectious disease.
-
Prognosis extremely poor
-
Critical care statement: A total of 35 minutes of critical care time was provided for this patient today. This includes management of unstable vital signs, evaluation of the patient at bedside, reviewing the patient's pertinent medical records
including ventilator settings, arterial blood gases, radiographs, microbiology, laboratory evaluations and discussion with primary team, critical care nursing, and respiratory therapy.
Subjective Dataa
Subjective Data
Date of Service:
Date of Service: January 15, 2024
Chief Complaint: Panelboard Operator Follow Up (Septic shock/hypercapnic respiratory failure requiring intubation)
Subjective:
Remains on mechanical ventilation, unresponsive.
Cough effort instruction
Unable to provide history.
Objective Data
Data Reviewed
Vital Signs / I&O / Oxygen:
Vital Signs
Temp Pulse Resp BP Pulse Ox
97.2 F 67 16 154/62 100
01/15/24 10:38 01/15/24 10:00 01/15/24 10:00 01/15/24 07:04 01/15/24 10:00
Intake and Output
01/14/24 01/15/24 01/16/24
06:59 06:59 06:59
Intake Total 723.3 / 768.3 1407.8 / 1464.1 406.3 / 406.3
Output Total 4395 / 4455 1460 / 1460 130 / 130
Balance -3671.7 / -3686.7 -52.2 / 4.1 276.3 / 276.3
SaO2 [CPAP/PSV] 100
SaO2 [ASV] 100
SaO2 [A/C] 100
SaO2 100
Physical Exam
General: Respiratory Distress (n), Comfortable and Chills (Negative)
HEENT: Normocephalic and Other (+icterus b/l)
Cardiovascular: Irregular Rhythm (Irregularly irregular), Peripheral Edema (+1 lower + upper extremity pitting edema bilaterally) and Other (Normal heart rate)
Respiratory: Wheeze (negative), Crackles (bilaterally), Rhonchi (Mild scattered), Non-Labored Respirations and ET Tube (Mechanical breath sounds heard bilaterally)
GI: Soft, Non Distended, Non Tender, Normal Bowel Sounds and Feeding Tube (Suppurative leakage around the G-tube insertion site without exsanguination appreciated; no pain to palpation; no fluctuance palpated)
Neurology: Other (Patient is rigid at baseline) and Other (Opens eyes to voice and tactile stimuli; Noncommunicative at baseline. Pupils +1 mm bilaterally and sluggish, +blinking to threat; +gag reflex)
Skin: Warm, Dry, Bruising (right thumb) and Other (Stage IV sacral decubitus ulcers present on admission)
Labs/Micro/Reports
Lab Data
01/15/24 03:18
01/15/24 03:18
Laboratory Results
01/14/24 01/15/24 01/15/24
21:40 03:17 10:33
pH 7.53 H 7.62 H* 7.47 H
pCO2 37 H 30 L 39 H
pO2 115 H 116 H 149 H
HCO3 30.9 H 30.8 H 28.4 H
O2 Delivery Level
Microbiology
01/12/24 12:14 Abdomen Wound Culture - Preliminary
Pseudomonas aeruginosa
Stenotrophomonas maltophilia
Enterococcus species
01/12/24 12:14 Abdomen Gram Stain - Preliminary
01/07/24 10:08 Blood/Venous Blood Culture - Final
S aureus-Methicillin Sensitive
01/07/24 10:08 Blood/Venous Gram Stain - Final
01/09/24 09:07 Blood/Venous Blood Culture - Final
No Growth - Final Report
01/09/24 09:07 Blood/Venous Blood Culture - Final
No Growth - Final Report
01/07/24 10:08 Blood/Venous Blood Culture - Final
No Growth - Final Report
[2024-01-15] MEDS: NOVOLOG FLEXPEN-MODERATE RESISTANCE 3 UNITS SC ×2 (11:30→17:22)
[2024-01-15 11:40] LABS: Glucose - Point of Care 213 mg/dl (70-99)
--- NOTE | 2024-01-15 11:57 | W.PN.HOSP.TC ---
Addendum entered and electronically signed by Elkin Cuevas MD 01/15/24 15:33:
Patient seen and examined
Discussed with nursing
Discussed with resident.
Discussed with patient's son at the bedside
Impression/plan:
Severe sepsis with septic shock and ventilatory dependent respiratory failure.
�Possible sources stage IV sacral decub, aspiration pneumonia.
Advanced dementia senile type.
Chronic dysphagia status post PEG tube.
Newly diagnosed atrial fibrillation with rapid ventricular response, nonsustained ventricular tachycardia, later bradycardia while on amiodarone
IDDM
Extubated after SBT.
Hold off on further diuresis.
Blood pressure remains soft and currently on Levophed with attempt to wean
Continue midodrine.
Advance tube feeding monitoring for residuals
Adjust insulin dosing.
Wound care per
Continue rectal trumpet system to minimize cross-contamination
Discussed with patient's son CODE STATUS DNR/DNI with no reintubation.
Original Note:
Today's Communication/Plan
-
- SBT today - extubated
- DNR-DNI now
- Wean pressors
- Continue antibiotics and midodrine
Assessment / Plan
Assessment / Plan
Impression
Septic shock
Abnormal urinalysis-urine culture Kerry
Multi pathogen bacteremia
-Multiple sources including aspiration pneumonia with left lower lobe infiltrate, UTI, stage IV sacral pressure wound with possible underlying osteomyelitis
Profound hypotension not responding to IV fluids requiring multiple vasopressors.
Ventilator dependent respiratory failure, intubated in ED on 01/04
Acute kidney injury
Lactic acidosis
Hyponatremia, severe
Hypokalemia
Atrial fibrillation with rapid medical response, new onset
Ventricular tachycardia
Conditions prior to admission.
Advanced Alzheimer's dementia
Aspiration syndrome
PEG tube in place
Type 2 diabetes/IDDM
Sacral decubital wound stage IV
Chronic ambulatory dysfunction, type rhythm.
History of COVID
Infection complicated with respiratory failure November 2019.
Plan:
Severe sepsis with polymicrobial bacteremia
Severe septic shock not responding to IV fluids and requiring multiple vasopressors
Possible sources as above also at this point could not rule out intra-abdominal source.
Initiated on broad-spectrum antibiotics including meropenem and micafungin.
Attempt to wean off vasopressors and continue midodrine
Planning for discharge with the rectal tube; discussed with the son and caser in.
Ventilatory dependent respiratory failure.
Weaned off continuous sedation with periodic spontaneous breath initiation while on ASV
Unresponsive and not tracking, decreased gag reflex, no reaction to noxious stimuli, occasional spontaneous respiration
Initiated on IV Lasix to facilitate extubation.
Extubated with spontaneous breathing trial today
Acute kidney injury in the settings of profound hypotension
Severe hyponatremia
Cain catheter in place.
Continue monitoring urine output closely.
Status post IV fluids with bicarbonate
Severe hyponatremia sodium 130�120.
Status post 3% solution.
Monitor BMP
Acute anemia with hemoglobin dropped to 6.
No evidence of bleeding including gastrointestinal
Appropriate response to transfusion with hemoglobin 6�8
Thrombocytopenia likely consumptive
Atrial fibrillation with rapid ventricular response--
Short runs of ventricular tachycardia
Initiated on amiodarone drip
Developed bradycardia
Amiodarone had been discontinued 01/09
Off preadmission metoprolol given hypotension
Hypoglycemia
IDDM
Resumed tube feeds on 01/13/24 and Lantus dose reduced given her hypoglycemia (previously was initiated on low rate tube feeding although with high residuals, and vomiting causing additional aspiration and tube feeding discontinued)
Given G tube leak, GI was consulted
Continue basal bolus protocol adjusting accordingly.
DVT prophylaxis: Lovenox
DNR-DNI
Anticipated Discharge: > 48 hours
Subjective/Interval History
-
Date of Service: January 15, 2024
Objective Data
-
Labs:
Laboratory Results
01/15/24 01/15/24 01/15/24
03:17 03:18 10:33
WBC 10.5
Hgb 9.4 L
Hct 26.3 L
Plt Count 174 D
HCO3 30.8 H 28.4 H
Sodium 130 L
Potassium 4.0
Chloride 97 L
Carbon Dioxide 28
BUN 29 H
Creatinine 0.6
Glucose 191 H
Calcium 6.9 L*
Vital Signs:
Vital Signs
Temp Pulse Resp BP Pulse Ox
97.2 F 64 17 154/62 100
01/15/24 10:38 01/15/24 11:00 01/15/24 11:00 01/15/24 07:04 01/15/24 11:00
I&O
01/14/24 01/15/24 01/16/24
06:59 06:59 06:59
Intake Total 723.3 / 768.3 1407.8 / 1464.1 406.3 / 406.3
Output Total 4395 / 4455 1460 / 1460 130 / 130
Balance -3671.7 / -3686.7 -52.2 / 4.1 276.3 / 276.3
Review of Systems
-
Unable to obtain full review of systems at this time due to: Patient Intubation
Physical Exam
-
General: Well Developed, Well Nourished, Intubated, Appears Chronically Ill and Obese
HEENT: Normocephalic and Atraumatic
Respiratory: Decreased Breath Sounds and Other
Cardiac: Irregular Rhythm and Tachycardic
GI: Soft, Nontender, Nondistended and Peg Tube
Rectal: Other (rectal tube without much output)
Genito-urinary: Cain
Musculoskeletal: Other (+1 lower + upper extremity pitting edema bilaterally, abdominal wall edema/anasarca)
Skin: Other (mottled breasts--cold extremities--large sacral decubitus ulcer (picture from wound note reviewed))
Neuro: Other (Unresponsive to noxious stimuli, not tracking. Has been off sedation.); Negative Awake or Alert
[2024-01-15] MEDS: MYCAMINE 105 MG IV (12:10)
--- NOTE | 2024-01-15 12:16 | PTCARENOTE ---
patient extubated@1105 without issue to nasal cannula. patient non verbal(at baseline). not to be reintubated. arterial line removed. blister right thumb ruptured, drained large amount serous fluid. lungs diminished. care provided. hospitalist in to
speak with patient son. in nsr with periods afib
--- NOTE | 2024-01-15 12:20 | CM ---
CM reviewed pt with son and Dr Cuevas
Pt remains in ICU and extubated this morning
Remains with peg tube
Pt is a LT resident from [facility] and plan for SNF return on dc
Per request from son and medical team, outreach to SNF questioning if pt can return with fecal management system
Awaiting response from SNF on FMS
Discharge Disposition- return to [facility] for LTC, watch for FMS needs
--- NOTE | 2024-01-15 13:32 | W.PN.UPDATE ---
Update Note
Progress Note Update
Patient extubated and tolerating 2 L nasal cannula.
Advance tube feedings
Continue with current care
Prognosis remains poor long-term.
He remains on vasopressors by the end of the day, will consider transfer to intermediate care unit.
[2024-01-15] MEDS: ProAmatine 5 MG TUBE (15:36)
--- NOTE | 2024-01-15 15:53 | PTCARENOTE ---
patient reassessed. assessments unchanged. tolerating tube feed advancement. no verbal or non verbal pain cues noted. rectal trumpet dislodged. reinserted, care and wound care provided. repositioned.
[2024-01-15] MEDS: TYLENOL 650 MG TUBE (16:29)
[2024-01-15] MEDS: LOVENOX 40 MG SC (16:30)
[2024-01-15 17:32] LABS: Glucose - Point of Care 204 mg/dl (70-99)
--- NOTE | 2024-01-15 17:38 | PTCARENOTE ---
patient medicated with tylenol per prn order with effect
--- NOTE | 2024-01-15 20:00 | PTCARENOTE ---
Rec'd pt w/ eyes open, RAFAEL , sluggish, no verbal response, does not follow commands, SR w/ BBB, pulses via doppler, + edema, sacral dsg changed per order, RA, lungs decr in bases, sat 97, + bowel sounds, rectal trumpet to str drainage bag draining
brown liquid, peg- rec jevity 1.5 at 30/hr & 25ml/hr h20 flush, 160ml resid, no vomiting, medina draining yellow urine
[2024-01-15] MEDS: LANTUS 0.149999999999999994 UNITS SC (21:32)
[2024-01-15 21:38] LABS: Glucose - Point of Care 176 mg/dl (70-99)
[2024-01-16] VITALS (13 sets, daily range): BP systolic 97–142; BP diastolic 46–73; BMI 26.4
--- NOTE | 2024-01-16 | PTCARENOTE ---
sys reviewed, no resid via peg,tube fdg incr to 40ml/hr
[2024-01-16] MEDS: STERILE WATER FOR INJECTION 10 ML IV ×5 (00:01→23:49)
[2024-01-16] MEDS: NOVOLOG FLEXPEN-MODERATE RESISTANCE SC ×3 (00:01→11:37)
[2024-01-16] MEDS: ProAmatine 5 MG TUBE ×3 (00:02→15:29)
[2024-01-16 00:08] LABS: Glucose - Point of Care 131 mg/dl (70-99)
--- NOTE | 2024-01-16 04:00 | PTCARENOTE ---
sys reviewed, CHG bath done, linens changed, bilat arm, breast dsgs changed
[2024-01-16] MEDS: MERREM 500 MG IV ×5 (05:16→23:46)
[2024-01-16 05:22] LABS: Glucose - Point of Care 98 mg/dl (70-99)
[2024-01-16 05:23] LABS: % Basophils 0.6 % (0-2); % Eosinophils 2.2 % (0-6); % Immature Granulocytes 0.4 % (0-0.5); % Lymphocytes 17.9 % (20.5-51.1); % Monocytes 7.9 % (1.7-9.3); Absolute Basophils 0.1 10^3/uL (0-0.2); Absolute Eosinophils 0.2 10^3/uL (0-0.7); Absolute Lymphocytes 1.6 10^3/uL (1.2-3.4); Absolute Monocytes 0.7 10^3/uL (0.1-0.6); Absolute Neutrophils 6.3 10^3/uL (1.4-6.5); Hematocrit 27.2 % (37.0-47.0); Hemoglobin 8.9 g/dL (12.0-16.0); Mean Corp Hgb Conc. 32.7 g/dL (33.0-37.0); Mean Corpuscular Hgb 29.3 pg (27.0-31.0); Mean Corpuscular Volume 89.5 fL (81.0-99.0); Mean Platelet Volume 11.2 fL (7.4-10.4); Nucleated Red Blood Cells % 0.2 %; Platelet Count 163 10^3/uL (130-400); Red Blood Cell Count 3.04 10^6/uL (4.20-5.40); Red Cell Dist. Width 17.2 % (11.5-14.5); White Blood Cell Count 8.9 10^3/uL (4.8-10.8)
[2024-01-16 05:47] LABS: Blood Urea Nitrogen 28 mg/dl (7-17); Calcium 7.3 mg/dl (8.4-10.2); Carbon Dioxide 32 mmol/L (22-30); Chloride 96 mmol/L (98-107); Estimated Creatinine Clearance 62 ml/min; Glucose 90 mg/dl (70-99); Potassium 3.7 mmol/L (3.5-5.1); Sodium 132 mmol/L (135-145); eGFR > 60.00
--- NOTE | 2024-01-16 07:32 | W.PN.ID1 ---
Date of Service
Date of Service: January 16, 2024
Today's Communication
Continue with meropenem / Micafungin (d#10)
Assessment / Plan
Clinical sepsis/septic shock
- weaned off pressors
Large sacral decubitus
Leukocytosis - trending down
Polymicrobial bacteremia with Enterobacter, Klebsiella pneumoniae, Enterococcus
MSSA bacteremia
Lactic acidosis
S/P VDRF
Hyponatremia
Candiduria
Advanced Alzheimer's dementia
GERD
HTN
DM
Dysphagia
CKD
Recommendations:
White count improved
Repeat blood cultures no growth.
Continue with meropenem / Micafungin (d#10)
If white count remains normal over the next 24 hours, will discontinue further antibiotics.
Monitor white count and temperature curve.
Continue with local care to sacral decubiti. Suspect minimal healing potential given current clinical state and poor protein stores.
Overall condition and outlook remains extremely poor, with high likelihood of mortality given multiple comorbidities.
Clinically, no likelihood of a return to any reasonable quality of life. Minimal healing potential of sacral decubidi.
Patient appears hospice appropriate.
����������������������������������������������������������
Chief Complaint
-: Leukocytosis, Clinical Sepsis, Bacteremia and Other (Stage 3-4 sacral decubidi)
Subjective / Review of Systems
Patient seen and examined. Now extubated and on room air
Vital Signs / Physical Exam
Vital Signs
Vital Signs
Temp Pulse Resp BP Pulse Ox
97.7 F 78 21 103/59 97
01/16/24 04:00 01/16/24 06:00 01/16/24 06:00 01/16/24 06:00 01/16/24 06:00
Physical Exam
Constitutional: Comfortable, Chronically Ill and Non-toxic
Eyes: Sclera Anicteric
Cardiovascular: S1/S2; Negative S3/S4
Pulmonary: Clear, Coarse, Non Labored and Other
Gastrointestinal: Soft, Non Distended, Decreased Bowel Sounds, No Rebound and Other (Peg in place)
Extremities: Edema (4+) and Cyanosis (Right thumb)
Wound: Other (Sacral decubidi dressed.)
Neurological: Other (minimally responsive to voice/touch.)
Objective Data
Lab Data
Lab Results
01/16/24 05:12
01/16/24 05:12
PT 18.9 Sec (11.4-14.6) H 01/05/24 15:05
INR 1.60 01/05/24 15:05
APTT 30.3 Sec (23.4-35.0) 01/05/24 15:05
Estimated Creat Clear 62 ml/min 01/16/24 05:12
Lactic Acid 1.8 mmol/L (0.7-2.0) 01/13/24 03:31
Total Bilirubin 2.5 mg/dl (0.2-1.3) H 01/12/24 04:13
AST 100 U/L (14-36) H 01/12/24 04:13
ALT 52 U/L (0-35) H 01/12/24 04:13
Alkaline Phosphatase 122 U/L (38-126) 01/12/24 04:13
Most recent labs reviewed.
Micro Results:
01/12/24 12:14 Wound Culture - Final
Abdomen Pseudomonas aeruginosa
Stenotrophomonas maltophilia
Enterococcus faecalis
Gram Stain - Final
01/07/24 10:08 Blood Culture - Final
Blood/Venous S aureus-Methicillin Sensitive
Gram Stain - Final
01/09/24 09:07 Blood Culture - Final
Blood/Venous No Growth - Final Report
01/09/24 09:07 Blood Culture - Final
Blood/Venous No Growth - Final Report
01/07/24 10:08 Blood Culture - Final
Blood/Venous No Growth - Final Report
01/05/24 09:57 Blood Culture - Final
Blood/Venous No Growth - Final Report
01/06/24 16:06 Respiratory Culture - Final
Endotracheal Proteus Mirabilis-ESBL
S aureus-Methicillin Sensitive
Gram Stain - Final
01/05/24 11:05 Blood Culture - Final
Blood/Venous Enterococcus faecalis
Klebsiella pneumoniae-ESBL
Enterobacter cloacae
Proteus Mirabilis-ESBL
Gram Stain - Final
01/05/24 16:35 Wound Culture - Final
Coccyx Proteus species
Staphylococcus aureus
Enterococcus species
Streptococcus species
Additional testing on request
Gram Stain - Final
01/05/24 11:05 Urine Culture - Final
Urine Kerry albicans
01/05/24 17:47 Nasal Screen MRSA (PCR) - Final
Nose MRSA not detected - performed by PCR methodology.
01/05/24 11:05 Influenza Types A & B (MIGUEL) - Final
Nasal Swab Negative for Influenza A & B, NAAT
Negative results must be combined with clinical observations
and patient history.
Nucleic Acid Amplification test (NAAT)performed on the
[employer] platform.
Imaging:
01/08/2024 CXR (portable): Mild to moderate patchy right basilar airspace disease which is improved. Slightly improved left basilar atelectasis. Please see full dictation for additional detail.
Care Review
Plan reviewed with: Nurse
--- NOTE | 2024-01-16 08:00 | PTCARENOTE ---
recd pt tolerating room air, skin warm and dry, comfortable. multiple skin wounds, dressings intact. bilat foot drop. unresponsive, eyes open, does at times seem to focus/track staff, but no interaction.
[2024-01-16] MEDS: TYLENOL 650 MG TUBE (08:26)
[2024-01-16] MEDS: PROTONIX IV 40 MG IV (08:27)
[2024-01-16] MEDS: NSS (PRESERVATIVE FREE) 10 ML IV (08:27)
[2024-01-16] MEDS: DAKIN'S SOLUTION 0.125% 1/4 STRENGTH 473 ML TOPICAL ×2 (09:00→21:06)
[2024-01-16] MEDS: DESENEX/MITRAZOL/ZEASORB 1 APPLIC TOPICAL ×2 (09:00→21:06)
--- NOTE | 2024-01-16 10:39 | W.PN.INTV ---
Today's Communication / Plan
Recommendations
Continue antibiotics
Nutritional support via tube feedings
Wound care
Follow electrolytes
Okay to restart outpatient medications
Transfer to [facility]
Critical care team will sign off. Please call with questions.
Assessment
-
88-year-old woman with advanced dementia, noncommunicative, type 2 diabetes, sent from the skilled nursing for hypotension. Patient emergently intubated in the emergency room due to nonresponsive. At baseline patient is noncommunicative, she has a
PEG tube in place. The son wanted intubation but no CPR. He would like to treat her medically.
Despite fluid resuscitation patient required vasopressors. Transferred to the critical care unit for further care.
Impression:
Ventilator dependent respiratory failure
Extubated 01/15/2024
Septic shock-resolved
Multiple sources possible including: Urinary tract infection/sacral decubitus ulcer and pneumonia likely due to aspiration.
Abnormal urinalysis
Chest x-ray: Bibasilar infiltrates
Bacteremia: Polymicrobial - Enterobacter cloacae, ESBL�Klebsiella pneumoniae, Enterococcus faecalis + MSSA - suspect source is sacral decubitus wound.
Urine culture with Kerry
Sputum Cx with ESBL-Proteus Mirabilis + MSSA
G-tube wound Cx growing Pseudomonas aeruginosa, GNR and Enterococcus spp
Hospital acquired pneumonia (present on admission)
Acute pulmonary edema with bilateral pleural effusions
Acute hypercapnic respiratory failure requiring intubation 01/05/2024
ABG 7.20 /
Acute kidney injury/metabolic acidosis - resolved
Lactic acidosis - resolved
Hypoglycemia
Hyponatremia - improving
Abnormal TFTs with low TSH and elevated free T4 likely due to critical illness
Anemia/thrombocytopenia with 1 U PRBC given on 01/10/2024
-
Conditions present prior admission:
Type 2 diabetes
Advanced dementia
Noncommunicative/bedbound
PEG tube in place
Sacral decubitus ulcer stage IV-family states that it was debrided about a month ago at [facility] status post antibiotics
-
Assessment and plan:
Extubated 01/15/2024-stable overnight.
Not requiring vasopressors
Not requiring supplemental oxygen
Remains unresponsive which is baseline.
-
Septic shock multiple sources possible-resolved
Abnormal urinalysis-urine culture Kerry.
Blood culture: Polymicrobial - Polymicrobial - Enterobacter cloacae, ESBL�Klebsiella pneumoniae, Enterococcus faecalis + MSSA
Sacral decubitus wound is the suspected primary source, although she appears to have a pneumonia with multiple organisms growing on sputum Cx
Not a candidate for any surgical intervention. Suspect patient has some osteomyelitis based on depth of sacral decubitus wound.
Cannot rule out aspiration pneumonitis-chest x-ray 01/07/2024: Showed a new right lower lobe infiltrate.
Sputum culture growing ESBL-Proteus mirabilis + MSSA
Broad-spectrum antibiotics-on Meropenem + micafungin (both on since 01/07/2024)-defer to infectious disease
MRSA screening negative
-
Chest x-ray 01/07/2024: with a new right lower lobe infiltrate. Atelectasis versus pneumonia. Suspect some degree of volume overload as well
No further imaging at this point.
-
Septic shock:-Resolved.
Continue midodrine.
Central line in place
Arterial line in place
On proper antibiotics.
Echo done on 01/09/2024 � LVEF 75%, no evidence of vegetation
-
Hyperglycemia: Cont. SC insulin- Improved. keep BG 140-180
-
Hyponatremia: Likely hypervolemic - improved.
On 01/07 s/p hypertonic 3% NS
Diurese as BP tolerates
-
Rapid atrial fibrillation since 01/06/2024: Amiodarone drip started --> stopped on 01/10 due to bradycardia
Goal heart rate 50-100 --> hold BB and amio for now; once BP improves and she remains off vasopressors for >24 hrs then will resume her BB
Echo on 01/09/2024 was limited study with LVEF >75% with moderate pulmonary hypertension
Troponin peaked at 0.119 on 01/07/2024 and down trended to 0.113
Hold anticoagulation for now, can readdress later on depending on clinical situation.
-
Anemia- stable.
thrombocytopenia recovered.
Transfused 1 U PRBC on AM of 01/10/2024
No evidence for bleeding.
Transfuse to keep Hb >7, plt>20k
4T score: low probability
-
DVT prophylaxis - LMWH 40mg SQ qPM since 01/11
Protonix for GI prophylaxis while intubated
-
NPO.
Aspiration precautions � head of bed elevation
PEG tube in place.
On 01/10 I consulted GI given her G-tube is leaking; G-tube placed at [facility] about 30-45 days ago. Per son, there was difficulty placing it endoscopically so they had to use imaging tactics (? fluoroscopically). Currently
tolerating tube feedings.
-
Transfer to [facility].
Critical care team will sign off.
Please call pulmonary if any respiratory issues arise
Son updated by Dr. Collins 01/16/2024

Prior discussions:
Dr. Collins had discussed with son at the bedside 01/05/2020, and discussed with his who apparently is a doctor. Expressed poor prognostic indicators. Recommended to focus on comfort.
They would like to continue with medical management.
No CPR, no dialysis, no aggressive surgeries will be offered at this point.
Son updated by Dr. Collins 01/06/2024: Continue with medical management. No heroic interventions.
On 01/07, Dr. Velásquez discussed the patient's clinical status with the family including son and the son's . The son's is a family medicine practitioner. I answered all their questions, emotional support provided, and they would like to
continue full medical management while keeping her DNR but okay for mechanical ventilation.
I have been giving updates to the son, Linda, every day since I have been on service. I have been answering all of the son's questions to his satisfaction.
[facility] discussion on 01/14/2024: Son Linda says on 01/14/2024 that him and the family do not want tracheostomy. He is hopeful that she will be able to be extubated over the next couple days. I asked that if she is extubated, would he be okay with her
being reintubated if she fails extubation. He says yes. I tried to explain the futility and reintubating without heading towards tracheostomy.
-
Dr. Collins again approached son 01/15/2024: Goals of care discussions. Will be extubated today. No plans for reintubation or CPR. Full DNR has been instituted.
-
Discussed with primary team, nursing, respiratory therapist. Discussed with infectious disease.
-
Prognosis extremely poor
-
Critical care statement: A total of 35 minutes of critical care time was provided for this patient today. This includes management of unstable vital signs, evaluation of the patient at bedside, reviewing the patient's pertinent medical records
including ventilator settings, arterial blood gases, radiographs, microbiology, laboratory evaluations and discussion with primary team, critical care nursing, and respiratory therapy.
Subjective Dataa
Subjective Data
Date of Service:
Date of Service: January 16, 2024
Chief Complaint: Rabbler Follow Up (Septic shock/hypercapnic respiratory failure requiring intubation)
Subjective:
Unresponsive-baseline due to underlying severe advanced dementia.
Extubated 01/15/2024, on room air
Review of Systems
General: Unobtainable - Pat Unresp
Objective Data
Data Reviewed
Vital Signs / I&O / Oxygen:
Vital Signs
Temp Pulse Resp BP Pulse Ox
98.2 F 76 20 108/59 99
01/16/24 07:47 01/16/24 09:00 01/16/24 09:00 01/16/24 09:00 01/16/24 09:00
Intake and Output
01/15/24 01/16/24 01/17/24
06:59 06:59 06:59
Intake Total 1407.8 / 1464.1 1733.3 / 1798.3
Output Total 1460 / 1460 1265 / 1265
Balance -52.2 / 4.1 468.3 / 533.3
SaO2 [CPAP/PSV] 100
SaO2 [ASV] 100
SaO2 [A/C] 100
SaO2 99
Nasal Cannula flow liters per 2
minute
Physical Exam
General: Respiratory Distress (n) and Comfortable
HEENT: Normocephalic and Other (+icterus b/l)
Cardiovascular: Irregular Rhythm (Irregularly irregular), Peripheral Edema (+1 lower + upper extremity pitting edema bilaterally) and Other (Normal heart rate)
Respiratory: Wheeze (negative), Crackles (bilaterally), Rhonchi (Mild scattered) and Non-Labored Respirations
GI: Soft, Non Distended, Non Tender, Normal Bowel Sounds and Feeding Tube (Suppurative leakage around the G-tube insertion site without exsanguination appreciated; no pain to palpation; no fluctuance palpated)
Neurology: Other (Patient is rigid at baseline) and Other (Opens eyes to voice and tactile stimuli; Noncommunicative at baseline. Pupils +1 mm bilaterally and sluggish, +blinking to threat; +gag reflex)
Skin: Warm, Dry, Bruising (right thumb) and Other (Stage IV sacral decubitus ulcers present on admission)
Labs/Micro/Reports
Lab Data
01/16/24 05:12
01/16/24 05:12
Laboratory Results
01/15/24
10:33
pH 7.47 H
pCO2 39 H
pO2 149 H
HCO3 28.4 H
O2 Delivery Level
Microbiology
01/12/24 12:14 Abdomen Wound Culture - Final
Pseudomonas aeruginosa
Stenotrophomonas maltophilia
Enterococcus faecalis
01/12/24 12:14 Abdomen Gram Stain - Final
01/07/24 10:08 Blood/Venous Blood Culture - Final
S aureus-Methicillin Sensitive
01/07/24 10:08 Blood/Venous Gram Stain - Final
01/09/24 09:07 Blood/Venous Blood Culture - Final
No Growth - Final Report
01/09/24 09:07 Blood/Venous Blood Culture - Final
No Growth - Final Report
--- NOTE | 2024-01-16 10:47 | W.PN.HOSP.TC ---
Addendum entered and electronically signed by Elkin Cuevas MD 01/16/24 16:16:
Patient seen and examined. Plan discussed with resident. Plan discussed with rim roller setter.
Discussed with patient's son at the bedside.
Impression/plan:
Severe septic shock most likely due to infected sacral decub.
VDRF, extubated with relatively stable respiratory status.
Advanced Alzheimer's dementia, mentation close to baseline.
Septic shock resolved off vasopressors on midodrine.
Continue antibiotics for another 24 to 48 hours.
Aspiration precautions, remains high risk for recurrent event.
Wound care.
Fecal diversion as much as possible,
Tube feeding advanced to the goal rate.
Continue insulin regimen adjusting accordingly
Original Note:
Today's Communication/Plan
-
- Transfer out of the ICU today.
- Continue tube feeds as tolerated.
- Hold diuretics; continue midodrine.
- Continue meropenem and micafungin
Assessment / Plan
Assessment / Plan
Impression
Septic shock
Abnormal urinalysis-urine culture Kerry
Multi pathogen bacteremia
-Multiple sources including aspiration pneumonia with left lower lobe infiltrate, UTI, stage IV sacral pressure wound with possible underlying osteomyelitis
Profound hypotension not responding to IV fluids requiring multiple vasopressors.
Ventilator dependent respiratory failure, intubated in ED on 01/04
Acute kidney injury
Lactic acidosis
Hyponatremia, severe
Hypokalemia
Atrial fibrillation with rapid medical response, new onset
Ventricular tachycardia
Conditions prior to admission.
Advanced Alzheimer's dementia
Aspiration syndrome
PEG tube in place
Type 2 diabetes/IDDM
Sacral decubital wound stage IV
Chronic ambulatory dysfunction, type rhythm.
History of COVID
Infection complicated with respiratory failure November 2019.
Plan:
Severe sepsis with polymicrobial bacteremia
Severe septic shock not responding to IV fluids and requiring multiple vasopressors
Possible sources as above also at this point could not rule out intra-abdominal source.
Initiated on broad-spectrum antibiotics including meropenem and micafungin.
Attempt to wean off vasopressors and continue midodrine
Planning for discharge with the rectal tube; discussed with the son and porter sample case.
Ventilatory dependent respiratory failure.
Weaned off continuous sedation with periodic spontaneous breath initiation while on ASV
Unresponsive and not tracking, decreased gag reflex, no reaction to noxious stimuli, occasional spontaneous respiration
Initiated on IV Lasix to facilitate extubation.
Extubated with spontaneous breathing trial today
Acute kidney injury in the settings of profound hypotension
Severe hyponatremia
Cain catheter in place.
Continue monitoring urine output closely.
Status post IV fluids with bicarbonate
Severe hyponatremia sodium 130�120.
Status post 3% solution.
Monitor BMP
Acute anemia with hemoglobin dropped to 6.
No evidence of bleeding including gastrointestinal
Appropriate response to transfusion with hemoglobin 6�8
Thrombocytopenia likely consumptive
Atrial fibrillation with rapid ventricular response--
Short runs of ventricular tachycardia
Initiated on amiodarone drip
Developed bradycardia
Amiodarone had been discontinued 01/09
Off preadmission metoprolol given hypotension
Hypoglycemia
IDDM
Resumed tube feeds on 01/13/24 and Lantus dose reduced given her hypoglycemia (previously was initiated on low rate tube feeding although with high residuals, and vomiting causing additional aspiration and tube feeding discontinued)
Given G tube leak, GI was consulted
Continue basal bolus protocol adjusting accordingly.
DVT prophylaxis: Lovenox
DNR-DNI
Anticipated Discharge: 24 - 48 hours
Subjective/Interval History
-
Date of Service: January 16, 2024
Objective Data
-
Labs:
Laboratory Results
01/16/24
05:12
WBC 8.9
Hgb 8.9 L
Hct 27.2 L
Plt Count 163
Sodium 132 L
Potassium 3.7
Chloride 96 L
Carbon Dioxide 32 H
BUN 28 H
Creatinine 0.6
Glucose 90
Calcium 7.3 L
Vital Signs:
Vital Signs
Temp Pulse Resp BP Pulse Ox
98.2 F 76 20 108/59 99
01/16/24 07:47 01/16/24 09:00 01/16/24 09:00 01/16/24 09:00 01/16/24 09:00
I&O
01/15/24 01/16/24 01/17/24
06:59 06:59 06:59
Intake Total 1407.8 / 1464.1 1733.3 / 1798.3
Output Total 1460 / 1460 1265 / 1265
Balance -52.2 / 4.1 468.3 / 533.3
Review of Systems
-
Unable to obtain full review of systems at this time due to: Dementia and Patient Non-verbal
Physical Exam
-
General: Well Developed, Well Nourished, Comfortable and Appears Chronically Ill
HEENT: Normocephalic and Atraumatic
Respiratory: Decreased Breath Sounds and Other
Cardiac: Irregular Rhythm
GI: Soft, Nontender, Nondistended and Peg Tube
Rectal: Other (rectal tube without much output)
Genito-urinary: Cain
Musculoskeletal: Other (+1 lower + upper extremity pitting edema bilaterally, abdominal wall edema/anasarca)
Skin: Other (mottled breasts--cold extremities--large sacral decubitus ulcer (picture from wound note reviewed))
Neuro: Other (Responsive to noxious stimuli, not tracking. Has been off sedation.); Negative Awake or Alert
Psych: Calm
[2024-01-16] MEDS: MYCAMINE 105 MG IV (11:31)
[2024-01-16 11:47] LABS: Glucose - Point of Care 140 mg/dl (70-99)
--- NOTE | 2024-01-16 13:47 | PTCARENOTE ---
son bedside, visited, updated by staff and physicians, Sara. Med surg, off monitors, wound care as noted. [facility] dcd, pure wick applied, rectal trumpet replaced, draining liquid.
--- NOTE | 2024-01-16 16:00 | TRANSFER ---
report to next RN, transferred to [id number] via bed with all belongings and supplies.
[2024-01-16] MEDS: LOVENOX 40 MG SC (16:55)
[2024-01-16 17:06] LABS: Glucose - Point of Care 160 mg/dl (70-99)
[2024-01-16] MEDS: NOVOLOG FLEXPEN-MODERATE RESISTANCE 1 UNITS SC (17:08)
[2024-01-16 21:52] LABS: Glucose - Point of Care 241 mg/dl (70-99)
[2024-01-16] MEDS: LANTUS 0.149999999999999994 UNITS SC (21:56)
[2024-01-16] MEDS: FLUSH (NSS) 2 FLUSH IV (23:49)
[2024-01-17] LABS: Glucose - Point of Care 180 mg/dl (70-99)
[2024-01-17] MEDS: NOVOLOG FLEXPEN-MODERATE RESISTANCE 1 UNITS SC
[2024-01-17] MEDS: ProAmatine 5 MG TUBE ×2 (00:14→08:44)
--- NOTE | 2024-01-17 02:20 | PTCARENOTE ---
Patient with wound care as documented. Rectal trumpet replaced but fell out 3. Order received for FMS and placed by certified RN. Draining liquid mcbride stool.
[2024-01-17] MEDS: NOVOLOG FLEXPEN-MODERATE RESISTANCE SC ×3 (05:48→17:32)
[2024-01-17 05:49] LABS: Glucose - Point of Care 63 mg/dl (70-99)
[2024-01-17] MEDS: DEXTROSE 50% SYRINGE 12.5 GRAMS IV ×4 (05:51→17:19)
[2024-01-17 06:00] VITALS: BMI 26.8
[2024-01-17] MEDS: STERILE WATER FOR INJECTION 10 ML IV ×2 (06:00→11:41)
[2024-01-17] MEDS: MERREM 500 MG IV ×2 (06:00→11:42)
[2024-01-17] MEDS: FLUSH (NSS) 2 FLUSH IV (06:00)
[2024-01-17 06:15] LABS: Glucose - Point of Care 100 mg/dl (70-99)
[2024-01-17 06:43] LABS: Hematocrit 26.9 % (37.0-47.0); Mean Corp Hgb Conc. 33.5 g/dL (33.0-37.0); Mean Corpuscular Volume 89.7 fL (81.0-99.0); Platelet Count 149 10^3/uL (130-400); Red Cell Dist. Width 17.7 % (11.5-14.5)
[2024-01-17 06:56] LABS: Blood Urea Nitrogen 27 mg/dl (7-17); Calcium 7.1 mg/dl (8.4-10.2); Carbon Dioxide 30 mmol/L (22-30); Chloride 100 mmol/L (98-107); Estimated Creatinine Clearance 62 ml/min; Glucose 99 mg/dl (70-99); Potassium 3.8 mmol/L (3.5-5.1); Sodium 132 mmol/L (135-145); eGFR > 60.00
[2024-01-17 07:00] VITALS: BP 114/61
[2024-01-17] MEDS: DESENEX/MITRAZOL/ZEASORB 1 APPLIC TOPICAL ×2 (08:47→21:09)
[2024-01-17] MEDS: DAKIN'S SOLUTION 0.125% 1/4 STRENGTH 1 ML TOPICAL (08:48)
[2024-01-17 08:55] LABS: Glucose - Point of Care 67 mg/dl (70-99)
--- NOTE | 2024-01-17 09:28 | CM ---
Case management following for d/c planning
Spoke with Toshia at [facility] regarding pt returning with fecal management system - per Toshia pt may return with system
Updates sent in [facility] to [place]
Plan - return to [facility] when medically stable
[2024-01-17 09:32] LABS: Glucose - Point of Care 94 mg/dl (70-99)
--- NOTE | 2024-01-17 09:39 | W.PN.HOSP.TC ---
Addendum entered and electronically signed by Elkin Cuevas MD 01/17/24 16:41:
Patient seen and examined. Plan discussed with resident. Plan discussed with customer support manager.
Discussed with patient's son at the bedside.
Impression/plan:
Severe septic shock most likely due to infected sacral decub.
VDRF, extubated with relatively stable respiratory status.
Advanced Alzheimer's dementia, mentation close to baseline.
Septic shock resolved off vasopressors on midodrine.
Discontinue antibiotics on 01/16 and observe
Aspiration precautions. Patient remains high risk for recurrent event
Continue wound care per
Fecal diversion is much as possible
Tube feeding advance to the goal rate
Noted with hypoglycemia. Insulin dose/Lantus dropped to 10 units at bedtime
Continue basal bolus protocol.
Original Note:
Today's Communication/Plan
-
- Discontinue antibiotics today.
- Continue wound care, tube feeds, aspiration precautions and fecal diversion.
Assessment / Plan
Assessment / Plan
Impression
Septic shock
Abnormal urinalysis-urine culture Kerry
Multi pathogen bacteremia
-Multiple sources including aspiration pneumonia with left lower lobe infiltrate, UTI, stage IV sacral pressure wound with possible underlying osteomyelitis
Profound hypotension not responding to IV fluids requiring multiple vasopressors.
Ventilator dependent respiratory failure, intubated in ED on 01/04
Acute kidney injury
Lactic acidosis
Hyponatremia, severe
Hypokalemia
Atrial fibrillation with rapid medical response, new onset
Ventricular tachycardia
Conditions prior to admission.
Advanced Alzheimer's dementia
Aspiration syndrome
PEG tube in place
Type 2 diabetes/IDDM
Sacral decubital wound stage IV
Chronic ambulatory dysfunction, type rhythm.
History of COVID
Infection complicated with respiratory failure November 2019.
Plan:
Severe sepsis with polymicrobial bacteremia
Severe septic shock not responding to IV fluids and requiring multiple vasopressors
Possible sources as above also at this point could not rule out intra-abdominal source.
Initiated on broad-spectrum antibiotics including meropenem and micafungin.
Attempt to wean off vasopressors and continue midodrine
Planning for discharge with the rectal tube; discussed with the son and heel caser.
Patient is hospice eligible; declined by family
Poor prognosis
Sacral decubital wound stage IV/breast wounds/other wounds
Sacral wound has progressed despite of preventive measures, per wound care
Family has refused pain management previously
Continue wound care management
Ventilatory dependent respiratory failure.
Weaned off continuous sedation with periodic spontaneous breath initiation while on ASV
Unresponsive and not tracking, decreased gag reflex, no reaction to noxious stimuli, occasional spontaneous respiration
Initiated on IV Lasix to facilitate extubation.
Extubated with spontaneous breathing trial today
Acute kidney injury in the settings of profound hypotension
Severe hyponatremia
Cain catheter in place.
Continue monitoring urine output closely.
Status post IV fluids with bicarbonate
Severe hyponatremia sodium 130�120.
Status post 3% solution.
Monitor BMP
Acute anemia with hemoglobin dropped to 6.
No evidence of bleeding including gastrointestinal
Appropriate response to transfusion with hemoglobin 6�8
Thrombocytopenia likely consumptive
Atrial fibrillation with rapid ventricular response--
Short runs of ventricular tachycardia
Initiated on amiodarone drip
Developed bradycardia
Amiodarone had been discontinued 01/09
Off preadmission metoprolol given hypotension
Hypoglycemia
IDDM
Resumed tube feeds on 01/13/24 and Lantus dose reduced given her hypoglycemia (previously was initiated on low rate tube feeding although with high residuals, and vomiting causing additional aspiration and tube feeding discontinued)
Given G tube leak, GI was consulted
Continue basal bolus protocol adjusting accordingly.
DVT prophylaxis: Lovenox
DNR-DNI
Anticipated Discharge: 24 - 48 hours
Subjective/Interval History
-
Date of Service: January 17, 2024
Objective Data
-
Labs:
Laboratory Results
01/17/24
06:24
WBC 6.0
Hgb 9.0 L
Hct 26.9 L
Plt Count 149
Sodium 132 L
Potassium 3.8
Chloride 100
Carbon Dioxide 30
BUN 27 H
Creatinine 0.5 L
Glucose 99
Calcium 7.1 L
Vital Signs:
Vital Signs
Temp Pulse Resp BP Pulse Ox
98.1 F 59 18 114/61 100
01/17/24 07:00 01/17/24 08:44 01/17/24 07:00 01/17/24 08:44 01/17/24 07:00
I&O
01/16/24 01/17/24 01/18/24
06:59 06:59 06:59
Intake Total 1733.3 / 1798.3 645 / 645
Output Total 1265 / 1265 910 / 910
Balance 468.3 / 533.3 -265 / -265
Review of Systems
-
Unable to obtain full review of systems at this time due to: Dementia and Patient Non-verbal
Physical Exam
-
General: Well Developed, Well Nourished, Comfortable and Appears Chronically Ill
HEENT: Normocephalic and Atraumatic
Respiratory: Decreased Breath Sounds and Other
Cardiac: Irregular Rhythm
GI: Soft, Nontender, Nondistended and Peg Tube
Rectal: Other (rectal tube without much output)
Genito-urinary: Cain
Musculoskeletal: Other (+1 lower + upper extremity pitting edema bilaterally, abdominal wall edema/anasarca)
Skin: Other (mottled breasts--cold extremities--large sacral decubitus ulcer (picture from wound note reviewed))
Neuro: Other (Responsive to noxious stimuli, not tracking. Has been off sedation.); Negative Awake or Alert
Psych: Apparent Dementia
--- NOTE | 2024-01-17 10:27 | WOUNDNOTE ---
R 2ND TOE TIP
--- NOTE | 2024-01-17 10:29 | WOUNDNOTE ---
R THUMB (with photo flash)
--- NOTE | 2024-01-17 10:30 | WOUNDNOTE ---
L ARM (LATERAL)(with photo flash)(near elbow,upper)
--- NOTE | 2024-01-17 10:30 | WOUNDNOTE ---
R 2ND TOE TIP (with photo flash)
--- NOTE | 2024-01-17 10:32 | WOUNDNOTE ---
[facility] RN note: Patient is on a waffle air overlay. Heels off bed with pillows. Sacral ulcer edges black, wound base pink with mcbride/yellow necrotic tissue. Breast wounds pink with some necrotic brown tissue. +Anasarca. R thumb and R distal 2nd toe
purple (thumb black purple). L heel with small red ecchymotic area. R heel blanchable red and intact. Arm broken blisters pink with large amount of drainage. Wound care done and patient turned to L semi side lying position with help from [facility] RN
student Qing. Heels elevated off bed and UE's elevated on pillows. Hospitalist resident was in during visit, update given re: wounds, R thumb appearance, sacral wound appears larger with more necrotic tissue, requested pain med as patient does
appear to have pain during wound care. Resident approved any needed wound care adjustments and resident to discuss with to Dr. Cuevas re: pain med. Discussed with CHARLES Grey. Care plan to be updated. Worsening of wounds expected despite preventive
measures in place d/t patient's overall medical condition, physician documented poor prognosis. Will follow as needed.
[2024-01-17] MEDS: MYCAMINE 105 MG IV (11:42)
--- NOTE | 2024-01-17 11:52 | W.PN.ID1 ---
Date of Service
Date of Service: January 17, 2024
Today's Communication
Discontinue further antibiotics and observe.
Assessment / Plan
Clinical sepsis/septic shock
-Improved.
Large sacral decubitus
Leukocytosis - trending down
Polymicrobial bacteremia with Enterobacter, Klebsiella pneumoniae, Enterococcus
MSSA bacteremia
Lactic acidosis
S/P VDRF
Hyponatremia
Candiduria
Advanced Alzheimer's dementia
GERD
HTN
DM
Dysphagia
CKD
Recommendations:
Repeat blood cultures no growth.
White count remained stable.
Will discontinue further antibiotics with close observation.
Monitor white count and temperature curve.
Continue with local care to sacral decubiti. Suspect minimal healing potential given current clinical state and poor protein stores.
Overall condition and medical terminologist outlook remains extremely poor, with high likelihood of mortality given multiple comorbidities.
Clinically, no likelihood of a return to any reasonable quality of life. Minimal healing potential of sacral decubidi.
Patient appears hospice/palliative care appropriate.
����������������������������������������������������������
Chief Complaint
-: Leukocytosis, Clinical Sepsis, Bacteremia and Other (Stage 3-4 sacral decubidi)
Vital Signs / Physical Exam
Vital Signs
Vital Signs
Temp Pulse Resp BP Pulse Ox
98.1 F 59 18 114/61 100
01/17/24 07:00 01/17/24 08:44 01/17/24 07:00 01/17/24 08:44 01/17/24 07:00
Physical Exam
Constitutional: Comfortable, Chronically Ill and Non-toxic
Eyes: Sclera Anicteric
Cardiovascular: S1/S2; Negative S3/S4 or Murmur
Pulmonary: Clear, Coarse, Non Labored and Other
Gastrointestinal: Soft, Non Tender, Non Distended, Decreased Bowel Sounds, No Rebound, No Guarding and Other (Peg in place)
Extremities: Edema (4+) and Cyanosis (Right thumb)
Wound: Other (Sacral decubidi dressed.)
Neurological: Other (Improved responsive to voice/touch.)
Objective Data
Lab Data
Lab Results
01/17/24 06:24
01/17/24 06:24
PT 18.9 Sec (11.4-14.6) H 01/05/24 15:05
INR 1.60 01/05/24 15:05
APTT 30.3 Sec (23.4-35.0) 01/05/24 15:05
Estimated Creat Clear 62 ml/min 01/17/24 06:24
Lactic Acid 1.8 mmol/L (0.7-2.0) 01/13/24 03:31
Total Bilirubin 2.5 mg/dl (0.2-1.3) H 01/12/24 04:13
AST 100 U/L (14-36) H 01/12/24 04:13
ALT 52 U/L (0-35) H 01/12/24 04:13
Alkaline Phosphatase 122 U/L (38-126) 01/12/24 04:13
Most recent labs reviewed.
Micro Results:
01/12/24 12:14 Wound Culture - Final
Abdomen Pseudomonas aeruginosa
Stenotrophomonas maltophilia
Enterococcus faecalis
Gram Stain - Final
01/07/24 10:08 Blood Culture - Final
Blood/Venous S aureus-Methicillin Sensitive
Gram Stain - Final
01/09/24 09:07 Blood Culture - Final
Blood/Venous No Growth - Final Report
01/09/24 09:07 Blood Culture - Final
Blood/Venous No Growth - Final Report
01/07/24 10:08 Blood Culture - Final
Blood/Venous No Growth - Final Report
01/05/24 09:57 Blood Culture - Final
Blood/Venous No Growth - Final Report
01/06/24 16:06 Respiratory Culture - Final
Endotracheal Proteus Mirabilis-ESBL
S aureus-Methicillin Sensitive
Gram Stain - Final
01/05/24 11:05 Blood Culture - Final
Blood/Venous Enterococcus faecalis
Klebsiella pneumoniae-ESBL
Enterobacter cloacae
Proteus Mirabilis-ESBL
Gram Stain - Final
01/05/24 16:35 Wound Culture - Final
Coccyx Proteus species
Staphylococcus aureus
Enterococcus species
Streptococcus species
Additional testing on request
Gram Stain - Final
01/05/24 11:05 Urine Culture - Final
Urine Kerry albicans
01/05/24 17:47 Nasal Screen MRSA (PCR) - Final
Nose MRSA not detected - performed by PCR methodology.
01/05/24 11:05 Influenza Types A & B (MIGUEL) - Final
Nasal Swab Negative for Influenza A & B, NAAT
Negative results must be combined with clinical observations
and patient history.
Nucleic Acid Amplification test (NAAT)performed on the
[email or web address] platform.
Imaging:
01/08/2024 CXR (portable): Mild to moderate patchy right basilar airspace disease which is improved. Slightly improved left basilar atelectasis. Please see full dictation for additional detail.
[2024-01-17 12:04] LABS: Glucose - Point of Care 45 mg/dl (70-99)
[2024-01-17 12:33] LABS: Glucose - Point of Care 101 mg/dl (70-99)
[2024-01-17 15:00] VITALS: BP 126/48
[2024-01-17] MEDS: ProAmatine TUBE (16:33)
[2024-01-17 17:01] LABS: Glucose - Point of Care 43 mg/dl (70-99)
[2024-01-17] MEDS: LOVENOX 40 MG SC (17:19)
--- NOTE | 2024-01-17 17:26 | WOUNDNOTE ---
[facility] RN note: Dr. Cuevas resident Dr. Au had notified this proposal writer via tiger text earlier that patient's son had previously refused pain management for patient d/t zoroastrian reasons. Dr. Au was agreeable for this proposal writer to update son on
patient wound status and concern for pain. Called patient's son earlier this afternoon and son Catracho called this proposal writer back. Explained that his mother's skin is showing signs of skin failure including worsening of her sacral wound d/t her overall
poor medical condition and that patient appeared to have pain during wound care and turning. Asked Catracho if it was okay for the hospitalist to order pain med and he stated 'yes'. Updated Dr. Cuevas's resident Dr. Au via tiger text who
responded he will let Dr. Cuevas know.
[2024-01-17 18:10] LABS: Glucose - Point of Care 97 mg/dl (70-99)
[2024-01-17 19:26] LABS: Glucose - Point of Care 89 mg/dl (70-99)
[2024-01-17] MEDS: DAKIN'S SOLUTION 0.125% 1/4 STRENGTH 473 ML TOPICAL (21:10)
[2024-01-17 21:26] LABS: Glucose - Point of Care 92 mg/dl (70-99)
[2024-01-17] MEDS: LANTUS 0.100000000000000006 UNITS SC (21:48)
[2024-01-17 23:00] VITALS: BP 132/55
[2024-01-17 23:58] LABS: Glucose - Point of Care 83 mg/dl (70-99)
[2024-01-18] MEDS: NOVOLOG FLEXPEN-MODERATE RESISTANCE SC ×3 (00:28→12:18)
[2024-01-18] MEDS: ProAmatine 5 MG TUBE (00:30)
[2024-01-18 03:04] LABS: Glucose - Point of Care 69 mg/dl (70-99)
[2024-01-18 03:36] LABS: Glucose - Point of Care 116 mg/dl (70-99)
[2024-01-18 05:39] LABS: Hematocrit 27.6 % (37.0-47.0); Hemoglobin 9.1 g/dL (12.0-16.0); Mean Corpuscular Hgb 29.5 pg (27.0-31.0); Mean Corpuscular Volume 89.6 fL (81.0-99.0); Mean Platelet Volume 11.4 fL (7.4-10.4); Nucleated Red Blood Cells % 0 %; Platelet Count 148 10^3/uL (130-400); Red Blood Cell Count 3.08 10^6/uL (4.20-5.40); Red Cell Dist. Width 17.9 % (11.5-14.5); White Blood Cell Count 5.1 10^3/uL (4.8-10.8)
[2024-01-18 05:42] LABS: Glucose - Point of Care 69 mg/dl (70-99)
[2024-01-18] MEDS: DEXTROSE 50% SYRINGE 12.5 GRAMS IV (05:43)
[2024-01-18 06:23] LABS: Blood Urea Nitrogen 24 mg/dl (7-17); Calcium 7.2 mg/dl (8.4-10.2); Carbon Dioxide 29 mmol/L (22-30); Chloride 101 mmol/L (98-107); Estimated Creatinine Clearance 62 ml/min; Glucose 64 mg/dl (70-99); Potassium 3.8 mmol/L (3.5-5.1); Sodium 132 mmol/L (135-145); eGFR > 60.00
[2024-01-18 06:27] LABS: Glucose - Point of Care 107 mg/dl (70-99)
[2024-01-18 07:00] VITALS: BP 150/76
[2024-01-18 08:19] LABS: Glucose - Point of Care 85 mg/dl (70-99)
[2024-01-18 08:27] LABS: Absolute Neutrophils -Man Diff 3.2 10^3/uL (1.4-6.5); Band Neutrophils 12 % (0-3); Eosinophils 1 % (0-6); Lymphocytes 29 % (20-51); Monocytes 7 % (2-9); Segmented Neutrophils 51 % (42-75)
[2024-01-18 08:29] LABS: Anisocytosis Slight; Hypochromasia Slight; Normal RBC Morphology No; Platelets Checked Yes
[2024-01-18 08:30] LABS: Ovalocytes Slight; Total Cells Counted 100
[2024-01-18] MEDS: DAKIN'S SOLUTION 0.125% 1/4 STRENGTH 473 ML TOPICAL ×2 (08:59→21:10)
[2024-01-18] MEDS: DESENEX/MITRAZOL/ZEASORB 1 APPLIC TOPICAL ×2 (08:59→21:11)
[2024-01-18] MEDS: ProAmatine TUBE (09:38)
--- NOTE | 2024-01-18 10:44 | W.PN.HOSP.TC ---
Addendum entered and electronically signed by Elkin Cuevas MD 01/18/24 13:17:
Patient seen and examined. Plan discussed with resident. Plan discussed with pourer buggy ladle.
Discussed with patient's son at the bedside.
Impression/plan:
Severe septic shock most likely due to infected sacral decub.
VDRF, extubated with relatively stable respiratory status.
Advanced Alzheimer's dementia, mentation close to baseline.
Septic shock resolved off vasopressors on midodrine.
Continue antibiotics for another 24 to 48 hours.
Aspiration precautions, remains high risk for recurrent event.
Wound care.
Fecal diversion as much as possible,
Tube feeding advanced to the goal rate.
Continue insulin regimen adjusting accordingly
Add low-dose of morphine for pain with wound care and distress.
BP has been stable. Wean off midodrine.
Original Note:
Today's Communication/Plan
-
- Discontinue midodrine
- Anticipated discharge tomorrow if stable.
Assessment / Plan
Assessment / Plan
Impression
Septic shock
Abnormal urinalysis-urine culture Kerry
Multi pathogen bacteremia
-Multiple sources including aspiration pneumonia with left lower lobe infiltrate, UTI, stage IV sacral pressure wound with possible underlying osteomyelitis
Profound hypotension not responding to IV fluids requiring multiple vasopressors.
Ventilator dependent respiratory failure, intubated in ED on 01/04
Acute kidney injury
Lactic acidosis
Hyponatremia, severe
Hypokalemia
Atrial fibrillation with rapid medical response, new onset
Ventricular tachycardia
Conditions prior to admission.
Advanced Alzheimer's dementia
Aspiration syndrome
PEG tube in place
Type 2 diabetes/IDDM
Sacral decubital wound stage IV
Chronic ambulatory dysfunction, type rhythm.
History of COVID
Infection complicated with respiratory failure November 2019.
Plan:
Severe sepsis with polymicrobial bacteremia
Severe septic shock not responding to IV fluids and requiring multiple vasopressors
Possible sources as above also at this point could not rule out intra-abdominal source.
Initiated on broad-spectrum antibiotics including meropenem and micafungin.
Attempt to wean off vasopressors and continue midodrine
Planning for discharge with the rectal tube; discussed with the son and case management manager.
Patient is hospice eligible; repeatedly declined by family
Poor prognosis
Sacral decubital wound stage IV/breast wounds/other wounds
Sacral wound has progressed despite of preventive measures, per wound care
Family has refused pain management previously
Continue wound care management
Ventilatory dependent respiratory failure.
Weaned off continuous sedation with periodic spontaneous breath initiation while on ASV
Unresponsive and not tracking, decreased gag reflex, no reaction to noxious stimuli, occasional spontaneous respiration
Initiated on IV Lasix to facilitate extubation.
Extubated with spontaneous breathing trial today
Acute kidney injury in the settings of profound hypotension
Severe hyponatremia
Cain catheter in place.
Continue monitoring urine output closely.
Status post IV fluids with bicarbonate
Severe hyponatremia sodium 130�120.
Status post 3% solution.
Monitor BMP
Acute anemia with hemoglobin dropped to 6.
No evidence of bleeding including gastrointestinal
Appropriate response to transfusion with hemoglobin 6�8
Thrombocytopenia likely consumptive
Atrial fibrillation with rapid ventricular response--
Short runs of ventricular tachycardia
Initiated on amiodarone drip
Developed bradycardia
Amiodarone had been discontinued 01/09
Off preadmission metoprolol given hypotension
Hypoglycemia
IDDM
Resumed tube feeds on 01/13/24 and Lantus dose reduced given her hypoglycemia (previously was initiated on low rate tube feeding although with high residuals, and vomiting causing additional aspiration and tube feeding discontinued)
Given G tube leak, GI was consulted
Continue basal bolus protocol adjusting accordingly.
DVT prophylaxis: Lovenox
DNR-DNI
Anticipated Discharge: Within 24 hours
Subjective/Interval History
-
Date of Service: January 18, 2024
Objective Data
-
Labs:
Laboratory Results
01/18/24
05:21
WBC 5.1
Hgb 9.1 L
Hct 27.6 L
Plt Count 148
Sodium 132 L
Potassium 3.8
Chloride 101
Carbon Dioxide 29
BUN 24 H
Creatinine 0.5 L
Glucose 64 L
Calcium 7.2 L
Vital Signs:
Vital Signs
Temp Pulse Resp BP Pulse Ox
97.6 F 83 18 150/76 99
01/18/24 07:00 01/18/24 07:00 01/18/24 07:00 01/18/24 07:00 01/18/24 07:00
I&O
01/17/24 01/18/24 01/19/24
06:59 06:59 06:59
Intake Total 645 / 645
Output Total 910 / 910 650 / 650
Balance -265 / -265 -650 / -650
Review of Systems
-
Unable to obtain full review of systems at this time due to: Dementia and Patient Non-verbal
Physical Exam
-
General: Well Developed, Well Nourished, Comfortable and Appears Chronically Ill
HEENT: Normocephalic and Atraumatic
Respiratory: Decreased Breath Sounds and Other
Cardiac: Irregular Rhythm
Breast: Other (mottled breasts)
GI: Soft, Nontender, Nondistended and Peg Tube
Rectal: Other (rectal tube without much output)
Genito-urinary: Cain
Musculoskeletal: Other (+1 lower + upper extremity pitting edema bilaterally, abdominal wall edema/anasarca)
Skin: Other (cold extremities--large sacral decubitus ulcer (picture from wound note reviewed))
Neuro: Other (Responsive to noxious stimuli, now tracking.)
Psych: Apparent Dementia
[2024-01-18 12:03] LABS: Glucose - Point of Care 149 mg/dl (70-99)
--- NOTE | 2024-01-18 13:25 | W.PN.ID1 ---
Date of Service
Date of Service: January 18, 2024
Today's Communication
sign off.
Assessment / Plan
Clinical sepsis/septic shock
-Improved.
Large sacral decubitus
Leukocytosis - trending down
Polymicrobial bacteremia with Enterobacter, Klebsiella pneumoniae, Enterococcus
MSSA bacteremia
Lactic acidosis
S/P VDRF
Hyponatremia
Candiduria
Advanced Alzheimer's dementia
GERD
HTN
DM
Dysphagia
CKD
Recommendations:
Repeat blood cultures no growth.
White count remained stable.
Continue off abx.
Monitor white count and temperature curve.
Continue with local care to sacral decubiti. Suspect minimal healing potential given current clinical state and poor protein stores.
Overall condition and shelter outlook remains extremely poor, with high likelihood of mortality given multiple comorbidities.
Clinically, no likelihood of a return to any reasonable quality of life. Minimal healing potential of sacral decubidi.
Patient appears hospice/palliative care appropriate.
Little more to offer from an Infectious Disease standpoint.
Will see again at your request.
����������������������������������������������������������
Chief Complaint
-: Leukocytosis, Clinical Sepsis, Bacteremia and Other (Stage 3-4 sacral decubidi)
Vital Signs / Physical Exam
Vital Signs
Vital Signs
Temp Pulse Resp BP Pulse Ox
97.6 F 83 18 150/76 99
01/18/24 07:00 01/18/24 07:00 01/18/24 07:00 01/18/24 07:00 01/18/24 07:00
Physical Exam
Constitutional: No Acute Distress, Comfortable, Chronically Ill and Non-toxic
Eyes: Sclera Anicteric
Oropharyngeal: Poor Dention
Cardiovascular: S1/S2; Negative S3/S4 or Murmur
Pulmonary: Clear, Coarse, Non Labored and Other
Gastrointestinal: Soft, Non Tender, Non Distended, Decreased Bowel Sounds, No Rebound, No Guarding and Other (Peg in place)
Extremities: Edema (4+)
Wound: Other (Sacral decubidi dressed.)
Neurological: Other (Improved responsive to voice/touch.)
Objective Data
Lab Data
Lab Results
01/18/24 05:21
01/18/24 05:21
PT 18.9 Sec (11.4-14.6) H 01/05/24 15:05
INR 1.60 01/05/24 15:05
APTT 30.3 Sec (23.4-35.0) 01/05/24 15:05
Estimated Creat Clear 62 ml/min 01/18/24 05:21
Lactic Acid 1.8 mmol/L (0.7-2.0) 01/13/24 03:31
Total Bilirubin 2.5 mg/dl (0.2-1.3) H 01/12/24 04:13
AST 100 U/L (14-36) H 01/12/24 04:13
ALT 52 U/L (0-35) H 01/12/24 04:13
Alkaline Phosphatase 122 U/L (38-126) 01/12/24 04:13
Most recent labs reviewed.
Micro Results:
01/12/24 12:14 Wound Culture - Final
Abdomen Pseudomonas aeruginosa
Stenotrophomonas maltophilia
Enterococcus faecalis
Gram Stain - Final
01/07/24 10:08 Blood Culture - Final
Blood/Venous S aureus-Methicillin Sensitive
Gram Stain - Final
01/09/24 09:07 Blood Culture - Final
Blood/Venous No Growth - Final Report
01/09/24 09:07 Blood Culture - Final
Blood/Venous No Growth - Final Report
01/07/24 10:08 Blood Culture - Final
Blood/Venous No Growth - Final Report
01/05/24 09:57 Blood Culture - Final
Blood/Venous No Growth - Final Report
01/06/24 16:06 Respiratory Culture - Final
Endotracheal Proteus Mirabilis-ESBL
S aureus-Methicillin Sensitive
Gram Stain - Final
01/05/24 11:05 Blood Culture - Final
Blood/Venous Enterococcus faecalis
Klebsiella pneumoniae-ESBL
Enterobacter cloacae
Proteus Mirabilis-ESBL
Gram Stain - Final
01/05/24 16:35 Wound Culture - Final
Coccyx Proteus species
Staphylococcus aureus
Enterococcus species
Streptococcus species
Additional testing on request
Gram Stain - Final
01/05/24 11:05 Urine Culture - Final
Urine Kerry albicans
01/05/24 17:47 Nasal Screen MRSA (PCR) - Final
Nose MRSA not detected - performed by PCR methodology.
01/05/24 11:05 Influenza Types A & B (MIGUEL) - Final
Nasal Swab Negative for Influenza A & B, NAAT
Negative results must be combined with clinical observations
and patient history.
Nucleic Acid Amplification test (NAAT)performed on the
[employer] platform.
Imaging:
01/08/2024 CXR (portable): Mild to moderate patchy right basilar airspace disease which is improved. Slightly improved left basilar atelectasis. Please see full dictation for additional detail.
[2024-01-18 15:00] VITALS: BP 128/54
[2024-01-18 17:02] LABS: Glucose - Point of Care 182 mg/dl (70-99)
[2024-01-18] MEDS: LOVENOX 40 MG SC (18:25)
[2024-01-18] MEDS: NOVOLOG FLEXPEN-MODERATE RESISTANCE 1 UNITS SC (18:27)
[2024-01-18 21:38] LABS: Glucose - Point of Care 291 mg/dl (70-99)
[2024-01-18] MEDS: LANTUS 0.100000000000000006 UNITS SC (22:04)
[2024-01-18 22:55] VITALS: BP 121/55
[2024-01-19 01:23] LABS: Glucose - Point of Care 319 mg/dl (70-99)
[2024-01-19 01:23] LABS: Glucose - Point of Care 346 mg/dl (70-99)
[2024-01-19] MEDS: NOVOLOG FLEXPEN-MODERATE RESISTANCE 7 UNITS SC (01:25)
[2024-01-19] MEDS: MORPHINE SULFATE 2 MG IV (03:49)
[2024-01-19 03:54] LABS: Glucose - Point of Care 266 mg/dl (70-99)
[2024-01-19 04:01] VITALS: BP 120/45
--- NOTE | 2024-01-19 04:42 | W.PN.UPDATE ---
Addendum entered and electronically signed by TAYLOR Frias 01/19/24 06:10:
Please note the primary contact is the son Linda Hayden so please call him first with questions and concerns. I removed my order for Morphine 1 mg hourly prn for tachypnea since he did not authorize it.
Original Note:
Update Note
Progress Note Update
Nursing reports patient's respiratory rate has increased. she is tachypneic close to 50. Increased her morphine IV to hourly (1 mg for tachypnea) Call placed and message left on her son Catracho's voice mail with update on change in her condition and
contact information for myself.
[2024-01-19 05:43] LABS: Glucose - Point of Care 246 mg/dl (70-99)
[2024-01-19 05:56] LABS: Hematocrit 28.9 % (37.0-47.0); Hemoglobin 9.7 g/dL (12.0-16.0); Mean Corp Hgb Conc. 33.6 g/dL (33.0-37.0); Mean Corpuscular Hgb 29.5 pg (27.0-31.0); Mean Corpuscular Volume 87.8 fL (81.0-99.0); Mean Platelet Volume 11.2 fL (7.4-10.4); Platelet Count 176 10^3/uL (130-400); Red Blood Cell Count 3.29 10^6/uL (4.20-5.40); Red Cell Dist. Width 18.3 % (11.5-14.5)
[2024-01-19] MEDS: NOVOLOG FLEXPEN-MODERATE RESISTANCE 3 UNITS SC (06:05)
[2024-01-19 06:19] LABS: Blood Urea Nitrogen 27 mg/dl (7-17); Calcium 7.8 mg/dl (8.4-10.2); Carbon Dioxide 24 mmol/L (22-30); Chloride 104 mmol/L (98-107); Estimated Creatinine Clearance 62 ml/min; Glucose 229 mg/dl (70-99); Potassium 3.9 mmol/L (3.5-5.1); Sodium 134 mmol/L (135-145); eGFR > 60.00
[2024-01-19 06:57] LABS: Absolute Neutrophils -Man Diff 3.1 10^3/uL (1.4-6.5); Anisocytosis 1+; Band Neutrophils 19 % (0-3); Hypochromasia Slight; Lymphocytes 19 % (20-51); Monocytes 2 % (2-9); Normal RBC Morphology No; Platelets Checked Yes; Segmented Neutrophils 60 % (42-75); Total Cells Counted 100
--- NOTE | 2024-01-19 07:36 | PTCARENOTE ---
[employer] Certified Technician made aware TF site observed leaking approximately @0345 . TF stopped and disconnected. Patient's RR 50, prn morphine given x1 as ordered. Scop patch order received for excessive secretion. Pox 90% RA, O2@2lpm applied for comfort. SURGICAL SUPPLY ASSISTANT contacted
family, about change in condition.
[2024-01-19] MEDS: TRANSDERM-SCOP 1 PATCH TRANSDERM (07:38)
[2024-01-19] MEDS: DESENEX/MITRAZOL/ZEASORB 1 APPLIC TOPICAL ×2 (07:39→21:30)
[2024-01-19] MEDS: DAKIN'S SOLUTION 0.125% 1/4 STRENGTH 1 ML TOPICAL (07:39)
--- NOTE | 2024-01-19 10:51 | W.PN.HOSP.TC ---
Addendum entered and electronically signed by Elkin Cuevas MD 01/19/24 15:58:
Patient seen and examined
Discussed with resident
Discussed with patient's family at the bedside
Impression/plan
Severe septic shock most likely due to infected sacral decub.
VDRF, extubated with relatively stable respiratory status.
Advanced Alzheimer's dementia, mentation close to baseline.
Septic shock resolved off vasopressors on midodrine.
Completed course of antibiotics
Tube feeding has been advanced to the goal.
Over the last 24 hours patient developed respiratory distress with tachypnea and persistent exam with coarse bilateral rhonchi and grunting consistent with severe aspiration.
Tube feeding has been discontinued.
Initiated on scopolamine for excessive secretions.
Comfort care including opiate for respiratory distress offered to family, although declined
CODE STATUS DNR
Original Note:
Today's Communication/Plan
-
- Hold tube feeds for now
- Continue wound care, aspiration precautions and fecal diversion.
- Scopolamine patch.
Assessment / Plan
Assessment / Plan
Impression
Septic shock
Abnormal urinalysis-urine culture Kerry
Multi pathogen bacteremia
-Multiple sources including aspiration pneumonia with left lower lobe infiltrate, UTI, stage IV sacral pressure wound with possible underlying osteomyelitis
Profound hypotension not responding to IV fluids requiring multiple vasopressors.
Ventilator dependent respiratory failure, intubated in ED on 01/04
Acute kidney injury
Lactic acidosis
Hyponatremia, severe
Hypokalemia
Atrial fibrillation with rapid medical response, new onset
Ventricular tachycardia
Conditions prior to admission.
Advanced Alzheimer's dementia
Aspiration syndrome
PEG tube in place
Type 2 diabetes/IDDM
Sacral decubital wound stage IV
Chronic ambulatory dysfunction, type rhythm.
History of COVID
Infection complicated with respiratory failure November 2019.
Plan:
Severe sepsis with polymicrobial bacteremia
Severe septic shock not responding to IV fluids and requiring multiple vasopressors
Possible sources as above also at this point could not rule out intra-abdominal source.
Initiated on broad-spectrum antibiotics including meropenem and micafungin; now discontinued
Attempt to wean off vasopressors and discontinue midodrine; can re-start the latter if needed.
Planning for discharge with the rectal tube; discussed with the son and high risk case manager.
Worsening vitals noted; very poor prognosis based on natural progression of multiple comorbidities
Patient is hospice eligible; repeatedly declined by family
Sacral decubital wound stage IV/breast wounds/other wounds
Sacral wound has progressed despite of preventive measures, per wound care
Family has refused pain management previously
Continue wound care management
Add low-dose of morphine for pain with wound care and distress
Ventilatory dependent respiratory failure.
Weaned off continuous sedation with periodic spontaneous breath initiation while on ASV
Unresponsive and not tracking, decreased gag reflex, no reaction to noxious stimuli, occasional spontaneous respiration
Initiated on IV Lasix to facilitate extubation.
Extubated with spontaneous breathing trial today
Increased respiratory rate noted; 2L via NS
Very poor prognosis
Acute kidney injury in the settings of profound hypotension
Severe hyponatremia
Cain catheter in place.
Continue monitoring urine output closely.
Status post IV fluids with bicarbonate
Severe hyponatremia sodium 130�120.
Status post 3% solution.
Monitor BMP
Acute anemia with hemoglobin dropped to 6.
No evidence of bleeding including gastrointestinal
Appropriate response to transfusion with hemoglobin 6�8
Thrombocytopenia likely consumptive
Atrial fibrillation with rapid ventricular response--
Short runs of ventricular tachycardia
Initiated on amiodarone drip
Developed bradycardia
Amiodarone had been discontinued 01/09
Off preadmission metoprolol given hypotension
Hypoglycemia
IDDM
Resumed tube feeds on 01/13/24 and Lantus dose reduced given her hypoglycemia (previously was initiated on low rate tube feeding although with high residuals, and vomiting causing additional aspiration and tube feeding discontinued)
Tube feed held on 01-19-24; leaky tube
Given G tube leak, GI was consulted
Continue basal bolus protocol adjusting accordingly.
DVT prophylaxis: Lovenox
DNR-DNI
Anticipated Discharge: 24 - 48 hours
Subjective/Interval History
-
Date of Service: January 19, 2024
Objective Data
-
Labs:
Laboratory Results
01/19/24
05:46
WBC 4.0 L
Hgb 9.7 L
Hct 28.9 L
Plt Count 176
Sodium 134 L
Potassium 3.9
Chloride 104
Carbon Dioxide 24
BUN 27 H
Creatinine 0.6
Glucose 229 H
Calcium 7.8 L
Vital Signs:
Vital Signs
Temp Pulse Resp BP Pulse Ox
98.7 F 98 20 120/45 84
01/19/24 04:01 01/19/24 07:00 01/19/24 07:00 01/19/24 04:01 01/19/24 07:00
I&O
01/18/24 01/19/24 01/20/24
06:59 06:59 06:59
Intake Total 900 / 900
Output Total 650 / 650 800 / 800
Balance -650 / -650 100 / 100
Review of Systems
-
Unable to obtain full review of systems at this time due to: Dementia and Patient Non-verbal
Physical Exam
-
General: Appears in Distress and Appears Chronically Ill
HEENT: Normocephalic, Atraumatic, Moist Mucous Membranes and Anicteric
Respiratory: Decreased Breath Sounds
Cardiac: Irregular Rhythm
Breast: Other (mottled breasts)
GI: Soft, Nontender, Nondistended and Peg Tube
Rectal: Other (rectal tube without much output)
Genito-urinary: Cain
Musculoskeletal: Other (+2 lower +2 upper extremity pitting edema bilaterally, abdominal wall edema/anasarca)
Skin: Other (cold extremities--large sacral decubitus ulcer progressed)
Neuro: Other (Responsive to noxious stimuli, not tracking.)
Psych: Apparent Dementia
[2024-01-19 12:02] VITALS: BP 69/39
[2024-01-19] MEDS: NOVOLOG FLEXPEN-MODERATE RESISTANCE SC (12:55)
[2024-01-19] MEDS: DUONEB 3 ML INH (14:45)
[2024-01-19] MEDS: NSS 1000 IV (16:31)
--- NOTE | 2024-01-19 16:38 | PTCARENOTE ---
Pt son Juan came out to nurses station multiple times to ask to speak with MD, stating he was 'unhappy' with the care his mom is receiving. He also asked RN to suction the patient. RN called respiratory and received order for suctioning as well as
PRN neb treatments. Pt breath sounds are rattly and very coarse. RN tried to explain aspiration to patient's family. Scopalamine patch was placed this AM to help decrease secretions but son had RN remove it as he says it 'has nothing to do with her
condition'. Pt has purwick in place with minimal output, bladder scanned for 0ml. Son requesting fluids, MD order obtained. Pt is third spacing with +4 edema of hands. Fluids started per MD order. RR in 30's, afebrile HR 80, 94% on 2L NC, BP unable
to be obtained. Last BP was 1200 69/39, unable to obtain manual or automatic. MD aware. Son would like no medical treatment as far as pain relief goes, and states that 'she is just dehydrated'. MD in room discussing care with patient's son.
[2024-01-19] MEDS: LOVENOX 40 MG SC (17:23)
[2024-01-19 18:18] VITALS: BP 88/42
[2024-01-19] MEDS: DAKIN'S SOLUTION 0.125% 1/4 STRENGTH 473 ML TOPICAL (21:30)
[2024-01-19 23:19] VITALS: BP 94/36
[2024-01-19 23:47] LABS: Glucose - Point of Care 102 mg/dl (70-99)
[2024-01-19] MEDS: LANTUS SC (23:51)
--- NOTE | 2024-01-19 23:55 | PTCARENOTE ---
no urine output, patient bladder scanned for 28. glucose has not been done since 0600 and patient ordered lantus tonight. CLIENT ASSOCIATE Paris Faust notified and ordered entered for blood glucose checks q6h. Glucose 102 and order to hold tonights 10 units
of lantus given. plan of care ongoing.
[2024-01-20] MEDS: NSS 1000 IV ×2 (04:36→16:53)
--- NOTE | 2024-01-20 05:13 | PTCARENOTE ---
Bladder scanned patient again because she hasn't had any urine output. Bladder scan showed 65 ml in her bladder, up from 28 last night. Her rectal tube came out fully inflated last night while turning her. We placed a rectal trumpet that was
unsuccessful and I tried another rectal tube at 0445 and could not get it to stay in place. Paris Faust CURTAIN STRETCHER notified, plan of care ongoing
[2024-01-20 05:25] LABS: Glucose - Point of Care 86 mg/dl (70-99)
[2024-01-20 07:00] VITALS: BP 60/36
[2024-01-20 07:54] LABS: Glucose - Point of Care 94 mg/dl (70-99)
[2024-01-20] MEDS: DAKIN'S SOLUTION 0.125% 1/4 STRENGTH 1 ML TOPICAL (09:37)
[2024-01-20] MEDS: DESENEX/MITRAZOL/ZEASORB 1 APPLIC TOPICAL ×2 (09:38→21:03)
[2024-01-20] MEDS: MORPHINE SULFATE 1 MG IV ×2 (13:41→21:01)
[2024-01-20 15:00] VITALS: BP 85/62
--- NOTE | 2024-01-20 15:29 | W.PN.HOSP.TC ---
Today's Communication/Plan
-
Continue supportive care per
Suction
IV fluids as per family request
Low-dose of IV morphine for distress, family agreed.
Assessment / Plan
Assessment / Plan
Impression
Septic shock
Abnormal urinalysis-urine culture Kerry
Multi pathogen bacteremia
-Multiple sources including aspiration pneumonia with left lower lobe infiltrate, UTI, stage IV sacral pressure wound with possible underlying osteomyelitis
Profound hypotension not responding to IV fluids requiring multiple vasopressors.
Ventilator dependent respiratory failure, intubated in ED on 01/04
Acute kidney injury
Lactic acidosis
Hyponatremia, severe
Hypokalemia
Atrial fibrillation with rapid medical response, new onset
Ventricular tachycardia
Conditions prior to admission.
Advanced Alzheimer's dementia
Aspiration syndrome
PEG tube in place
Type 2 diabetes/IDDM
Sacral decubital wound stage IV
Chronic ambulatory dysfunction, type rhythm.
History of COVID
Infection complicated with respiratory failure November 2019.
Plan:
Severe sepsis with polymicrobial bacteremia
Severe septic shock not responding to IV fluids and requiring multiple vasopressors
Possible sources as above also at this point could not rule out intra-abdominal source.
Initiated on broad-spectrum antibiotics including meropenem and micafungin; now discontinued
Attempt to wean off vasopressors and discontinue midodrine; can re-start the latter if needed.
Planning for discharge with the rectal tube; discussed with the son and caseworker.
Worsening vitals noted; very poor prognosis based on natural progression of multiple comorbidities
Patient is hospice eligible; repeatedly declined by family
Sacral decubital wound stage IV/breast wounds/other wounds
Sacral wound has progressed despite of preventive measures, per wound care
Family has refused pain management previously
Continue wound care management
Add low-dose of morphine for pain with wound care and distress
Ventilatory dependent respiratory failure.
Weaned off continuous sedation with periodic spontaneous breath initiation while on ASV
Unresponsive and not tracking, decreased gag reflex, no reaction to noxious stimuli, occasional spontaneous respiration
Initiated on IV Lasix to facilitate extubation.
Extubated with spontaneous breathing trial today
Increased respiratory rate noted; 2L via NS
Very poor prognosis
Acute kidney injury in the settings of profound hypotension
Severe hyponatremia
Cain catheter in place.
Continue monitoring urine output closely.
Status post IV fluids with bicarbonate
Severe hyponatremia sodium 130�120.
Status post 3% solution.
Monitor BMP
Acute anemia with hemoglobin dropped to 6.
No evidence of bleeding including gastrointestinal
Appropriate response to transfusion with hemoglobin 6�8
Thrombocytopenia likely consumptive
Atrial fibrillation with rapid ventricular response--
Short runs of ventricular tachycardia
Initiated on amiodarone drip
Developed bradycardia
Amiodarone had been discontinued 01/09
Off preadmission metoprolol given hypotension
IDDM
Resumed tube feeds on 01/13/24 and Lantus dose reduced given her hypoglycemia (previously was initiated on low rate tube feeding although with high residuals, and vomiting causing additional aspiration and tube feeding discontinued).
Given aspiration and respiratory distress tube feedings had been off.
Hold standing dose of insulin.
DVT prophylaxis: Lovenox
DNR-DNI
Anticipated Discharge: > 48 hours
Subjective/Interval History
-
Date of Service: January 20, 2024
Objective Data
-
Vital Signs:
Vital Signs
Temp Pulse Resp BP Pulse Ox
98.6 F 81 22 60/36 84
01/20/24 07:00 01/20/24 07:00 01/20/24 07:00 01/20/24 07:00 01/20/24 11:00
I&O
01/19/24 01/20/24 01/21/24
06:59 06:59 06:59
Intake Total 900 / 900 0 / 0
Output Total 800 / 800
Balance 100 / 100 0 / 0
Physical Exam
-
General: Appears in Distress and Appears Chronically Ill
HEENT: Normocephalic, Atraumatic, Moist Mucous Membranes and Anicteric
Respiratory: Decreased Breath Sounds
Cardiac: Irregular Rhythm
Breast: Other (mottled breasts)
GI: Soft, Nontender, Nondistended and Peg Tube
Rectal: Other (rectal tube without much output)
Genito-urinary: Cain
Musculoskeletal: Other (+2 lower +2 upper extremity pitting edema bilaterally, abdominal wall edema/anasarca)
Skin: Other (cold extremities--large sacral decubitus ulcer progressed)
Neuro: Other (Responsive to noxious stimuli, not tracking.)
Psych: Apparent Dementia
[2024-01-20 16:56] LABS: Glucose - Point of Care 83 mg/dl (70-99)
[2024-01-20] MEDS: LOVENOX 40 MG SC (17:08)
[2024-01-20] MEDS: DAKIN'S SOLUTION 0.125% 1/4 STRENGTH 473 ML TOPICAL (21:03)
[2024-01-20 23:00] VITALS: BP 75/48
--- NOTE | 2024-01-20 23:07 | PTCARENOTE ---
Addendum entered by Deborah Shane RN 01/21/24 04:09:
plan of care ongoing. medical team aware, patient anuric the last couple days
Original Note:
Patient has no urine output. bladder scanned for 93
[2024-01-21 00:50] LABS: Glucose - Point of Care 65 mg/dl (70-99)
[2024-01-21] MEDS: LANTUS SC (00:50)
[2024-01-21] MEDS: DEXTROSE 50% SYRINGE 12.5 GRAMS IV (00:58)
[2024-01-21 01:27] LABS: Glucose - Point of Care 128 mg/dl (70-99)
[2024-01-21 04:07] LABS: Glucose - Point of Care 120 mg/dl (70-99)
[2024-01-21] MEDS: NSS 1000 IV (05:02)
[2024-01-21] MEDS: MORPHINE SULFATE 1 MG IV (05:02)
--- NOTE | 2024-01-21 05:40 | W.PN.DEATH ---
Pronouncement of
-
Called to see patient to pronounce.
No spontaneous heart tones or respirations noted.
Patient not responsive to verbal stimuli.
Patient is pronounced .
Time of : 05:35
Date of : 01/21/24
Cause of : septic shock, bacteremia, infected sacral decubitus and aspiration pneumonia
Family Notified: Yes (israil-son)
--- NOTE | 2024-01-21 05:47 | PTCARENOTE ---
patient given 1mg of morphine at 0502 for preparation of morning care. patient bladder scanned, turned on side to clean and reposition and while being turned on her right side. [employer] W[employer]ER [employer]OM[employer] Paris Faust notified and enroute to unit. Family
notifed and [facility] notified.
== END 2024-01-21 10:04 | disposition expired | DRG 870 ==
LOC: 3 WEST ACU 12:19
PROVIDERS: Internal Medicine; Internal Medicine Critical Care Medicine; Nurse Practitioner Family; Nurse Practitioner Primary Care; Student in an Organized Health Care Education/Training Program; ADMITTING PHYSICIAN Hospitalist; ATTENDING PHYSICIAN Internal Medicine; CONSULT PHYSICIAN Internal Medicine; CONSULT PHYSICIAN Internal Medicine Critical Care Medicine; CONSULT PHYSICIAN Internal Medicine Infectious Disease; EMERGENCY PHYSICIAN Emergency Medicine; FAMILY PHYSICIAN Internal Medicine; OTHER PHYSICIAN Internal Medicine Gastroenterology
PROC: 03HY32Z Insertion of Monitoring Device into Upper Artery, Percutaneous Approach (ICD-10-PCS; 2024-01-05)
PROC: 02HV33Z Insertion of Infusion Device into Superior Vena Cava, Percutaneous Approach (ICD-10-PCS; 2024-01-05)
PROC: 0BH17EZ Insertion of Endotracheal Airway into Trachea, Via Natural or Artificial Opening (ICD-10-PCS; 2024-01-05)
PROC: 5A1955Z Respiratory Ventilation, Greater than 96 Consecutive Hours (ICD-10-PCS; 2024-01-05)
PROC: 30233N1 Transfusion of Nonautologous Red Blood Cells into Peripheral Vein, Percutaneous Approach (ICD-10-PCS; 2024-01-10)
DX: A41.01 Sepsis due to Methicillin susceptible Staphylococcus aureus (principal); G92.8 Other toxic encephalopathy; J96.01 Acute respiratory failure with hypoxia; R65.21 Severe sepsis with septic shock; L89.154 Pressure ulcer of sacral region, stage 4; J69.0 Pneumonitis due to inhalation of food and vomit; J96.02 Acute respiratory failure with hypercapnia; N17.9 Acute kidney failure, unspecified; E87.0 Hyperosmolality and hypernatremia; E87.20 Acidosis, unspecified; E87.1 Hypo-osmolality and hyponatremia; B37.49 Other urogenital candidiasis; K94.23 Gastrostomy malfunction; I47.20 Ventricular tachycardia, unspecified; Z66 Do not resuscitate; Y83.3 Surgical operation with formation of external stoma as the cause of abnormal reaction of the patient, or of later complication, without mention of misadventure at the time of the procedure; Z51.5 Encounter for palliative care; E78.00 Pure hypercholesterolemia, unspecified; E11.22 Type 2 diabetes mellitus with diabetic chronic kidney disease; F02.80 Dementia in other diseases classified elsewhere, unspecified severity, without behavioral disturbance, psychotic disturbance, mood disturbance, and anxiety; G30.9 Alzheimer's disease, unspecified; I12.9 Hypertensive chronic kidney disease with stage 1 through stage 4 chronic kidney disease, or unspecified chronic kidney disease; R13.19 Other dysphagia; N18.9 Chronic kidney disease, unspecified; E11.65 Type 2 diabetes mellitus with hyperglycemia; L89.621 Pressure ulcer of left heel, stage 1; E86.0 Dehydration; I48.91 Unspecified atrial fibrillation; K21.9 Gastro-esophageal reflux disease without esophagitis; D64.9 Anemia, unspecified; D69.6 Thrombocytopenia, unspecified; R19.7 Diarrhea, unspecified; K59.00 Constipation, unspecified; R00.1 Bradycardia, unspecified; E87.6 Hypokalemia; E11.649 Type 2 diabetes mellitus with hypoglycemia without coma; R26.2 Difficulty in walking, not elsewhere classified; Z79.4 Long term (current) use of insulin; Z79.899 Other long term (current) drug therapy; Z74.01 Bed confinement status; Z86.16 Personal history of COVID-19
CPT/HCPCS: 31500; 71045; 74018; 80048; 80053; 80202; 81003; 81015; 82533; 82805; 82962; 83036; 83605; 83735; 83880; 83930; 84100; 84439; 84443; 84484; 85025; 85027; 85610; 85730; 86850; 86900; 86901; 86920; 87040; 87070; 87077; 87086; 87147; 87149; 87150; 87186; 87205; 87502; 87641; 93005; 93306; 94002; 94003; 94640; 96365; 96366; 96375; 99291; J3480; P9016; P9047